=== PATIENT | male | born 1965 | race Caucasian/White ===

== ENCOUNTER → 2020-02-11 13:00 | Outpatient (BNV) | payer OTHER, MEDICAID, SELFPAY | PROVIDERS: PCP Internal Medicine Medical Oncology; Visit Provider Internal Medicine | DX: C20 Malignant neoplasm of rectum (principal) | CPT/HCPCS: 99212; 99213; 99214; 99215 ==

== ENCOUNTER 2020-07-05 09:03 | Outpatient (REF) | payer OTHER, SELFPAY | END 2020-07-05 09:04 | disposition home or self-care (01) | LOC: HO.CT 09:03 | PROVIDERS: PCP Internal Medicine Medical Oncology; Visit Provider Internal Medicine | DX: Z13.89 Encounter for screening for other disorder (principal) ==

== ENCOUNTER 2020-08-09 10:18 | Outpatient (REF) | payer OTHER, SELFPAY ==
--- NOTE | ~2020-08-09 | CT_ITS ---
EXAMINATION: CT CHEST WITH CONTRAST CT ABDOMEN AND PELVIS WITH CONTRAST CLINICAL INFORMATION: Assess tumor response. COMPARISON: None TECHNIQUE: 5 mm thin axial and reformatted 3 mm thin sagittal and coronal images of chest, abdomen and pelvis were obtained following IV 85 mL Omnipaque 350. DLP: 134 mGy-cm. FINDINGS: CHEST: The lungs are well-inflated and clear. There is a 3 mm nodular density left upper lobe axial image 87/5, 3 mm intrabronchial nodule right upper lobe axial image 115/5, mild thickening of right major fissure and nodularity image 283/5, previously seen left fissural nodule is not visualized at this time, 2 mm subpleural nodule left lower lobe axial image 398/5, stable, 3 mm faint ground-glass nodule medial basal segment left lower lobe axial image 55/4, stable. Minimal atelectatic changes are seen in the right lung base. There are no new nodules visualized. The heart size and the great vessels are normal caliber. The thyroid lobes are symmetrical and normal. Central trachea and the bronchi are widely patent. No abnormal size mediastinal lymph nodes or mass seen. There is no pericardial effusion. Normal axillary lymph nodes seen. There is pectus excavatum deformity of the bony thorax. The chest wall is otherwise unremarkable. ABDOMEN AND PELVIS: The liver is normal size and hypoattenuated. No focal lesion or intrahepatic ductal dilatation seen. The gallbladder is contracted. The spleen is unremarkable. There is a small accessory splenule at the inferior tip. The pancreas is homogeneous in density without any focal lesion. Bilateral adrenal glands are symmetric and normal. Both kidney nephrograms are symmetrical and normal size, shape and position. No radiopaque renal calculi or hydronephrosis seen. The abdominal aorta is normal caliber. There is circumferential thrombus in the proximal and mid aorta with atherosclerotic calcification. No abnormal retroperitoneal lymph nodes or mass seen. There is scattered stool and gas seen in the colon without distention. There is a left colectomy with a left mid quadrant colostomy in place. The small bowel loops are normal caliber. There is recent ingestion of food within nondistended stomach. The abdominal wall appears unremarkable. No evidence of hernia except for a left colostomy. Imaging through the pelvis reveals mild prostate enlargement extending into the base of bladder. A prominent rectal stump is visualized, similar to previous study. No enlargement of the stump seen. There is no free fluid. There is anterior pelvic femoral-femoral [place] bypass graft. No abnormal inguinal or pelvic lymph nodes seen. Bone windows reveal no lytic or sclerotic process seen. There is superior endplate Schmorl's node T11 vertebra and a vacuum disc phenomenon at the T10-T11 disc level. There is mild nonspecific sclerosis of iliac bones at the SI joint, unchanged from previous study. CT/CT abdomen pelvis w con IMPRESSION: Stable bilateral lung nodules. No abnormal mediastinal or axillary lymph nodes. Left colectomy with a left mid quadrant colostomy. There is a small but prominent rectal stump, similar to previous study. Prostate gland is mildly enlarged extending into the base of the bladder.
[2020-08-09] MEDS: iohexoL 350 MG/ML 100 ML INFUS..BTL IV (11:39)
== END 2020-08-09 10:19 | disposition home or self-care (01) ==
LOC: HO.CT 10:18
PROVIDERS: PCP Internal Medicine Medical Oncology; Visit Provider Internal Medicine
DX: C20 Malignant neoplasm of rectum (principal)
CPT/HCPCS: 71260; 74177; Q9967

== ENCOUNTER 2021-04-26 08:22 | Outpatient (REF) | payer OTHER, SELFPAY ==
--- NOTE | ~2021-04-26 | CT_ITS ---
EXAMINATION: CT CHEST, ABDOMEN AND PELVIS WITH CONTRAST CLINICAL INFORMATION: Rectal cancer. Exam surveillance. COMPARISON: 08/09/2020 TECHNIQUE: Multidetector volumetric CT imaging of the chest, abdomen, and pelvis was performed after the administration of 85 mL of Omnipaque 350 intravenous contrast without immediate adverse reactions. DOSE LOWERING TECHNIQUES: This CT examination was performed using dose optimization techniques as appropriate, variously including the following: - Automated exposure control - Adjustment of mA and/or kV according to patient size (this includes techniques or standardized protocols for targeted exams where dose is matched to indication/reason for exam; i.e. extremities or head) - Use of iterative reconstruction technique DLP: 346 mGy-cm. FINDINGS: CHEST: LUNGS: 4 mm left lower lobe nodule series 9 image 322 is new. 3 mm right middle lobe nodule series 9 image 360 is stable. 8 mm left lower lobe nodule series 9 image 419 is new. MEDIASTINUM: Right chest port with catheter tip in the distal SVC. No mediastinal adenopathy. No pericardial effusion. The central pulmonary arteries are free of filling defect. PLEURA: There is no pleural effusion. No pleural mass or thickening. AXILLA: No lymphadenopathy. ABDOMEN AND PELVIS: LIVER, GALLBLADDER, AND BILIARY TREE: The liver is normal in size, shape, and attenuation. No focal hepatic lesion or biliary ductal dilatation is present. The gallbladder is unremarkable with no evidence of radiopaque gallstones, gallbladder wall thickening, or obvious pericholecystic inflammatory changes. PANCREAS: Unremarkable. SPLEEN: Unremarkable. ADRENAL GLANDS: Unremarkable. KIDNEYS AND URETERS: The kidneys are normal in size, shape, and attenuation. No hydronephrosis, hydroureter, or calculi seen. No perinephric stranding. BLADDER: Unremarkable. GASTROINTESTINAL TRACT: Left colectomy with colostomy left lower quadrant. Again seen is prominence of the rectal stump which is unchanged compared to prior. No evidence of bowel obstruction. ABDOMINAL WALL: No significant hernia is appreciated. LYMPH NODES: Normal. VASCULAR: No aortic aneurysm. Significant aortoiliac atherosclerotic disease with occlusion of the left iliac system and stenting of the right common iliac artery. There is a right to left cross femoral bypass which is patent. PELVIC VISCERA: The prostate is mildly enlarged. OSSEOUS STRUCTURES: Chronic anterior wedge compression fracture at T11, unchanged. No discrete metastatic disease seen. CT/CT abdomen pelvis w con IMPRESSION: New subpleural 8 mm nodule left lower lobe and new 4 mm nodule adjacent to an airway in the left lower lobe. These are possibly inflammatory. Metastatic disease is not excluded. Recommend attention on follow-up. Left colectomy with persistent mild prominence of the rectal stump. No evidence of metastatic disease in the abdomen and pelvis.
[2021-04-26] MEDS: iohexoL 350 MG/ML 100 ML INFUS..BTL IV (09:39)
== END 2021-04-26 08:23 | disposition home or self-care (01) ==
LOC: HO.CT 08:22
PROVIDERS: Visit Provider Internal Medicine
DX: C20 Malignant neoplasm of rectum (principal)
CPT/HCPCS: 71260; 74177; Q9967

== ENCOUNTER 2021-12-26 12:57 | Outpatient (REF) | payer OTHER, SELFPAY ==
--- NOTE | ~2021-12-26 | CT_ITS ---
EXAMINATION: CT CHEST, ABDOMEN AND PELVIS IV CONTRAST. CLINICAL INFORMATION: Surveillance on chemotherapy. History of rectal cancer. COMPARISON: CT chest, abdomen and pelvis 04/26/2021 and 08/09/2020. TECHNIQUE: 5 mm thin axial and reformatted 3 mm thin sagittal and coronal images of chest, abdomen and pelvis were obtained following IV 85 mL Omnipaque 350. FINDINGS: CHEST: LUNGS: Lungs are well-expanded without any acute pneumonic process. There are bilateral small pulmonary nodules largest in the left lung base medially measures 1.2 cm x 0.85 cm. Best visualized on axial 417/6. It has grown in size. Previously it measured 8 mm. There is a 7 mm nodule para bronchiolar left lower lobe image 318/6. Previously measured 4 mm. It has increased in size. Subpleural right middle lobe 4 mm nodule axial image 359/6, stable. There are punctate 1-2 mm nodules which are grossly unchanged. Mediastinum: The thyroid lobes are symmetrical and normal. The central trachea and the bronchi widely patent. Heart size and the great vessels are normal caliber. There are trace coronary artery calcifications. There is no pericardial effusion. No abnormal size mediastinal or hilar lymph nodes seen. There is a right central venous port with its tip proximal SVC. Pleura: There is no pleural effusion, thickening or mass. Axilla: Unremarkable. There is a pectus excavatum deformity of the anterior chest wall. ABDOMEN AND PELVIS: Liver, ducts and gallbladder: The liver is normal size, homogeneous density and normal contour. No focal lesion or intrahepatic ductal dilatation. There are no radiopaque gallstones or wall thickening. Spleen: Unremarkable. Pancreas: Unremarkable. Adrenal glands: Bilateral adrenal glands are symmetrical and unremarkable. Kidneys and ureters: Both kidney nephrograms are normal size, symmetrical with cortical thickness. No enhancing renal mass, cyst or hydronephrosis seen. No radiopaque calculi either. Lymphovascular structures: There is atherosclerotic changes of abdominal aorta with circumferential thrombus in the mid and the distal segment extending into the left common iliac artery where there is almost no flow seen. The right common iliac artery appears patent. There is a right to left iliac graft questioning patency. No aneurysm. No abnormal mesenteric or retroperitoneal lymph nodes seen. GI tract: Oral and there is a left lower quadrant colostomy. Distal descending, sigmoid colon has been surgically resected. A prominent rectal stump is noted and stable. The small bowel loops are normal caliber. Appendix is not seen. Pelvis: The prostate gland is mildly enlarged. The periprostatic fat planes are preserved. The prostate does extend into the base of the bladder. There is no free fluid in the pelvis. Osseous structures: There is no aggressive lytic or sclerotic process. CT/CT abdomen pelvis w IV con IMPRESSION: 1. The pulmonary nodules have increased in size. 2. No abnormal size mediastinal or hilar lymphadenopathy seen. 3. Left lower quadrant colostomy with resection of distal descending colon, sigmoid colon. A prominent rectal stump is stable. No perirectal fat stranding or abnormal pelvic or inguinal lymphadenopathy. 4. There is right to left common iliac vascular graft. Significant atherosclerotic changes of abdominal aorta with circumferential thrombus in mid and distal abdominal aorta extending left common iliac artery is noted.
[2021-12-26] MEDS: Barium Sulfate Oral (Berry) 450 ML ORAL.SUSP 900 ML PO (15:27)
[2021-12-26] MEDS: iohexoL 350 MG/ML 100 ML INFUS..BTL IV (15:27)
== END 2021-12-26 12:58 | disposition home or self-care (01) ==
LOC: HO.CT 12:57
PROVIDERS: Visit Provider Internal Medicine
DX: C20 Malignant neoplasm of rectum (principal)
CPT/HCPCS: 71260; 74177; Q9967

== ENCOUNTER → 2022-01-15 12:52 | Outpatient (BNVA) | payer OTHER, SELFPAY | PROVIDERS: PCP Internal Medicine Medical Oncology; Visit Provider Surgery Vascular Surgery | DX: I73.9 Peripheral vascular disease, unspecified (principal) | CPT/HCPCS: 99202 ==

== ENCOUNTER 2022-02-25 08:49 | Outpatient (REF) | payer OTHER, SELFPAY ==
--- NOTE | ~2022-02-25 | US_ITS ---
EXAMINATION: US RETROPERITONEAL LIMITED (AORTA) CLINICAL INFORMATION: This is a 56-year-old male with possible abdominal aortic aneurysm.. Interventional Radiologist: Delroy Gay M.D., F.S.I.R., F.A.C.R. COMPARISON: Peripheral arterial disease. Femoral-femoral bypass. TECHNIQUE: Belcher-scale, color Doppler and spectral Doppler evaluation of the abdominal aorta. FINDINGS: There is scattered atherosclerotic disease without abdominal aortic aneurysm. The measurements of the aorta in maximum AP and transverse dimensions respectively are as follows: Proximal: 2.3 cm. The velocity is 63 cm/s. Mid: 1.9 cm. The velocity is 46 cm/s. Distal: 1.7 cm. The velocity is 57 cm/s. The measurements of the common iliac arteries in maximum AP and TRV dimensions are as follows: Right Common Iliac Artery: Not seen. The right external iliac artery velocity is 215 cm/s. Left Common Iliac Artery: Not seen. The left external iliac artery is not seen. EXAMINATION: NONINVASIVE ASSESSMENT OF THE ARTERIES OF BOTH LOWER EXTREMITIES CLINICAL INFORMATION: Claudication. A right to left cross femoral bypass graft is present. COMPARISON: 06/22/2018 along with iliac angioplasty 07/16/2017 and PVR study prior to this on 03/02/2018. Duplex study dated 01/07/2019. TECHNIQUE: Segmental ankle pulse volume recording, pressure measurement at the ankle and ankle brachial indices were obtained of the lower extremity arterial system bilaterally. In addition, bilateral lower extremity duplex ultrasound was performed with velocity measurements and waveform analysis in the common femoral arteries, profunda femoris arteries, proximal mid and distal superficial femoral arteries, popliteal arteries and tibial vessels. This study was performed at rest only. FINDINGS: a) AT REST: 1. The ankle-brachial indices are: Right 1.12. (previously 1.0) and left 0.54 (previously 0.98). >0.97-1.25 = normal - no significant arterial disease. 0.75-0.96 = mild peripheral arterial disease. 0.5-0.74 = moderate peripheral arterial disease. <0.50 = severe peripheral arterial disease. 2. Segmental pressure at ankle: Normal bilaterally. 3. PVR waveform at ankle: Normal bilaterally. 4. Duplex exam. Velocities in cm/sec and phasicity as well as the presence of plaque are reported below. RIGHT LEG: Scattered plaque is seen but normal multiphasic flow is present. External iliac: 215 cm/s. Common Femoral: 1 33 cm/s and triphasic. Previously, 178 Profunda Femoris: 45 cm/s and monophasic. Proximal SFA: 1 18 cm/s and triphasic. Previously, 74.6 Mid SFA: 119 cm/s and biphasic. Previously, 60.9 Distal SFA: 82 cm/s and biphasic. Previously, 46.9 Popliteal: 46 cm/s and biphasic. Previously, 48.7 Tibial: 81 cm/s and biphasic. Previously, 49.9 There is a right to left femoral-femoral bypass graft present which appears occluded. Previously, this appeared widely patent. LEFT LEG: Scattered plaque is seen but normal multiphasic flow is present The external iliac: Not seen. Previously, 89.2 Common Femoral: 67 cm/s and monophasic. Previously, 99.6 Profunda Femoris: 17 cm/s and monophasic. Proximal SFA: 32 cm/s and monophasic. Previously, 58.8 Mid SFA: 53 cm/s and monophasic. Previously, 52.2 Distal SFA: 24 cm/s and monophasic. Previously, 40.4 Popliteal: 26 cm/s and monophasic. Previously, 53.7 Tibial: 20 cm/s and monophasic. Previously, 51 US/US abdominal aortic aneurysm IMPRESSION: 1. The femoral-femoral bypass graft appears to be occluded. This appears new. 2. The left ankle-brachial index appears to be abnormal and decreased. 3. There is no abdominal aortic aneurysm.
== END 2022-02-25 08:50 | disposition home or self-care (01) ==
LOC: HO.US 08:49
PROVIDERS: Visit Provider Surgery Vascular Surgery
DX: I73.9 Peripheral vascular disease, unspecified (principal)
CPT/HCPCS: 76706; 93923; 93925

== ENCOUNTER 2022-03-06 | Outpatient (REF) | payer OTHER, SELFPAY ==
--- NOTE | ~2022-03-06 | XR_ITS ---
EXAMINATION: XR CHEST CLINICAL INFORMATION: Cough COMPARISON: Previous chest CT most recent December 2021 TECHNIQUE: 2 views of the chest were obtained. FINDINGS: The cardiac and mediastinal contours are stable. There is a right jugular port with tip projecting over the SVC. There is subsegmental atelectasis at the left lung base. The lungs are otherwise clear. No pleural effusion or pneumothorax. There are mild degenerative changes of the spine. XR/XR chest 2V IMPRESSION: Subsegmental atelectasis at the left lung base.
== END 2022-03-06 00:01 | disposition home or self-care (01) ==
LOC: HO.XRAY
PROVIDERS: Visit Provider Internal Medicine
DX: R05.9 Cough, unspecified (principal); C20 Malignant neoplasm of rectum
CPT/HCPCS: 71046

== ENCOUNTER → 2022-03-26 10:42 | Outpatient (BNVA) | payer OTHER, SELFPAY | PROVIDERS: PCP Internal Medicine Medical Oncology; Visit Provider Surgery Vascular Surgery | DX: I73.9 Peripheral vascular disease, unspecified (principal) | CPT/HCPCS: 99212 ==

== ENCOUNTER 2022-04-18 11:18 | Outpatient (REF) | payer OTHER, SELFPAY ==
--- NOTE | ~2022-04-18 | CT_ITS ---
EXAMINATION: CT CHEST, ABDOMEN AND PELVIS WITH CONTRAST CLINICAL INFORMATION: History of rectal cancer with right lower quadrant pain and lung nodules. COMPARISON: CT of the chest, abdomen and pelvis 12/26/2021. TECHNIQUE: Multidetector volumetric imaging was performed from the thoracic inlet through the pubic symphysis following administration of 85 mL of Omnipaque 350. Sagittal and coronal reformatted images were obtained on the technologist's workstation. This CT examination was performed using dose optimization techniques as appropriate, variously including the following: *Automated exposure control *Adjustment of mA and/or kV according to patient size (this includes techniques or standardized protocols for targeted exams where dose is matched to indication/reason for exam; i.e. extremities or head) *Use of iterative reconstruction technique DLP: 834 mGy-cm FINDINGS: CHEST: LUNG: The nodule at the left lung base in the costophrenic sulcus measures 1.4 x 1.0 cm, previously about the same at 1.3 x 1.0 cm (7:410 compare prior 5:419). An additional left lower lobe nodule measuring 1.0 x 0.5 cm, previously measuring 0.8 x 0.5 cm (7:304 compare prior 5:317). There are some other tiny nodules less than 3 mm in size that are unchanged. MEDIASTINUM: The mediastinum is unremarkable. The central vascular structures are unremarkable. No hilar or mediastinal lymphadenopathy. Coronary calcifications are present. PERICARDIUM/PLEURA: No significant effusion. No pleural mass or thickening. CHEST WALL/AXILLA: Right-sided jugular chest wall port is present with its tip in the SVC. No axillary adenopathy. ABDOMEN/PELVIS: PERITONEAL SPACE: No significant free air or free fluid identified. LIVER, GALLBLADDER, BILIARY TREE: The liver is normal in size, shape, and attenuation. No focal hepatic lesion or biliary ductal dilatation is present. The gallbladder is contracted but otherwise unremarkable with no evidence of radiopaque gallstones, gallbladder wall thickening, or obvious pericholecystic inflammatory changes. PANCREAS: Unremarkable. SPLEEN: Unremarkable. A tiny splenic granuloma is present. ADRENAL GLANDS: Slightly thickened without masses. KIDNEYS AND URETERS: The kidneys are normal in size, shape, and attenuation. No hydronephrosis, hydroureter, or calculi seen. No perinephric stranding. BLADDER: Empty and poorly evaluated. GASTROINTESTINAL TRACT: There is a colostomy present in the left lower quadrant. There has been partial sigmoid resection. A short rectal pouch is present. The small bowel is unremarkable. The appendix is not seen but there is no evidence of appendicitis. ABDOMINAL WALL: No significant hernia is appreciated. LYMPH NODES: No retroperitoneal lymphadenopathy. VASCULAR: Atherosclerotic change present in the aorta with some mild infrarenal dilatation with maximal dimension of 2.6 cm. Significant calcific and noncalcific plaque is present with luminal narrowing to 1 cm. A short right common iliac artery stent is present. The exam was not tailored as a CT angiogram and therefore patency cannot be established. Severe right iliac disease is present with an occluded external iliac artery. 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 The IVC appears unremarkable. PELVIC VISCERA: Unremarkable. OSSEUS STRUCTURES: There is a compression fracture with anterior wedging of T11. CT/CT chest w IV con IMPRESSION: 1. Pulmonary nodules are minimally increased in size. 2. No evidence of metastatic disease in the abdomen or pelvis. 3. Other incidental findings as described above including severe vascular disease with stents and grafts. Fleischner guidelines were followed.
[2022-04-18] MEDS: iohexoL 350 MG/ML 100 ML INFUS..BTL IV (12:02)
== END 2022-04-18 11:19 | disposition home or self-care (01) ==
LOC: HO.CT 11:18
PROVIDERS: PCP Internal Medicine Medical Oncology; Visit Provider Internal Medicine
DX: C20 Malignant neoplasm of rectum (principal)
CPT/HCPCS: 71260; 74177; Q9967

== ENCOUNTER 2022-04-22 13:35 | Emergency (ER) | payer OTHER, SELFPAY | END 2022-04-22 17:28 | disposition left against medical advice (07) | PROVIDERS: Emergency Provider Internal Medicine; PCP Internal Medicine Medical Oncology | DX: E86.0 Dehydration (principal) ==

== ENCOUNTER 2022-09-25 08:48 | Outpatient (REF) | payer OTHER, SELFPAY ==
--- NOTE | ~2022-09-25 | US_ITS ---
EXAMINATION: Noninvasive assessment of the bilateral lower extremities with ARTERIAL DUPLEX and ANKLE BRACHIAL INDICES (ABIs). CLINICAL INFORMATION: Peripheral vascular disease. History of femorofemoral bypass graft with prior occlusion TECHNIQUE: Duplex Doppler techniques with waveform analysis and measurement of velocities in the bilateral common femoral, profunda femoris, superficial femoral, popliteal and tibial arteries were performed. Additionally, ankle pulse volume recordings, ankle pressure measurements and ankle brachial indices were obtained of the lower extremity arterial system bilaterally. The study was performed only at rest. COMPARISON: 02/25/2022 FINDINGS: DIRECT DUPLEX DOPPLER FINDINGS: [id number] femorofemoral bypass graft is occluded. This is unchanged RIGHT LEG: Common femoral artery: 71.9 cm/s, phasicity: Biphasic Profunda femoris artery: 41.2 cm/s, phasicity: Biphasic Superficial femoral artery (proximal): 77.0 cm/s, phasicity: Biphasic Superficial femoral artery (mid): 95.7 cm/s, phasicity: Biphasic Superficial femoral artery (distal): 62.7 cm/s, phasicity: Biphasic Popliteal artery: 34.3 cm/s, phasicity: Biphasic Posterior tibial artery: 54.5 cm/s, phasicity: Biphasic Peroneal artery: 33.6 cm/s, phasicity: Biphasic LEFT LEG: Common femoral artery: 24.2 cm/s, phasicity: Monophasic Profunda femoris artery: 19.4 cm/s, phasicity: Monophasic Superficial femoral artery (proximal): 28.7 cm/s, phasicity: Monophasic Superficial femoral artery (mid): 41.9 cm/s, phasicity: Monophasic. A moderate noncalcified plaque seen Superficial femoral artery (distal): 16.4 cm/s, phasicity: Monophasic Popliteal artery: 18.1 cm/s, phasicity: Monophasic Posterior tibial artery: 16.8 cm/s, phasicity: Monophasic Peroneal artery: 11.8 cm/s, phasicity: Monophasic ANKLE-BRACHIAL INDEX: Right: 1.07?, previously 1.12 Left: 0.5, previously 0.54 ANKLE PRESSURES: Right: PT 170, DP 160 Left: PT?79, DP?nondetectable ANKLE PVR WAVEFORMS: Right: Normal Left: Dampened US/US arterial duplex LE BI IMPRESSION: Right leg: Normal ankle brachial index. Patent arterial flow throughout the right lower extremity without significant stenosis Left leg: Chronically occluded femorofemoral bypass graft with decreased ankle brachial index and diffusely monophasic waveforms throughout the left lower extremity consistent with chronic occlusion of the left iliac arteries. Arterial vessels are otherwise patent YECENIA Reference: - >1.4 = calcified vessels - 0.9 - 1.4 = normal - no significant arterial disease - 0.7 - 0.89 = mild peripheral arterial disease - 0.51 - 0.69 = moderate peripheral arterial disease - ? 0.50 = severe peripheral arterial disease - < .30 = critical arterial disease
== END 2022-09-25 08:49 | disposition home or self-care (01) ==
LOC: HO.US 08:48
PROVIDERS: PCP Internal Medicine Medical Oncology; Visit Provider Surgery Vascular Surgery
DX: I70.213 Atherosclerosis of native arteries of extremities with intermittent claudication, bilateral legs (principal)
CPT/HCPCS: 93923; 93925

== ENCOUNTER → 2022-10-01 10:46 | Outpatient (BNVA) | payer OTHER, SELFPAY | PROVIDERS: PCP Internal Medicine Medical Oncology; Visit Provider Surgery Vascular Surgery | DX: I73.9 Peripheral vascular disease, unspecified (principal) | CPT/HCPCS: 99212 ==

== ENCOUNTER 2022-10-30 10:10 | Outpatient (REF) | payer OTHER, SELFPAY ==
--- NOTE | ~2022-10-30 | CT_ITS ---
EXAMINATION: CT CHEST WITH CONTRAST CLINICAL INFORMATION: Check response to treatment COMPARISON: Previous chest CT March 2022 TECHNIQUE: Multidetector volumetric CT imaging of the chest was obtained after the administration of 85 mL of Omnipaque 350 intravenous contrast without immediate adverse reactions. Axial MIP volume rendering provided. Sagittal and coronal reformatted images were obtained. This CT examination was performed using dose optimization techniques as appropriate, variously including the following: *Automated exposure control *Adjustment of mA and/or kV according to patient size (this includes techniques or standardized protocols for targeted exams where dose is matched to indication/reason for exam; i.e. extremities or head) *Use of iterative reconstruction technique DLP: 142 mGy-cm FINDINGS: LUNGS: The largest lower lobe lobe nodule measures 1.2 x 1.7 cm axial image 423 series 7 compared to 1 x 1.4 cm on previous exam and is slightly increased in size. The next largest left lower lobe nodule measures 1.2 x 1.4 cm axial image 3:15 series 7 and has increased in size from 0.5 x 1 cm on March 2022 exam. There are additional smaller pulmonary nodules that do not appear appreciably changed. Emphysema. There are increased peripheral reticular markings seen questionable for mild interstitial lung disease. No endobronchial or endotracheal lesion. MEDIASTINUM: Atherosclerotic disease of the thoracic aorta. The thoracic aorta is normal in caliber. Normal heart size. Mild coronary artery calcification. No pericardial effusion. No enlarged hilar or mediastinal lymph nodes. Right jugular port with tip projecting over the SVC. PLEURA: There is no pleural effusion. No pleural mass or thickening. AXILLA: No lymphadenopathy. UPPER ABDOMEN: Fatty liver. Contracted gallbladder. OSSEOUS STRUCTURES: Degenerative changes of the spine. Slight loss of height of the T11 vertebral body questionable for Schmorl's versus mild compression fracture similar to previous exams. CT/CT chest w IV con IMPRESSION: Interval increase in size in left lower lobe pulmonary nodules. Fleischner guidelines were followed.
--- NOTE | ~2022-10-30 | CT_ITS ---
EXAMINATION: CT ABDOMEN AND PELVIS WITH CONTRAST CLINICAL INFORMATION: Follow-up status post treatment, rectal carcinoma COMPARISON: 04/18/2022 TECHNIQUE: Multidetector volumetric images were obtained from the superior aspect of the liver through the pubic symphysis following administration 85 mL of Omnipaque 350 intravenous contrast. Sagittal and coronal reformatted images were obtained on the technologist's workstation. Oral contrast: No This CT examination was performed using dose optimization techniques as appropriate, variously including the following: *Automated exposure control *Adjustment of mA and/or kV according to patient size (this includes techniques or standardized protocols for targeted exams where dose is matched to indication/reason for exam; i.e. extremities or head) *Use of iterative reconstruction technique DLP: 350 mGy-cm FINDINGS: LUNG BASES: As per CT chest report. LIVER, GALLBLADDER, AND BILIARY TREE: The liver is normal in size, shape, and attenuation. No focal hepatic lesion or biliary ductal dilatation is present. The gallbladder is unremarkable with no evidence of radiopaque gallstones, gallbladder wall thickening, or obvious pericholecystic inflammatory changes. PANCREAS: Unremarkable. SPLEEN: Incidental splenule. ADRENAL GLANDS: Unremarkable. KIDNEYS AND URETERS: The kidneys are normal in size, shape, and attenuation. No hydronephrosis, hydroureter, or calculi seen. No perinephric stranding. BLADDER: Unremarkable. GASTROINTESTINAL TRACT: Postsurgical changes noted with colostomy left lower quadrant. Subsequently prominent rectal stump appears overall similar. There is no obstruction. Staple lines noted. Small omental/mesenteric soft tissue deposits right abdomen anteriorly measures up to 6 mm slightly more prominent than on previous. No new deposit discernible. ABDOMINAL WALL: Fat-containing right inguinal hernia noted. No incisional hernia. LYMPH NODES: Normal. VASCULAR: Atherosclerotic changes with focal dilatation of the infrarenal abdominal aorta similar measuring up to 2.6 cm. Right-sided common iliac stent across femoral bypass grafting again noted. PELVIC VISCERA: Likely invasion of the prostate gland which is enlarged by the rectal fungating mass. OSSEOUS STRUCTURES: Unremarkable. CT/CT abdomen pelvis w IV con IMPRESSION: 1. Prominent rectal stump appears overall similar. Please correlate with digital rectal exam concerning any local regional recurrence. 2. Small omental/mesenteric soft tissue deposit right abdomen slightly more prominent than on previous. Please see leary image. 3. No new findings to indicate metastatic disease. Fleischner guidelines were followed.
[2022-10-30] MEDS: iohexoL 350 MG/ML 100 ML INFUS..BTL IV (11:06)
== END 2022-10-30 10:11 | disposition home or self-care (01) ==
LOC: HO.CT 10:10
PROVIDERS: PCP Internal Medicine Medical Oncology; Visit Provider Internal Medicine
DX: C20 Malignant neoplasm of rectum (principal)
CPT/HCPCS: 71260; 74177; Q9967

== ENCOUNTER 2022-11-08 10:49 | Outpatient (AMB) | payer OTHER, SELFPAY ==
--- NOTE | 2022-11-08 10:52 | MHC.OFFVIS ---
Intake Vital Signs 11/08/22 11:00 Height 5 ft 4 in Weight 171 lb BMI 29.3 BP 169/80 H Blood Pressure Location Lt brachial Position Sitting Pulse 86 Intake Visit Reasons: Hernia, right groin Intake Note: Patient is seen in office for evaluation and treatment of right groin hernia. 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: No Accompanied by: Family/Other Allergies Sulfa (Sulfonamide Antibiotics) Allergy (Unknown, Verified 11/08/22 10:58) Unknown sulfamethoxazole [From BACTRIM] Allergy (Unknown, Verified 11/08/22 10:58) NAUSEA,WEAKNESS trimethoprim [From BACTRIM] Allergy (Unknown, Verified 11/08/22 10:58) NAUSEA,WEAKNESS Medication List - Last Reconciled 11/11/22 by Mulugeta Melendez MD acetaminophen (Tylenol) 650 mg PO Q6H PRN amlodipine 5 mg PO DAILY dexamethasone 4 mg PO BID diphenhydramine HCl (Benadryl Allergy) 25 mg PO QID PRN famotidine 20 mg PO DAILY gabapentin 600 mg PO TID levofloxacin 250 mg PO DAILY lidocaine 4% 1 appl topical DAILY PRN loperamide 2 mg PO Q4H PRN magnesium oxide 400 mg PO DAILY ondansetron HCl 8 mg PO Q8H PRN tamsulosin 0.4 mg PO BEDTIME tramadol 50 mg PO BID PRN HPI HPI Comments History of Present Illness Details 56-year-old male patient recently diagnosed with rectal cancer and subsequent local recurrence requiring a perineal resection and descending colostomy. Patient has a history of peripheral vascular disease and review previously underwent a fem-fem bypass graft. He now has a palpable lump in the right groin which has gradually increased in size and is causing discomfort. He denies nausea, vomiting, fever, or chills. He denies a previous history of hernia surgeries. A CT abdomen and pelvis was obtained which does confirm a fat containing right inguinal hernia. No left inguinal hernia could be identified. He presents to discuss possible repair of the right inguinal hernia. [facility] Medical History (Updated 11/11/22 @ 16:06 by Mulugeta Melendez MD) Colostomy in place Degenerative joint disease Edentulous GERD (gastroesophageal reflux disease) Kidney stones Local recurrence of rectal cancer Neuropathy Peripheral vascular disease Spinal stenosis Surgical History (Updated 11/11/22 @ 16:04 by Mulugeta Melendez MD) H/O exploratory laparotomy H/O knee surgery History of laparoscopic appendectomy S/P epidural steroid injection Status post femorofemoral bypass surgery (03/30/18) Family History Father CAD (coronary artery disease) Social History Household Members: Spouse Housing: Apartment Are you a primary care technician to a significant other at home: No Do you presently have visiting nurse or other home services: No Alcohol intake: former Patient Tobacco Use Status: Former Tobacco user Quit Date: 2015 Tobacco use type: Cigarette Cigarette Packs Per Day: 2 Substance Use Type: Marijuana Advance Directives Date on File: 01/27/20 service: No Current occupational status: disabled Review of Systems Const All systems reviewed & are unremarkable except as noted in HPI and below Physical Exam Vital Signs: Last Vital Signs Pulse 86 11/08/22 11:00 BP 169/80 H 11/08/22 11:00 BMI result Body Mass Index 29.3 Const General: cooperative and no acute distress Nutritional Appearance: well nourished Orientation/consciousness: patient oriented x3 Limitations: no limitations HEENT Head: Yes normocephalic and Yes atraumatic Ears: hearing grossly normal bilaterally Resp Effort & Inspection: normal respiratory effort, no audible wheezes, no cough and no respiratory distress Cardio Jugular venous distension: no JVD GI Other: Colostomy in left lower quadrant. Patient examined in the standing position with Valsalva maneuvers. He is identified under right inguinal hernias identified, partially reducible with light pressure although not completely. Pulsation from the previous fem-fem bypass is also identified. Inspection: Yes normal to inspection Palpation (GI): Soft to palpation, nontender, no guarding and not rigid Skin Other: Warm, dry, no rash Neuro General: patient oriented x3 Extrem General: Yes no clubbing, cyanosis or edema Assessment & Plan Assessment & Plan (1) Right inguinal hernia: Code(s): K40.90 - Unilateral inguinal hernia, without obstruction or gangrene, not specified as recurrent (2) Status post femorofemoral bypass surgery: Onset Date: 03/30/18 Code(s): Z95.828 - Presence of other vascular implants and grafts (3) Rectal cancer: Code(s): C20 - Malignant neoplasm of rectum Plan 56-year-old male patient presenting with a right inguinal hernia with a previous history of rectal cancer and peripheral vascular disease with a fem-fem crossover bypass. On examination the right inguinal hernia is partially but not completely reducible and tender to palpation. I therefore recommended repair of this large right inguinal hernia possibly with mesh. After a discussion of the procedure, risks, and alternatives, he consents to the repair of right inguinal hernia with mesh. He will be scheduled as a short-stay surgery at his earliest convenience. Coding Level of Care Code New Pt Level 4 (83379) Diagnoses Right inguinal hernia K40.90 Status post femorofemoral bypass surgery Z95.828 Rectal cancer C20
[2022-11-08 11:00] VITALS: BP 169/80; PULSE 86; BMI 29.3
== END 2022-11-08 11:49 | disposition home or self-care (01) ==
PROVIDERS: PCP Internal Medicine Medical Oncology; Referring Provider Internal Medicine Medical Oncology; Visit Provider Surgery
DX: K40.90 Unilateral inguinal hernia, without obstruction or gangrene, not specified as recurrent (principal); Z95.828 Presence of other vascular implants and grafts; C20 Malignant neoplasm of rectum
CPT/HCPCS: 99204

== ENCOUNTER → 2022-11-08 10:49 | Outpatient (BNVA) | payer OTHER, SELFPAY | PROVIDERS: PCP Internal Medicine Medical Oncology; Referring Provider Internal Medicine Medical Oncology; Visit Provider Surgery | DX: K40.90 Unilateral inguinal hernia, without obstruction or gangrene, not specified as recurrent (principal); C20 Malignant neoplasm of rectum; Z95.828 Presence of other vascular implants and grafts | CPT/HCPCS: 99202 ==

== ENCOUNTER 2023-01-13 05:57 | Day surgery (SDC) | payer OTHER, SELFPAY ==
[2023-01-08 15:18] VITALS: BMI 29.3
--- NOTE | 2023-01-09 14:36 | P.CONAN_ITS ---
Documented by User: Dahlia Hollis NP 01/09/23 14:48 HPI - Anesthesia Eval Consult details Narrative: 57yo M for Right Hernia Repair Inguinal with mesh Chemo for rectal cancer, increase in pulm nodule size 10/2022. Chemo with last dose 10/2022. Held for per Dr Enriquez for hernia surgery s/p proctectomy with permanent colostomy 2019 [facility] Active Problems Active Problems: All Active Problems (Updated 01/08/23 @ 15:15 by Elmira Mcfarlane RN) Right inguinal hernia (Acute) PAD (peripheral artery disease) (Acute) Rectal cancer (Chronic) Status post femorofemoral bypass surgery (Acute 03/30/18) Past Medical History Medical History COPD (chronic obstructive pulmonary disease) GERD (gastroesophageal reflux disease) Edentulous Local recurrence of rectal cancer Degenerative joint disease Colostomy in place Neuropathy Spinal stenosis Peripheral vascular disease Kidney stones Family History Family History Father CAD (coronary artery disease) Surgical History Surgical History History of esophagogastroduodenoscopy (EGD) H/O colonoscopy Status post femorofemoral bypass surgery (03/30/18) S/P epidural steroid injection H/O knee surgery H/O exploratory laparotomy History of laparoscopic appendectomy Social History Social History Household Members: Spouse Housing: Apartment Are you a primary animal care technician to a significant other at home: No Do you presently have visiting nurse or other home services: No Alcohol intake: former Patient Tobacco Use Status: Former Tobacco user Quit Date: 2015 Tobacco use type: Cigarette Cigarette Packs Per Day: 2 Use of substances other than those prescribed or required for medical reasons: Yes Substance Use Type: Marijuana Have you been hit, kicked, punched, or otherwise hurt by someone within the past year? If so, by whom?: No Advance Directives: Yes Advance Directives Information Provided: Yes Advance Directives on File: Yes Advance Directives Date on File: 01/27/20 Recently lost weight without trying: No service: No Current occupational status: disabled Meds Allergies Allergy/AdvReac Type Severity Reaction Status Date / Time Sulfa (Sulfonamide Allergy Intermediate NAUSEA,WEAK Verified 01/13/23 06:17 Antibiotics) NESS sulfamethoxazole Allergy Intermediate NAUSEA,WEAK Verified 01/13/23 06:17 [From BACTRIM] NESS trimethoprim [From BACTRIM] Allergy Intermediate NAUSEA,WEAK Verified 01/13/23 06:17 NESS Home Medications Medication Instructions Recorded Confirmed Last Taken Type acetaminophen 325 mg capsule 650 mg PO Q6H PRN Pain 01/26/20 01/08/23 Unknown History (Tylenol) ondansetron HCl 8 mg tablet 8 mg PO Q8H PRN Pain 01/26/20 01/08/23 Unknown History tamsulosin 0.4 mg capsule 0.4 mg PO BEDTIME 01/26/20 01/08/23 Unknown History diphenhydramine HCl 25 mg tablet 25 mg PO QID PRN Allergy Symptoms 01/17/21 01/08/23 Unknown History (Benadryl Allergy) famotidine 20 mg tablet 20 mg PO DAILY 01/17/21 01/08/23 Unknown History loperamide 2 mg capsule 2 mg PO Q4H PRN Diarrhea 01/17/21 01/08/23 Unknown History gabapentin 600 mg tablet 600 mg PO TID 09/19/21 01/08/23 Unknown History Exam Exam Date and Time: January 09, 2023 1436 Height,Weight and Vital Signs: Height 5 ft 4 in Weight 77.564 kg Pertinent Lab Results Pertinent Lab Results: Laboratory Tests 01/01/23 09:40 WBC 5.2 Hgb 13.6 L Hct 42.6 Plt Count 255 Sodium 139 Potassium 4.0 Chloride 106 Carbon Dioxide 27 BUN 7 L Creatinine 0.79 Assessment and Plan Assessment Anesthesia Assessment: Chart Reviewed Documented by User: Huey Ramirez MD 01/13/23 07:30 [facility] Past Medical History Medical History COPD (chronic obstructive pulmonary disease) GERD (gastroesophageal reflux disease) Edentulous Local recurrence of rectal cancer Degenerative joint disease Colostomy in place Neuropathy Spinal stenosis Peripheral vascular disease Kidney stones Family History Family History Father CAD (coronary artery disease) Family history of problems with anesthesia: No Surgical History Surgical History History of esophagogastroduodenoscopy (EGD) H/O colonoscopy Status post femorofemoral bypass surgery (03/30/18) S/P epidural steroid injection H/O knee surgery H/O exploratory laparotomy History of laparoscopic appendectomy History of Problems with Anesthesia: No Social History Social History Household Members: Spouse Housing: Apartment Are you a primary animal care technician to a significant other at home: No Do you presently have visiting nurse or other home services: No Alcohol intake: former Patient Tobacco Use Status: Former Tobacco user Quit Date: 2015 Tobacco use type: Cigarette Cigarette Packs Per Day: 2 Use of substances other than those prescribed or required for medical reasons: Yes Substance Use Type: Marijuana Have you been hit, kicked, punched, or otherwise hurt by someone within the past year? If so, by whom?: No Advance Directives: Yes Advance Directives Information Provided: Yes Advance Directives on File: Yes Advance Directives Date on File: 01/27/20 Recently lost weight without trying: No service: No Current occupational status: disabled Meds Allergies Allergy/AdvReac Type Severity Reaction Status Date / Time Sulfa (Sulfonamide Allergy Intermediate NAUSEA,WEAK Verified 01/13/23 06:17 Antibiotics) NESS sulfamethoxazole Allergy Intermediate NAUSEA,WEAK Verified 01/13/23 06:17 [From BACTRIM] NESS trimethoprim [From BACTRIM] Allergy Intermediate NAUSEA,WEAK Verified 01/13/23 06:17 NESS Home Medications Medication Instructions Recorded Confirmed Last Taken Type acetaminophen 325 mg capsule 650 mg PO Q6H PRN Pain 01/26/20 01/08/23 Unknown History (Tylenol) ondansetron HCl 8 mg tablet 8 mg PO Q8H PRN Pain 01/26/20 01/08/23 Unknown History tamsulosin 0.4 mg capsule 0.4 mg PO BEDTIME 01/26/20 01/08/23 Unknown History diphenhydramine HCl 25 mg tablet 25 mg PO QID PRN Allergy Symptoms 01/17/21 01/08/23 Unknown History (Benadryl Allergy) famotidine 20 mg tablet 20 mg PO DAILY 01/17/21 01/08/23 Unknown History loperamide 2 mg capsule 2 mg PO Q4H PRN Diarrhea 01/17/21 01/08/23 Unknown History gabapentin 600 mg tablet 600 mg PO TID 09/19/21 01/08/23 Unknown History Exam Airway Mallampati Class: II TM Dist: >3cm Neck ROM: Full Heart: rrr Lungs: cta Assessment and Plan Final Anesthetic Review Family History of Problems with Anesthesia: No History of Problems with Anesthesia: No NPO: Yes ASA Class: III Patient Risk: Intermediate Procedure Risk: Intermediate Anesthetic Plan Anesthetic Plan: GA and Agree w/ Assess. and Plan Disposition: Standard PACU
[2023-01-13] VITALS (12 sets, daily range): BP systolic 132–196; BP diastolic 75–88; PULSE 61–87; RESP 12–18; TEMP 36.4–36.8; O2SAT 93–100
--- NOTE | 2023-01-13 05:59 | ECG_ITS ---
Test Reason : pre op Blood Pressure : / mmHG Vent. Rate : 079 BPM Atrial Rate : 079 BPM P-R Int : 136 ms QRS Dur : 092 ms QT Int : 390 ms P-R-T Axes : 070 049 054 degrees QTc Int : 447 ms Sinus rhythm with occasional Premature ventricular complexes Otherwise normal ECG When compared with ECG of 22-MAR-2020 12:46, Premature ventricular complexes are now Present Referred By: Dahlia Hollis Electronically Signed By:ERIC GARCIA
[2023-01-13] MEDS: Lactated Ringers 1,000 ML 100 ML IVCONT (06:26)
--- NOTE | 2023-01-13 06:44 | PC.NURSE ---
patient stated he was petrified of IV insertions. used best vein available in right hand.
--- NOTE | 2023-01-13 07:15 | MHC.SHP ---
Pre-Procedural Eval Section A Date of Service: 01/13/23 The patient is an INPATIENT: No Changes since office visit: Yes Patient answered all questions; No Cold of Flu in the past 2 weeks, No New Medical Problems and No Changes in Medication The History & Physical has been completed within 30 days and I have reviewed it.: No Section B Chief Complaint: Unilateral inguinal hernia, without obstruction or Details of Present Illness: Patient receiving treatment for recurrent rectal cancer; denies any new hernia symptoms Relevant Family History (Specify if Yes): No Relevant Social History: None Present Medications: see Short Stay Collaborative assessment Medical History: Significant History (recurrent rectal ca, PAD s/p fem-fem bypass) History of Previous Operations: Relevant previous surgery/procedure and date(s) (APR, fem-fem bypass) Allergies: Allergies Allergy/AdvReac Type Severity Reaction Status Date / Time Sulfa (Sulfonamide Allergy Intermediate NAUSEA,WEAK Verified 01/13/23 06:17 Antibiotics) NESS sulfamethoxazole Allergy Intermediate NAUSEA,WEAK Verified 01/13/23 06:17 [From BACTRIM] NESS trimethoprim [From BACTRIM] Allergy Intermediate NAUSEA,WEAK Verified 01/13/23 06:17 NESS Review of Systems Sugical H&P ROS: Negative: Constitution, Cardiovascular, Respiratory, Neurological, Psychiatric, Hem-Onc, Allergic/Immunologic, Gastrointestinal, Genitourinary, Musculoskeletal, Integumentary, Endocrine and Eyes/Ears/Nose/Throat Exam Surgical H&P Exam: Normal: HEENT, Normal: Heart, Normal: Lungs, Normal: Extremities, Normal: Abdomen, Normal: Skin and Normal: Neurological Plan Diagnosis/Plan: Unchanged I have reviewed the history and physical and performed a pertinent physical examination on my patient. No changes have occurred unless specified. Time Spent With Patient Time: Total time managing care of this patient today ____ minutes.
--- NOTE | 2023-01-13 08:32 | P.OP_ITS ---
Operative Note Operative Note Date of Service: 01/13/23 Narrative: Preoperative diagnosis: Right inguinal hernia Postoperative diagnosis: Same Procedure: Repair of right inguinal hernia Surgeon: Mulugeta Melendez MD Airport Maintenance Laborer: Taylor Rueda PA-C Anesthesia: General LMA Indications for procedure: 57 year old male patient with history of fem-fem bypass and APR for recurrent rectal ca, presenting with a symptomatic right inguinal hernia. Hernia increases with Valsalva and reduces with light pressure. Operative findings:. Indirect right inguinal hernia Specimen: right inguinal hernia sac and lipoma Estimated blood loss: < 2 mls Complications: none Procedure details: Patient was brought to the OR and placed in a supine position. After administering general anesthesia the patient's abdomen was prepped with ChloraPrep and draped in a sterile fashion. A surgical time-out was called the consent confirmed. Patient received preoperative antibiotics and Venodyne boots were in place. Local anesthesia consisting of 0.5% Sensorcaine with epinephrine was infiltrated over the right inguinal ligament. Incision was then made in oblique fashion over the inguinal ligament. This carried out through subcutaneous tissue past Jyoti's fashion up to the external oblique aponeurosis. Additional local was infiltrated below the external oblique aponeurosis. This was then incised with a scalpel wide with the Metzenbaum scissors. Spermatic cord was then dissected free from the surrounding inguinal canal and retracted using a Nancy drain. The floor of the inguinal canal was examined and no direct hernia was identified. Fibers of the cremasteric muscle were then and an indirect sac was identified. This was dissected down to the internal ring. The sac was then opened and the contents reduced. Sac with ligated with 0 polysorb suture. The sac was then divided above this. This was sent to the specimen. The sac was then reduced into the abdominal cavity. Attention was then directed to the direct space which was divided between Allis clamps. The preperitoneal space was then created. This was opened further using an open Ray-Elias sponge. A medium PHS mesh was then obtained. The circular underlay was placed into the preperitoneal space and deployed. The overlay was then secured to the pubic tubercle conjoined tendon shelving edge of the inguinal ligament using interrupted 0 Polysorb sutures. A slit was made in the mesh and the mesh were wrapped around the spermatic cord at the internal ring. This was then secured to the shelving edge of the inguinal ligament using the 0 Polysorb suture. This was felt to be loose enough to allow the tip of an index finger to pass. Wounds were checked for hemostasis. Wounds were irrigated with saline solution and suctioned dry. External oblique aponeurosis was then closed using a running 2 0 Polysorb suture. Jyoti's fascia and dermis reapproximated using interrupted 3-0 Polysorb sutures. Skin was then closed using a running subcuticular 4-0 Polysorb suture. Steri-Strips 2 x 2 gauze and Tegaderm were then applied. The patient tolerated the procedure well. Sponge, instrument, needle counts reported as correct. Patient was transferred to PACU in stable condition.
[2023-01-13] MEDS: HYDROmorphone HCl 0.5 MG/0.5 ML SYRINGE 0.25 MG IVPUSH (09:22)
[2023-01-13] MEDS: Ondansetron ODT 4 MG TAB.RAPDIS TRANSLINGU (10:38)
== END 2023-01-13 11:38 | disposition home or self-care (01) ==
PROVIDERS: PCP Internal Medicine Medical Oncology; Visit Provider Surgery
PROC: (CPT 49505; principal; 2023-01-13 07:30)
DX: K40.90 Unilateral inguinal hernia, without obstruction or gangrene, not specified as recurrent (principal); D17.1 Benign lipomatous neoplasm of skin and subcutaneous tissue of trunk; C20 Malignant neoplasm of rectum; I73.9 Peripheral vascular disease, unspecified; Z95.820 Peripheral vascular angioplasty status with implants and grafts; Z93.3 Colostomy status; Z79.899 Other long term (current) drug therapy; Z88.1 Allergy status to other antibiotic agents; Z88.2 Allergy status to sulfonamides; Z87.891 Personal history of nicotine dependence; F12.90 Cannabis use, unspecified, uncomplicated
CPT/HCPCS: 49505; 88302; 88304; 93005; C1781; C9088; J0131; J0690; J1170; J2405; J3010

== ENCOUNTER → 2023-01-13 05:57 | Outpatient (BNV) | payer OTHER, SELFPAY | PROVIDERS: PCP Internal Medicine Medical Oncology; Visit Provider Surgery | DX: K40.90 Unilateral inguinal hernia, without obstruction or gangrene, not specified as recurrent (principal) | CPT/HCPCS: 49505 ==

== ENCOUNTER 2023-01-30 08:24 | Outpatient (AMB) | payer OTHER, SELFPAY ==
[2023-01-30 08:30] VITALS: BP 143/80; PULSE 91; BMI 30.1
--- NOTE | 2023-01-30 08:30 | A.OFFVIS_ITS ---
Intake Vital Signs 01/30/23 08:30 Height 5 ft 4 in Weight 175 lb 4 oz BMI 30.1 BP 143/80 H Blood Pressure Location Lt brachial Position Sitting Pulse 91 Intake Visit Reasons: S/P RIH w/mesh Intake Note: Patient is seen in office for post op assessment post right inguinal hernia repair. 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 Melendez. He is here for a postop visit. He currently denies significant complaints. [facility] Medical History COPD (chronic obstructive pulmonary disease) GERD (gastroesophageal reflux disease) Edentulous Local recurrence of rectal cancer Degenerative joint disease Colostomy in place Neuropathy Spinal stenosis Peripheral vascular disease Kidney stones Surgical History H/O right inguinal hernia repair (01/13/23) History of esophagogastroduodenoscopy (EGD) H/O colonoscopy Status post femorofemoral bypass surgery (03/30/18) S/P epidural steroid injection H/O knee surgery H/O exploratory laparotomy History of laparoscopic appendectomy Family History Father CAD (coronary artery disease) Social History Household Members: Spouse Housing: Apartment Are you a primary inspector health care facilities to a significant other at home: No Do you presently have visiting nurse or other home services: No Alcohol intake: former Patient Tobacco Use Status: Former Tobacco user Quit Date: 2015 Tobacco use type: Cigarette Cigarette Packs Per Day: 2 Substance Use Type: Marijuana Advance Directives Date on File: 01/27/20 service: No Current occupational status: disabled Review of Systems Const Denies chills and Denies fever(s) Card Denies chest pain, Denies dyspnea and Denies dyspnea on exertion Resp Denies cough, Denies dyspnea and Denies dyspnea on exertion GI Denies hematochezia and Denies change in bowel habits Denies hematuria and Denies difficulty urinating Musc Denies back pain and Denies limited range of motion Neuro Denies focal weakness and Denies convulsions Psych Denies depression and Denies mood swings Physical Exam Const General: comfortable and no acute distress Resp Effort & Inspection: normal respiratory effort GI Other: Incision on the right groin is well healed, not infected, repair appears intact Palpation (GI): Soft to palpation, not firm and nontender Assessment & Plan Assessment & Plan (1) Right inguinal hernia: Code(s): K40.90 - Unilateral inguinal hernia, without obstruction or gangrene, not specified as recurrent Plan: Status post repair of a right inguinal hernia with mesh, with Dr. Melendez. He is doing very well postoperatively. His incision is well healed. The repair site is intact. He was advised to avoid lifting more than 20 lb for at least 2 more weeks. He can follow up on a p.r.n. basis. He has ongoing chemotherapy for lung cancer and is okay to continue with this. Coding Level of Care Code Global (94100) Diagnoses Right inguinal hernia K40.90
== END 2023-01-30 08:40 | disposition home or self-care (01) ==
PROVIDERS: PCP Internal Medicine Medical Oncology; Visit Provider Surgery
DX: K40.90 Unilateral inguinal hernia, without obstruction or gangrene, not specified as recurrent (principal)
CPT/HCPCS: 99024

== ENCOUNTER → 2023-01-30 08:24 | Outpatient (BNVA) | payer OTHER, SELFPAY | PROVIDERS: PCP Internal Medicine Medical Oncology; Visit Provider Surgery ==

== ENCOUNTER 2023-07-07 09:51 | Outpatient (REF) | payer OTHER, SELFPAY ==
[2023-07-07 11:10] LABS: MANUAL DIFF FLAG NO
[2023-07-07 11:29] LABS: Basophils Absolute Auto 0.1 X10*3/uL (0.0-0.2); Basophils Percent Auto 0.7 % (0-2); Eosinophils Absolute Auto 0.2 X10*3/uL (0.0-0.4); Eosinophils Percent Auto 2.5 % (0-4); Hematocrit 48.1 % (42.0-52.0); Hemoglobin 15.6 g/dl (14.0-18.0); Imm Gran Abs Auto 0.04 X10*3/uL (0.00-0.03); Imm Gran Pct Auto 0.5 % (0.0-0.4); Lymphocytes Absolute Auto 2.5 X10*3/uL (1.2-4.9); Lymphocytes Percent Auto 28.4 % (20-40); Mean Corpuscular HGB Conc 32.4 g/dl (31.0-36.0); Mean Corpuscular Volume 92.5 fL (80.0-98.0); Mean Platelet Volume 9.7 fL (9.4-12.4); Monocytes Absolute Auto 0.6 X10*3/uL (0.1-1.2); Monocytes Percent Auto 7.3 % (2-11); Neutrophils Absolute Auto 5.3 x10*3/uL (2.0-8.3); Neutrophils Percent Auto 60.6 % (45-73); Platelet Count 260 X10*3/uL (160-400); Red Cell Distribution Width 13.9 % (11.0-16.0); White Blood Count 8.7 X10*3/uL (4.8-10.8)
[2023-07-07 11:40] LABS: Alanine Aminotransferase 22 U/L (0-40); Albumin Level 4.5 g/dL (3.5-5.0); Alkaline Phosphatase 86 U/L (39-117); Anion Gap 15 (12-20); Aspartate Amino Transferase 21 U/L (5-37); Bilirubin Total 0.4 mg/dL (0.0-1.0); Blood Urea Nitrogen 8 mg/dL (9-16); Calcium 9.8 mg/dL (8.4-10.2); Carbon Dioxide 29 mmol/L (22-29); Chloride 100 mmol/L (96-108); Cholesterol 265 mg/dL (<200); Estimated Glomerular Filt Rate > 60; Glucose Fasting 98 mg/dL (60-99); HDL Cholesterol 46 mg/dL (>40); LDL Cholesterol Calculated 187 mg/dL (<100); Sodium 140 mmol/L (135-145); Total Protein 7.9 g/dL (6.5-8.0); Triglycerides 163 mg/dL (<150)
[2023-07-07 12:02] LABS: Prostate Specific Antigen 4.39 ng/mL (<0.05-4.0)
== END 2023-07-07 09:52 | disposition home or self-care (01) ==
LOC: HO.HMGCLDS 09:51
PROVIDERS: PCP Internal Medicine Medical Oncology; Visit Provider Internal Medicine Medical Oncology
DX: E66.3 Overweight (principal); N40.0 Benign prostatic hyperplasia without lower urinary tract symptoms; C20 Malignant neoplasm of rectum
CPT/HCPCS: 36415; 80053; 80061; 82378; 84153; 85025

== ENCOUNTER 2023-07-09 11:47 | Outpatient (REF) | payer OTHER, SELFPAY ==
[2023-07-09 13:31] LABS: MANUAL DIFF FLAG NO
[2023-07-09 13:40] LABS: Basophils Absolute Auto 0.1 X10*3/uL (0.0-0.2); Basophils Percent Auto 0.6 % (0-2); Eosinophils Absolute Auto 0.2 X10*3/uL (0.0-0.4); Eosinophils Percent Auto 1.6 % (0-4); Hematocrit 49.1 % (42.0-52.0); Imm Gran Abs Auto 0.04 X10*3/uL (0.00-0.03); Imm Gran Pct Auto 0.4 % (0.0-0.4); Lymphocytes Absolute Auto 2.5 X10*3/uL (1.2-4.9); Lymphocytes Percent Auto 27.2 % (20-40); Mean Corpuscular HGB Conc 32.6 g/dl (31.0-36.0); Mean Corpuscular Volume 92.1 fL (80.0-98.0); Mean Platelet Volume 9.6 fL (9.4-12.4); Monocytes Absolute Auto 0.7 X10*3/uL (0.1-1.2); Monocytes Percent Auto 7.1 % (2-11); Neutrophils Absolute Auto 5.8 x10*3/uL (2.0-8.3); Neutrophils Percent Auto 63.1 % (45-73); Platelet Count 249 X10*3/uL (160-400); Red Blood Count 5.33 X10*6/uL (4.60-5.80); Red Cell Distribution Width 13.7 % (11.0-16.0); White Blood Count 9.2 X10*3/uL (4.8-10.8)
[2023-07-09 14:09] LABS: Alanine Aminotransferase 24 U/L (0-40); Albumin Level 4.7 g/dL (3.5-5.0); Alkaline Phosphatase 91 U/L (39-117); Anion Gap 13 (12-20); Aspartate Amino Transferase 20 U/L (5-37); Bilirubin Total 0.5 mg/dL (0.0-1.0); Blood Urea Nitrogen 7 mg/dL (9-16); Calcium 10.2 mg/dL (8.4-10.2); Carbon Dioxide 25 mmol/L (22-29); Chloride 103 mmol/L (96-108); Estimated Glomerular Filt Rate > 60; Glucose Random 106 mg/dL (60-115); Potassium 4.3 mmol/L (3.3-5.1); Sodium 137 mmol/L (135-145); Total Protein 8.2 g/dL (6.5-8.0)
== END 2023-07-09 11:48 | disposition home or self-care (01) ==
LOC: HO.10HDL 11:47
PROVIDERS: Visit Provider Internal Medicine Medical Oncology
DX: F41.9 Anxiety disorder, unspecified (principal); J44.9 Chronic obstructive pulmonary disease, unspecified; C20 Malignant neoplasm of rectum; C78.00 Secondary malignant neoplasm of unspecified lung
CPT/HCPCS: 36415; 80053; 82378; 85025

== ENCOUNTER 2023-07-22 10:36 | Outpatient (AMB) | payer OTHER, SELFPAY ==
--- NOTE | 2023-07-22 10:39 | MHC.OFFVIS ---
Intake Vital Signs 07/22/23 10:41 07/22/23 10:51 Height 5 ft 4 in 5 ft 4 in Weight 183 lb BMI 31.4 BP 160/81 H Blood Pressure Location Lt brachial Position Sitting Pulse 88 Intake Visit Reasons: Basal Cell of Back Intake Note: Patient is seen in office for evaluation of a basal cell of the back. Pt c/o:was refer by [employer] for lesion of the back and another of the left christianity, had bx done and was found to be cancerous and was refer for removal by surgeon, onset for a while, recently started changing, lesion had disappeared while getting chemotherapy and came back after, currently taking a break from chemo Automotive Manufacturer Required: No Accompanied by: Self / Same As Patient Allergies Sulfa (Sulfonamide Antibiotics) Allergy (Intermediate, Verified 07/22/23 10:48) NAUSEA,WEAKNESS sulfamethoxazole [From BACTRIM] Allergy (Intermediate, Verified 07/22/23 10:48) NAUSEA,WEAKNESS trimethoprim [From BACTRIM] Allergy (Intermediate, Verified 07/22/23 10:48) NAUSEA,WEAKNESS Medication List - Last Reconciled 07/22/23 by Mulugeta Melendez MD acetaminophen (Tylenol) 650 mg PO Q6H PRN amlodipine 5 mg PO DAILY dexamethasone 4 mg PO BID diphenhydramine HCl (Benadryl Allergy) 25 mg PO QID PRN famotidine 20 mg PO DAILY gabapentin 600 mg PO TID levofloxacin 250 mg PO DAILY lidocaine 4% 1 appl topical DAILY PRN loperamide 2 mg PO Q4H PRN magnesium oxide 400 mg PO DAILY ondansetron HCl 8 mg PO Q8H PRN tamsulosin 0.4 mg PO BEDTIME tramadol 50 mg PO BID PRN HPI HPI Comments History of Present Illness Details 57-year-old male patient returning for evaluation of 2 areas of skin cancer noted by his youth services specialist. One lesion located in the mid back has been present for many years but has gradually changed with new areas of crusting noted in the central portion. A recent biopsy revealed squamous cell carcinoma. A 2nd lesion located in the left forehead just below the hairline is a biopsy-proven basal cell carcinoma. 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 He presents today for consideration of wider excision of the squamous cell and basal cell carcinomas. He has a prior history of rectal cancer and previously underwent pelvic radiation. [facility] Medical History COPD (chronic obstructive pulmonary disease) GERD (gastroesophageal reflux disease) Edentulous Local recurrence of rectal cancer Degenerative joint disease Colostomy in place Neuropathy Spinal stenosis Peripheral vascular disease Kidney stones Surgical History H/O right inguinal hernia repair (01/13/23) History of esophagogastroduodenoscopy (EGD) H/O colonoscopy Status post femorofemoral bypass surgery (03/30/18) S/P epidural steroid injection H/O knee surgery H/O exploratory laparotomy History of laparoscopic appendectomy Family History Father CAD (coronary artery disease) Social History Household Members: Spouse Housing: Apartment Are you a primary nurse behavioral health care to a significant other at home: No Do you presently have visiting nurse or other home services: No Alcohol intake: former Patient Tobacco Use Status: Former Tobacco user Quit Date: 2015 Tobacco use type: Cigarette Cigarette Packs Per Day: 2 Substance Use Type: Marijuana Advance Directives Date on File: 01/27/20 service: No Current occupational status: disabled Review of Systems Const Denies chills and Denies fever(s) Card Denies chest pain, Denies dyspnea and Denies dyspnea on exertion Resp Denies cough, Denies dyspnea and Denies dyspnea on exertion GI Denies hematochezia and Denies change in bowel habits Denies hematuria and Denies difficulty urinating Musc Denies back pain and Denies limited range of motion Skin/Breast Reports as per HPI Neuro Denies focal weakness and Denies convulsions Psych Denies depression and Denies mood swings Physical Exam Const General: cooperative and no acute distress Nutritional Appearance: well nourished Orientation/consciousness: patient oriented x3 Limitations: no limitations HEENT Head: Yes normocephalic and Yes atraumatic Head images: 1. 1 cm excision site left forehead, no ulceration, pigmentation or bleeding noted. Ears: hearing grossly normal bilaterally Resp Effort & Inspection: normal respiratory effort, no audible wheezes, no cough and no respiratory distress Cardio Jugular venous distension: no JVD GI Other: Colostomy in place Inspection: Yes normal to inspection Palpation (GI): Soft to palpation, nontender, no guarding and not rigid Back/Spine/Pelvis Back/spine/pelvis image: 1. Crusted lesion midback, 4 cm long by 2 cm wide with a thick area of crusting in the central portion suggestive of a squamous cell carcinoma in a field of an underlying nevus. Skin Other: Warm, dry, no rash Neuro General: patient oriented x3 Extrem General: Yes no clubbing, cyanosis or edema Assessment & Plan Assessment & Plan (1) Basal cell carcinoma, face: Code(s): C44.310 - Basal cell carcinoma of skin of unspecified parts of face (2) Squamous cell carcinoma, trunk: Code(s): C44.529 - Squamous cell carcinoma of skin of other part of trunk Plan 57-year-old male patient presenting with a biopsy-proven squamous cell carcinoma of the mid back measuring approximately 4 x 2 cm and a 2nd lesion in the left face measuring approximately 1 cm, biopsy-proven basal cell carcinoma. I recommended a wide excision either under local or general anesthesia. After discussion of the procedure, risks, and alternatives, he consents to the wide excision of both midback squamous cell carcinoma and left forehead basal cell carcinoma as a short-stay surgery. Coding Level of Care Code Est Pt Level 4 (81255) Diagnoses Basal cell carcinoma, face C44.310 Squamous cell carcinoma, trunk C44.529
[2023-07-22 10:51] VITALS: BP 160/81; PULSE 88; BMI 31.4
== END 2023-07-22 11:12 | disposition home or self-care (01) ==
PROVIDERS: PCP Internal Medicine Medical Oncology; Referring Provider Internal Medicine Medical Oncology; Visit Provider Surgery
DX: C44.310 Basal cell carcinoma of skin of unspecified parts of face (principal); C44.529 Squamous cell carcinoma of skin of other part of trunk
CPT/HCPCS: 99214

== ENCOUNTER → 2023-07-22 10:36 | Outpatient (BNVA) | payer OTHER, SELFPAY | PROVIDERS: PCP Internal Medicine Medical Oncology; Referring Provider Internal Medicine Medical Oncology; Visit Provider Surgery | DX: C44.310 Basal cell carcinoma of skin of unspecified parts of face (principal); C44.529 Squamous cell carcinoma of skin of other part of trunk | CPT/HCPCS: 99212 ==

== ENCOUNTER 2023-08-18 10:47 | Outpatient (REF) | payer OTHER, SELFPAY ==
[2023-08-18 13:51] LABS: Blood Urea Nitrogen 10 mg/dL (9-16); Estimated Glomerular Filt Rate > 60
== END 2023-08-18 10:48 | disposition home or self-care (01) ==
LOC: HO.HMGCLDS 10:47
PROVIDERS: PCP Internal Medicine Medical Oncology; Visit Provider Internal Medicine Medical Oncology
DX: N40.0 Benign prostatic hyperplasia without lower urinary tract symptoms (principal); C20 Malignant neoplasm of rectum
CPT/HCPCS: 36415; 82565; 84520

== ENCOUNTER 2023-09-03 13:06 | Outpatient (REF) | payer OTHER, SELFPAY ==
--- NOTE | ~2023-09-03 | CT_ITS ---
EXAMINATION: CT CHEST WITH CONTRAST CLINICAL INFORMATION: Rectal cancer COMPARISON: Previous chest CT most recent October 2022 TECHNIQUE: Multidetector volumetric CT imaging of the chest was obtained after the administration of 85 mL of Omnipaque 350 intravenous contrast without immediate adverse reactions. Axial MIP volume rendering provided. Sagittal and coronal reformatted images were obtained. This CT examination was performed using dose optimization techniques as appropriate, variously including the following: *Automated exposure control *Adjustment of mA and/or kV according to patient size (this includes techniques or standardized protocols for targeted exams where dose is matched to indication/reason for exam; i.e. extremities or head) *Use of iterative reconstruction technique DLP: 1-2 mGy-cm FINDINGS: LUNGS: There is evidence of mild emphysema. There are increased peripheral reticular markings again questionable for mild interstitial lung disease. There is interval increase in size in the 2 left lower lobe nodules. These measure 1.6 x 2.2 cm axial image 290 series 5 compared to 1.2 x 1.7 cm October 2022 and 1.3 x 1.5 cm axial image 378 series 5 there are additional smaller pulmonary nodules that appear increased as well. Compared to 1.2 x 1.4 cm October 2022 exam. MEDIASTINUM: Right jugular port with tip projecting over the SVC. Normal heart size. No pericardial effusion. Mild coronary artery calcification. No enlarged hilar or mediastinal lymph nodes. PLEURA: There is no pleural effusion. No pleural mass or thickening. AXILLA: No lymphadenopathy. UPPER ABDOMEN: See abdominal and pelvic CT report from the same day. OSSEOUS STRUCTURES: Mild degenerative changes of the spine. T11 Schmorl's node versus mild compression fracture unchanged. CT/CT chest w IV con IMPRESSION: Interval increase in pulmonary nodules. Fleischner guidelines were followed.
--- NOTE | ~2023-09-03 | CT_ITS ---
EXAMINATION: CT ABDOMEN AND PELVIS WITH CONTRAST CLINICAL INFORMATION: Rectal cancer COMPARISON: Previous CT of the abdomen and pelvis most recent October 2022 TECHNIQUE: Multidetector volumetric images were obtained from the superior aspect of the liver through the pubic symphysis following administration 85 mL of Omnipaque 350 intravenous contrast. Sagittal and coronal reformatted images were obtained on the technologist's workstation. Oral contrast: Yes This CT examination was performed using dose optimization techniques as appropriate, variously including the following: *Automated exposure control *Adjustment of mA and/or kV according to patient size (this includes techniques or standardized protocols for targeted exams where dose is matched to indication/reason for exam; i.e. extremities or head) *Use of iterative reconstruction technique DLP: 393 mGy-cm FINDINGS: LIVER, GALLBLADDER, AND BILIARY TREE: The liver is low in attenuation suggestive of mild fatty infiltration. No focal liver lesion. The gallbladder is slightly contracted. There is question of mild gallbladder wall thickening, increased enhancement and nodularity. Appearance is questionable for adenomyomatosis of the gallbladder wall. No gallstones. No biliary duct dilatation. PANCREAS: Unremarkable. SPLEEN: Unremarkable. ADRENAL GLANDS: Unremarkable. KIDNEYS AND URETERS: The kidneys are normal in size, shape, and attenuation. No hydronephrosis, hydroureter, or calculi seen. No perinephric stranding. BLADDER: There is abnormal soft tissue seen at the base of the bladder. This may be related to the prostate gland. This is similar to previous exam. GASTROINTESTINAL TRACT: Left lower quadrant diverting colostomy. There are postsurgical changes to the small bowel with surgical staple line. The appendix is not seen. There is a soft tissue mass in the pelvis probably representing residual rectal stump. This is inseparable from the prostate gland. This is partially calcified and measures 4 x 4.6 cm in AP and transverse dimension. This does not appear appreciably changed from multiple prior exams. There is fat stranding in the presacral space also unchanged. ABDOMINAL WALL: Postsurgical changes to the right anterior abdominal wall. Left lower quadrant colostomy. LYMPH NODES: There are small retroperitoneal lymph nodes in the abdomen and pelvis. No enlarged lymph nodes are seen. Previously identified peritoneal nodule just deep to the right anterior abdominal wall no longer seen. No ascites. VASCULAR: Severe atherosclerotic disease. Femorofemoral bypass graft. Right common iliac artery stent. PELVIC VISCERA: Stable soft tissue mass in the pelvis likely representing residual rectal/anal lesion and invading the prostate gland. Fat stranding in the presacral space is stable. OSSEOUS STRUCTURES: Mild degenerative changes of the spine and hip joints. CT/CT abdomen pelvis w IV con IMPRESSION: Stable soft tissue mass in the pelvis likely representing residual rectal stump which is inseparable from the prostate gland. Stable fat stranding in the presacral space. Abnormal soft tissue at the base of the bladder probably representing invagination of the prostate gland also unchanged. Previously identified peritoneal nodule just deep to the right anterior abdominal wall no longer seen. Fatty liver. Severe atherosclerotic disease. Fleischner guidelines were followed.
[2023-09-03] MEDS: iohexoL 350 MG/ML 100 ML INFUS..BTL 85 ML IV (15:55)
[2023-09-03] MEDS: Barium Sulfate Oral (Mocha) 450 ML ORAL.SUSP 900 ML PO (15:56)
== END 2023-09-03 13:07 | disposition home or self-care (01) ==
LOC: HO.CT 13:06
PROVIDERS: PCP Internal Medicine Medical Oncology; Visit Provider Internal Medicine Medical Oncology
DX: C20 Malignant neoplasm of rectum (principal); C78.00 Secondary malignant neoplasm of unspecified lung
CPT/HCPCS: 71260; 74177; Q9967

== ENCOUNTER 2023-09-10 05:52 | Day surgery (SDC) | payer OTHER, SELFPAY ==
[2023-09-08 13:55] VITALS: BMI 31.4
--- NOTE | 2023-09-08 15:16 | HO.ANESPROP2 ---
Documented by User: Dahlia Hollis NP 09/08/23 15:22 HPI - Anesthesia Eval Consult details Narrative: 57yo M for Excision Squamous cell mid-back, basal cell Left Face Rectal CA. Last chemo 03/2023 [facility] Active Problems Active Problems: All Active Problems Squamous cell carcinoma, trunk (Acute) Basal cell carcinoma, face (Acute) Right inguinal hernia (Acute) PAD (peripheral artery disease) (Acute) Rectal cancer (Chronic) Status post femorofemoral bypass surgery (Acute 03/30/18) Past Medical History Medical History COPD (chronic obstructive pulmonary disease) GERD (gastroesophageal reflux disease) Edentulous Local recurrence of rectal cancer Degenerative joint disease Colostomy in place Neuropathy Spinal stenosis Peripheral vascular disease Kidney stones Family History Family History Father CAD (coronary artery disease) Family history of problems with anesthesia: No Surgical History Surgical History H/O right inguinal hernia repair (01/13/23) History of esophagogastroduodenoscopy (EGD) H/O colonoscopy Status post femorofemoral bypass surgery (03/30/18) S/P epidural steroid injection H/O knee surgery H/O exploratory laparotomy History of laparoscopic appendectomy History of Problems with Anesthesia: No Social History Social History Household Members: Spouse Housing: Apartment Are you a primary physician locums urgent care to a significant other at home: No Do you presently have visiting nurse or other home services: No Alcohol intake: former Patient Tobacco Use Status: Former Tobacco user Quit Date: 2015 Tobacco use type: Cigarette Cigarette Packs Per Day: 2 Substance Use Type: Marijuana Advance Directives Date on File: 01/27/20 service: No Current occupational status: disabled Meds Allergies Allergy/AdvReac Type Severity Reaction Status Date / Time Sulfa (Sulfonamide Allergy Intermediate NAUSEA,WEAK Verified 09/10/23 06:43 Antibiotics) NESS sulfamethoxazole Allergy Intermediate NAUSEA,WEAK Verified 09/10/23 06:43 [From BACTRIM] NESS trimethoprim [From BACTRIM] Allergy Intermediate NAUSEA,WEAK Verified 09/10/23 06:43 NESS Home Medications ?Medication ?Instructions ?Recorded ?Confirmed ?Last Taken ?Type acetaminophen 325 mg capsule 650 mg PO Q6H PRN Pain 01/26/20 07/22/23 Unknown History (Tylenol) ondansetron HCl 8 mg tablet 8 mg PO Q8H PRN Pain 01/26/20 07/22/23 Unknown History tamsulosin 0.4 mg capsule 0.4 mg PO BEDTIME 01/26/20 09/10/23 09/10/23 History diphenhydramine HCl 25 mg tablet 25 mg PO QID PRN Allergy Symptoms 01/17/21 07/22/23 Unknown History (Benadryl Allergy) famotidine 20 mg tablet 20 mg PO DAILY 01/17/21 09/10/23 09/09/23 History loperamide 2 mg capsule 2 mg PO Q4H PRN Diarrhea 01/17/21 07/22/23 Unknown History gabapentin 600 mg tablet 600 mg PO TID 09/19/21 09/10/23 09/09/23 History Exam Height,Weight and Vital Signs: Height 5 ft 4 in Weight 83.007 kg Pertinent Lab Results Pertinent Lab Results: Laboratory Tests 07/09/23 08/18/23 11:52 10:54 WBC 9.2 Hgb 16.0 Hct 49.1 Plt Count 249 Sodium 137 Potassium 4.3 Chloride 103 Carbon Dioxide 25 BUN 10 Creatinine 0.83 Narrative Narrative: EKG 12/2022 Vent. Rate : 079 BPM Atrial Rate : 079 BPM P-R Int : 136 ms QRS Dur : 092 ms QT Int : 390 ms P-R-T Axes : 070 049 054 degrees QTc Int : 447 ms Sinus rhythm with occasional Premature ventricular complexes Otherwise normal ECG When compared with ECG of 22-MAR-2020 12:46, Premature ventricular complexes are now Present Assessment and Plan Assessment Anesthesia Assessment: Chart Reviewed Final Anesthetic Review Family History of Problems with Anesthesia: No History of Problems with Anesthesia: No Documented by User: Tacos Mendoza MD 09/10/23 07:27 [facility] Past Medical History Medical History COPD (chronic obstructive pulmonary disease) GERD (gastroesophageal reflux disease) Edentulous Local recurrence of rectal cancer Degenerative joint disease Colostomy in place Neuropathy Spinal stenosis Peripheral vascular disease Kidney stones Family History Family History Father CAD (coronary artery disease) Surgical History Surgical History H/O right inguinal hernia repair (01/13/23) History of esophagogastroduodenoscopy (EGD) H/O colonoscopy Status post femorofemoral bypass surgery (03/30/18) S/P epidural steroid injection H/O knee surgery H/O exploratory laparotomy History of laparoscopic appendectomy Social History Social History Household Members: Spouse Housing: Apartment Are you a primary physician locums urgent care to a significant other at home: No Do you presently have visiting nurse or other home services: No Alcohol intake: former Patient Tobacco Use Status: Former Tobacco user Quit Date: 2015 Tobacco use type: Cigarette Cigarette Packs Per Day: 2 Substance Use Type: Marijuana Advance Directives Date on File: 01/27/20 service: No Current occupational status: disabled Meds Allergies Allergy/AdvReac Type Severity Reaction Status Date / Time Sulfa (Sulfonamide Allergy Intermediate NAUSEA,WEAK Verified 09/10/23 06:43 Antibiotics) NESS sulfamethoxazole Allergy Intermediate NAUSEA,WEAK Verified 09/10/23 06:43 [From BACTRIM] NESS trimethoprim [From BACTRIM] Allergy Intermediate NAUSEA,WEAK Verified 09/10/23 06:43 NESS Home Medications ?Medication ?Instructions ?Recorded ?Confirmed ?Last Taken ?Type acetaminophen 325 mg capsule 650 mg PO Q6H PRN Pain 01/26/20 07/22/23 Unknown History (Tylenol) ondansetron HCl 8 mg tablet 8 mg PO Q8H PRN Pain 01/26/20 07/22/23 Unknown History tamsulosin 0.4 mg capsule 0.4 mg PO BEDTIME 01/26/20 09/10/23 09/10/23 History diphenhydramine HCl 25 mg tablet 25 mg PO QID PRN Allergy Symptoms 01/17/21 07/22/23 Unknown History (Benadryl Allergy) famotidine 20 mg tablet 20 mg PO DAILY 01/17/21 09/10/23 09/09/23 History loperamide 2 mg capsule 2 mg PO Q4H PRN Diarrhea 01/17/21 07/22/23 Unknown History gabapentin 600 mg tablet 600 mg PO TID 09/19/21 09/10/23 09/09/23 History Exam Airway Mallampati Class: II TM Dist: <=3cm Neck ROM: Full Loose/Missing/Broken Teeth: No Heart: rrr Lungs: cta Assessment and Plan Assessment Anesthesia Assessment: Anesthesia Plan Discussed Final Anesthetic Review NPO: Yes ASA Class: III Final Preanesthetic Review: No Changes in Pt Med Stat, Meds/Allgs Chart Reviewed, Consent Obtained/Reviewed and Anes Risks/Benef Reviewed Patient Risk: Intermediate Procedure Risk: Low Anesthetic Plan Anesthetic Plan: GA Disposition: Standard PACU
[2023-09-10] VITALS (9 sets, daily range): BP systolic 129–149; BP diastolic 68–78; PULSE 72–88; RESP 16–18; TEMP 35.9–36.7; O2SAT 94–100; BMI 31.4
[2023-09-10] MEDS: Lactated Ringers 1,000 ML 100 ML IVCONT (06:37)
[2023-09-10] MEDS: Albuterol Sulfate (0.083%) 2.5 MG/3 ML VIAL.NEB INHALE (07:04)
--- NOTE | 2023-09-10 07:15 | MHC.SHP ---
Pre-Procedural Eval Section A - 24 Hr Update-Section A only Date of Service: 09/10/23 The patient is an INPATIENT: No Changes since office visit: Yes Patient answered all questions; No Cold of Flu in the past 2 weeks, No New Medical Problems and No Changes in Medication The patient has been examined within 24 hours of the surgical procedure. The History & Physical has been completed within 30 days and I have reviewed it.: No Section B - Complete if H&P > 30 days Chief Complaint: Squamous cell carcinoma,Basal cell carcinoma Details of Present Illness: no change in the skin lesions noted Relevant Family History (Specify if Yes): No Relevant Social History: None Present Medications: see Short Stay Collaborative assessment Medical History: Significant History (PAD, Rectal ca) History of Previous Operations: No relevant previous surgery Allergies: Allergies Allergy/AdvReac Type Severity Reaction Status Date / Time Sulfa (Sulfonamide Allergy Intermediate NAUSEA,WEAK Verified 09/10/23 06:43 Antibiotics) NESS sulfamethoxazole Allergy Intermediate NAUSEA,WEAK Verified 09/10/23 06:43 [From BACTRIM] NESS trimethoprim [From BACTRIM] Allergy Intermediate NAUSEA,WEAK Verified 09/10/23 06:43 NESS Review of Systems Sugical H&P ROS: Negative: Constitution, Cardiovascular, Respiratory, Neurological, Psychiatric, Hem-Onc, Allergic/Immunologic, Gastrointestinal, Genitourinary, Musculoskeletal, Integumentary, Endocrine and Eyes/Ears/Nose/Throat Exam Surgical H&P Exam: Normal: HEENT, Normal: Heart, Normal: Lungs, Normal: Extremities, Normal: Abdomen, Normal: Skin and Normal: Neurological Plan Diagnosis/Plan: Unchanged I have reviewed the history and physical and performed a pertinent physical examination on my patient. No changes have occurred unless specified. Time Spent With Patient Time: Total time managing care of this patient today ____ minutes.
--- NOTE | 2023-09-10 08:35 | P.OP_ITS ---
Operative Note Operative Note Date of Service: 09/10/23 Narrative: Preoperative diagnosis: Basal cell carcinoma x2 face left, squamous cell carcinoma midback Postoperative diagnosis: Same Procedure: Excision basal cell carcinoma x2 left face, squamous cell carcinoma midback Surgeon: Mulugeta Melendez MD Overhead Cleaner Maintainer: Taylor Rueda PA-C Anesthesia: General ET Indications for procedure: 57-year-old male patient presenting following recent dermatologic biopsy of 2 lesions of the left face and 1 of the back. Pathology revealed basal cell carcinoma involving the 2 lesions located on the left forehead 1 medial 1 lateral, with basal cell extending to the margins. Both le sions measured 1 cm in diameter. He presents today for wider excision of the stool lesions. He also has a large keratotic lesion measuring 4 cm in the mid back, biopsy of which revealed squamous cell carcinoma. He presents for wide excision of this lesion as well. Operative findings: Excision site in the left forehead x2, no obvious tumor noted grossly. Large keratotic lesion in the mid back measuring 4 cm in diameter. Specimen: Basal cell carcinoma left forehead x2, medial and lateral; squamous cell carcinoma midback Estimated blood loss: 10 mL Complications: None Procedure details: Patient was brought to the OR placed in a supine position. After administering general anesthesia the patient was placed in a right lateral decubitus position. The patient's midback and left face were prepped with ChloraPrep and draped in a sterile fashion. A surgical time-out was called the consent confirmed. Patient received preoperative antibiotics and Venodyne boots were in place. Local anesthesia was infiltrated around back lesion. Elliptical incision oriented longitudinally was then created with approximately 5 mm margins around the 4 cm lesion. The incision was carried out through subcutaneous tissue down to muscle fascia. This was then dissected off the muscle fascia using electrocautery. Hemostasis was assured at all times using electrocautery. Wounds were then irrigated with saline solution and suctioned dry. Dermis was then reapproximated using interrupted 3-0 Polysorb sutures. Skin was closed using interrupted 3-0 nylon sutures. Attention was then directed to the face were again local was infiltrated around both lesions. Beginning in the lateral lesion an elliptical incision was created oriented transversely around the previous excision site. This was carried out through subcutaneous tissue and around the skin lesion. The lesion was passed off the table and labeled as basal cell carcinoma left face lateral. The 2nd lesion was also excised in a transversely oriented elliptical incision carried down into the subcutaneous tissue. This was labeled as basal cell carcinoma left face medial. Hemostasis was then assured using electrocautery. Dermis was then reapproximated using interrupted 4-0 Polysorb sutures. Skin was closed using interrupted 5 0 nylon sutures. Dressings were then applied. For the back a gauze dressing covered with Tega derm was applied. Gauze dressings were applied to the face as well. The patient tolerated the procedure well. Sponge, instrument, and needle counts reported as correct. The patient was transferred to PACU in stable condition.
== END 2023-09-10 10:34 | disposition home or self-care (01) ==
PROVIDERS: PCP Internal Medicine Medical Oncology; Visit Provider Surgery
PROC: (CPT 11604; principal; 2023-09-10 07:30)
DX: C44.529 Squamous cell carcinoma of skin of other part of trunk (principal); C44.319 Basal cell carcinoma of skin of other parts of face; C20 Malignant neoplasm of rectum; K21.9 Gastro-esophageal reflux disease without esophagitis; J44.9 Chronic obstructive pulmonary disease, unspecified; Z93.3 Colostomy status; Z87.891 Personal history of nicotine dependence; Z79.899 Other long term (current) drug therapy
CPT/HCPCS: 11604; 11642; 88305; 88312; 88341; 88342; 94640; J0690; J2250; J2371; J2405; J2704; J2795; J3010

== ENCOUNTER → 2023-09-10 05:52 | Outpatient (BNV) | payer OTHER, SELFPAY | PROVIDERS: PCP Internal Medicine Medical Oncology; Visit Provider Surgery | DX: C44.529 Squamous cell carcinoma of skin of other part of trunk (principal); C44.310 Basal cell carcinoma of skin of unspecified parts of face; L73.9 Follicular disorder, unspecified | CPT/HCPCS: 11443; 11606; 11642 ==

== ENCOUNTER 2023-09-19 10:52 | Outpatient (AMB) | payer OTHER, SELFPAY ==
--- NOTE | 2023-09-19 10:54 | MHC.OFFVIS ---
Vital Signs 09/19/23 11:06 Height 5 ft 4 in Weight 182 lb BMI 31.2 BP 133/65 Blood Pressure Location Lt brachial Position Sitting Pulse 91 Intake Visit Reasons: S/P exc. sqmos cell CA midback, basal cell Lt face Intake Note: Patient is seen in office for post op assessment post excision of squamous cell carcinoma of the mid back and left face. Pt c/o: denies any concerns at the time of visit, sutures removed at visit Software Support Specialist Required: No Accompanied by: Spouse Allergies Sulfa (Sulfonamide Antibiotics) Allergy (Intermediate, Verified 09/19/23 11:06) NAUSEA,WEAKNESS sulfamethoxazole [From BACTRIM] Allergy (Intermediate, Verified 09/19/23 11:06) NAUSEA,WEAKNESS trimethoprim [From BACTRIM] Allergy (Intermediate, Verified 09/19/23 11:06) NAUSEA,WEAKNESS HPI Comments Details: 57-year-old male patient returning for evaluation of 2 areas of skin cancer noted by his advanced registered nurse. One lesion located in the mid back has been present for many years but has gradually changed with new areas of crusting noted in the central portion. A recent biopsy revealed squamous cell carcinoma. A 2nd lesion located in the left forehead just below the hairline is a biopsy-proven basal cell carcinoma. 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 He returns today following wide excision of the 2 facial lesions and back lesion. Pathology confirmed squamous cell carcinoma, moderately poor differentiated, superficially invasive with lymphovascular invasion and pagetoid involvement of a seborrheic keratosis. Deep and peripheral margins are free of tumor and 1 benign lymph node is noted within the specimen. Skin of the left lateral face revealed basal cell carcinoma, nodular type with deep and peripheral margins free of tumor. Skin of the left face medial lesion revealed benign skin with periarticular inflammation and focal granuloma and niece buds suggesting Malassezia (Pityrosporum) folliculitis [facility] Medical History COPD (chronic obstructive pulmonary disease) GERD (gastroesophageal reflux disease) Edentulous Local recurrence of rectal cancer Degenerative joint disease Colostomy in place Neuropathy Spinal stenosis Peripheral vascular disease Kidney stones Surgical History Hx of excision of mass (09/10/23) H/O right inguinal hernia repair (01/13/23) History of esophagogastroduodenoscopy (EGD) H/O colonoscopy Status post femorofemoral bypass surgery (03/30/18) S/P epidural steroid injection H/O knee surgery H/O exploratory laparotomy History of laparoscopic appendectomy Family History Father CAD (coronary artery disease) Social History Household Members: Spouse Housing: Apartment Are you a primary healthcare recruiter to a significant other at home: No Do you presently have visiting nurse or other home services: No Alcohol intake: former Comment: counts correct Patient Tobacco Use Status: Former Tobacco user Tobacco use type: Cigarette Cigarette Packs Per Day: 2 Substance Use Type: Marijuana Advance Directives Date on File: 01/27/20 service: No Current occupational status: disabled Physical Exam HEENT Other: Facial lesion: Head images: 1. Site of medial excision 2. Site of basal cell carcinoma excision Back/Spine/Pelvis Other: Excision site midback: Midline back incision is clean, dry, and intact without redness or discharge. Sutures removed and the wounds found to be well healed Back/spine/pelvis image: 1. Incision midback Assessment & Plan Assessment & Plan (1) Squamous cell carcinoma, trunk: Code(s): C44.529 - Squamous cell carcinoma of skin of other part of trunk Category: Medical (2) Basal cell carcinoma, face: Code(s): C44.310 - Basal cell carcinoma of skin of unspecified parts of face Category: Medical Plan Patient returns following wide excision of the 3 lesions as noted above. Squamous cell carcinoma was confirmed in the back. Negative margins were noted on the excision. Basal cell carcinoma was confirmed on 1 of the 2 lesions of the face. He tolerated the procedure well and his wounds are now well healed. Recommended he continue his dermatologic follow-up and is welcome to call for any concerns. He will follow-up as needed. Coding Level of Care Code Global (23395) Diagnoses Squamous cell carcinoma, trunk C44.529 Basal cell carcinoma, face C44.310
[2023-09-19 11:06] VITALS: BP 133/65; PULSE 91; BMI 31.2
== END 2023-09-19 11:10 | disposition home or self-care (01) ==
PROVIDERS: PCP Internal Medicine Medical Oncology; Visit Provider Surgery
DX: C44.529 Squamous cell carcinoma of skin of other part of trunk (principal); C44.310 Basal cell carcinoma of skin of unspecified parts of face
CPT/HCPCS: 99024

== ENCOUNTER → 2023-09-19 10:52 | Outpatient (BNVA) | payer OTHER, SELFPAY | PROVIDERS: PCP Internal Medicine Medical Oncology; Visit Provider Surgery | DX: C44.310 Basal cell carcinoma of skin of unspecified parts of face (principal); C44.529 Squamous cell carcinoma of skin of other part of trunk | CPT/HCPCS: 99212 ==

== ENCOUNTER 2024-02-27 10:23 | Outpatient (REF) | payer OTHER, SELFPAY ==
[2024-02-27 13:14] LABS: MANUAL DIFF FLAG NO
[2024-02-27 13:20] LABS: Basophils Absolute Auto 0.1 X10*3/uL (0.0-0.2); Basophils Percent Auto 0.7 % (0-2); Eosinophils Absolute Auto 0.2 X10*3/uL (0.0-0.4); Eosinophils Percent Auto 2.3 % (0-4); Hematocrit 43.6 % (42.0-52.0); Hemoglobin 14.4 g/dl (14.0-18.0); Imm Gran Abs Auto 0.03 X10*3/uL (0.00-0.03); Imm Gran Pct Auto 0.3 % (0.0-0.4); Lymphocytes Absolute Auto 1.8 X10*3/uL (1.2-4.9); Lymphocytes Percent Auto 20.8 % (20-40); Mean Corpuscular Volume 87.7 fL (80.0-98.0); Mean Platelet Volume 9.8 fL (9.4-12.4); Monocytes Absolute Auto 0.6 X10*3/uL (0.1-1.2); Monocytes Percent Auto 7.1 % (2-11); Neutrophils Percent Auto 68.8 % (45-73); Platelet Count 271 X10*3/uL (160-400); Red Blood Count 4.97 X10*6/uL (4.60-5.80); Red Cell Distribution Width 14.4 % (11.0-16.0); White Blood Count 8.7 X10*3/uL (4.8-10.8)
[2024-02-27 13:58] LABS: Alanine Aminotransferase 20 U/L (0-40); Albumin Level 4.3 g/dL (3.5-5.0); Anion Gap 14 (12-20); Aspartate Amino Transferase 24 U/L (5-37); Bilirubin Total 0.4 mg/dL (0.0-1.0); Blood Urea Nitrogen 11 mg/dL (9-16); Calcium 9.6 mg/dL (8.4-10.2); Carbon Dioxide 24 mmol/L (22-29); Chloride 103 mmol/L (96-108); Estimated Glomerular Filt Rate > 60; Glucose Random 117 mg/dL (60-115); Potassium 4.3 mmol/L (3.3-5.1); Sodium 137 mmol/L (135-145); Total Protein 7.7 g/dL (6.5-8.0)
[2024-02-27 15:11] LABS: Alkaline Phosphatase 113 U/L (39-117)
== END 2024-02-27 10:24 | disposition home or self-care (01) ==
LOC: HO.HMGCLDS 10:23
PROVIDERS: PCP Internal Medicine Medical Oncology; Visit Provider Internal Medicine Medical Oncology
DX: E66.3 Overweight (principal); I10 Essential (primary) hypertension; C44.91 Basal cell carcinoma of skin, unspecified
CPT/HCPCS: 36415; 80053; 82378; 84153; 85025

== ENCOUNTER 2024-03-17 11:18 | Outpatient (REF) | payer OTHER, SELFPAY ==
--- NOTE | ~2024-03-17 | CT_ITS ---
EXAMINATION: CT CHEST, ABDOMEN AND PELVIS WITH CONTRAST. CLINICAL INFORMATION: Pulmonary nodule. COMPARISON: CT chest abdomen pelvis 09/03/2023. TECHNIQUE: Multidetector volumetric imaging was performed from the thoracic inlet through the pubic symphysis following administration of 85 mL Omnipaque 350. Sagittal and coronal reformatted images were obtained on the technologist workstation. This CT examination was performed using dose optimization techniques as appropriate, variously including the following: *Automated exposure control *Adjustment of mA and/or kV according to patient size (this includes techniques or standardized protocols for targeted exams where dose is matched to indication/reason for exam; i.e. extremities or head) *Use of iterative reconstruction technique DLP: 547 mGy-cm FINDINGS: CHEST: LUNG: A greater than 6 cm pulmonary mass in the posterior basal segment of left lower lobe extends from the hilum to the chest wall. There are surrounding peripheral satellite nodules. Lesion has significantly increased in size since 09/03/2023 (2.5 cm). A second pulmonary nodule in the inferomedial posterior basal segment of the left lower lobe (series 5 image [id number]) now measures 3.5 cm, increased from 2 cm. There is a history of rectal cancer and metastatic disease is a leading consideration. However, CT also again reveals emphysema and pulmonary fibrosis. Tissue characterization would be required to exclude coexistent primary lung malignancy. Despite the presence of satellite lesions, fungal pneumonia is considered unlikely given the indolent progression. MEDIASTINUM: No mediastinal or hilar adenopathy. Mild coronary disease predominating in the LAD. Right IJ central venous catheter tip terminates at the cavoatrial junction. PERICARDIUM/PLEURA: No significant effusion. No pleural mass or thickening. CHEST WALL/AXILLA: Right chest wall port. No mass or adenopathy ABDOMEN/PELVIS: PERITONEAL SPACE:No significant free air or free fluid identified. LIVER, GALLBLADDER, BILIARY TREE: Diffuse decrease in liver attenuation raising the possibility of hepatic steatosis. Stable wall thickening of the gallbladder fundus likely adenomyosis. No cholelithiasis. No biliary ductal dilation. PANCREAS: Mild atrophy again noted. No mass or ductal dilation. SPLEEN: Normal in size with stable small accessory spleen. ADRENAL GLANDS: Subtle fullness the left adrenal body unchanged. No discrete adrenal mass. KIDNEYS AND URETERS: The kidneys are normal in size, shape, and attenuation. No hydronephrosis, hydroureter, or calculi seen. No perinephric stranding. BLADDER: Unremarkable. GASTROINTESTINAL TRACT: Status post distal colectomy with left diverting descending colostomy. Oral contrast has passed through to the descending colon without obstruction. Appendix not identified. Normal terminal ileum. No small bowel obstruction. ABDOMINAL WALL: Small fatty parastomal hernia without significant bowel involvement. Status post infraumbilical ventral laparotomy. LYMPHOVASCULAR STRUCTURES: Severe atherosclerotic peripheral vascular disease. A cross femoral graft does not appear to enhance, clinical correlation advised. PELVIC VISCERA: The prostate is prominent, impinging on the base of the bladder. Stable presacral soft tissue attenuation following distal colectomy, consistent with postoperative change. OSSEUS STRUCTURES: Degenerative spine disease. Degenerative changes in the hips. 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 SPINE: Stable loss of stature T11 vertebral body. CT/CT chest w IV con IMPRESSION: 1. Significant interval growth of now greater than 6 cm left lower lobe mass with satellite lesions. 2. Continued growth of additional medial left lower lobe pulmonary nodule. 3. Emphysema. Pulmonary fibrosis. 4. Status post distal colectomy. 5. Severe atherosclerotic peripheral vascular disease. Cross femoral graft does not appear to enhance, clinical correlation advised. Electronically signed by: Mulugeta Quigley MD 03/18/2024 12:48 PM [facility] [place]
[2024-03-17] MEDS: Barium Sulfate Oral (Vanilla) 450 ML ORAL.SUSP 900 ML PO (14:46)
[2024-03-17] MEDS: iohexoL 350 MG/ML 100 ML INFUS..BTL 85 ML IV (14:46)
== END 2024-03-17 11:19 | disposition home or self-care (01) ==
LOC: HO.CT 11:18
PROVIDERS: PCP Internal Medicine Medical Oncology; Visit Provider Internal Medicine Medical Oncology
DX: C20 Malignant neoplasm of rectum (principal); R91.1 Solitary pulmonary nodule
CPT/HCPCS: 71260; 74177; Q9967

== ENCOUNTER 2024-07-07 15:45 | Outpatient (REF) | payer OTHER, SELFPAY ==
[2024-07-07 16:01] LABS: MANUAL DIFF FLAG NO
[2024-07-07 16:46] LABS: Basophils Absolute Auto 0.1 X10*3/uL (0.0-0.2); Basophils Percent Auto 0.5 % (0-2); Eosinophils Absolute Auto 0.2 X10*3/uL (0.0-0.4); Eosinophils Percent Auto 2.2 % (0-4); Hematocrit 43.2 % (42.0-52.0); Hemoglobin 14.3 g/dl (14.0-18.0); Imm Gran Abs Auto 0.04 X10*3/uL (0.00-0.03); Imm Gran Pct Auto 0.4 % (0.0-0.4); Lymphocytes Absolute Auto 2.7 X10*3/uL (1.2-4.9); Mean Corpuscular HGB Conc 33.1 g/dl (31.0-36.0); Mean Corpuscular Hemoglobin 29.1 pg (27.0-33.0); Mean Platelet Volume 9.5 fL (9.4-12.4); Monocytes Absolute Auto 0.6 X10*3/uL (0.1-1.2); Monocytes Percent Auto 5.8 % (2-11); Neutrophils Absolute Auto 7.1 x10*3/uL (2.0-8.3); Neutrophils Percent Auto 66.1 % (45-73); Platelet Count 260 X10*3/uL (160-400); Red Blood Count 4.91 X10*6/uL (4.60-5.80); White Blood Count 10.8 X10*3/uL (4.8-10.8)
[2024-07-07 17:28] LABS: Alanine Aminotransferase 22 U/L (0-40); Albumin Level 4.2 g/dL (3.5-5.0); Anion Gap 12 (12-20); Aspartate Amino Transferase 22 U/L (5-37); Bilirubin Total 0.4 mg/dL (0.0-1.0); Blood Urea Nitrogen 10 mg/dL (9-16); Calcium 9.5 mg/dL (8.4-10.2); Carbon Dioxide 26 mmol/L (22-29); Chloride 104 mmol/L (96-108); Estimated Glomerular Filt Rate > 60; Glucose Random 118 mg/dL (60-115); Potassium 3.9 mmol/L (3.3-5.1); Sodium 138 mmol/L (135-145); Total Protein 7.9 g/dL (6.5-8.0)
[2024-07-07 17:41] LABS: Alkaline Phosphatase 128 U/L (39-117)
== END 2024-07-07 15:46 | disposition home or self-care (01) ==
LOC: HO.LAB 15:45
PROVIDERS: PCP Internal Medicine Medical Oncology; Visit Provider Internal Medicine Medical Oncology
DX: C20 Malignant neoplasm of rectum (principal); E66.3 Overweight
CPT/HCPCS: 36415; 80053; 82378; 85025

== ENCOUNTER 2024-08-10 11:20 | Outpatient (REF) | payer OTHER, SELFPAY ==
--- NOTE | ~2024-08-10 | XR_ITS ---
EXAMINATION: XR THORACIC SPINE CLINICAL INFORMATION: BACK PAIN COMPARISON: None. Correlation made to CT chest, abdomen, pelvis 03/17/2024. TECHNIQUE: 3 views of the thoracic spine were obtained. FINDINGS: A right-sided chest port is in place, the tip in the mid SVC. There is osteopenia. There is no scoliosis. There is a mildly exaggerated thoracic kyphosis. There is minimal wedging of what appears to be T11 ventrally. This appears chronic. There is otherwise no compression deformity or evidence of acute fracture. There is normal alignment. There is no bone lesion. There is mild degenerative spondylosis which is stable. There is incidental note made of a masslike consolidation of the pulmonary parenchyma within the left lower lobe, previously seen on CT examination. There is also a left lower lobe masslike consolidation at the medial cardiophrenic angle, also seen on the previous CT examination. XR/XR thoracic spine 3V IMPRESSION: 1. No acute findings of the thoracic spine. Mild chronic wedging of T11 is stable. Mild degenerative spondylosis is stable. 2. Left lower lobe masslike consolidations, similar. Refer to prior CT examinations. 3. Partially imaged right chest port. Electronically signed by: Jose Mcwilliams MD 08/10/2024 12:02 PM EDT
--- NOTE | ~2024-08-10 | XR_ITS ---
EXAMINATION: XR CERVICAL SPINE CLINICAL INFORMATION: NECKPAIN COMPARISON: None available. TECHNIQUE: 3 views of the cervical spine were obtained. FINDINGS: There is normal cervical lordosis. The vertebral heights and alignment is normal. There is loss of C5-6 and C6-7 disc heights with mild ventral spondylosis. Rest of disc heights are normal. The craniovertebral junction and C1-C2 alignment is normal. No acute fracture, dislocation or subluxation seen. The prevertebral soft tissues are normal. XR/XR cervical spine 3V IMPRESSION: Mild degenerative disc changes C5-6 and C6-C7 disc heights with mild ventral spondylosis Electronically signed by: Kwame Agarwal MD 08/10/2024 12:06 PM EDT
--- OUTSIDE RECORDS SUMMARY | 2024-08-10 13:39 | XMS_ITS | Clinical Summary ---
Author Organization [facility] ity Address [address] [place] [address] Care Team Providers Care Complaint Investigator Name Role Phone Melvin Gonsalves MD Primary Care Provider [phone] Social History Tobacco Use Types Packs/Day Years Used Date Smoking Tobacco: Never Assessed Sex and Gender Information Value Date Recorded Sex Assigned at Not on file Legal Sex Male 5:17 PM EST Gender Identity Not on file Sexual Orientation Not on file Plan of Treatment Health Maintenance Due Date Last Done Comments DTaP,Tdap,and Td Vaccines (1 - Tdap) 12/14/1982 Pneumococcal Vaccine: 50+ Ye ars (1 of 1 - PCV) 12/14/2013 Zoster Vaccines (1 of 2) 12/14/2013 COVID-19 Vaccine ( - 2023-2 5 season) 2023 Influenza Vaccine (Season Ended) 2024 RSV Immunization Adult Patie nts (1 - 1-dose 75+ series) 12/14/2038 HIB Vaccines Aged Out No longer eligi ble based on patient's age to complete this topic HPV Vaccines Aged Out No longer eligi ble based on patient's age to complete this topic Hepatitis A Vaccines Aged Out No long er eligible based on patient's age to complete this topic Hepatitis B Vaccines Aged Out No long er eligible based on patient's age to complete this topic IPV Vaccines Aged Out No longer eligi ble based on patient's age to complete this topic MMR Vaccines Aged Out No longer eligi ble based on patient's age to complete this topic Meningococcal ACWY Vaccine Aged Out N o longer eligible based on patient's age to complete this topic Meningococcal B Vaccine Aged Out No l onger eligible based on patient's age to complete this topic Pneumococcal Vaccine: Pediat rics (0 to 5 Years) and At-Risk Patients (6 to 64 Years) Aged Out No longer eligible b ased on patient's age to complete this topic RSV Immunization Patients Un angela 20 months Aged Out No longer eligible b ased on patient's age to complete this topic Varicella Vaccines Aged Out No longer eligible based on patient's age to complete this topic Care Teams Complaint Investigator Relationship Specialty Start Date End Date Melvin Gonsalves MD PCP - General 01/23/16
--- OUTSIDE RECORDS SUMMARY | 2024-08-10 13:40 | XMS_ITS ---
Author Organization Melvin Gonsalves III, MD Address [address] [place] [address] Care Team Providers Care Animal Pathology Teacher Name Role Phone Melvin Gonsalves Primary Care Provider REASON FOR VISIT Message Social History Sex Assigned At : Social History Observation Description Sex Assigned At Male Encounters Encounter Location Date Provider Diagnosis Melvin Gonsalves III, MD [address] [place] [address] [place] [address] 07/22/2024 Melvin Gonsalves Plan Of Treatment Next Appt Details Provider Name:Melvin Gonsalves, 08/13/2024 01:30:00 PM, [address] [place] [address] [place], [address], Provider Name:Melvin Gonsalves, 09/08/2024 10:45:00 AM, [address] [place] [address] [place], [address], Provider Name:Melvin Gonsalves, 04/01/2025 01:30:00 PM, [address] [place] [address] [place], [address], Progress Notes * Jordan HAYNESJovanniOB:[birth year] (58 yo M)Acc No.[id number]:07/22/2024 Patient:?Gregory HAYNES :1965???Age:58 Y???Sex:Male Address:[address] [place] [address], [phone] * true * Date:? Generated for Bindu fam/Tesfaye/eTransmitting on:?08/10/2024 01:40 PM EDT
--- OUTSIDE RECORDS SUMMARY | 2024-08-10 13:40 | XMS_ITS ---
Author Organization Melvin Gonsalves III, MD Address [address] [place] [address] [address] [place] [address] Care Team Providers Care Photography Editor Name Role Phone Melvin Gonsalves Primary Care Provider Allergies Allergen (clinical drug ingredient) Drug/Non Drug Allergy documented on EMR Reaction Allergy Type Onset Date Status sulfamethoxazole / trimethoprim Bactrim Unknown Drug Allergy Active REASON FOR VISIT Port Flush, Metastatic rectal cancer, COPD, Benign prostatic hypertrophy, Anxiety and depression, Right inguinal hernia, Peripheral arterial disease Medications Medication SIG (Take, Route, Frequency, Duration) Notes Start Date End Date Status Omeprazole 20 MG 1 capsule Orally Onc e a day 04/30/2024 Active Cyclobenzaprine HCl 10 MG 1 tablet Orall y Three times a day Active Famotidine 20 MG 1 tablet Orally up t o three times a day Active amLODIPine Besylate 5 MG 1 tablet Orally Once a day 12/02/2023 Active Albuterol Sulfate HFA 108 (9 0 Base) MCG/ACT 1 puff as needed Inhalation every 4 hrs 10/22/2023 Active traMADol HCl 50 MG TAKE 1 TABLET BY KESHAV TH TWICE DAILY NEEDED FOR PAIN Oral Active Gabapentin 600 MG TAKE 1 TABLET BY KESHAV TH THREE TIMES DAILY Active Ranitidine HCl 150 MG 1 tablet at bedtim e Orally Once a day Active Tamsulosin HCl 0.4 MG 1 capsule Orally O nce a day Active Social History Tobacco Use: Social History Observation Description Date Details (start date - stop date) Former Smoker NA - NA Sex Assigned At : Social History Observation Description Sex Assigned At Male Tobacco Control (Standard) Question Answer Notes Tobacco use: Former smoker How long has it been since you last smoked? 5-10 years Additional Findings: Tobacco non-user Ex-cigaret te smoker Vital Signs Temperature 98.1 degrees Fahrenheit 07/10/19 25 Blood pressure systolic 145 mm Hg 07/10/19 25 Blood pressure diastolic 79 mm Hg 025 Heart Rate 89 /min 07/09/2024 Height 67 in 07/09/2024 Weight 186 lbs 07/09/2024 BMI 29.13 kg/m2 07/09/2024 Encounters Encounter Location Date Provider Diagnosis Melvin Gonsalves III, MD [address] [place] [address] [place] [address] 07/09/2024 Melvin Gonsalves Rectal cancer C20 ; Edentulous K00.0 ; Chronic obstructive pulmonary disease, unspecified J44.9 ; Hypertrophy of prostate without urinary obstruction and other lower urinary tract symptoms (LUTS) N40.0 ; Anxiety F41.9 ; Peripheral arterial disease I73.9 ; Right inguinal hernia K40.90 ; Other depression F32.89 ; Former smoker Z87.891 and Overweight (BMI 25.0-29.9) E66.3 Assessments Encounter Date Diagnosis (ICD Code) Assessment Notes Treatment Notes Treatment Clinical Notes 07/09/2024 Rectal cancer (ICD-10 - C20) His disease is slowly progressing. I told this patient that I wanted to repeat the CT scan of the chest before his next visit along with a CT scan of the abdomen and pelvis. This was in order to know how rapidly the disease is progressing so that his decisions can be made with the most available information. However, this patient declined to have the CT scan saying that it was too early. He said he would consider it after his next visit which will be an 8 weeks. 07/09/2024 Edentulous (ICD-10 - K00.0) He says his dentures fit he is able to chew without difficulty. 07/09/2024 Chronic obstructive pulmonary disease, unspecified (ICD-10 - J44.9) He is breathing room air comfortably. He is not smoking. Short of breath with prolonged exertion. 07/09/2024 Hypertrophy of prostate without urinary obstruction and other lower urinary tract symptoms (LUTS) (ICD-10 - N40.0) He admits to nocturia once or twice a night depending upon fluid intake. We discussed lifestyle modifications she could make to reduce nocturia. 07/09/2024 Anxiety (ICD-10 - F41.9) He was occasionally anxious today with his voice raised. 07/09/2024 Peripheral arterial disease (ICD-10 - I73.9) His feet are pink and warm. He has no claudication and is doing quite well. His regimen was not altered. He was encouraged to walk and exercise. 07/09/2024 Right inguinal hernia (ICD-10 - K40.90) This is a new finding in the last month. He was referred to surgery to discuss what is involved in repairing it. 07/09/2024 Other depression (ICD-10 - F32.89) He will continue with his therapist and the current regimen. 07/09/2024 Former smoker (ICD-10 - Z87.891) He has stopped smoking within the last month. We have discussed strategies for maintaining abstinence. He has a plan to prevent relapse in times of pain illness or stress. 07/09/2024 Overweight (BMI 25.0-29.9) (ICD-10 - E66.3) His body mass index is 29. He has gained 3 pounds and is overweight. His appetite is good Plan Of Treatment Medication Medication Name Sig Start Date Stop Date Notes Omeprazole 20 MG 1 capsule Orally Onc e a day 04/30/2024 Cyclobenzaprine HCl 10 MG 1 tablet Orall y Three times a day Famotidine 20 MG 1 tablet Orally up t o three times a day amLODIPine Besylate 5 MG 1 tablet Orally Once a day 2023 Albuterol Sulfate HFA 108 (9 0 Base) MCG/ACT 1 puff as needed Inhalation every 4 hrs 10/22/2023 traMADol HCl 50 MG TAKE 1 TABLET BY KESHAV TH TWICE DAILY NEEDED FOR PAIN Oral Gabapentin 600 MG TAKE 1 TABLET BY KESHAV TH THREE TIMES DAILY Ranitidine HCl 150 MG 1 tablet at bedtim e Orally Once a day Tamsulosin HCl 0.4 MG 1 capsule Orally O nce a day Next Appt Details Follow Up: 4 Weeks, Reason: OV Provider Name:Melvin Videsrne, 08/13/2024 01:30:00 PM, [address] [facility] [place], [place], [address], Provider Name:Melvin Major, 09/08/2024 10:45:00 AM, [address] [place] [address] [place] [place], [place], [address], Provider Name:Melvin Major, 04/01/2025 01:30:00 PM, [address] [facility] [place], [place], [address], Progress Notes * HANS JordanJovanniOB:[birth year] (58 yo M)Acc No.[id number]:07/09/2024 Patient:?Gregory HAYNES Provider:?Melvin Gonsalves MD :1965???Age:58 Y???Sex:Male Jay e:07/09/2024 Address:[address] [place] [id number] Subjective: * Chief Complaints: * ???Port FlushMetastatic rect al cancerCOPDBenign prostatic hypertrophyAnxiety and depressionRight inguinal herniaPeripheral arterial disease * HPI: ???v:?He returns at 6 week intervals to flush his port to keep him functional.? He is known to have rectal cancer that has spread in the abdomen into his lung with a rising CEA.? He is fairly asymptomatic at this time and has no pain.? Once again as I do on every visit I asked him if he wanted to resume anti-neoplastic therapy.? He was adamant that he wants no?treatment, either chemotherapy or immunotherapy, at this time. Nor does he wish to enter into the hospice program although he has been educated about the program.? He says that if he becomes symptomatic he may change his mind on treatment but for now he declines to have any type of antineoplastic therapy.? His port flushed today and it functioned well.? His examination was unremarkable his weight is stable.? Imaging shows progressive disease in the lung.The most recent CT scan of the chest was done in February 2024.? The reported a 6 cm mass in the lower lobe of the left lung extending from the hilum to the pleura.? This patient has been made aware of this on several occasions.? He knows that his disease is progressing and that the CEA is rising.? I have shown him the numbers and offered to show him the pictures.? Nonetheless he continues to decline antineoplastic therapies. * ROS:?General/Constitutional:?pain?only normal aches and pains.?Chills?denies.?Fatigue?admits.?Fever?denies.?ENT:?Decreased hearing?denies.?Respiratory:?Cough?denies.?Cardiovascular:?Chest pain with exertion?denies.?Dyspnea on exertion?denies.?Shortness of breath?denies.?Gastrointestinal:?Constipation?occasional.?Decreased appetite?denies.?Diarrhea?denies.?Heartburn?occasional.?Nausea?denies.?Rectal bleeding?denies.?Vomiting?denies.?Hematology:?bruising?denies.?petechiae?denies.?Swollen glands?none have been noted.?Genitourinary:?Frequent urination?once a night.?Musculoskeletal:?Muscle aches?denies.?Painful joints?denies.?Sciatica?denies.?Weakness?denies.?Skin:?Itching?denies.?Rash?denies.?Skin lesion(s)?denies.?Neurologic:?Difficulty speaking?denies.?Dizziness?denies.?Headache?denies.?Low back pain?denies.?Psychiatric:?Depressed mood?which is mild.? * Medical History:? * Surgical History:?appendecto my Knee surgery 2000dental extractions 2010colonoscopy revealing adenocarcinoma the rectum 2015Exploratory laparotomy [id number] Laparotomy, Lysis of adhesions with ileostomy takedown in conjuction with small bowel resection and primary anastomosis [id number] femoral arterial bypass surgery for peripheral arterial disease [facility] 2017resection of anastamotic recurrence 07/2019Hernia removed 3Appendix surgery Hernia surgery Skin cancer surgery No history * Hospitalization/Major Diagno stic Procedure:?observation overnight once for infection 2013femorol femoral bypass graft, [facility], Dr. Franco 03/2018resection anastomotic rectal cancer recurrence [facility], Dr. Lackey 07/2019No history * Family History:?Father: dece ased 42 yrs, diagnosed with HTN.?Mother: alive 78 yrs.?Son(s): alive.?Siblings: alive.?5 brother(s) , 2 sister(s) - healthy. 1 son(s) - healthy. .? He has 5 brothers and 2 sisters. One sibling has had ear surgery but there are health in general has been excellent. He has one son who is alive and well. There is no history of cancer in his family. His father at the age of 42 of a myocardial infarction. His mother has some cardiac disease and bilateral hip replacements. * Social History:?Tobacco Use:?Tobacco Control (Standard)?Tobacco use:?Former smoker ?How long has it been since you last smoked??5-10 years ?Additional Findings: Tobacco non-user?Ex-cigarette smoker ???He has smoked one pack a day since age 11. He has been to [place] for 25 years. They have one son, 15, who is healthy and in school. 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 He has had no steady job for 20 years due to aches and pains in back and shoulders. He was born in [place]. The patient reported not smoking. He also mentioned drinking six cups of water a day due to dry mouth. * Medications:?TakingRanitidin e HCl 150 MG Tablet 1 tablet at bedtime Orally Once a day Gabapentin 600 MG Tablet TAKE 1 TABLET BY MOUTH THREE TIMES DAILY traMADol HCl 50 MG Tablet TAKE 1 TABLET BY MOUTH TWICE DAILY NEEDED FOR PAIN Oral Albuterol Sulfate HFA 108 (90 Base) MCG/ACT Aerosol Solution 1 puff as needed Inhalation every 4 hrs amLODIPine Besylate 5 MG Tablet 1 tablet Orally Once a day Famotidine 20 MG Tablet 1 tablet Orally up to three times a day Cyclobenzaprine HCl 10 MG Tablet 1 tablet Orally Three times a day Omeprazole 20 MG Capsule Delayed Release 1 capsule Orally Once a day Tamsulosin HCl 0.4 MG Capsule 1 capsule Orally Once a day Medication List reviewed and reconciled with the patientTaking Ranitidine HCl 150 MG Tablet 1 tablet at bedtime Orally Once a day Taking Gabapentin 600 MG Tablet TAKE 1 TABLET BY MOUTH THREE TIMES DAILY Taking traMADol HCl 50 MG Tablet TAKE 1 TABLET BY MOUTH TWICE DAILY NEEDED FOR PAIN Oral Taking Albuterol Sulfate HFA 108 (90 Base) MCG/ACT Aerosol Solution 1 puff as needed Inhalation every 4 hrs Taking amLODIPine Besylate 5 MG Tablet 1 tablet Orally Once a day Taking Famotidine 20 MG Tablet 1 tablet Orally up to three times a day Taking Cyclobenzaprine HCl 10 MG Tablet 1 tablet Orally Three times a day Taking Omeprazole 20 MG Capsule Delayed Release 1 capsule Orally Once a day Taking Tamsulosin HCl 0.4 MG Capsule 1 capsule Orally Once a day Medication List reviewed and reconciled with the patient * Allergies:?Bactrimno[Allergi es Verified] Objective: * Vitals:?Ht: 67, Wt: 186, BMI :29.13, BP: 145/79, HR: 89, Temp: 98.1, Wt-k.37. * ???Past Orders: Lab:Carcinoembryonic Antigen * Collection Date 07/07/2024 02/27/2024 07/09/2023 Collection Time 03:58 PM 11:05 AM 11:52 AM Order Date 07/07/2024 02/27/2024 07/09/2023 Carcinoembryonic Antigen 114.20 (Ref Range: ng/mL) 76.70 (Ref Range: ng/mL) 14.30 (Ref Range: ng/mL) * Lab:Complete Blood Count Aut o Diff * Collection Date 07/07/2024 02/27/2024 07/09/2023 Collection Time 03:58 PM 11:05 AM 11:52 AM Order Date 07/07/2024 02/27/2024 07/09/2023 White Blood Count 10.8 (Ref Range: 4.8-10.8 X10*3/uL) 8.7 (Ref Range: 4.8-10.8 X10*3/uL) 9.2 (Ref Range: 4.8-10.8 X10*3/uL) Red Blood Count 4.91 (Ref Range: 4.60-5.80 X10*6/uL) 4.97 (Ref Range: 4.60-5.80 X10*6/uL) 5.33 (Ref Range: 4.60-5.80 X10*6/uL) Hemoglobin 14.3 (Ref Range: 14.0-18.0 g/dl) 14.4 (Ref Range: 14.0-18.0 g/dl) 16.0 (Ref Range: 14.0-18.0 g/dl) Hematocrit 43.2 (Ref Range: 42.0-52.0 %) 43.6 (Ref Range: 42.0-52.0 %) 49.1 (Ref Range: 42.0-52.0 %) Mean Corpuscular Volume 88.0 (Ref Range: 80.0-98.0 fL) 87.7 (Ref Range: 80.0-98.0 fL) 92.1 (Ref Range: 80.0-98.0 fL) Mean Corpuscular Hemoglobin 29.1 (Ref Range: 27.0-33.0 pg) 29.0 (Ref Range: 27.0-33.0 pg) 30.0 (Ref Range: 27.0-33.0 pg) Mean Corpuscular HGB Conc 33.1 (Ref Range: 31.0-36.0 g/dl) 33.0 (Ref Range: 31.0-36.0 g/dl) 32.6 (Ref Range: 31.0-36.0 g/dl) Red Cell Distribution Width 14.0 (Ref Range: 11.0-16.0 %) 14.4 (Ref Range: 11.0-16.0 %) 13.7 (Ref Range: 11.0-16.0 %) Platelet Count 260 (Ref Range: 160-400 X10*3/uL) 271 (Ref Range: 160-400 X10*3/uL) 249 (Ref Range: 160-400 X10*3/uL) Mean Platelet Volume 9.5 (Ref Range: 9.4-12.4 fL) 9.8 (Ref Range: 9.4-12.4 fL) 9.6 (Ref Range: 9.4-12.4 fL) Neutrophils Percent Auto 66.1 (Ref Range: 45-73 %) 68.8 (Ref Range: 45-73 %) 63.1 (Ref Range: 45-73 %) Imm Gran Pct Auto 0.4 (Ref Range: 0.0-0.4 %) 0.3 (Ref Range: 0.0-0.4 %) 0.4 (Ref Range: 0.0-0.4 %) Lymphocytes Percent Auto 25.0 (Ref Range: 20-40 %) 20.8 (Ref Range: 20-40 %) 27.2 (Ref Range: 20-40 %) Monocytes Percent Auto 5.8 (Ref Range: 2-11 %) 7.1 (Ref Range: 2-11 %) 7.1 (Ref Range: 2-11 %) Eosinophils Percent Auto 2.2 (Ref Range: 0-4 %) 2.3 (Ref Range: 0-4 %) 1.6 (Ref Range: 0-4 %) Basophils Percent Auto 0.5 (Ref Range: 0-2 %) 0.7 (Ref Range: 0-2 %) 0.6 (Ref Range: 0-2 %) NRBC Pct Auto 0.0 (Ref Range: 0.0-0.2 /100WBC) 0.0 (Ref Range: 0.0-0.2 /100WBC) 0.0 (Ref Range: 0.0-0.2 /100WBC) Neutrophils Absolute Auto 7.1 (Ref Range: 2.0-8.3 x10*3/uL) 6.0 (Ref Range: 2.0-8.3 x10*3/uL) 5.8 (Ref Range: 2.0-8.3 x10*3/uL) Imm Gran Abs Auto 0.04?H (Ref Range: 0.00-0.03 X10*3/uL) 0.03 (Ref Range: 0.00-0.03 X10*3/uL) 0.04?H (Ref Range: 0.00-0.03 X10*3/uL) Lymphocytes Absolute Auto 2.7 (Ref Range: 1.2-4.9 X10*3/uL) 1.8 (Ref Range: 1.2-4.9 X10*3/uL) 2.5 (Ref Range: 1.2-4.9 X10*3/uL) Monocytes Absolute Auto 0.6 (Ref Range: 0.1-1.2 X10*3/uL) 0.6 (Ref Range: 0.1-1.2 X10*3/uL) 0.7 (Ref Range: 0.1-1.2 X10*3/uL) Eosinophils Absolute Auto 0.2 (Ref Range: 0.0-0.4 X10*3/uL) 0.2 (Ref Range: 0.0-0.4 X10*3/uL) 0.2 (Ref Range: 0.0-0.4 X10*3/uL) Basophils Absolute Auto 0.1 (Ref Range: 0.0-0.2 X10*3/uL) 0.1 (Ref Range: 0.0-0.2 X10*3/uL) 0.1 (Ref Range: 0.0-0.2 X10*3/uL) NRBC Abs Auto 0.000 (Ref Range: 0.0-0.012 X10*3/uL) 0.000 (Ref Range: 0.0-0.012 X10*3/uL) 0.000 (Ref Range: 0.0-0.012 X10*3/uL) * Lab:Comprehensive Met. Panel * Collection Date 07/07/2024 02/27/2024 07/09/2023 Collection Time 03:58 PM 11:05 AM 11:52 AM Order Date 07/07/2024 02/27/2024 07/09/2023 Sodium 138 (Ref Range: 135-145 mmol/L) 137 (Ref Range: 135-145 mmol/L) 137 (Ref Range: 135-145 mmol/L) Bilirubin Total 0.4 (Ref Range: 0.0-1.0 mg/dL) 0.4 (Ref Range: 0.0-1.0 mg/dL) 0.5 (Ref Range: 0.0-1.0 mg/dL) Aspartate Amino Transferase 22 (Ref Range: 5-37 U/L) 24 (Ref Range: 5-37 U/L) 20 (Ref Range: 5-37 U/L) Alanine Aminotransferase 22 (Ref Range: 0-40 U/L) 20 (Ref Range: 0-40 U/L) 24 (Ref Range: 0-40 U/L) Total Protein 7.9 (Ref Range: 6.5-8.0 g/dL) 7.7 (Ref Range: 6.5-8.0 g/dL) 8.2?H (Ref Range: 6.5-8.0 g/dL) Albumin Level 4.2 (Ref Range: 3.5-5.0 g/dL) 4.3 (Ref Range: 3.5-5.0 g/dL) 4.7 (Ref Range: 3.5-5.0 g/dL) Alkaline Phosphatase 128?H (Ref Range: 39-117 U/L) 113 (Ref Range: 39-117 U/L) 91 (Ref Range: 39-117 U/L) Potassium 3.9 (Ref Range: 3.3-5.1 mmol/L) 4.3 (Ref Range: 3.3-5.1 mmol/L) 4.3 (Ref Range: 3.3-5.1 mmol/L) Chloride 104 (Ref Range: 96-108 mmol/L) 103 (Ref Range: 96-108 mmol/L) 103 (Ref Range: 96-108 mmol/L) Carbon Dioxide 26 (Ref Range: 22-29 mmol/L) 24 (Ref Range: 22-29 mmol/L) 25 (Ref Range: 22-29 mmol/L) Anion Gap 12 (Ref Range: 12-20) 14 (Ref Range: 12-20) 13 (Ref Range: 12-20) Blood Urea Nitrogen 10 (Ref Range: 9-16 mg/dL) 11 (Ref Range: 9-16 mg/dL) 7?L (Ref Range: 9-16 mg/dL) Creatinine 0.82 (Ref Range: 0.5-1.4 mg/dL) 0.92 (Ref Range: 0.5-1.4 mg/dL) 0.73 (Ref Range: 0.5-1.4 mg/dL) Estimated Glomerular Filt Rate > 60 > 60 > 60 Glucose Random 118?H (Ref Range: 60-115 mg/dL) 117?H (Ref Range: 60-115 mg/dL) 106 (Ref Range: 60-115 mg/dL) Calcium 9.5 (Ref Range: 8.4-10.2 mg/dL) 9.6 (Ref Range: 8.4-10.2 mg/dL) 10.2 (Ref Range: 8.4-10.2 mg/dL) * Examination: ???General Examination: ?GENERAL APPEARANCE:?pleasant, well nourished, well developed, in no acute distress, calm and relaxed, overweight, man.?HEAD:?atraumatic, normocephalic.?EYES:?eomi, perrla, anicteric, conjugate.?EARS:?normal.?NOSE:?septum intact.?ORAL CAVITY:?normal, unremarkable, Edentulous.?NECK/THYROID:?no jugular venous distention, no carotid bruit, thyroid normal.?LYMPH NODES:?no enlarged lymph nodes,spleen normal.?SKIN:?no suspicious lesions, anicteric.?HEART:?no clicks, gallops, murmurs, or rubs, regular rhythm, S1, S2 normal, no s3, or vascular bruits.?LUNGS:?clear to auscultation .?BREASTS:??no masses palpable bilaterally.?ABDOMEN:?bowel sounds normal, no ascites, no organomegaly, no mass, overweight.?RECTAL EXAM:?not examined.?MUSCULOSKELETAL:?extremities unremarkable, no clubbing, cyanosis or edema.?PERIPHERAL PULSES:?normal.?NEUROLOGIC:?alert and oriented, cranial nerves 2-12 grossly intact, deep tendon reflexes 2+ symmetrical, motor strength normal upper and lower extremities, sensory exam intact.?PSYCH:?alert, oriented, anxious appearing.? Assessment: * Assessment: 1.?Rectal cancer - C20 (Prim huong)???Notes :His disease is slowly progressing.? I told this patient that I wanted to repeat the CT scan of the chest before his next visit along with a CT scan of the abdomen and pelvis.? This was in order to know how rapidly the disease is progressing so that his decisions can be made with the most available information.? However, this patient declined to have the CT scan saying that it was too early.? He said he would consider it after his next visit which will be an 8 weeks.???2.?Edentulous - K00.0???Notes :He says his dentures fit he is able to chew without difficulty.???3.?Chronic obstructive pulmonary disease, unspecified - J44.9???Notes :He is breathing room air comfortably. He is not smoking. Short of breath with prolonged exertion.???4.?Hypertrophy of prostate without urinary obstruction and other lower urinary tract symptoms (LUTS) - N40.0???Notes :He admits to nocturia once or twice a night depending upon fluid intake. We discussed lifestyle modifications she could make to reduce nocturia.???5.?Anxiety - F41.9???Notes :He was occasionally anxious today with his voice raised.???6.?Peripheral arterial disease - I73.9???Notes :His feet are pink and warm. He has no claudication and is doing quite well. His regimen was not altered. He was encouraged to walk and exercise.???7.?Right inguinal hernia - K40.90???Notes :This is a new finding in the last month. He was referred to surgery to discuss what is involved in repairing it.???8.?Other depression - F32.89???Notes :He will continue with his therapist and the current regimen.???9.?Former smoker - Z87.891???Notes :He has stopped smoking within the last month. We have discussed strategies for maintaining abstinence. He has a plan to prevent relapse in times of pain illness or stress.???10.?Overweight (BMI 25.0- 29.9) - E66.3???Notes :His body mass index is 29. He has gained 3 pounds and is overweight. His appetite is good??? Plan: * Treatment: 2.?Others? Continue Ranitidine HCl Tablet, 150 MG, 1 tablet at bedtime, Orally, Once a day;?Continue Gabapentin Tablet, 600 MG, TAKE 1 TABLET BY MOUTH THREE TIMES DAILY;?Continue traMADol HCl Tablet, 50 MG, TAKE 1 TABLET BY MOUTH TWICE DAILY NEEDED FOR PAIN, Oral;?Continue Albuterol Sulfate HFA Aerosol Solution, 108 (90 Base) MCG/ACT, 1 puff as needed, Inhalation, every 4 hrs;?Continue amLODIPine Besylate Tablet, 5 MG, 1 tablet, Orally, Once a day.?? * Procedures:?The skin over the port was cleaned with Betadine and alcohol. Sterile technique was used. A Daily needle was used to access the port. It was flushed with saline and then with heparin solution. The needle was then withdrawn. No complcations occurred. A good blood return was obtained. ? * Procedure Codes:?08122 REFIL L/MAINT PUMP/RESVR [id number] INJECTION HEPARIN SODIUM 10 [id number] SALINE SOLUTION * Preventive Medicine:? ??Counseling:?Care goal follow-up plan:?Counseling for abnormal BMI given?Yes ?Above Normal BMI Follow-up?Dietary management education, guidance, and counseling, Dietary needs education, Exercise promotion: strength training, Exercise promotion: stretching, Feeding regime, Giving encouragement to exercise, Lifestyle education regarding diet, Nutrition / feeding management, Nutrition therapy, Prescribed activity/exercise education, Prescribed diet education, Prescribed dietary intake, Special diet education, Weight monitoring , Intervention, Order not done: Medical or Other reason not done ?Smoking/Tobacco Use?Patient counseled on the dangers of tobacco use and urged to quit.?07/09/2024 ??COPD Care Plan:?Patient Lifestyle Goals?Relieve symptoms and improve quality of life, Reduce number of ED and hospitalizations, Be able to be more active with friends and family.?Treatment Goals?Eat a nutritious diet and increase water consumption to 6-8 glasses a day, Exercise to help whole body, including lungs, Eat 4-5 small meals throughout the day.?Barriers?no barriers.?Self-Managment Goals?Eat a healthy diet.? * Follow Up:?4 Weeks (Reason: OV) * Images: * Sign off status: Completed true * Provider:?Melvin Gonsalves MD Date:?06/20 Generated for Bindu fam/Tesfaye/eTeransmitting on:?08/10/2024 01:40 PM EDT History and Physical Notes * Examination Category Sub-Category Detail Notes General Examination GENERAL APPEARANCE: pleasant , well nourished, well developed, in no acute distress, calm and relaxed, overweight, man HEAD: atraumatic, normocep halic EYES: eomi, perrla, anicte lucio, conjugate EARS: normal NOSE: septum intact NECK/THYROID: no jugular venous di stention, no carotid bruit, thyroid normal HEART: no clicks, gallops, murmurs, or rubs, regular rhythm, S1, S2 normal, no s3, or vascular bruits LUNGS: clear to auscultatio n ABDOMEN: bowel sounds normal, no ascites, no organomegaly, no mass, overweight NEUROLOGIC: alert and oriented, cranial nerves 2-12 grossly intact, deep tendon reflexes 2+ symmetrical, motor strength normal upper and lower extremities, sensory exam intact SKIN: no suspicious lesion s, anicteric PERIPHERAL PULSES: normal BREASTS: no masses palpable b ilaterally MUSCULOSKELETAL: extremities unremark able, no clubbing, cyanosis or edema LYMPH NODES: no enlarged lymph no evaristo,spleen normal RECTAL EXAM: not examined PSYCH: alert, oriented, anx ious appearing ORAL CAVITY: normal, unremarkable , Edentulous
--- OUTSIDE RECORDS SUMMARY | 2024-08-10 13:40 | XMS_ITS | Data Portability ---
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 ? ?pain radiating into? ? ?left upper back and arm with numbness and tingling in his left index finger. He has myofascial pain syndrome in his left upper back. Trigger points were palpated with reproduction of his pain in his left trapezius muscle and left paraspinal muscle in his cervical spine. Trial of trigger point injections under ultrasound guidance were discussed with him. The risks and benefits of the procedure were discussed and he wishes to proceed and an appointment will be made after insurance approval. He had recent blood work done at his PCP's office and If his platelet count and Liver function is within normal limits ,He might be a candiadte for a trial of cervical epidural steroid injection under fluoroscopic ? ? ?guidance. [email or web address] Not available 02/24/2015 11:09:58 03/09/2015 03/09/2015 Gregory Haynes is a 49 year old man with neck? ? ?pain radiating into? ? ?left upper back and arm with numbness and tingling in his left index finger. He has myofascial pain syndrome in his left upper back. Trigger points were palpated with reproduction of his pain in his left trapezius muscle and left paraspinal muscle in his cervical spine. He is here for a trial of trigger point injection in left trapezius muscle ? ? ?under ultrasound guidance . The risks and benefits of the procedure were discussed and he wishes to proceed . [email or web address] Not available 03/10/2015 10:20:40 03/21/2015 03/21/2015 Gregory Haynes is a 49 year old man with neck? ? ?pain radiating into? ? ?left upper back and arm with numbness and tingling in his left index finger.He is here for a follow up after a trial of trigger point injection in left trapezius muscle. He reports 40-50% pain benefit for one week with return of pain back to baseline. He has myofascial pain syndrome in his left upper back. Trigger points were palpated with reproduction of his pain in his left trapezius muscle and left paraspinal muscle in his cervical spine.? ? ?I recommend a repeat? ? ?trigger point injection in left trapezius muscle ? ? ?under ultrasound guidance . The risks and benefits of the procedure were discussed and he wishes to proceed . He will follow up in four weeks for a repeat injection. Insuraance approval needed. [email or web address] Not available 03/21/2015 11:43:08 02/20/2017 02/20/2017 Gregory Haynes is a 51 year old man with neck pain radiating into left upper back . He is here for a follow up after a trial of trigger point injection in left trapezius muscle in 03/2015. He reports good pain benefit with return of pain back to baseline. He has myofascial pain syndrome in his left upper back. Trigger points were palpated with reproduction of his pain in his left trapezius muscle and left paraspinal muscle in his cervical spine. He is here for a repeat trigger point injection in left trapezius muscle under ultrasound guidance . The risks and benefits of the procedure were discussed and he wishes to proceed . He will follow up in for a repeat injection in two weeks. [email or web address] Not available 03/10/2017 08:52:02 03/10/2017 03/10/2017 Gregory Haynes is a 51 year old man with neck pain radiating into left upper back and arm with numbness and tingling in his left index finger.He is here for a follow up after a trial of trigger point injection in left trapezius muscle. He reports 50% pain benefit which is ongoing. He has myofascial pain syndrome in his left upper back. Trigger points were palpated with reproduction of his pain in his left trapezius muscle and left paraspinal muscle in his cervical spine. I recommend a repeat trigger point injection in left trapezius muscle under ultrasound guidance . The risks and benefits of the procedure were discussed and he wishes to proceed . He will follow up for a repeat injection as needed. [email or web address] Not available 03/10/2017 14:04:02 Plan of Treatment Reminders Order Date Submit Date Provider Last Modified By Organization Details Last Modified Time Details Appointments None record ed. Lab None record ed. Referral None record ed. Procedures None record ed. Surgeries None record ed. Imaging None record ed. Medication Orders None record ed. Patient TargetsNo targets recorded. Patient Instructions Encounter Date Encounter Id Patient Instructions Last Modified By Organization Details Last Modified Time 02/24/2015 [id number] He was advised against bed rest lasting longer than four days and to continue activities as tolerated. Benefits of smoking cessation were discussed with him. [email or web address] Not available 02/24/2015 11:10:15 03/09/2015 [id number] He was advised against bed rest lasting longer than four days and to continue activities as tolerated. Benefits of smoking cessation were discussed with him. [email or web address] Not available 03/10/2015 10:18:37 03/21/2015 [id number] He was advised against bed rest lasting longer than four days and to continue activities as tolerated. Benefits of smoking cessation were discussed with him. [email or web address] Not available 03/21/2015 11:41:56 02/20/2017 [id number] He was advised against bed rest lasting longer than four days and to continue activities as tolerated. Benefits of smoking cessation were discussed with him. [email or web address] Not available 03/10/2017 08:44:51 03/10/2017 [id number] He was advised against bed rest lasting longer than four days and to continue activities as tolerated. Benefits of smoking cessation were discussed with him. [email or web address] Not available 03/10/2017 14:01:44 Reason for Referral None Reported. 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 Procedures Surgical History Date Name Laterality Status Provider Name and Address Organization Details Recorded Time 02/21/20 17 Trigger Point Injections under ultrasound guidance completed Gigi Bagley MD [address] [facility] , [address], [place], [address], [place] [facility] 03/10/2017 08:49:29 03/21/20 15 Trigger Point Injections under ultrasound guidance completed Gigi Bagley MD [address] [facility] , [address], [place], [address], [place] [facility] 03/21/2015 11:44:35 03/09/20 15 Trigger Point Injections under ultrasound guidance completed Gigi Bagley MD [address] [facility] , [address], [place], [address], [place] [facility] 03/10/2015 10:20:40 Appendectomy completed Cate Krishnamurthy [place] - [facility] 02/24/2015 09:51:25 Arthroscopic Surgery completed Cate Krishnamurthy [place] - [facility] 02/24/2015 09:51:25 Other completed Cate Krishnamurthy [place] [facility] 02/20/2017 13:25:07 Imaging Results None recorded. Procedure Notes None recorded. Medical Equipment None Reported. Allergies Allergen ID Allergen Name Allergen Category Reaction Reaction Severity Criticality Documentation Date Start Date Code Code System Note Provider Name and Address Organization Details Recorded Time 49960 Bactrim medicatio n Not available Not available Not available 02/24/2015 47125 9 RxNorm Cate pugh [place] - [facility] 5 09:51:25 Medications Name Sig Start Date Stop Date Status Note LastModified by Organization Details LastModified Time Mapap Extra Strength 500 mg tablet take 2 tablets by mouth every 8 hours 02/20 completed Not Available Not Available Not Available ibuprofen 800 mg tablet 02/20 completed Not Available Not Available Not Available ondansetron HCl 8 mg tablet active Not Available Not Available Not Available metronidazo le 500 mg tablet 02/20 completed Not Available Not Available Not Available capecitabin e 500 mg tablet 02/20 completed Not Available Not Available Not Available ciprofloxac in 500 mg tablet 02/20 completed Not Available Not Available Not Available omeprazole 40 mg capsule,del ayed release 02/20 completed Not Available Not Available Not Available tramadol 50 mg tablet 02/20 completed Not Available Not Available Not Available oxycodone-a cetaminophe n 5 mg-325 mg tablet 02/20 completed Not Available Not Available Not Available metoclopram kiera 5 mg tablet 02/20 completed Not Available Not Available Not Available hyoscyamine ER 0.375 mg tablet,exte nded release,12 hr 02/20 completed Not Available Not Available Not Available tamsulosin 0.4 mg capsule 02/20 completed Not Available Not Available Not Available ranitidine 150 mg tablet Take 1 tablet twice a day by oral route. active Not Available Not Available No t Available nicotine 21 mg/24 hr daily transdermal patch 02/20 completed Not Available Not Available Not Available diclofenac sodium 75 mg tablet,pilar yed release 02/20 completed Not Available Not Available Not Available lorazepam 1 mg tablet 02/20 completed Not Available Not Available Not Available levofloxaci n 500 mg tablet 02/20 completed Not Available Not Available Not Available dexamethaso ne sodium phosphate 10 mg/mL injection solution 02/20 completed Not Available Not Available Not Available doxycycline hyclate 100 mg tablet take 1 tablet by mouth every 12 hours NO FOOD FOR 2 HOURS BEFORE AND 2 HOURS AFTER EACH DOSE active Not Available Not Available No t Available oxycodone 5 mg tablet 02/20 completed Not Available Not Available Not Available oxaliplatin 50 mg/10 mL (5 mg/mL) intravenous solution 02/20 completed Not Available Not Available Not Available ondansetron HCl (PF) 4 mg/2 mL injection solution 02/20 completed Not Available Not Available Not Available Aleve 220 mg capsule Take 2 capsules every day by oral route. active Not Available Not Available No t Available Fluarix Quad (PF) 60 mcg (15 mcg x 4)/0.5 mL IM syringe 02/20 completed Not Available Not Available Not Available Afluria 0837-9644 (PF) 45 mcg(15 mcg x 3)/0.5 mL intramuscul ar syringe inject 0.5 millilite r intramusc ularly 02/20 completed Not Available Not Available Not Available Vitals Date Recorded Body weight Oxygen saturation Oxygen saturation in Arterial blood by Pulse oximetry Body height Body mass index (BMI) Heart rate Systolic blood pressure Diastolic blood pressure Provider Name and Address Organization Details Last Updated DateTime 5 16884.5 1816 g 97 % 97 % 162.56 cm 28.8 kg/m2 66 /min 152 mm[Hg] 77 mm[Hg] Cate Krishnamurthy [place] [facility] 5 09:51:25 Date Recorded Oxygen saturation Oxygen saturation in Arterial blood by Pulse oximetry Heart rate Systolic blood pressure Diastolic blood pressure Provider Name and Address Organization Details Last Updated DateTime 5 98 % 98 % 76 /min 138 mm[Hg] 88 mm[Hg] Cate Krishnamurthy [facility] 5 15:06:35 Date Recorded Oxygen saturation Oxygen saturation in Arterial blood by Pulse oximetry Heart rate Systolic blood pressure Diastolic blood pressure Provider Name and Address Organization Details Last Updated DateTime 5 98 % 98 % 68 /min 154 mm[Hg] 89 mm[Hg] Cate Krishnamurthy [facility] 5 10:49:00 Date Recorded Heart rate Oxygen saturation Oxygen saturation in Arterial blood by Pulse oximetry Systolic blood pressure Diastolic blood pressure Provider Name and Address Organization Details Last Updated DateTime 7 71 /min 98 % 98 % 124 mm[Hg] 77 mm[Hg] Cate Krishnamurthy [facility] 7 13:15:49 Date Recorded Heart rate Oxygen saturation Oxygen saturation in Arterial blood by Pulse oximetry Body weight Body mass index (BMI) Body height Systolic blood pressure Diastolic blood pressure Provider Name and Address Organization Details Last Updated DateTime 7 68 /min 98 % 98 % 55039.7 8 g 27.5 kg/m2 162.56 cm 151 mm[Hg] 88 mm[Hg] Cate Krishnamurthy [place] [facility] 7 13:15:39 Social History Question Answer Notes LastModified by Organizat ion Details LastModified Time Tobacco Smoking Status Former Smoker Quit x 1 year Not Available [employer] 02/04/2020 03:16:12 What Is Your Level Of Alcohol Consumption? None [id number] Information not available 02/04/2020 Are You Currently Employed? No [id number] Information not available 02/04/2020 Education 11 Information no t available 02/24/2015 Live Alone Or With Others? With Others And Son [email or web address] Information not available 02/24/2015 Marital Status Informatio n not available 02/24/2015 What Was The Date Of Your Most Recent Tobacco Screening? 03/10/2017 [id number] Information not available 02/04/2020 How Much Tobacco Do You Smoke? No [id number] Information not available 02/04/2020 How Many Years Have You Smoked Tobacco? 40 [id number] Information not available 02/04/2020 Sex: Unknown Functional Status None recorded. Mental Status None recorded. Family History Nothing Reported. Medical History Condition Response Cancer Y Arthritis Y GERD/Reflux Y Past Encounters Encounter ID Performer Location Encounter Start Date Encounter Closed Date Diagnosis/Indication Diagnosis SNOMED-CT Code Diagnosis ICD10 Code Diagnosis Note [id number] Gigi Bagley MD PAIN OFFICE [address] [place] [address] 02/24/2015 09:24:08 02/24/2015 11:10:39 Degeneration of cervical intervertebral disc 27028849 M50.32 Brachial radiculitis 278 50378 M54.12 Muscle pain 88080372 M79 .1 [id number] Gigi Bagley MD PAIN OFFICE [address] [place] [address] 03/09/2015 14:02:26 03/10/2015 10:21:56 Muscle pain 97520819 M79.1 Degenerati on of cervical intervertebral disc 03719952 M50.32 ck Brachial radiculitis 278 24326 M54.12 [id number] Gigi Bagley MD PAIN OFFICE [address] [place] [address] 03/21/2015 10:15:43 03/21/2015 11:45:30 Muscle pain 31619224 M79.1 Degenerati on of cervical intervertebral disc 07237091 M50.32 cka Brachial radiculitis 278 57247 M54.12 [id number] Gigi Bagley MD [facility] PA[facility] OFFICE [address] [facility] [place] [address] 02/20/2017 13:03:42 03/10/2017 08:53:14 Muscle pain 37582743 M79.1 Degenerati on of cervical intervertebral disc 91445976 M50.320 Brachial radiculitis 278 39276 M54.12 [id number] Gigi Bagley MD [facility] PAIN OFFICE [address] [facility] [place] [address] 03/10/2017 13:01:53 03/10/2017 14:15:08 Muscle pain 20020501 M79.1 Degenerati on of cervical intervertebral disc 65123922 M50.321 cka Brachial radiculitis 278 12920 M54.12 Health Concerns Section Related Observation LastModified by Organization Detai ls LastModified Time None Recorded Concern Status LastModified by Organization Details LastModified Time None Recorded Advance Directives Directive None Recorded Payers Encounter Date Sequence Insurance Name Policy Number Policy Starr Covered Member ID Starr Member ID Guarantor Name 02/24/2015 1 [facility] - DIRECT CONNECTORCARE TYPE I (HMO) Gregory Haynes [id number] Gregory Haynes 03/09/2015 1 [facility] - DIRECT CONNECTORCARE TYPE I (HMO) Gregory Haynes [id number] Gregory Haynes 03/21/2015 1 [facility] - DIRECT CONNECTORCARE TYPE I (HMO) Gregory Haynes [id number] Gregory Haynes 02/20/2017 1 [facility] - DIRECT CONNECTORCARE TYPE I (HMO) Gregory Haynes [id number] Gregory Haynes 03/10/2017 1 [facility] - DIRECT CONNECTORCARE TYPE I (HMO) Gregory Haynes [id number] Gregory Haynes Notes Date Note Type Note Provider Name and Address Organization Details Recorded Time 03/09/2015 text/html Gregory Haynes is a 49 year old man with neck pain radiating into left upper back. He is here for a trial of trigger point injection in his left trapezius muscle under ultrasound guidance. Gigi Bagley MD [address] [facility] , [address], [place], [address], [facility] 03/13/2015 09:20:16 03/21/2015 text/html He is here for a follow up after a trial of trigger point injection in left trapezius muscle. He reports 40-50% pain benefit for one week with return of pain back to baseline. He states the radiating pain in his left upper extremity is less in intensity. He feels his arms are strong. He has no history of bladder or bowel incontinence. Gigi Bagley MD [address] [facility] , [address], [place], [address], [facility] 03/21/2015 13:14:49 02/20/2017 text/html He is here for a follow up . He was last seen on 03/2015 . He reports good pain benefit after trigger point injection in his left trapezius muscle. He has been diagnosed with colon cancer in the interim and is S/P surgery , chemo therapy and radiation treatments. He is complaining of neck pain radiating into left upper back . He describes the pain as an aching and throbbing pain. Current pain level is high. He has no history of bladder or bowel incontinence. Gigi Bagley MD [address] [facility] , [address], [place], [address], [facility] 03/18/2017 08:46:17 03/10/2017 text/html He is here for a follow up after a trigger point injection in left trapezius muscle. He reports 50% pain benefit which is ongoing. He states the radiating pain in his left upper extremity is less in intensity. He feels his arms are strong. He has no history of bladder or bowel incontinence.He is having numbness and tingling in both hands and feet. He is S/P Chemotherapy for colon cancer. Gigi Bagley MD [address] [facility] , [address], [place], [address], [facility] 03/18/2017 11:25:46
--- OUTSIDE RECORDS SUMMARY | 2024-08-10 13:40 | XMS_ITS | Patient Health Record ---
Author Organization Melvin Gonsalves III, MD Address [address] [place] [address] [address] [place] [address] Care Team Providers Care Mixer Wet Pour Name Role Phone Melvin Gonsalves Primary Care Provider Allergies Allergen (clinical drug ingredient) Drug/Non Drug Allergy documented on EMR Reaction Allergy Type Onset Date Status sulfamethoxazole / trimethoprim Bactrim Unknown Drug Allergy Active Results Component Value Reference Range Notes XR thoracic spine 3V (Not y et reviewed by provider) Interpretation: Performing Lab: Notes/Report: [address] [address] XRay Report Signed Patient: Gregory Haynes MR#: [id number] 181 : 1965 Acct:[id number] Age/Sex: 58 / M ADM Date: 08/10/24 Loc: HO.MISHA Attending Dr: Melvin Gonsalves MD Ordering Physician: Melvin Gonsalves MD Date of Service: 08/10/24 Procedure(s): XR thoracic spine 3V Accession Number(s): [id number] cc: Melvin Gonsalves MD EXAMINATION: XR THORACIC SPINE CLINICAL INFORMATION: BACK PAIN COMPARISON: None. Correlation made to CT chest, abdomen, pelvis 03/17/2024. TECHNIQUE: 3 views of the thoracic spine were obtained. FINDINGS: A right-sided chest port is in place, the tip in the mid SVC. There is osteopenia. There is no scoliosis. There is a mildly exaggerated thoracic kyphosis. There is minimal wedging of what appears to be T11 ventrally. This appears chronic. There is otherwise no compression deformity or evidence of acute fracture. There is normal alignment. There is no bone lesion. There is mild degenerative spondylosis which is stable. There is incidental note made of a masslike consolidation of the pulmonary parenchyma within the left lower lobe, previously seen on CT examination. There is also a left lower lobe masslike consolidation at the medial cardiophrenic angle, also seen on the previous CT examination. XR/XR thoracic spine 3V IMPRESSION: 1. No acute findings of the thoracic spine. Mild chronic wedging of T11 is stable. Mild degenerative spondylosis is stable. 2. Left lower lobe masslike consolidations, similar. Refer to prior CT examinations. 3. Partially imaged right chest port. Electronically signed by: Jose Mcwilliams MD 08/10/2024 12:02 PM EDT Dictated By: Jose Mcwilliams MD Signed By: <Electronically signed by Jose Mcwilliams MD in OV> 08/10/24 1202 DD/ 1152 TD/TT: 08/10/[address] Reporter: [place] [id number] XRay Report Signed Patient: [facility] Hay[facility] MR#: [id number] 181 : 1965 Acct:[id number] Age/Sex: 58 / M ADM Date: 08/10/24 Loc: HO.XRAY Attending Dr: Melvin Gonsalves MD Ordering Physician: Melvin Gonsalves MD Date of Service: 08/10/24 Procedure(s): XR thoracic spine 3V Accession Number(s): [id number] cc: Melvin Gonsalves MD EXAMINATION: XR THORACIC SPINE CLINICAL INFORMATION: BACK PAIN COMPARISON: None. Correlation ma de to CT chest, abdomen, pelvis 03/17/2024. TECHNIQUE: 3 views of the thora cic spine were obtained. FINDINGS: A right-sided chest port is in place, the tip in the mid SVC. There is osteopenia. There is no scoliosi s. There is a mildly exaggerated thoracic kyphosis. There is minimal wed ging of what appears to be T11 ventrally. This appears chronic. The re is otherwise no compression deformity or evidence of acute fracture. There is normal alignment. There is no bone lesion. There is mild degenerative spondyl osis which is stable. There is incidental note made of a masslike consolidation of the pulmonary parenchyma within the left lower lobe, previously seen on CT examination. There is also a left lower lobe masslike consolidation at the medial cardiophrenic angle, also seen on the previous CT examination. X R/XR thoracic spine 3V IMPRESSION: 1. No acute findings of the thoracic spine. Mild chronic wedging of T11 is stable. Mild degenerative spondylosis is stable. 2. Left lower lobe masslike consolidations, similar. Refer to prior CT examinations. 3. Partially imaged right chest port. Electronically brian d by: Jose Mcwilliams MD 08/10/2024 12:02 PM EDT Dictated By: Jose Mcwilliams MD Signed By: <Electronically signed by Jose Mcwilliams MD in OV> 08/10/24 1202 DD/ 1152 TD/TT: 08/10/[address] Reporter: URINE DIP STICK Reviewed date:03/30/2024 01:23:20 PM Interpretation: Performing Lab: Notes/Report: SG 1.010 1.005 - 1.025 pH 6.0 5.0 - 9.0 COY Negative Negative - NIT Negative Negative - PRO 15 Negative - Trace GLU Negative Negative - KET Negative Negative - UBG 0.2 0.1 - 1.8 FRANCIS Negative 0.2 - 1.3 BLD Negative Negative - Blood Urea Nitrogen Reviewed date:08/24/2023 01:51:44 PM Interpretation: Performing Lab:[address] [address] Notes/Report: Blood Urea Nitrogen 10 9-16 mg/dL Creatinine Reviewed date:08/24/2023 01:51:44 PM Interpretation: Performing Lab:[address] [address] Notes/Report: Creatinine 0.83 0.5-1.4 mg/dL Estimated Glomerular Filt Rate > 60 NOTE: For -[place] individuals, multiply the result by 1.210. Chronic Kidney Disease: Estimated GFR < 60 mL/min/1.73m2 Severe Kidney Disease: Estimated GFR < 15 mL/min/1.73m2 CT chest w con Reviewed date:09/25/2023 05:47:01 AM Interpretation: Performing Lab: Notes/Report: [address] [address] [address] Scan Report Signed Patient: Gregory Haynes MR#: [id number] 181 : 1965 Acct:[id number] Age/Sex: 57 / M ADM Date: 09/03/23 Loc: HO.CT Attending Dr: Melvin Gonsalves MD Ordering Physician: Melvin Gonsalves MD Date of Service: 09/03/23 Procedure(s): CT chest w IV con Accession Number(s): [id number] cc: Melvin Gonsalves MD EXAMINATION: CT CHEST WITH CONTRAST CLINICAL INFORMATION: Rectal cancer COMPARISON: Previous chest CT most recent October 2022 TECHNIQUE: Multidetector volumetric CT imaging of the chest was obtained after the administration of 85 mL of Omnipaque 350 intravenous contrast without immediate adverse reactions. Axial MIP volume rendering provided. Sagittal and coronal reformatted images were obtained. This CT examination was performed using dose optimization techniques as appropriate, variously including the following: *Automated exposure control *Adjustment of mA and/or kV according to patient size (this includes techniques or standardized protocols for targeted exams where dose is matched to indication/reason for exam; i.e. extremities or head) *Use of iterative reconstruction technique DLP: 1-2 mGy-cm FINDINGS: LUNGS: There is evidence of mild emphysema. There are increased peripheral reticular markings again questionable for mild interstitial lung disease. There is interval increase in size in the 2 left lower lobe nodules. These measure 1.6 x 2.2 cm axial image 290 series 5 compared to 1.2 x 1.7 cm October 2022 and 1.3 x 1.5 cm axial image 378 series 5 there are additional smaller pulmonary nodules that appear increased as well. Compared to 1.2 x 1.4 cm October 2022 exam. MEDIASTINUM: Right jugular port with tip projecting over the SVC. Normal heart size. No pericardial effusion. Mild coronary artery calcification. No enlarged hilar or mediastinal lymph nodes. PLEURA: There is no pleural effusion. No pleural mass or thickening. AXILLA: No lymphadenopathy. UPPER ABDOMEN: See abdominal and pelvic CT report from the same day. OSSEOUS STRUCTURES: Mild degenerative changes of the spine. T11 Schmorl's node versus mild compression fracture unchanged. CT/CT chest w IV con IMPRESSION: Interval increase in pulmonary nodules. Fleischner guidelines were followed. Dictated By: Marina Escobar MD Signed By: <Electronically signed by Marina Escobar MD in OV> 09/23/23 1456 DD/ 1540 TD/TT: Stenographic Court Reporter: [address] [address] [address] Scan Report Signed Patient: [facility] MR#: [id number] 181 : 1965 Acct:[id number] Age/Sex: 57 / M ADM Date: 09/03/23 Loc: HO.CT Attending Dr: Melvin Gonsalves MD Ordering Physician: Melvin Gonsalves MD Date of Service: 09/03/23 Procedure(s): CT rehan st w IV con Accession Number(s): [id number] cc: Melvin Gonsalves MD EXAMINATION: CT CHEST WITH CONTRAST CLINICAL INFORMATION: Rectal cancer COMPARISON: Previous chest CT mo st recent October 2022 TECHNIQUE: Multidetector volume tric CT imaging of the chest was obtained after the administration of 85 mL of Omnipaque 350 intravenous contrast without immediate adverse reactions. Axial MIP volume rendering provided. Sagittal and coronal reformatted images were obtained. This CT examination was performed using dose optimization techniques as appropriate, various ly including the following: *Automated exposure control *Adjustment of mA an d/or kV according to patient size (this includes techniques or standardized protocols for targeted exams where dose is matched to indication/reason for exam; i.e. extremities or head) *Use of iterative reconstruction technique DLP: 1-2 mGy-cm FINDINGS: LUNGS: There is evid ence of mild emphysema. There are increased peripheral reticular markings again questionable for mild interstitial lung disease. There is interval increase in size in the 2 left lower lobe nodules. These measure 1.6 x 2.2 cm axial image 290 series 5 compared to 1.2 x 1. 7 cm October 2022 and 1.3 x 1.5 cm axial image 378 series 5 there are additional smaller pulmonary nodules that appear increased as well. Compared to 1.2 x 1.4 cm October 2022 exam. MEDIASTINUM: Right jugular port with tip projecting over the SVC. Normal heart size. N o pericardial effusion. Mild coronary artery calcification. No enlarged hilar or mediastinal lymph nodes. PLEURA: There is no pleural effusion. No pleural mass or thickening. AXILLA: No lymphadenopathy. UPPER ABDOMEN: See abdominal and pelvic CT report from the same day. OSSEOUS STRUCTURES: Mild degenerative changes of the spine. T11 Schmorl's node versu s mild compression fracture unchanged. C T/CT chest w IV con IMPRESSION: Interval increase in pulmonary nodules. Fleischner guideline s were followed. Dictated By: Marina Escobar MD Signed By: <Electronically signed by Marina Escobar MD in OV> 09/23/23 1456 DD/ 1540 TD/TT: Maintenance Painter ist: SUJ CT abdomen pelvis w con Reviewed date:09/25/2023 05:47:01 AM Interpretation: Performing Lab: Notes/Report: [place] [address] CT Scan Report Signed Patient: Gregory Haynes MR#: [id number] 181 : 1965 Acct:[id number] Age/Sex: 57 / M ADM Date: 09/03/23 Loc: HO.CT Attending Dr: Melvin Gonsalves MD Ordering Physician: Melvin Gosnalves MD Date of Service: 09/03/23 Procedure(s): CT abdomen pelvis w IV con Accession Number(s): [id number] cc: Melvin Gonsalves MD EXAMINATION: CT ABDOMEN AND PELVIS WITH CONTRAST CLINICAL INFORMATION: Rectal cancer COMPARISON: Previous CT of the abdomen and pelvis most recent October 2022 TECHNIQUE: Multidetector volumetric images were obtained from the superior aspect of the liver through the pubic symphysis following administration 85 mL of Omnipaque 350 intravenous contrast. Sagittal and coronal reformatted images were obtained on the technologist's workstation. Oral contrast: Yes This CT examination was performed using dose optimization techniques as appropriate, variously including the following: *Automated exposure control *Adjustment of mA and/or kV according to patient size (this includes techniques or standardized protocols for targeted exams where dose is matched to indication/reason for exam; i.e. extremities or head) *Use of iterative reconstruction technique DLP: 393 mGy-cm FINDINGS: LIVER, GALLBLADDER, AND BILIARY TREE: The liver is low in attenuation suggestive of mild fatty infiltration. No focal liver lesion. The gallbladder is slightly contracted. There is question of mild gallbladder wall thickening, increased enhancement and nodularity. Appearance is questionable for adenomyomatosis of the gallbladder wall. No gallstones. No biliary duct dilatation. PANCREAS: Unremarkable. SPLEEN: Unremarkable. ADRENAL GLANDS: Unremarkable. KIDNEYS AND URETERS: The kidneys are normal in size, shape, and attenuation. No hydronephrosis, hydroureter, or calculi seen. No perinephric stranding. BLADDER: There is abnormal soft tissue seen at the base of the bladder. This may be related to the prostate gland. This is similar to previous exam. GASTROINTESTINAL TRACT: Left lower quadrant diverting colostomy. There are postsurgical changes to the small bowel with surgical staple line. The appendix is not seen. There is a soft tissue mass in the pelvis probably representing residual rectal stump. This is inseparable from the prostate gland. This is partially calcified and measures 4 x 4.6 cm in AP and transverse dimension. This does not appear appreciably changed from multiple prior exams. There is fat stranding in the presacral space also unchanged. ABDOMINAL WALL: Postsurgical changes to the right anterior abdominal wall. Left lower quadrant colostomy. LYMPH NODES: There are small retroperitoneal lymph nodes in the abdomen and pelvis. No enlarged lymph nodes are seen. Previously identified peritoneal nodule just deep to the right anterior abdominal wall no longer seen. No ascites. VASCULAR: Severe atherosclerotic disease. Femorofemoral bypass graft. Right common iliac artery stent. PELVIC VISCERA: Stable soft tissue mass in the pelvis likely representing residual rectal/anal lesion and invading the prostate gland. Fat stranding in the presacral space is stable. OSSEOUS STRUCTURES: Mild degenerative changes of the spine and hip joints. CT/CT abdomen pelvis w IV con IMPRESSION: Stable soft tissue mass in the pelvis likely representing residual rectal stump which is inseparable from the prostate gland. Stable fat stranding in the presacral space. Abnormal soft tissue at the base of the bladder probably representing invagination of the prostate gland also unchanged. Previously identified peritoneal nodule just deep to the right anterior abdominal wall no longer seen. Fatty liver. Severe atherosclerotic disease. Fleischner guidelines were followed. Dictated By: Marina Escobar MD Signed By: <Electronically signed by Marina Escobar MD in OV> 09/23/23 1509 DD/ 1540 TD/TT: Stenographic Court Reporter: [address] [address] [address] Scan Report Signed Patient: [facility] MR#: [id number] 181 : 1965 Acct:[id number] Age/Sex: 57 / M ADM Date: 09/03/23 Loc: HO.CT Attending Dr: Melvin Gonsalves MD Ordering Physician: Melvin Gonsalves MD Date of Service: 09/03/23 Procedure(s): CT abd omen pelvis w IV con Accession Number(s): [id number] cc: Melvin Gonsalves MD EXAMINATION: CT ABDOMEN AND PELVI S WITH CONTRAST CLINICAL INFORMATION: Rectal cancer COMPARISON: Previous CT of the abdomen and pelvis most recent October 2022 TECHNIQUE: Multidetector volume tric images were obtained from the superior aspect of the liver through the pubic symphysis following administration 85 mL of Omnipaque 350 intravenous contrast. Sagittal and coronal reformatted images were obtained on the technologist's workstation. Oral contrast: Yes This CT examination was performed using dose optimization techniques as appropriate, various ly including the following: *Automated exposure control *Adjustment of mA an d/or kV according to patient size (this includes techniques or standardized protocols for targeted exams where dose is matched to indication/reason for exam; i.e. extremities or head) *Use of iterative reconstruction technique DLP: 393 mGy-cm FINDINGS: LIVER, GALLBLADDER, AND BILIARY TREE: The liver is low in attenuation suggestive of mild f atty infiltration. No focal liver lesion. The gallbladder is sligh tly contracted. There is question of mild gallbladder wall thickening, increased enhancement and nodularity. Appearance is questionable for adenomyomatosis of the gallbladder wall. No gallstones. No biliary duct dilatation. PANCREAS: Unremarkable. SPLEEN: Unremarkable. ADRENAL GLANDS: Unremarkable. KIDNEYS AND URETERS: The kidneys are normal in size, shape, and attenuation. No hydronephrosis, hydroureter, or calculi seen. No perinephric stranding. BLADDER: There is abnormal soft tissue seen at the base of the bladder. This may be related to the prostate gland. This is similar to previous exam. GASTROINTESTINAL TRA CT: Left lower quadrant diverting colostomy. There are postsurgical natasha nges to the small bowel with surgical staple line. The appendix is not seen. There is a soft tissue mass in the pelvis probably representin g residual rectal stump. This is inseparable from the prostate gland. This is partially calcified and measures 4 x 4.6 cm in AP and transverse dimension. This does not appear appreciably changed from multipl e prior exams. There is fat stranding in the presacral space also unchanged. ABDOMINAL WALL: Postsurgical changes to the right anterior abdominal wall. Left lower quadrant colostomy. LYMPH NODES: There a re small retroperitoneal lymph nodes in the abdomen and pelvis. No enlar ged lymph nodes are seen. Previously identified peritoneal nodule ju st deep to the right anterior abdominal wall no longer seen. No ascites. VASCULAR: Severe atherosclerotic disease. Femorofemoral bypass graft. Right common iliac artery stent. PELVIC VISCERA: Stab le soft tissue mass in the pelvis likely representing residua l rectal/anal lesion and invading the prostate gland. Fat stranding in the presacral space is stable. OSSEOUS STRUCTURES: Mild degenerative changes of the spine and hip joints. C T/CT abdomen pelvis w IV con IMPRESSION: Stable soft tissue m ass in the pelvis likely representing residual rectal stump which i s inseparable from the prostate gland. Stable fat stranding in the presacral space. Abnormal soft tissue at the base of the bladder probably representing invagination of the prostate gland also unchanged. Previously identified peritoneal nodule just deep to the right anterior abdominal wall no longer seen. Fatty liver. Severe atherosclerotic disease. Fleischner guideline s were followed. Dictated By: Marina Escobar MD Signed By: <Electronically signed by Marina Escobar MD in OV> 09/23/23 1509 DD/ 1540 TD/TT: Maintenance Painter ist: HANS Pathology Reviewed date:09/25/2023 05:47:01 AM Interpretation: Performing Lab:[facility], [address] [place] [address] Notes/Report: ---- Name: Jamie Haynes Age/Sex: 57/M : 1965 Unit#: [id number] Attend Dr: Mulugeta Melendez MD Re09/10/23 Status : [facility] Location: [facility] Disch: ---- SPEC : [id number] RECD : 09/10/23 STATUS: VITALY HATFIELDShannon NUM: [id number] SANDRA: 09/10/[address] [facility] [address]: Mulugeta Melendez MD ENTERED: 09/10/23- 48 SP TYPE: Surgical OTHR DR: Melvin Gonsalves MD ORDERED: CEA Stain, Gom Meth Stain, Acid Fast Stain, Gross Micro L4/3, S 100, IHC, Add. /, Spec ials Gr. 1/2, CDX-2, CK5-6, CK7, MOC-31, p40 THIS IS A CORRECT ED REPORT 09/18/23 This is a corrected report. Any previous version s are stored internally and are available if necessary. Diagnosis A. Skin, mid back, excision: -Squamous cell carcinoma, tixfikcu-qxxysr-kaetuqbx tiated, superficially invasive with lymphovascular invas ion and pagetoid involvement of a seborrheic keratosis (see comment). -Deep and peripheral margins are free of tumor. -One benign lymph node. B. Skin, lateral lef t face, excision: -Basal cell carcinom a, nodular type. -Deep and peripheral margins are free of tumor. -Dermal scar. C. Skin, left face medial, excision: -Benign skin with perifollicular inflammation and focal granuloma and yeast buds suggesting Malassezi a (Pityrosporum) folliculitis. -No dermal scar identified (clinical correlation necessary.. Comment: (A): This may be a primary skin squamous cell carcinoma, but a metastasis cannot be excluded. Note: Report corrected to add margin assessment and lymph nodes statement to the diagnosis text of part A; no other changes. Clinical History Squamous cell carcin demetrius, basal cell carcinoma Microscopic Description Microscopic sections of part A show a large seborrheic keratosis with pagetoid involvement by nests of malignan t cells with scant to moderate vesicular to pink cytoplasm, enlarged irregular nuclei, prominent nucleoli, and many mitotic figures, including abnormal forms. There is focal derma l invasion, and lymphovascular invasion confirmed by CD34 immunostain. Immunostains show th e tumor cells are positive for p40 (diffuse) and CK5/6 (patchy weak). MOC31 is predominant ly negative with rare weak staining noted. CDX2, S100 and CK7 are CONTINUED ON NEXT PAGE ---- Name: Jamie Haynes Age/Sex: 57/M : 1965 Unit#: [id number] Attend Dr: Mulugeta Melendez MD Re09/10/23 Status : [facility] Location: [facility] Disch: ---- SPEC : [id number] RECD : 09/10/23 STATUS: VITALY CANO NUM: [id number] SANDRA: 09/10/[address] [facility] [address]: Mulugeta Melendez MD ENTERED: 09/10/23 SP TYPE: Surgical OTHR DR: Melvin Gonsalves MD ORDERED: CEA Stain, Gom Meth Stain, Acid Fast Stain, Gross Micro L4/3, S 100, IHC, Add. immunos/6, Spec ials Gr. 1/2, CDX-2, CK5-6, CK7, MOC-31, p40 Microscopic Descript ion (Continued) negative. Controls s tain appropriately. Part B sections show dermal lobules composed of uniform, polygonal, basaloid cells with peripheral palisadin g embedded in a fibromyxoid stroma. Multiple sections of part C show skin without scar, and focal perifollicular inflammation and a poorly-formed granuloma. AFB stain is negative for acid fast bacteria. GMS stain shows rare yeast bud s compatible with Malassezia (Pityrosporum) in the area of the granuloma, and highlights Demodex. Controls stain appropriately. Material Received A. Squamous cell carcinoma mid back B. Basal cell latera l left face C. Basal cell carcin demetrius left face medial Gross Description Received in three parts. Part A: Received in formalin labeled ?squamous cell carcinoma mid back? is a 7.5 (superior- inferior) x 3.0 (right-left) cm ellipse of young skin and subcutaneous tissue excised to a maximum depth of 1.8 cm. As stated on the specimen container and specimen requisition slip a short stitch denot es superior and a long stitch denotes inferior. The skin surface displays a central asymmetric, peripherally well-demarcated, 4.0 x 2.5 cm crusted keratotic focally nodular young and young-brown lesion which rises 0.8 above the adjacent skin surface and is located 0.2 cm fr om the nearest left (9 o'clock) margin of resection and 0.3 cm from the nearest right (3 o'clock) margin of resection. The lesion is located 2.0 cm from the nearest superior and inferior tip margins. The margins are inked as follows: superior- right (3 o'clock), b lue; inferior-right (3 o'clock), orange; inferior-left (9 o'clock), green; superior-left (9 o'clock), yellow and the deep margin is marked with red ink. The specimen is serially sectioned to reveal crusted and keratotic young cut surfaces. There does not appear to be invasion of the dermal and subcutaneous tissues. The lesion is entirely submitted in TITIN Tech es A1-A14 perpendicular to the margins of resection as previously inked, from superior to inferior. The tip portions are retained in formalin. Part B: Received in formalin labeled ?basal cell lateral left face? is a 1.9 x 0.8 cm ellipse of slightly puckered and retracted, hair-bearing young skin and subcutaneous tissue excised to a maximum depth of 0.45 cm. The skin surface displays an eccentric, slightly puckered and retract ed, pearly young lesion measuring 0.9 x 0.5 cm which very closely approaches the peripheral margins of resection and is located 0.4 cm from the tip margins of resection. The tiara ns are inked and the specimen sectioned to reveal homogeneous young-white fibrous dermal tissu e and unremarkable subcutaneous fat. The tip portions are submitted in cassette B1 and cross-sections through the center of the specimen to include the entire CONTINUED ON NEXT PAGE ---- Name: Jamie Haynes Age/Sex: 57/M : 1965 Unit#: [id number] Attend Dr: Mulugeta Melendez MD Re09/10/23 Status : [facility] Location: [facility] Disch: ---- SPEC : [id number] RECD : 09/10/23 STATUS: VITALY CANO NUM: [id number] SANDRA: 09/10/[address] [facility] [address]: Mulugeta Melendez MD ENTERED: 09/10/23 SP TYPE: Surgical OTHR DR: Melvin Gonsalves MD ORDERED: CEA Stain, Gom Meth Stain, Acid Fast Stain, Gross Micro L4/3, S 100, IHC, Add. immunos/6, Spec ials Gr. 1/2, CDX-2, CK5-6, CK7, MOC-31, p40 Gross Description (Continued) lesion are submitted in cassette B2. Part C: Received in formalin labeled ?basal cell carcinoma left face medial? is a 2.2 x 0.9 cm ellipse of slight ly puckered and retracted young skin and subcutaneous tissue excised to a maximum depth of 0.5 cm. The skin surface displays a central, peripherally ill-defined, slightly puckered an d retracted pale young lesion measuring 1.0 x 0.5 cm which is located 0.15 cm from the nearest peripheral margin of resection and 0.5 cm from the nearest tip margin of resection. The tiara ns are inked and the specimen is serially sectioned to reveal homogeneous dos santos-whi te fibrous dermal tissue and unremarkable subcutaneous fat. The tip portions are submitt ed in cassette C1 and cross-sections through the center of the specimen, to include the lesio n, entirely submitted, are submitted in cassette C2. CEDS This case was review ed intradepartmentally, multiple pathologists. Results given to Dr. Melendez by secure t ext by Dr. Chandler on 09/18/2023 at 5:55 pm. Special studies orde red and performed: CEA, CK7 and S-100 on A6 and CD34, CK5/6, CDX2 and p40 on A8. Copies To: Melvin Gonsalves MD [facility], [facility] [address] [address] Mulugeta Melendez MD [address] [place] [address] [place] [id number] ---- Signed (signature on file) [place] 09/18/23 180 ---- END OF REPORT Complete Blood Count Auto Di ff Reviewed date:03/02/2024 08:34:43 AM Interpretation: Performing Lab:[facility], [address] [place] [phone] Notes/Report: White Blood Count 8.7 4.8-10.8 X10*3/uL Red Blood Count 4.97 4.60-5.80 X10*6/uL Hemoglobin 14.4 14.0-18.0 g/dl Hematocrit 43.6 42.0-52.0 % Mean Corpuscular Volume 87.7 80.0-98.0 fL Mean Corpuscular Hemoglobin 29.0 27.0-33.0 pg Mean Corpuscular HGB Conc 33.0 31.0-36.0 g/dl Red Cell Distribution Width 14.4 11.0-16.0 % Platelet Count 271 160-400 X10*3/uL Mean Platelet Volume 9.8 9.4-12.4 fL Neutrophils Percent Auto 68.8 45-73 % Imm Gran Pct Auto 0.3 0.0-0.4 % Lymphocytes Percent Auto 20.8 20-40 % Monocytes Percent Auto 7.1 2-11 % Eosinophils Percent Auto 2.3 0-4 % Basophils Percent Auto 0.7 0-2 % NRBC Pct Auto 0.0 0.0-0.2 /100WBC Neutrophils Absolute Auto 6.0 2.0-8.3 x10*3/uL Imm Gran Abs Auto 0.03 0.00-0.03 X10*3/uL Lymphocytes Absolute Auto 1.8 1.2-4.9 X10*3/uL Monocytes Absolute Auto 0.6 0.1-1.2 X10*3/uL Eosinophils Absolute Auto 0.2 0.0-0.4 X10*3/uL Basophils Absolute Auto 0.1 0.0-0.2 X10*3/uL NRBC Abs Auto 0.000 0.0-0.012 X10*3/uL Comprehensive Met. Panel Reviewed date:03/02/2024 08:34:43 AM Interpretation: Performing Lab:[address] [id number] Notes/Report: Sodium 137 135-145 mmol/L Potassium 4.3 3.3-5.1 mmol/L Chloride 103 96-108 mmol/L Carbon Dioxide 24 22-29 mmol/L Anion Gap 14 12-20 Blood Urea Nitrogen 11 9-16 mg/dL Creatinine 0.92 0.5-1.4 mg/dL Estimated Glomerular Filt Rate > 60 NOTE: For -[place] individuals, multiply the result by 1.210. Chronic Kidney Disease: Estimated GFR < 60 mL/min/1.73m2 Severe Kidney Disease: Estimated GFR < 15 mL/min/1.73m2 Glucose Random 117 60-115 mg/dL Calcium 9.6 8.4-10.2 mg/dL Bilirubin Total 0.4 0.0-1.0 mg/dL Aspartate Amino Transferase 24 5-37 U/L Alanine Aminotransferase 20 0-40 U/L Total Protein 7.7 6.5-8.0 g/dL Albumin Level 4.3 3.5-5.0 g/dL Alkaline Phosphatase 113 39-117 U/L Carcinoembryonic Antigen Reviewed date:03/02/2024 08:34:43 AM Interpretation: Performing Lab:[facility], [address] [place] [phone] Notes/Report: Carcinoembryonic Antigen 76.70 CEA Reference Range: 93.4% Non-Smokers = 0.0-3.0 ng/mL 95.6% Smokers = 0.0-5.0 ng/mL CEA Methodology: Bolanos Alinity i Chemiluminescent Microparticle Immunoassay (CMIA) CEA testing can have significant value in monitoring of patients with diagnosed malignancies in whom changing concentrations of CEA are observed. Values obtained with different assay methods cannot be used interchangeably. PSA,Total (Free>4and<10) Reviewed date:03/02/2024 08:34:43 AM Interpretation: Performing Lab:[facility], [address] [place] [phone] Notes/Report: PSA,Total (Free>4and<10) 3.10 0.00-4.00 ng/mL A Free PSA was not performed: The percentage of Free PSA can be used to enhance the differentiation of prostate cancer from benign prostatic disease in subjects whose PSA levels are between 4.0 and 10.0 ng/mL. For subjects whose PSA levels are below 4.0 or above 10.0 ng/mL, the risk of prostate cancer is determined on the basis of the PSA alone. Therefore the % Free PSA is recommended only for those subjects whose PSA levels are between 4.0 and 10.0 ng/mL. PSA methodology: Bolanos Alinity i Chemiluminescent Microparticle Immunoassay (CMIA) CT chest w con Reviewed date:04/02/2024 08:43:51 AM Interpretation: Performing Lab: Notes/Report: [address] [address] [address] Scan Report Signed Patient: Gregory Haynes MR#: [id number] 181 : 1965 Acct:[id number] Age/Sex: 58 / M ADM Date: 03/17/24 Loc: HO.CT Attending Dr: Melvin Gonsalves MD Ordering Physician: Melvin Gonsalves MD Date of Service: 03/17/24 Procedure(s): CT chest w IV con Accession Number(s): [id number] cc: Melvin Gonsalves MD EXAMINATION: CT CHEST, ABDOMEN AND PELVIS WITH CONTRAST. CLINICAL INFORMATION: Pulmonary nodule. COMPARISON: CT chest abdomen pelvis 09/03/2023. TECHNIQUE: Multidetector volumetric imaging was performed from the thoracic inlet through the pubic symphysis following administration of 85 mL Omnipaque 350. Sagittal and coronal reformatted images were obtained on the technologist workstation. This CT examination was performed using dose optimization techniques as appropriate, variously including the following: *Automated exposure control *Adjustment of mA and/or kV according to patient size (this includes techniques or standardized protocols for targeted exams where dose is matched to indication/reason for exam; i.e. extremities or head) *Use of iterative reconstruction technique DLP: 547 mGy-cm FINDINGS: CHEST: LUNG: A greater than 6 cm pulmonary mass in the posterior basal segment of left lower lobe extends from the hilum to the chest wall. There are surrounding peripheral satellite nodules. Lesion has significantly increased in size since 09/03/2023 (2.5 cm). A second pulmonary nodule in the inferomedial posterior basal segment of the left lower lobe (series 5 image [id number]) now measures 3.5 cm, increased from 2 cm. There is a history of rectal cancer and metastatic disease is a leading consideration. However, CT also again reveals emphysema and pulmonary fibrosis. Tissue characterization would be required to exclude coexistent primary lung malignancy. Despite the presence of satellite lesions, fungal pneumonia is considered unlikely given the indolent progression. MEDIASTINUM: No mediastinal or hilar adenopathy. Mild coronary disease predominating in the LAD. Right IJ central venous catheter tip terminates at the cavoatrial junction. PERICARDIUM/PLEURA: No significant effusion. No pleural mass or thickening. CHEST WALL/AXILLA: Right chest wall port. No mass or adenopathy ABDOMEN/PELVIS: PERITONEAL SPACE:No significant free air or free fluid identified. LIVER, GALLBLADDER, BILIARY TREE: Diffuse decrease in liver attenuation raising the possibility of hepatic steatosis. Stable wall thickening of the gallbladder fundus likely adenomyosis. No cholelithiasis. No biliary ductal dilation. PANCREAS: Mild atrophy again noted. No mass or ductal dilation. SPLEEN: Normal in size with stable small accessory spleen. ADRENAL GLANDS: Subtle fullness the left adrenal body unchanged. No discrete adrenal mass. KIDNEYS AND URETERS: The kidneys are normal in size, shape, and attenuation. No hydronephrosis, hydroureter, or calculi seen. No perinephric stranding. BLADDER: Unremarkable. GASTROINTESTINAL TRACT: Status post distal colectomy with left diverting descending colostomy. Oral contrast has passed through to the descending colon without obstruction. Appendix not identified. Normal terminal ileum. No small bowel obstruction. ABDOMINAL WALL: Small fatty parastomal hernia without significant bowel involvement. Status post infraumbilical ventral laparotomy. LYMPHOVASCULAR STRUCTURES: Severe atherosclerotic peripheral vascular disease. A cross femoral graft does not appear to enhance, clinical correlation advised. PELVIC VISCERA: The prostate is prominent, impinging on the base of the bladder. Stable presacral soft tissue attenuation following distal colectomy, consistent with postoperative change. OSSEUS STRUCTURES: Degenerative spine disease. Degenerative changes in the hips. 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 SPINE: Stable loss of stature T11 vertebral body. CT/CT chest w IV con IMPRESSION: 1. Significant interval growth of now greater than 6 cm left lower lobe mass with satellite lesions. 2. Continued growth of additional medial left lower lobe pulmonary nodule. 3. Emphysema. Pulmonary fibrosis. 4. Status post distal colectomy. 5. Severe atherosclerotic peripheral vascular disease. Cross femoral graft does not appear to enhance, clinical correlation advised. Electronically signed by: Mulugeta Quigley MD 03/18/2024 12:48 PM [facility] Dictated By: Mulugeta Quigley MD Signed By: <Electronically signed by Mulugeta Quigley MD in OV> 03/18/24 1248 DD/ 1407 TD/TT: 03/17/[address] Reporter: [place] [id number] CT Scan Report Signed Patient: [facility] Haynes MR#: [id number] 181 : 1965 Acct:[id number] Age/Sex: 58 / M ADM Date: 03/17/24 Loc: HO.CT Attending Dr: Melvin Gonsalves MD Ordering Physician: Melvin Gonsalves MD Date of Service: 03/17/24 Procedure(s): CT rehan st w IV con Accession Number(s): [id number] cc: Melvin Gonsalves MD EXAMINATION: CT CHEST, ABDOMEN AN D PELVIS WITH CONTRAST. CLINICAL INFORMATION: Pulmonary nodule. COMPARISON: CT chest abdomen pel vis 09/03/2023. TECHNIQUE: Multidetector volume tric imaging was performed from the thoracic inlet through the pubic symphysis following administration of 85 mL Omnipaque 350. Sagittal and coronal reformatted images were obtained on the technologist workstation. This CT examination was performed using dose optimization techniques as appropriate, various ly including the following: *Automated exposure control *Adjustment of mA an d/or kV according to patient size (this includes techniques or standardized protocols for targeted exams where dose is matched to indication/reason for exam; i.e. extremities or head) *Use of iterative reconstruction technique DLP: 547 mGy-cm FINDINGS: CHEST: LUNG: A greater than 6 cm pulmonary mass in the posterior basal segment of left lower lobe extends from the hilum to the chest wall. There are surrounding peripher al satellite nodules. Lesion has significantly increased in size si nce 09/03/2023 (2.5 cm). A second pulmonary nodule in the inferomedial posterior basal segment of the left lower lo be (series 5 image [id number]) now measures 3.5 cm, increased from 2 cm. There is a history o f rectal cancer and metastatic disease is a leading consideration. However, CT also aga in reveals emphysema and pulmonary fibrosis. Tissue characterization wou ld be required to exclude coexistent primary lung malignancy. Despite the presence of satellite lesions, fungal pneumonia is considered unlikely given the indolent progression. MEDIASTINUM: No mediastinal or hilar adenopathy. Mild coronary diseas e predominating in the LAD. Right IJ central mala ous catheter tip terminates at the cavoatrial junction. PERICARDIUM/PLEURA: No significant effusion. No pleural mass or thickening. CHEST WALL/AXILLA: R ight chest wall port. No mass or adenopathy ABDOMEN/PELVIS: PERITONEAL SPACE:No significant free air or free fluid identified. LIVER, GALLBLADDER, BILIARY TREE: Diffuse decrease in liver attenuation raising the possibil ity of hepatic steatosis. Stable wall thickeni ng of the gallbladder fundus likely adenomyosis. No cholelithiasis. No biliary ductal dilation. PANCREAS: Mild atrop hy again noted. No mass or ductal dilation. SPLEEN: Normal in si ze with stable small accessory spleen. ADRENAL GLANDS: Subt le fullness the left adrenal body unchanged. No discrete adrenal mass. KIDNEYS AND URETERS: The kidneys are normal in size, shape, and attenuation. No hydronephrosis, hydroureter, or calculi seen. No perinephric stranding. BLADDER: Unremarkable. GASTROINTESTINAL TRA CT: Status post distal colectomy with left diverting descending colostomy. Oral contrast has passed through to the descending colon wit hout obstruction. Appendix not identif ied. Normal terminal ileum. No small bowel obstruction. ABDOMINAL WALL: Smal l fatty parastomal hernia without significant bowel involvement. Status post infraumbilical ventral laparotomy. LYMPHOVASCULAR STRUCTURES: Severe atherosclerotic peripheral vascular disease. A cross fem oral graft does not appear to enhance, clinical correlation advised. PELVIC VISCERA: The prostate is prominent, impinging on the base of the bladder. Stable presacral sof t tissue attenuation following distal colectomy, consistent with postoperative change. OSSEUS STRUCTURES: Degenerative spine disease. Degenerative changes in the hips. Stable los s of stature T11 likely degenerative in etiology. SPINE: Stable loss o f stature T11 vertebral body. C T/CT chest w IV con IMPRESSION: 1. Significant inter paola growth of now greater than 6 cm left lower lobe mass with satellite lesions. 2. Continued growth of additional medial left lower lobe pulmonary nodule. 3. Emphysema. Pulmon huong fibrosis. 4. Status post dista l colectomy. 5. Severe atherosclerotic peripheral vascular disease. Cross femoral graft does not appea r to enhance, clinical correlation advised. Electronically brian d by: Mulugeta Quigley MD 03/18/2024 12:48 PM [facility] Dictated By: Paul Quigley MD Signed By: <Electronically signed by Mulugeta Quigley MD in OV> 03/18/24 1248 DD/ 1407 TD/TT: 03/17/[address] Reporter: CORNELL CT abdomen pelvis w con Reviewed date:04/02/2024 08:43:51 AM Interpretation: Performing Lab: Notes/Report: [address] [address] [address] Scan Report Signed Patient: Gregory Haynes MR#: [id number] 181 : 1965 Acct:[id number] Age/Sex: 58 / M ADM Date: 03/17/24 Loc: HO.CT Attending Dr: Melvin Gonsalves MD Ordering Physician: Melvin Gonsalves MD Date of Service: 03/17/24 Procedure(s): CT abdomen pelvis w IV con Accession Number(s): [id number] cc: Melvin Gonsalves MD EXAMINATION: CT CHEST, ABDOMEN AND PELVIS WITH CONTRAST. CLINICAL INFORMATION: Pulmonary nodule. COMPARISON: CT chest abdomen pelvis 09/03/2023. TECHNIQUE: Multidetector volumetric imaging was performed from the thoracic inlet through the pubic symphysis following administration of 85 mL Omnipaque 350. Sagittal and coronal reformatted images were obtained on the technologist workstation. This CT examination was performed using dose optimization techniques as appropriate, variously including the following: *Automated exposure control *Adjustment of mA and/or kV according to patient size (this includes techniques or standardized protocols for targeted exams where dose is matched to indication/reason for exam; i.e. extremities or head) *Use of iterative reconstruction technique DLP: 547 mGy-cm FINDINGS: CHEST: LUNG: A greater than 6 cm pulmonary mass in the posterior basal segment of left lower lobe extends from the hilum to the chest wall. There are surrounding peripheral satellite nodules. Lesion has significantly increased in size since 09/03/2023 (2.5 cm). A second pulmonary nodule in the inferomedial posterior basal segment of the left lower lobe (series 5 image [id number]) now measures 3.5 cm, increased from 2 cm. There is a history of rectal cancer and metastatic disease is a leading consideration. However, CT also again reveals emphysema and pulmonary fibrosis. Tissue characterization would be required to exclude coexistent primary lung malignancy. Despite the presence of satellite lesions, fungal pneumonia is considered unlikely given the indolent progression. MEDIASTINUM: No mediastinal or hilar adenopathy. Mild coronary disease predominating in the LAD. Right IJ central venous catheter tip terminates at the cavoatrial junction. PERICARDIUM/PLEURA: No significant effusion. No pleural mass or thickening. CHEST WALL/AXILLA: Right chest wall port. No mass or adenopathy ABDOMEN/PELVIS: PERITONEAL SPACE:No significant free air or free fluid identified. LIVER, GALLBLADDER, BILIARY TREE: Diffuse decrease in liver attenuation raising the possibility of hepatic steatosis. Stable wall thickening of the gallbladder fundus likely adenomyosis. No cholelithiasis. No biliary ductal dilation. PANCREAS: Mild atrophy again noted. No mass or ductal dilation. SPLEEN: Normal in size with stable small accessory spleen. ADRENAL GLANDS: Subtle fullness the left adrenal body unchanged. No discrete adrenal mass. KIDNEYS AND URETERS: The kidneys are normal in size, shape, and attenuation. No hydronephrosis, hydroureter, or calculi seen. No perinephric stranding. BLADDER: Unremarkable. GASTROINTESTINAL TRACT: Status post distal colectomy with left diverting descending colostomy. Oral contrast has passed through to the descending colon without obstruction. Appendix not identified. Normal terminal ileum. No small bowel obstruction. ABDOMINAL WALL: Small fatty parastomal hernia without significant bowel involvement. Status post infraumbilical ventral laparotomy. LYMPHOVASCULAR STRUCTURES: Severe atherosclerotic peripheral vascular disease. A cross femoral graft does not appear to enhance, clinical correlation advised. PELVIC VISCERA: The prostate is prominent, impinging on the base of the bladder. Stable presacral soft tissue attenuation following distal colectomy, consistent with postoperative change. OSSEUS STRUCTURES: Degenerative spine disease. Degenerative changes in the hips. 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 SPINE: Stable loss of stature T11 vertebral body. CT/CT abdomen pelvis w IV con IMPRESSION: 1. Significant interval growth of now greater than 6 cm left lower lobe mass with satellite lesions. 2. Continued growth of additional medial left lower lobe pulmonary nodule. 3. Emphysema. Pulmonary fibrosis. 4. Status post distal colectomy. 5. Severe atherosclerotic peripheral vascular disease. Cross femoral graft does not appear to enhance, clinical correlation advised. Electronically signed by: Mulugeta Quigley MD 03/18/2024 12:48 PM [facility] Dictated By: Mulugeta Quigley MD Signed By: <Electronically signed by Mulugeta Quigley MD in OV> 03/18/24 1248 DD/ 1407 TD/TT: 03/17/[address] Reporter: [place] [id number] CT Scan Report Signed Patient: [facility] MR#: [id number] 181 : 1965 Acct:[id number] Age/Sex: 58 / M ADM Date: 03/17/24 Loc: HO.CT Attending Dr: Melvin Gonsalves MD Ordering Physician: Melvin Gonsalves MD Date of Service: 03/17/24 Procedure(s): CT abd omen pelvis w IV con Accession Number(s): [id number] cc: Melvin Gonsalves MD EXAMINATION: CT CHEST, ABDOMEN AN D PELVIS WITH CONTRAST. CLINICAL INFORMATION: Pulmonary nodule. COMPARISON: CT chest abdomen pel vis 09/03/2023. TECHNIQUE: Multidetector volume tric imaging was performed from the thoracic inlet through the pubic symphysis following administration of 85 mL Omnipaque 350. Sagittal and coronal reformatted images were obtained on the technologist workstation. This CT examination was performed using dose optimization techniques as appropriate, various ly including the following: *Automated exposure control *Adjustment of mA an d/or kV according to patient size (this includes techniques or standardized protocols for targeted exams where dose is matched to indication/reason for exam; i.e. extremities or head) *Use of iterative reconstruction technique DLP: 547 mGy-cm FINDINGS: CHEST: LUNG: A greater than 6 cm pulmonary mass in the posterior basal segment of left lower lobe extends from the hilum to the chest wall. There are surrounding peripher al satellite nodules. Lesion has significantly increased in size si nce 09/03/2023 (2.5 cm). A second pulmonary nodule in the inferomedial posterior basal segment of the left lower lo be (series 5 image [id number]) now measures 3.5 cm, increased from 2 cm. There is a history o f rectal cancer and metastatic disease is a leading consideration. However, CT also aga in reveals emphysema and pulmonary fibrosis. Tissue characterization wou ld be required to exclude coexistent primary lung malignancy. Despite the presence of satellite lesions, fungal pneumonia is considered unlikely given the indolent progression. MEDIASTINUM: No mediastinal or hilar adenopathy. Mild coronary diseas e predominating in the LAD. Right IJ central mala ous catheter tip terminates at the cavoatrial junction. PERICARDIUM/PLEURA: No significant effusion. No pleural mass or thickening. CHEST WALL/AXILLA: R ight chest wall port. No mass or adenopathy ABDOMEN/PELVIS: PERITONEAL SPACE:No significant free air or free fluid identified. LIVER, GALLBLADDER, BILIARY TREE: Diffuse decrease in liver attenuation raising the possibil ity of hepatic steatosis. Stable wall thickeni ng of the gallbladder fundus likely adenomyosis. No cholelithiasis. No biliary ductal dilation. PANCREAS: Mild atrop hy again noted. No mass or ductal dilation. SPLEEN: Normal in si ze with stable small accessory spleen. ADRENAL GLANDS: Subt le fullness the left adrenal body unchanged. No discrete adrenal mass. KIDNEYS AND URETERS: The kidneys are normal in size, shape, and attenuation. No hydronephrosis, hydroureter, or calculi seen. No perinephric stranding. BLADDER: Unremarkable. GASTROINTESTINAL TRA CT: Status post distal colectomy with left diverting descending colostomy. Oral contrast has passed through to the descending colon wit hout obstruction. Appendix not identif ied. Normal terminal ileum. No small bowel obstruction. ABDOMINAL WALL: Smal l fatty parastomal hernia without significant bowel involvement. Status post infraumbilical ventral laparotomy. LYMPHOVASCULAR STRUCTURES: Severe atherosclerotic peripheral vascular disease. A cross fem oral graft does not appear to enhance, clinical correlation advised. PELVIC VISCERA: The prostate is prominent, impinging on the base of the bladder. Stable presacral sof t tissue attenuation following distal colectomy, consistent with postoperative change. OSSEUS STRUCTURES: Degenerative spine disease. Degenerative changes in the hips. Stable los s of stature T11 likely degenerative in etiology. SPINE: Stable loss o f stature T11 vertebral body. C T/CT abdomen pelvis w IV con IMPRESSION: 1. Significant inter paola growth of now greater than 6 cm left lower lobe mass with satellite lesions. 2. Continued growth of additional medial left lower lobe pulmonary nodule. 3. Emphysema. Pulmon huong fibrosis. 4. Status post dista l colectomy. 5. Severe atherosclerotic peripheral vascular disease. Cross femoral graft does not appea r to enhance, clinical correlation advised. Electronically brian d by: Mulugeta Quigley MD 03/18/2024 12:48 PM [facility] Workstation: [id number] Dictated By: Paul Quigley MD Signed By: <Electronically signed by Mulugeta Quigley MD in OV> 03/18/24 1248 DD/ 1407 TD/TT: 03/17/[address] Reporter: CORNELL Complete Blood Count Auto Di ff Reviewed date:07/07/2024 08:43:34 PM Interpretation: Performing Lab:[facility], [address] [place] [phone] Notes/Report: White Blood Count 10.8 4.8-10.8 X10*3/uL Red Blood Count 4.91 4.60-5.80 X10*6/uL Hemoglobin 14.3 14.0-18.0 g/dl Hematocrit 43.2 42.0-52.0 % Mean Corpuscular Volume 88.0 80.0-98.0 fL Mean Corpuscular Hemoglobin 29.1 27.0-33.0 pg Mean Corpuscular HGB Conc 33.1 31.0-36.0 g/dl Red Cell Distribution Width 14.0 11.0-16.0 % Platelet Count 260 160-400 X10*3/uL Mean Platelet Volume 9.5 9.4-12.4 fL Neutrophils Percent Auto 66.1 45-73 % Imm Gran Pct Auto 0.4 0.0-0.4 % Lymphocytes Percent Auto 25.0 20-40 % Monocytes Percent Auto 5.8 2-11 % Eosinophils Percent Auto 2.2 0-4 % Basophils Percent Auto 0.5 0-2 % NRBC Pct Auto 0.0 0.0-0.2 /100WBC Neutrophils Absolute Auto 7.1 2.0-8.3 x10*3/uL Imm Gran Abs Auto 0.04 0.00-0.03 X10*3/uL Lymphocytes Absolute Auto 2.7 1.2-4.9 X10*3/uL Monocytes Absolute Auto 0.6 0.1-1.2 X10*3/uL Eosinophils Absolute Auto 0.2 0.0-0.4 X10*3/uL Basophils Absolute Auto 0.1 0.0-0.2 X10*3/uL NRBC Abs Auto 0.000 0.0-0.012 X10*3/uL Comprehensive Met. Panel Reviewed date:07/07/2024 08:43:34 PM Interpretation: Performing Lab:[facility], [address] [place] [id number] Notes/Report: Sodium 138 135-145 mmol/L Potassium 3.9 3.3-5.1 mmol/L Chloride 104 96-108 mmol/L Carbon Dioxide 26 22-29 mmol/L Anion Gap 12 12-20 Blood Urea Nitrogen 10 9-16 mg/dL Creatinine 0.82 0.5-1.4 mg/dL Estimated Glomerular Filt Rate > 60 Chronic Kidney Disease: Estimated GFR < 60 mL/min/1.73m2 Severe Kidney Disease: Estimated GFR < 15 mL/min/1.73m2 Glucose Random 118 60-115 mg/dL Calcium 9.5 8.4-10.2 mg/dL Bilirubin Total 0.4 0.0-1.0 mg/dL Aspartate Amino Transferase 22 5-37 U/L Alanine Aminotransferase 22 0-40 U/L Total Protein 7.9 6.5-8.0 g/dL Albumin Level 4.2 3.5-5.0 g/dL Alkaline Phosphatase 128 39-117 U/L Carcinoembryonic Antigen Reviewed date:07/07/2024 08:43:34 PM Interpretation: Performing Lab:[facility], [address] [place] [id number] Notes/Report: Carcinoembryonic Antigen 114.20 CEA Reference Range: 93.4% Non-Smokers = 0.0-3.0 ng/mL 95.6% Smokers = 0.0-5.0 ng/mL CEA Methodology: [employer] i Chemiluminescent Microparticle Immunoassay (CMIA) CEA testing can have significant value in monitoring of patients with diagnosed malignancies in whom changing concentrations of CEA are observed. Values obtained with different assay methods cannot be used interchangeably. XR cervical spine 3V (Not ye t reviewed by provider) Interpretation: Performing Lab: Notes/Report: [address] [address] XRay Report Signed Patient: Gregory Haynes MR#: [id number] 181 : 1965 Acct:[id number] Age/Sex: 58 / M ADM Date: 08/10/24 Loc: HO.XRAY Attending Dr: Melvin Gonsalves MD Ordering Physician: Melvin Gonsalves MD Date of Service: 08/10/24 Procedure(s): XR cervical spine 3V Accession Number(s): [id number] cc: Melvin Gonsalves MD EXAMINATION: XR CERVICAL SPINE CLINICAL INFORMATION: NECKPAIN COMPARISON: None available. TECHNIQUE: 3 views of the cervical spine were obtained. FINDINGS: There is normal cervical lordosis. The vertebral heights and alignment is normal. There is loss of C5-6 and C6-7 disc heights with mild ventral spondylosis. Rest of disc heights are normal. The craniovertebral junction and C1-C2 alignment is normal. No acute fracture, dislocation or subluxation seen. The prevertebral soft tissues are normal. XR/XR cervical spine 3V IMPRESSION: Mild degenerative disc changes C5-6 and C6-C7 disc heights with mild ventral spondylosis Electronically signed by: Kwame Agarwal MD 08/10/2024 12:06 PM EDT RP Dictated By: Kwame Agarwal MD Signed By: <Electronically signed by Kwame Agarwal MD in OV> 08/10/24 1206 DD/ 1152 TD/TT: 08/10/[address] Reporter: [place] [id number] XRay Report Signed Patient: [facility] Haynes MR#: [id number] 181 : 1965 Acct:[id number] Age/Sex: 58 / M ADM Date: 08/10/24 Loc: HO.XRAY Attending Dr: Melvin Gonsalves MD Ordering Physician: Melvin Gonsalves MD Date of Service: 08/10/24 Procedure(s): XR cervical spine 3V Accession Number(s): [id number] cc: Melvin Gonsalves MD EXAMINATION: XR CERVICAL SPINE CLINICAL INFORMATION: NECKPAIN COMPARISON: None available. TECHNIQUE: 3 views of the cervi prashant spine were obtained. FINDINGS: There is normal cerv ical lordosis. The vertebral heights and alignment is normal. There is loss of C5-6 and C6-7 disc heights with mild ventral spondylosis. Rest of disc heights are normal. The craniovertebral junc tion and C1-C2 alignment is normal. No acute fracture, dislocatio n or subluxation seen. The prevertebral soft tissues are normal. X R/XR cervical spine 3V IMPRESSION: Mild degenerative di sc changes C5-6 and C6-C7 disc heights with mild ventral spondylosis Electronically brian d by: Kwame Agarwal MD 08/10/2024 12:06 PM EDT RP Dictated By: Mr kalia Agarwal MD Signed By: <Electronically signed by Kwame Agarwal MD in OV> 08/10/24 1206 DD/ 1152 TD/TT: 08/10/[address] Reporter: [facility] [place] Reason For Referral No Information Medications Medication SIG (Take, Route, Frequency, Duration) Notes Start Date End Date Status Omeprazole 20 MG 1 capsule Orally Onc e a day 04/30/2024 Active Ranitidine HCl 150 MG 1 tablet at bedtim e Orally Once a day Active Tamsulosin HCl 0.4 MG 1 capsule Orally O nce a day Active amLODIPine Besylate 5 MG 1 tablet Orally Once a day 12/02/2023 Active Albuterol Sulfate HFA 108 (9 0 Base) MCG/ACT 1 puff as needed Inhalation every 4 hrs 10/22/2023 Active traMADol HCl 50 MG TAKE 1 TABLET BY KESHAV TH TWICE DAILY NEEDED FOR PAIN Oral Active Cyclobenzaprine HCl 10 MG 1 tablet Orall y Three times a day Active Immunizations Vaccine Route Administration Date Status Comme nts Influenza Unknown 12/27/2015 Administered Influenza no Preserv 3 and > Unknown 01/31/2017 Administered COVID PFIZER Unknown 08/13/2020 Administered COVID PFIZER Unknown 09/03/2020 Administered PPV 23 Unknown 04/22/2018 Administered Influenza no Preserv 3 and > Unknown 04/22/2018 Administered Influenza, quad Unknown 01/29/2018 Administered Influenza, quad IM Intramuscular 02/18/2022 Administered Influenza, quad IM Intramuscular 03/17/2023 Administered Influenza Vaccine Afluria IM Intramuscular 03/30/2024 Admi nistered Social History Tobacco Use: Social History Observation Description Date Details (start date - stop date) Former Smoker NA - NA Sex Assigned At : Social History Observation Description Sex Assigned At Male Tobacco Control (Standard) Question Answer Notes Tobacco use: Former smoker How long has it been since you last smoked? 5-10 years Additional Findings: Tobacco non-user Ex-cigaret te smoker AUDIT-C (Standard) Question Answer Notes Did you have a drink containing alcohol in the p ast year? No Points 0 Interpretation Negative Problems Problem Type SNOMED Code ICD Code Onset Dates Problem Status W/U Status Risk Notes Problem 5872587 Former smoker (Z87.891) Active confirmed He has stopped smoking within the last month. We have discussed strategies for maintaining abstinence. He has a plan to prevent relapse in times of pain illness or stress. Problem 324130076 Overweight (BMI 25.0-29.9) (E66.3) Active confirmed His body mass index is 29. He has gained 3 pounds and is overweight. His appetite is good Problem 06320680 Anxiety (F41.9) Active confirmed He was occasionally anxious today with his voice raised. Problem 831193746 Chronic obstructive pulmonary disease, unspecified (J44.9) Active confirmed He is breathing room air comfortably. He is not smoking. Short of breath with prolonged exertion. Problem 82431064 Essential hypertension (I10) Active confirmed His blood pressure is currently acceptable. He is compliant with his medications he was advised to stabilize his weight reduce his sodium intake. Problem 137279809 Edentulous (K00.0) Active confirmed He says his dentures fit he is able to chew without difficulty. Problem 660120347 Peripheral arterial disease (I73.9) Active confirmed His feet are pink and warm. He has no claudication and is doing quite well. His regimen was not altered. He was encouraged to walk and exercise. Problem 916463446 Hypertrophy of prostate without urinary obstruction and other lower urinary tract symptoms (LUTS) (N40.0) Active confirmed He admits to nocturia once or twice a night depending upon fluid intake. We discussed lifestyle modifications she could make to reduce nocturia. Problem 272193628 Rectal cancer (C20) Active confirmed His disease is slowly progressing. I told [...] visit which will be an 8 weeks. Problem 774780397 Port-a-cath in place (Z95.828) Active confirmed His port was flushed daily with 10 cc of saline and 10 cc a 1-100 heparin solution. It functioned well. Problem Right inguinal hernia (419472067) Right inguinal hernia (K40.90) Active confirmed This is a new finding in the last month. He was referred to surgery to discuss what is involved in repairing it. Problem Benign prostatic hypertrophy without outflow obstruction (608905805) Benign prostatic hyperplasia without lower urinary tract symptoms (N40.0) Active confirmed Problem 39961772 Other depression (F32.89) Active confirmed He will continue with his therapist and the current regimen. Problem 755247941 Basal cell carcinoma (BCC), unspecified site (C44.91) Active confirmed No new cutaneous lesions were noted on today's examination. Vital Signs Heart Rate 84 /min 08/10/2024 Temperature 97.9 degrees Fahrenheit 08/10/2024 Blood pressure diastolic 103 mm Hg 08/10/2024 Height 67 in 08/10/2024 Blood pressure systolic 136 mm Hg 08/10/2024 Weight 186 lbs 08/10/2024 BMI 29.13 kg/m2 08/10/2024 Encounters Encounter Location Date Provider Diagnosis Melvin Gonsalves III, MD [address] [place] [address] [place] [address] 08/10/2024 Melvin Gonsalves Rectal cancer C20 ; Back pain M54.9 ; Back pain, lumbosacral M54.50 and Neck pain M54.2 Melvin Gonsalves III, MD [address] [place] [address] [place] [address] 09/23/2023 Melvin Gonsalves Chronic obstructive pulmonary disease, unspecified J44.9 ; Hypertrophy of prostate without urinary obstruction and other lower urinary tract symptoms (LUTS) N40.0 ; Rectal cancer C20 ; Peripheral arterial disease I73.9 ; Other depression F32.89 ; Former smoker Z87.891 and Skin cancer C44.90 Melvin Gonsalves III, MD [address] [place] [address] [place] [address] 10/22/2023 Melvin Major Rectal cancer C20 ; Hypertrophy of prostate without urinary obstruction and other lower urinary tract symptoms (LUTS) N40.0 ; Chronic obstructive pulmonary disease, unspecified J44.9 ; Edentulous K00.0 ; Anxiety F41.9 ; Peripheral arterial disease I73.9 ; Former smoker Z87.891 and Right inguinal hernia K40.90 Melvin Gonsalves III, MD [address] [place] [address] [place] [address] 12/02/2023 Melvin Major Rectal cancer C20 ; Hypertrophy of prostate without urinary obstruction and other lower urinary tract symptoms (LUTS) N40.0 ; Chronic obstructive pulmonary disease, unspecified J44.9 ; Edentulous K00.0 ; Anxiety F41.9 ; Other depression F32.89 ; Peripheral arterial disease I73.9 ; Right inguinal hernia K40.90 ; Basal cell carcinoma (BCC), unspecified site C44.91 ; Former smoker Z87.891 ; Overweight (BMI 25.0-29.9) E66.3 ; Essential hypertension I10 and Port-a-cath in place Z95.828 Melvin Gonsalves III, MD [address] [place] [address] [place] [address] 01/06/2024 Melvin Gonsalves Chronic obstructive pulmonary disease, unspecified J44.9 ; Rectal cancer C20 ; Hypertrophy of prostate without urinary obstruction and other lower urinary tract symptoms (LUTS) N40.0 ; Anxiety F41.9 ; Right inguinal hernia K40.90 ; Peripheral arterial disease I73.9 ; Other depression F32.89 ; Port-a-cath in place Z95.828 and Overweight E66.3 Melvin Gonsalves III, MD [address] [place] [address] [place] [address] 02/03/2024 Melvin Gonsalves Overweight (BMI 25.0-29.9) E66.3 ; Rectal cancer C20 ; Essential hypertension I10 ; Basal cell carcinoma (BCC), unspecified site C44.91 ; Edentulous K00.0 ; Chronic obstructive pulmonary disease, unspecified J44.9 and Hypertrophy of prostate without urinary obstruction and other lower urinary tract symptoms (LUTS) N40.0 Melvin Gonsavles III, MD [address] [place] [address] [place] [address] 03/02/2024 Melvin Gonsalves Rectal cancer C20 ; Pulmonary nodule R91.1 ; Former smoker Z87.891 ; Chronic obstructive pulmonary disease, unspecified J44.9 ; Hypertrophy of prostate without urinary obstruction and other lower urinary tract symptoms (LUTS) N40.0 ; Other depression F32.89 ; Peripheral arterial disease I73.9 and Port-a-cath in place Z95.828 Melvin Gonsalves III, MD [address] [place] [address] [place] [address] 03/30/2024 Melvin Gonsalves Rectal cancer C20 ; Encounter for immunization Z23 ; Chronic obstructive pulmonary disease, unspecified J44.9 ; Former smoker Z87.891 ; Hypertrophy of prostate without urinary obstruction and other lower urinary tract symptoms (LUTS) N40.0 ; Other depression F32.89 ; Anxiety F41.9 ; Peripheral arterial disease I73.9 ; Edentulous K00.0 ; Port-a-cath in place Z95.828 and Essential hypertension I10 Melvin Gonsalves III, MD [address] [place] [address] [place] [address] 04/30/2024 Melvin Gonsalves Rectal cancer C20 ; Chronic obstructive pulmonary disease, unspecified J44.9 ; Former smoker Z87.891 ; Hypertrophy of prostate without urinary obstruction and other lower urinary tract symptoms (LUTS) N40.0 ; Other depression F32.89 ; Peripheral arterial disease I73.9 and Tobacco use disorder Z72.0 Melvin Gonsalves III, MD [address] [place] [address] [place] [address] 05/28/2024 Melvin Gonsalves Rectal cancer C20 ; Overweight (BMI 25.0-29.9) E66.3 ; Chronic obstructive pulmonary disease, unspecified J44.9 ; Edentulous K00.0 ; Hypertrophy of prostate without urinary obstruction and other lower urinary tract symptoms (LUTS) N40.0 ; Other depression F32.89 ; Former smoker Z87.891 ; Peripheral arterial disease I73.9 and Port-a-cath in place Z95.828 Melvin Gonsalves III, MD [address] [place] [address] [place] [address] 07/09/2024 Melvin Gonsalves Rectal cancer C20 ; Edentulous K00.0 ; Chronic obstructive pulmonary disease, unspecified J44.9 ; Hypertrophy of prostate without urinary obstruction and other lower urinary tract symptoms (LUTS) N40.0 ; Anxiety F41.9 ; Peripheral arterial disease I73.9 ; Right inguinal hernia K40.90 ; Other depression F32.89 ; Former smoker Z87.891 and Overweight (BMI 25.0-29.9) E66.3 Melvin Gonsalves III, MD [address] [place] [address] [place] [address] 04/02/2024 Melvin Gonsalves III, MD [address] [place] [address] [place] [address] 04/30/2024 Melvin Gonsalves III, MD [address] [place] [address] [place] [address] 07/22/2024 Melvin Gonsalves Assessments Encounter Date Diagnosis (ICD Code) Assessment Notes Treatment Notes Treatment Clinical Notes 08/10/2024 Rectal cancer (ICD-10 - C20) His disease [...] visit which will be an 8 weeks. 09/23/2023 Chronic obstructive pulmonary disease, unspecified (ICD-10 - J44.9) He is breathing room air comfortably. He is not smoking. Short of breath with prolonged exertion. 09/23/2023 Hypertrophy of prostate without urinary obstruction and other lower urinary tract symptoms (LUTS) (ICD-10 - N40.0) Has a history of prostatism and may develop urinary retention. He was instructed to go to the emergency room if this develops or catheter. 10/22/2023 Hypertrophy of prostate without urinary obstruction and other lower urinary tract symptoms (LUTS) (ICD-10 - N40.0) Has a history of prostatism and may develop urinary retention. He was instructed to go to the emergency room if this develops or catheter. 10/22/2023 Rectal cancer (ICD-10 - C20) In the months without chemotherapy he has had mild pulmonary progression of the nodules. He and his and I discussed this at length today. He was adamant that he does not want further chemotherapy. He says he is feeling much better now that he has stopped it. He will be observed carefully and treatment will be resumed if and when he agrees. 12/02/2023 Hypertrophy of prostate without urinary obstruction and other lower urinary tract symptoms (LUTS) (ICD-10 - N40.0) He admits to nocturia once or twice a night depending upon fluid intake. We discussed lifestyle modifications she could make to reduce nocturia. 12/02/2023 Rectal cancer (ICD-10 - C20) I discussed with him that the CT scan of the chest in August of this year showed disease progression. He is aware of it and understands the significance of it. He states very clearly that he never wants to have chemotherapy or immunotherapy again. He says he feels well today and does not wish any intervention. His was present and agreed with him and supported this decision. 01/06/2024 Chronic obstructive pulmonary disease, unspecified (ICD-10 - J44.9) He is breathing room air comfortably. He is not smoking. Short of breath with prolonged exertion. 01/06/2024 Rectal cancer (ICD-10 - C20) I discussed with him that the CT scan of the chest in August of this year showed disease progression. He is aware of it and understands the significance of it. He states very clearly that he never wants to have chemotherapy or immunotherapy again. He says he feels well today and does not wish any intervention. His was present and agreed with him and supported this decision. 02/03/2024 Overweight (BMI 25.0-29.9) (ICD-10 - E66.3) He remains a few pounds overweight with a body mass index of 28. This is not a health issue for him. We have discussed a diet that would stabilize his weight. He will focus on good nutrition. 02/03/2024 Rectal cancer (ICD-10 - C20) I discussed with him that the CT scan of the chest in August of this year showed disease progression. He is aware of it and understands the significance of it. He states very clearly that he never wants to have chemotherapy or immunotherapy again. He says he feels well today and does not wish any intervention. His was present and agreed with him and supported this decision. 03/02/2024 Pulmonary nodule (ICD-10 - R91.1) In August [address] scan of the chest showed a slightly larger pulmonary nodule compared to previous studies. A repeat CT scan of the chest is pending. 03/02/2024 Rectal cancer (ICD-10 - C20) He remains free of symptoms. The rising CEA is suggestive progression of the rectal cancer. He was last treated in March 2023. He has refused treatment since that time. I will restage him with a CT scan of the chest abdomen pelvis to see if the pulmonary nodules in the mass where the rectum was increased. This was carefully and thoroughly discussed with him and his today. He seemed agreeable to resuming chemotherapy. 03/30/2024 Encounter for immunization (ICD-10 - Z23) He was given an influenza vaccine today. He had no complications. 03/30/2024 Rectal cancer (ICD-10 - C20) He remains free of symptoms. The rising CEA is compatible with progression of the rectal cancer. He was last treated in March 2023. He has refused treatment since that time. Reuben was recently restaged with a CT scan of the chest shows significant disease progression and the 2 pulmonary metastases. We discussed all of the various options available to him today. He could not make a decision. He and his are going to discuss this at home and he will then communicate with me. 04/30/2024 Chronic obstructive pulmonary disease, unspecified (ICD-10 - J44.9) He is breathing room air comfortably. He is not smoking. Short of breath with prolonged exertion. 04/30/2024 Rectal cancer (ICD-10 - C20) He remains free of symptoms. The rising CEA is compatible with progression of the rectal cancer. He was last treated in March 2023. He has refused treatment since that time. Reuben was recently restaged with a CT scan of the chest shows significant disease progression and the 2 pulmonary metastases. We discussed all of the various options available to him today. He has decided against further therapy but does not want to enter hospice. He has declined any antineoplastic therapy whether with intravenous drugs her oral medications. He reserve the right to change his spine. He says he does not need palliative care at this time. 05/28/2024 Overweight (BMI 25.0-29.9) (ICD-10 - E66.3) His body mass index is 29. He has gained 3 pounds and is overweight. His appetite is good 05/28/2024 Rectal cancer (ICD-10 - C20) He remains free of symptoms. The rising CEA is compatible with progression of the rectal cancer. He was last treated in March 2023. He has refused treatment since that time. Reuben was recently restaged with a CT scan of the chest shows significant disease progression and the 2 pulmonary metastases. We discussed all of the various options available to him today. He has decided against further therapy but does not want to enter hospice. He has declined any antineoplastic therapy whether with intravenous drugs her oral medications. He reserve the right to change his spine. He says he does not need palliative care at this time. 07/09/2024 Edentulous (ICD-10 - K00.0) He says his dentures fit he is able to chew without difficulty. 07/09/2024 Rectal cancer (ICD-10 - C20) His [...] visit which will be an 8 weeks. 08/10/2024 Back pain (ICD-10 - M54.9) 09/23/2023 Rectal cancer (ICD-10 - C20) In the 5 months without chemotherapy he has had mild pulmonary progression of the nodules. He and his and I discussed this at length today. He was adamant that he does not want further chemotherapy. He says he is feeling much better now that he has stopped it. He will be observed carefully and treatment will be resumed if and when he agrees. 10/22/2023 Chronic obstructive pulmonary disease, unspecified (ICD-10 - J44.9) He is breathing room air comfortably. He is not smoking. Short of breath with prolonged exertion. 12/02/2023 Chronic obstructive pulmonary disease, unspecified (ICD-10 - J44.9) He is breathing room air comfortably. He is not smoking. Short of breath with prolonged exertion. 01/06/2024 Hypertrophy of prostate without urinary obstruction and other lower urinary tract symptoms (LUTS) (ICD-10 - N40.0) He admits to nocturia once or twice a night depending upon fluid intake. We discussed lifestyle modifications she could make to reduce nocturia. 02/03/2024 Essential hypertension (ICD-10 - I10) His blood pressure is currently acceptable. He is compliant with his medications he was advised to stabilize his weight reduce his sodium intake. 03/02/2024 Former smoker (ICD-10 - Z87.891) 03/30/2024 Chronic obstructive pulmonary disease, unspecified (ICD-10 - J44.9) He is breathing room air comfortably. He is not smoking. Short of breath with prolonged exertion. 04/30/2024 Former smoker (ICD-10 - Z87.891) He has stopped smoking within the last month. We have discussed strategies for maintaining abstinence. He has a plan to prevent relapse in times of pain illness or stress. 05/28/2024 Chronic obstructive pulmonary disease, unspecified (ICD-10 - J44.9) He is breathing room air comfortably. He is not smoking. Short of breath with prolonged exertion. 07/09/2024 Chronic obstructive pulmonary disease, unspecified (ICD-10 - J44.9) He is breathing room air comfortably. He is not smoking. Short of breath with prolonged exertion. 08/10/2024 Back pain, lumbosacral (ICD-10 - M54.50) 09/23/2023 Peripheral arterial disease (ICD-10 - I73.9) His feet are pink and warm. He has no claudication and is doing quite well. His regimen was not altered. He was encouraged to walk and exercise. 10/22/2023 Edentulous (ICD-10 - K00.0) He says his dentures fit he is able to chew without difficulty. 12/02/2023 Edentulous (ICD-10 - K00.0) He says his dentures fit he is able to chew without difficulty. 01/06/2024 Anxiety (ICD-10 - F41.9) He was occasionally anxious today with his voice raised. 02/03/2024 Basal cell carcinoma (BCC), unspecified site (ICD-10 - C44.91) No new cutaneous lesions were noted on today's examination. 03/02/2024 Chronic obstructive pulmonary disease, unspecified (ICD-10 - J44.9) He is breathing room air comfortably. He is not smoking. Short of breath with prolonged exertion. 03/30/2024 Former smoker (ICD-10 - Z87.891) He has stopped smoking within the last month. We have discussed strategies for maintaining abstinence. He has a plan to prevent relapse in times of pain illness or stress. 04/30/2024 Hypertrophy of prostate without urinary obstruction and other lower urinary tract symptoms (LUTS) (ICD-10 - N40.0) He admits to nocturia once or twice a night depending upon fluid intake. We discussed lifestyle modifications she could make to reduce nocturia. 05/28/2024 Edentulous (ICD-10 - K00.0) He says his dentures fit he is able to chew without difficulty. 07/09/2024 Hypertrophy of prostate without urinary obstruction and other lower urinary tract symptoms (LUTS) (ICD-10 - N40.0) He admits to nocturia once or twice a night depending upon fluid intake. We discussed lifestyle modifications she could make to reduce nocturia. 08/10/2024 Neck pain (ICD-10 - M54.2) 09/23/2023 Other depression (ICD-10 - F32.89) He will continue with his therapist and the current regimen. 10/22/2023 Anxiety (ICD-10 - F41.9) He was occasionally anxious today with his voice raised. 12/02/2023 Anxiety (ICD-10 - F41.9) He was occasionally anxious today with his voice raised. 01/06/2024 Right inguinal hernia (ICD-10 - K40.90) This is a new finding in the last month. He was referred to surgery to discuss what is involved in repairing it. 02/03/2024 Edentulous (ICD-10 - K00.0) He says his dentures fit he is able to chew without difficulty. 03/02/2024 Hypertrophy of prostate without urinary obstruction and other lower urinary tract symptoms (LUTS) (ICD-10 - N40.0) He admits to nocturia once or twice a night depending upon fluid intake. We discussed lifestyle modifications she could make to reduce nocturia. 03/30/2024 Hypertrophy of prostate without urinary obstruction and other lower urinary tract symptoms (LUTS) (ICD-10 - N40.0) He admits to nocturia once or twice a night depending upon fluid intake. We discussed lifestyle modifications she could make to reduce nocturia. 04/30/2024 Other depression (ICD-10 - F32.89) 05/28/2024 Hypertrophy of prostate without urinary obstruction and other lower urinary tract symptoms (LUTS) (ICD-10 - N40.0) He admits to nocturia once or twice a night depending upon fluid intake. We discussed lifestyle modifications she could make to reduce nocturia. 07/09/2024 Anxiety (ICD-10 - F41.9) He was occasionally anxious today with his voice raised. 09/23/2023 Former smoker (ICD-10 - Z87.891) He has stopped smoking within the last month. We have discussed strategies for maintaining abstinence. He has a plan to prevent relapse in times of pain illness or stress. 10/22/2023 Peripheral arterial disease (ICD-10 - I73.9) His feet are pink and warm. He has no claudication and is doing quite well. His regimen was not altered. He was encouraged to walk and exercise. 12/02/2023 Other depression (ICD-10 - F32.89) He will continue with his therapist and the current regimen. 01/06/2024 Peripheral arterial disease (ICD-10 - I73.9) His feet are pink and warm. He has no claudication and is doing quite well. His regimen was not altered. He was encouraged to walk and exercise. 02/03/2024 Chronic obstructive pulmonary disease, unspecified (ICD-10 - J44.9) He is breathing room air comfortably. He is not smoking. Short of breath with prolonged exertion. 03/02/2024 Other depression (ICD-10 - F32.89) He will continue with his therapist and the current regimen. 03/30/2024 Other depression (ICD-10 - F32.89) He will continue with his therapist and the current regimen. 04/30/2024 Peripheral arterial disease (ICD-10 - I73.9) His feet are pink and warm. He has no claudication and is doing quite well. His regimen was not altered. He was encouraged to walk and exercise. 05/28/2024 Other depression (ICD-10 - F32.89) He will continue with his therapist and the current regimen. 07/09/2024 Peripheral arterial disease (ICD-10 - I73.9) His feet are pink and warm. He has no claudication and is doing quite well. His regimen was not altered. He was encouraged to walk and exercise. 09/23/2023 Skin cancer (ICD-10 - C44.90) A squamous cell carcinoma has been removed from his back without complication. 10/22/2023 Former smoker (ICD-10 - Z87.891) He has stopped smoking within the last month. We have discussed strategies for maintaining abstinence. He has a plan to prevent relapse in times of pain illness or stress. 12/02/2023 Peripheral arterial disease (ICD-10 - I73.9) His feet are pink and warm. He has no claudication and is doing quite well. His regimen was not altered. He was encouraged to walk and exercise. 01/06/2024 Other depression (ICD-10 - F32.89) He will continue with his therapist and the current regimen. 02/03/2024 Hypertrophy of prostate without urinary obstruction and other lower urinary tract symptoms (LUTS) (ICD-10 - N40.0) He admits to nocturia once or twice a night depending upon fluid intake. We discussed lifestyle modifications she could make to reduce nocturia. 03/02/2024 Peripheral arterial disease (ICD-10 - I73.9) His feet are pink and warm. He has no claudication and is doing quite well. His regimen was not altered. He was encouraged to walk and exercise. 03/30/2024 Anxiety (ICD-10 - F41.9) He was occasionally anxious today with his voice raised. 04/30/2024 Tobacco use disorder (ICD-10 - Z72.0) I have discussed with him several strategies for smoking cessation and offered to prescribe Chantix or Nicorette. He is going to consider this. He will try and cut down. 05/28/2024 Former smoker (ICD-10 - Z87.891) He has stopped smoking within the last month. We have discussed strategies for maintaining abstinence. He has a plan to prevent relapse in times of pain illness or stress. 07/09/2024 Right inguinal hernia (ICD-10 - K40.90) This is a new finding in the last month. He was referred to surgery to discuss what is involved in repairing it. 10/22/2023 Right inguinal hernia (ICD-10 - K40.90) This is a new finding in the last month. He was referred to surgery to discuss what is involved and repairing it. 12/02/2023 Right inguinal hernia (ICD-10 - K40.90) This is a new finding in the last month. He was referred to surgery to discuss what is involved in repairing it. 01/06/[address]-a-[address] in place (ICD-10 - Z95.828) His port was flushed daily with 10 cc of saline and 10 cc a 1-100 heparin solution. It functioned well. 03/02/2024 Port-a-c[address] in place (ICD-10 - Z95.828) His port was flushed daily with 10 cc of saline and 10 cc a 1-100 heparin solution. It functioned well. 03/30/2024 Peripheral arterial disease (ICD-10 - I73.9) His feet are pink and warm. He has no claudication and is doing quite well. His regimen was not altered. He was encouraged to walk and exercise. 05/28/2024 Peripheral arterial disease (ICD-10 - I73.9) His feet are pink and warm. He has no claudication and is doing quite well. His regimen was not altered. He was encouraged to walk and exercise. 07/09/2024 Other depression (ICD-10 - F32.89) He will continue with his therapist and the current regimen. 12/02/2023 Basal cell carcinoma (BCC), unspecified site (ICD-10 - C44.91) A basal cell carcinoma on his face has been treated and removed. 01/06/2024 Overweight (ICD-10 - E66.3) His body mass index is 28. He has gained 8 pounds since his last visit with no sign of fluid retention. This disease appears to well control. I recommend stabilizing his way at this level. 03/30/2024 Edentulous (ICD-10 - K00.0) He says his dentures fit he is able to chew without difficulty. 05/28/[address]24 Port-a-[address] in place (ICD-10 - Z95.828) His port was flushed daily with 10 cc of saline and 10 cc a 1-100 heparin solution. It functioned well. 07/09/2024 Former smoker (ICD-10 - Z87.891) He has stopped smoking within the last month. We have discussed strategies for maintaining abstinence. He has a plan to prevent relapse in times of pain illness or stress. 12/02/2023 Former smoker (ICD-10 - Z87.891) He has stopped smoking within the last month. We have discussed strategies for maintaining abstinence. He has a plan to prevent relapse in times of pain illness or stress. 03/30/2024 Port-a-c[address] in place (ICD-10 - Z95.828) His port was flushed daily with 10 cc of saline and 10 cc a 1-100 heparin solution. It functioned well. 07/09/2024 Overweight (BMI 25.0-29.9) (ICD-10 - E66.3) His body mass index is 29. He has gained 3 pounds and is overweight. His appetite is good 12/02/2023 Overweight (BMI 25.0-29.9) (ICD-10 - E66.3) He is very slightly overweight and I recommended we stabilize his weight. 03/30/2024 Essential hypertension (ICD-10 - I10) His blood pressure is currently acceptable. He is compliant with his medications he was advised to stabilize his weight reduce his sodium intake. 12/02/2023 Essential hypertension (ICD-10 - I10) His medical oncologist noted sustained elevation of his blood pressure and gave him amlodipine 5 mg daily. He stopped taking it when he decided to terminate his chemotherapy. His blood pressure today was 153/85. After a discussion he agreed to resume it. I have prescribed the amlodipine. 12/02/[address]23 Port-a-[address] in place (ICD-10 - Z95.828) His port was flushed daily with 10 cc of saline and 10 cc a 1-100 heparin solution. It functioned well. Plan Of Treatment Pending Test Test Name Order Date URINE DIP STICK 11/21/2021 PROFILE, RANDOM (COMPREHENSIVE METABOLIC ) 05/28/2024 CEA 05/28/2024 CBC w DIFF 10/26/2019 CT ABD & PELVIS WITH CONTRAST 07/09/2023 CT ABD & PELVIS WITH CONTRAST 03/02/2024 CT CHEST WITH CONTRAST 03/02/2024 CT CHEST WITH CONTRAST 07/09/2023 MRI LUMBAR SPINE NO CONTRAST 09/05/2021 MRI PELVIS NO CONTRAST 09/05/2021 XR CERVICAL SPINE 2-3 VIEWS 08/10/2024 CBC WITH AUTO DIFF 05/28/2024 XR thoracic spine 3V 08/10/2024 XR lumbar spine 2-3V 08/10/2024 XR cervical spine 3V 08/10/2024 Next Appt Details Provider Name:Melvin Gonsalves, 08/13/2024 01:30:00 PM, [address] [place] [address] [place], [address], Provider Name:Melvin Gonsalves, 09/08/2024 10:45:00 AM, [address] [place] [address] G[place] REINA, [place], [phone], Provider Name:Melvin Gonsalves, 04/01/2025 01:30:00 PM, [address] [place] [address] GUSTABO REINA, [place], [phone], Insurance Providers Payer Name Payer Address Payer Phone Subscriber Number Group Number Insured Name Patient Relationship to Insured Coverage Start Date Coverage End Date [facility] [address] [place] [address] [id number] Gregory Haynes Self - patient is the insured [place] [address] [place], [place] [id number] Gregory Haynes Self - patient is the insured Medical (General) History Medical History History ICD Code edentulous degenerative joint disease right knee COPD former smoker 2015 adenocarcinoma rectum peripheral arterial disease 2017 anastomotic recurrence of th e rectal cancer March 2019, resected July 2019 Port-A-Cath in place {'Rectal Cancer': 'Underwent surgery, radiation, and chemotherapy', 'Appendix Surgery': 'Had appendix removed', 'Hernia Surgery': 'Had hernia surgery', 'Skin Cancer': 'Had skin cancer surgery'} The patient has a history of rectal cancer, for which he is not currently receiving treatment. He has previously seen a vascular surgeon for leg pain. Surgical History Surgery Date(Month/Year) No history Skin cancer surgery Hernia surgery Appendix surgery Hernia removed 12/2022 resection of anastamotic recurrence 08/09 19 femoral femoral arterial byp ass surgery for peripheral arterial disease [facility] 2017 Exploratory Laparotomy, Lysi s of adhesions with ileostomy takedown in conjuction with small bowel resection and primary anastomosis 2016-07-17 Exploratory laparotomy 2016-04-16 colonoscopy revealing adenocarcinoma the rectum 2016 dental extractions 2010 Knee surgery 1999 appendectomy Hospitalization History Reason Date(Month/Year) No history resection anastomotic rectal cancer recurrence [facility], Dr. Lackey 07/2019 femorol femoral bypass graft, [facility], Dr. Franco 03/2018 observation overnight once for infection 2013
--- OUTSIDE RECORDS SUMMARY | 2024-08-10 13:41 | XMS_ITS ---
Author Organization Melvin Gonsalves III, MD Address [address] [place] [address] Care Team Providers Care Spirits Model Name Role Phone Melvin Gonsalves Primary Care Provider Allergies Allergen (clinical drug ingredient) Drug/Non Drug Allergy documented on EMR Reaction Allergy Type Onset Date Status sulfamethoxazole / trimethoprim Bactrim Unknown Drug Allergy Active Results Component Value Reference Range Notes XR thoracic spine 3V (Not ye t reviewed by provider) Interpretation: Performing Lab: Notes/Report: [address] [address] XRay Report Signed Patient: Gregory Haynes MR#: [id number] 181 : 1965 Acct:[id number] Age/Sex: 58 / M ADM Date: 08/10/24 Loc: [facility] Attending Dr: Melvin Gonsalves MD Ordering Physician: Melvin Gonsalves MD Date of Service: 08/10/24 Procedure(s): XR thoracic spine 3V Accession Number(s): [id number] cc: Melvin Gonsalves MD EXAMINATION: XR THORACIC [...] 08/10/24 1202 DD/ 1152 TD/TT: 08/10/24 1152 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 Correlation edgar centneo to CT chest, abdomen, pelvis 03/17/2024. TECHNIQUE: [...] evidence of acute fracture. There is normal alig nment. There is no bone lesion. There is [...] chronic wedging of T11 is stable. Mild dege nerative spondylosis is stable. 2. Left lower lobe m asslike consolidations, similar. Refer to prior CT examinations. 3. Partially imaged right chest port. 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: REASON FOR VISIT follow up, portacath flush, c/o neck pain radiating down right arm Medications Medication SIG (Take, Route, Frequency, Duration) Notes Start Date End Date Status Omeprazole 20 MG 1 capsule Orally Onc e a day 04/30/2024 Active amLODIPine Besylate 5 MG 1 tablet Orally Once a day 12/02/2023 Active Cyclobenzaprine HCl 10 MG 1 tablet Orall y Three times a day Active Ranitidine HCl 150 MG 1 tablet at bedtim e Orally Once a day Active Tamsulosin HCl 0.4 MG 1 capsule Orally O nce a day Active Albuterol Sulfate HFA 108 (9 0 Base) MCG/ACT 1 puff as needed Inhalation every 4 hrs 10/22/2023 Active traMADol HCl 50 MG TAKE 1 TABLET BY KEHSAV TH TWICE DAILY NEEDED FOR PAIN Oral Active Social History Tobacco Use: Social History [...] non-user Ex-cigaret te smoker Vital Signs Temperature 97.9 degrees Fahrenheit 08/11/19 25 Blood pressure systolic 136 mm Hg 08/11/19 25 Blood pressure diastolic 103 mm Hg 025 Heart Rate 84 /min 08/10/2024 Height 67 in 08/10/2024 Weight 186 lbs 08/10/2024 BMI 29.13 kg/m2 08/10/2024 Encounters Encounter Location Date Provider Diagnosis Melvin Gonsalves III, MD [address] [place] [address] [place] [address] 08/10/2024 Melvin Gonsalves Rectal cancer C20 ; Back pain M54.9 ; Back pain, lumbosacral M54.50 and Neck pain M54.2 Assessments Encounter Date Diagnosis (ICD Code) Assessment [...] weeks. 08/10/2024 Back pain (ICD-10 - M54.9) 08/10/2024 Back pain, lumbosacral (ICD-10 - M54.50) 08/10/2024 Neck pain (ICD-10 - M54.2) Plan Of Treatment Medication Medication Name Sig Start Date Stop Date Notes Omeprazole 20 MG 1 capsule Orally Onc e a day 04/30/2024 amLODIPine Besylate 5 MG 1 tablet Orally Once a day 2023 Cyclobenzaprine HCl 10 MG 1 tablet Orall y Three times a day Ranitidine HCl 150 MG 1 tablet at bedtim e Orally Once a day Tamsulosin HCl 0.4 MG 1 capsule Orally O nce a day Albuterol Sulfate HFA 108 (9 0 Base) MCG/ACT 1 puff as needed Inhalation every 4 hrs 10/22/2023 traMADol HCl 50 MG TAKE 1 TABLET BY KESHAV TWICE DAILY NEEDED FOR PAIN Oral Pending Test Test Name Order Date XR CERVICAL SPINE 2-3 VIEWS 08/10/2024 XR thoracic spine 3V 08/10/2024 XR lumbar spine 2-3V 08/10/2024 Next Appt Details Follow Up: 2 - 3 Days,4 Week s, Reason: Telehealth, OV Port Flush Provider Name:Melvin Gonsalves, 08/13/2024 01:30:00 PM, [address] [place] [address] [address], [place], [address], Provider Name:Melvin Gonsalves, 09/08/2024 10:45:00 AM, [address] [place] [address] [address], [place], [address], Provider Name:Melvin Gonsalves, 04/01/2025 01:30:00 PM, [address] [place] [address] [address], [place], [address], Progress Notes * HANSJrodan MONTANOJovanniOB:[birth year] (58 yo M)Acc No.[id number]:08/10/2024 Patient:?Gregory HAYNES Provider:?Melvin Gonsalves MD :1965???Age:58 Y???Sex:Male Jay e:08/10/2024 Address:[address] [place] [id number] Subjective: * Chief Complaints: * ???1. Follow up. 2. Portacat h flush. 3. C/o neck pain radiating down right arm. * HPI: ???COVID-19 Screening:?tired, neck hurts to arms, pops up,? c-spine usu left arm now right hurts, poor appetiit, breathing fair, uses inhaler,noct x 1. ?Questions?Have you had any new onset fever, chills, cough, congestion, sore throat, shortness of breath, muscle aches??No * ROS:?General/Constitutional:?pain?only normal aches and pains.?Chills?denies.?Fatigue?admits.?Fever?denies.?ENT:?Decreased hearing?denies.?Respiratory:?Cough?denies.?Cardiovascular:?Chest pain with exertion?denies.?Dyspnea on exertion?denies.?Shortness of breath?denies.?Gastrointestinal:?Constipation?denies.?Decreased appetite?denies.?Diarrhea?denies.?Heartburn?denies.?Nausea?denies.?Rectal bleeding?denies.?Vomiting?denies.?Hematology:?bruising?denies.?petechiae?denies.?Swollen glands?none have been noted.?Genitourinary:?Frequent urination?denies.?Musculoskeletal:?Muscle aches?denies.?Painful joints?denies.?Sciatica?denies.?Weakness?denies.?Skin:?Itching?denies.?Rash?denies.?Skin lesion(s)?denies.?Neurologic:?Difficulty speaking?denies.?Dizziness?denies.?Headache?denies.?Low back pain?denies.?Psychiatric:?Depressed mood?denies.? * Medical History:?Edentulous, Degenerative joint disease right knee, COPD, Former smoker, 2016 adenocarcinoma rectum, Peripheral arterial disease 2017, anastomotic recurrence of the rectal cancer March 2019, resected July 2019, Port-A-Cath in place, {'Rectal Cancer': 'Underwent surgery, radiation, and chemotherapy', 'Appendix Surgery': 'Had appendix removed', 'Hernia Surgery': 'Had hernia surgery', 'Skin Cancer': 'Had skin cancer surgery'}, The patient has a history of rectal cancer, for which he is not currently receiving treatment. He has previously seen a vascular surgeon for leg pain.. * Surgical History:?appendecto my , Knee surgery 1999, dental extractions 2010, colonoscopy revealing adenocarcinoma the rectum 2015, Exploratory laparotomy 2016-04-16, Exploratory Laparotomy, Lysis of adhesions with ileostomy takedown in conjuction with small bowel resection and primary anastomosis 2016-07-17, femoral femoral arterial bypass surgery for peripheral arterial disease [facility] 2017, resection of anastamotic recurrence 07/2019, Hernia removed 12/2022, Appendix surgery , Hernia surgery , Skin cancer surgery , No history . * Hospitalization/Major Diagno stic Procedure:?observation overnight once for infection 2013, femorol femoral bypass graft, [facility], Dr. Franco 03/2018, resection anastomotic rectal cancer recurrence [facility], Dr. Lackey 07/2019, No history . * Family History:?Father: dece ased 42 yrs, [...] and in school. 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 He has had no steady job for 20 years due to aches and pains in back and shoulders. He was born in [place]. The patient reported not smoking. He also mentioned drinking six cups of water a day due to dry mouth. * Medications:?Taking Tamsulos in HCl 0.4 MG Capsule 1 capsule Orally Once a day , Taking Ranitidine HCl 150 MG Tablet 1 tablet at bedtime Orally Once a day , Taking traMADol HCl 50 MG Tablet TAKE 1 TABLET BY MOUTH TWICE DAILY NEEDED FOR PAIN Oral , Taking Albuterol Sulfate HFA 108 (90 Base) MCG/ACT Aerosol Solution 1 puff as needed Inhalation every 4 hrs , Taking amLODIPine Besylate 5 MG Tablet 1 tablet Orally Once a day , Taking Cyclobenzaprine HCl 10 MG Tablet 1 tablet Orally Three times a day , Taking Omeprazole 20 MG Capsule Delayed Release 1 capsule Orally Once a day , Discontinued Gabapentin 600 MG Tablet TAKE 1 TABLET BY MOUTH THREE TIMES DAILY , Discontinued Famotidine 20 MG Tablet 1 tablet Orally up to three times a day , Medication List reviewed and reconciled with the patient * Allergies:?Bactrim. Objective: * Vitals:?Ht: 67, Wt: 186, BMI :29.13, BP: 136/103, HR: 84, Temp: 97.9, Wt-k.37. * ???Past Orders: Lab:Carcinoembryonic Antigen * [...] developed, in no acute distress, calm and relaxed.?HEAD:?atraumatic, normocephalic.?EYES:?eomi, perrla, anicteric, conjugate.?EARS:?normal.?NOSE:?septum intact.?ORAL CAVITY:?normal, unremarkable.?NECK/THYROID:?no jugular venous distention, no carotid bruit, thyroid normal.?LYMPH NODES:?no enlarged lymph nodes,spleen normal.?SKIN:?no suspicious lesions, anicteric.?HEART:?no clicks, gallops, murmurs, or rubs, regular rhythm, S1, S2 normal, no s3, or vascular bruits.?LUNGS:?clear to auscultation .?BREASTS:??no masses palpable bilaterally.?ABDOMEN:?bowel sounds normal, no ascites, no organomegaly, no mass.?RECTAL EXAM:?not examined.?MUSCULOSKELETAL:?extremities unremarkable, no clubbing, cyanosis or edema.?PERIPHERAL PULSES:?normal.?NEUROLOGIC:?alert and oriented, cranial nerves 2-12 grossly intact, deep tendon reflexes 2+ symmetrical, motor strength normal upper and lower extremities, sensory exam intact.?PSYCH:?alert, oriented.? Assessment: * Assessment: 1.?Rectal cancer - C20???Not es :His disease is slowly progressing. I told this [...] next visit which will be an 8 weeks.???2.?Back pain - M54.9???3.?Back pain, lumbosacral - M54.50???4.?Neck pain - M54.2??? Plan: * Treatment: 2.?Back pain?Imaging: XR CERVICAL SPINE 2-3 VIEWS ?Imaging: XR thoracic spine 3V (Performed Date - 08/10/2024) ?Imaging: XR lumbar spine 2-3V 3.?Back pain, lumbosacral?Imaging: XR thoracic spine 3V (Performed Date - 08/10/2024) ?Imaging: XR lumbar spine 2-3V 4.?Neck pain?Imaging: XR CERVICAL SPINE 2-3 VIEWS 5.?Others? Continue Ranitidine HCl Tablet, 150 MG, 1 tablet at bedtime, Orally, Once a day;?Continue traMADol HCl Tablet, 50 MG, TAKE 1 [...] blood return was obtained. ? * Procedure Codes:?76296 REFIL L/MAINT PUMP/RESVR SYST, J1642 INJECTION HEPARIN SODIUM 10 UNITS, J7030 SALINE SOLUTION * Follow Up:?2 - 3 Days,4 Week s (Reason: Telehealth, OV Port Flush) * Images: * The named appointment provid er may or may not be the originator of this progress note, and it is not deemed complete until electronically signed by the appointment provider. Sign off status: Pending * Provider:?Melvin Gonsalves MD Date:?07/21 Generated for Bindu fam/Tesfaye/Vasquezitting on:?08/10/2024 01:40 PM EDT History and Physical Notes * HPI (History of Present Illness) Category Sub-Category Detail Notes COVID-19 Screening Questions Have you had any new onset fever, chills, cough, congestion, sore throat, shortness of breath, muscle aches?: No Examination Category Sub-Category Detail Notes General Examination GENERAL APPEARANCE: pleasant , well nourished, well developed, in no acute distress, calm and relaxed HEAD: atraumatic, normocep halic EYES: eomi, perrla, anicte lucio, conjugate EARS: normal NOSE: septum intact NECK/THYROID: no jugular venous di stention, no carotid bruit, thyroid normal HEART: no clicks, gallops, murmurs, or rubs, regular rhythm, S1, S2 normal, no s3, or vascular bruits LUNGS: clear to auscultatio n ABDOMEN: bowel sounds normal, no ascites, no organomegaly, no mass NEUROLOGIC: alert and oriented, cranial nerves 2-12 grossly intact, deep tendon reflexes 2+ symmetrical, motor strength normal upper and lower extremities, sensory exam intact SKIN: no suspicious lesion s, anicteric PERIPHERAL PULSES: normal BREASTS: no masses palpable b ilaterally MUSCULOSKELETAL: extremities unremark able, no clubbing, cyanosis or edema LYMPH NODES: no enlarged lymph no evaristo,spleen normal RECTAL EXAM: not examined PSYCH: alert, oriented ORAL CAVITY: normal, unremarkable
== END 2024-08-10 11:21 | disposition home or self-care (01) ==
LOC: HO.XRAY 11:20
PROVIDERS: PCP Internal Medicine Medical Oncology; Visit Provider Internal Medicine Medical Oncology
DX: C20 Malignant neoplasm of rectum (principal); M54.9 Dorsalgia, unspecified; M54.50 Low back pain, unspecified; M54.2 Cervicalgia
CPT/HCPCS: 72040; 72072

== ENCOUNTER → 2024-08-10 11:28 | Outpatient (BNV) | payer OTHER, SELFPAY | PROVIDERS: PCP Internal Medicine Medical Oncology; Visit Provider Radiology Diagnostic Radiology | DX: M54.50 Low back pain, unspecified (principal); M54.2 Cervicalgia | CPT/HCPCS: 72040; 72072 ==

== ENCOUNTER 2024-10-06 13:54 | Outpatient (REF) | payer OTHER, SELFPAY ==
[2024-10-06 14:06] LABS: MANUAL DIFF FLAG NO
[2024-10-06 14:52] LABS: Basophils Absolute Auto 0.1 X10*3/uL (0.0-0.2); Basophils Percent Auto 0.6 % (0-2); Eosinophils Absolute Auto 0.1 X10*3/uL (0.0-0.4); Eosinophils Percent Auto 1.4 % (0-4); Hematocrit 40.7 % (42.0-52.0); Hemoglobin 13.8 g/dl (14.0-18.0); Imm Gran Abs Auto 0.03 X10*3/uL (0.00-0.03); Imm Gran Pct Auto 0.3 % (0.0-0.4); Lymphocytes Absolute Auto 2.6 X10*3/uL (1.2-4.9); Lymphocytes Percent Auto 29.3 % (20-40); Mean Corpuscular HGB Conc 33.9 g/dl (31.0-36.0); Mean Corpuscular Hemoglobin 29.6 pg (27.0-33.0); Mean Corpuscular Volume 87.3 fL (80.0-98.0); Mean Platelet Volume 9.3 fL (9.4-12.4); Monocytes Absolute Auto 0.6 X10*3/uL (0.1-1.2); Monocytes Percent Auto 6.7 % (2-11); Neutrophils Absolute Auto 5.4 x10*3/uL (2.0-8.3); Neutrophils Percent Auto 61.7 % (45-73); Platelet Count 279 X10*3/uL (160-400); Red Blood Count 4.66 X10*6/uL (4.60-5.80); Red Cell Distribution Width 13.9 % (11.0-16.0); White Blood Count 8.7 X10*3/uL (4.8-10.8)
[2024-10-06 15:31] LABS: Alanine Aminotransferase 22 U/L (0-40); Albumin Level 4.5 g/dL (3.5-5.0); Alkaline Phosphatase 124 U/L (39-117); Anion Gap 12 (12-20); Aspartate Amino Transferase 23 U/L (5-37); Bilirubin Total 0.3 mg/dL (0.0-1.0); Blood Urea Nitrogen 11 mg/dL (9-16); Calcium 9.5 mg/dL (8.4-10.2); Carbon Dioxide 27 mmol/L (22-29); Chloride 104 mmol/L (96-108); Estimated Glomerular Filt Rate > 60; Glucose Random 95 mg/dL (60-115); Sodium 139 mmol/L (135-145); Total Protein 7.5 g/dL (6.5-8.0)
--- OUTSIDE RECORDS SUMMARY | 2024-10-06 15:57 | XMS_ITS | Patient Health Record ---
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 Name Role Phone Melvin Gonsalves Primary Care Provider Allergies Allergen (clinical drug ingredient) Drug/Non Drug Allergy documented on EMR Reaction Allergy Type Onset Date Status sulfamethoxazole / trimethoprim Bactrim Unknown Drug Allergy Active Results Component Value Reference Range Notes URINE DIP STICK Reviewed date:03/30/2024 01:23:20 PM Interpretation: Performing Lab: Notes/Report: SG 1.010 1.005 - 1.025 pH 6.0 5.0 - 9.0 COY Negative Negative - NIT Negative Negative - PRO 15 Negative - Trace GLU Negative Negative - KET Negative Negative - UBG 0.2 0.1 - 1.8 FRANCIS Negative 0.2 - 1.3 BLD Negative Negative - XR thoracic spine 3V Reviewed date:08/11/2024 05:11:56 AM Interpretation: Performing Lab: Notes/Report: [facility] [address] [place] [address] XRay Report Signed Patient: Gregory Haynes MR#: [id number] 181 : 1965 Acct:[id number] Age/Sex: 58 / M ADM Date: 08/10/24 Loc: HO.XRAY Attending Dr: Melvin Gonsalves MD Ordering Physician: Melvin Gonsalves MD Date of Service: 08/10/24 Procedure(s): XR thoracic spine 3V Accession Number(s): [id number] cc: Melvin Gonsalves MD EXAMINATION: XR THORACIC [...] 08/10/24 1202 DD/ 1152 TD/TT: 08/10/24 1152 Feed Inspection Supervisor: [address] [address] XRay Report Signed Patient: [facility] Haynes MR#: [id number] 181 : 1965 Acct:[id number] Age/Sex: 58 / M ADM Date: 08/10/24 Loc: HO.XRAY Attending Dr: Melvin Gonsalves MD Ordering Physician: Melvin Gonsalves MD Date of Service: 08/10/24 Procedure(s): XR thoracic spine 3V Accession Number(s): [id number] cc: Melvin Gonsalves MD EXAMINATION: XR THORACIC [...] 08/10/24 1202 DD/ 1152 TD/TT: 08/10/24 1152 Feed Inspection Supervisor: Complete Blood Count Auto Di ff Reviewed date:03/02/2024 08:34:43 AM Interpretation: Performing Lab:[facility], [address] [place] [phone] Notes/Report: White Blood Count 8.7 4.8-10.8 X10*3/uL [...] Panel Reviewed date:03/02/2024 08:34:43 AM Interpretation: Performing Lab:[facility], [address] [place] [phone] Notes/Report: Sodium 137 135-145 mmol/L Potassium 4.3 3.3-5.1 mmol/L Chloride 103 96-108 mmol/L Carbon Dioxide 24 22-29 mmol/L Anion Gap 14 12-20 Blood Urea Nitrogen 11 9-16 mg/dL Creatinine 0.92 0.5-1.4 mg/dL Estimated Glomerular Filt Rate > 60 NOTE: For -Senegalese individuals, multiply the result by 1.210. Chronic [...] Antigen Reviewed date:03/02/2024 08:34:43 AM Interpretation: Performing Lab:[address] [address] Notes/Report: Carcinoembryonic Antigen 76.70 CEA Reference Range: 93.4% Non-Smokers = 0.0-3.0 ng/mL 95.6% Smokers = 0.0-5.0 ng/mL CEA Methodology: Mobile Adsnity i Chemiluminescent Microparticle Immunoassay (CMIA) CEA testing can have significant value in monitoring of patients with diagnosed malignancies in whom changing concentrations of CEA are observed. Values obtained with different assay methods cannot be used interchangeably. PSA,Total (Free>4and<10) Reviewed date:03/02/2024 08:34:43 AM Interpretation: Performing Lab:[address] [address] Notes/Report: PSA,Total (Free>4and<10) 3.10 0.00-4.00 ng/mL A [...] date:04/02/2024 08:43:51 AM Interpretation: Performing Lab: Notes/Report: [address] [place] [address] CT Scan Report Signed Patient: Gregory Haynes MR#: [id number] 181 : 1965 Acct:[id number] Age/Sex: 58 / M ADM Date: 03/17/24 Loc: .CT Attending Dr: Melvin Gonsalves MD Ordering Physician: Melvin Gonsalves MD Date of Service: 03/17/24 Procedure(s): CT chest w IV con Accession Number(s): [id number] cc: Melvin Gonsalves MD EXAMINATION: CT CHEST, [...] by: Mulugeta Quigley MD 03/18/2024 12:48 PM [facility] Dictated By: Mulugeta Quigley MD Signed By: <Electronically signed by Mulugeta Quigley MD in OV> 03/18/24 1248 DD/ 1407 TD/TT: 03/17/24 1447 Feed Inspection Supervisor: [address] [address] [address] Scan Report Signed Patient: [facility] MR#: [id number] 181 : 1965 Acct:[id number] Age/Sex: 58 / M ADM Date: 03/17/24 Loc: HO.CT Attending Dr: Melvin Gonsalves MD Ordering Physician: Melvin Gonsalves MD Date of Service: 03/17/24 Procedure(s): CT rehan w IV con Accession Number(s): [id number] cc: Melvin Gonsalves MD EXAMINATION: CT CHEST, [...] by: Mulugeta Quigley MD 03/18/2024 12:48 PM EST Dictated By: Paul Quigley MD Signed By: <Electronically signed by Mulugeta Quigley MD in OV> 03/18/24 1248 DD/ 1407 TD/TT: 03/17/24 1447 Feed Inspection Supervisor: CORNELL CT abdomen pelvis w con Reviewed date:04/02/2024 08:43:51 AM Interpretation: Performing Lab: Notes/Report: [address] [address] [address] Scan Report Signed Patient: rGegory Haynes MR#: [id number] 181 : 1965 Acct:[id number] Age/Sex: 58 / M ADM Date: 03/17/24 Loc: HO.CT Attending Dr: Melvin Gonsalves MD Ordering Physician: Melvin Gonsalves MD Date of Service: 03/17/24 Procedure(s): CT abdomen pelvis w IV con Accession Number(s): [id number] cc: Melvin Gonsalves MD EXAMINATION: CT CHEST, [...] by: Mulugeta Quigley MD 03/18/2024 12:48 PM [facility] Dictated By: Mulugeta Quigley MD Signed By: <Electronically signed by Mulugeta Quigley MD in OV> 03/18/24 1248 DD/ 1407 TD/TT: 03/17/24 1447 Feed Inspection Supervisor: CORNELL [address] [address] [address] Scan Report Signed Patient: [facility] Hay[facility] MR#: [id number] 181 : 1965 Acct:[id number] Age/Sex: 58 / M ADM Date: 03/17/24 Loc: HO.CT Attending Dr: Melvin Gonsalves MD Ordering Physician: Melvin Gonsalves MD Date of Service: 03/17/24 Procedure(s): CT abd omen pelvis w IV con Accession Number(s): [id number] cc: Melvin Gonsalves MD EXAMINATION: CT CHEST, [...] by: Mulugeta Quigley MD 03/18/2024 12:48 PM EST RP Dictated By: Paul Quigley MD Signed By: <Electronically signed by Mulugeta Quigley MD in OV> 03/18/24 1248 DD/ 1407 TD/TT: 03/17/24 1447 Feed Inspection Supervisor: CORNELL Complete Blood Count Auto Di ff Reviewed date:07/07/2024 08:43:34 PM Interpretation: Performing Lab:[facility], [address] [place] [phone] Notes/Report: White Blood Count 10.8 4.8-10.8 X10*3/uL [...] Panel Reviewed date:07/07/2024 08:43:34 PM Interpretation: Performing Lab:[facility], [address] [place] [phone] Notes/Report: Sodium 138 135-145 mmol/L Potassium 3.9 [...] Antigen Reviewed date:07/07/2024 08:43:34 PM Interpretation: Performing Lab:[facility], [address] [place] [phone] Notes/Report: Carcinoembryonic Antigen 114.20 CEA Reference Range: 93.4% Non-Smokers = 0.0-3.0 ng/mL 95.6% Smokers = 0.0-5.0 ng/mL CEA Methodology: [employer] Al[employer] i Chemiluminescent Microparticle Immunoassay (CMIA) CEA testing can have significant value in monitoring of patients with diagnosed malignancies in whom changing concentrations of CEA are observed. Values obtained with different assay methods cannot be used interchangeably. XR cervical spine 3V Reviewed date:08/11/2024 05:11:56 AM Interpretation: Performing Lab: Notes/Report: [address] [address] XRay Report Signed Patient: Gregory Haynes MR#: [id number] 181 : 1965 Acct:[id number] Age/Sex: 58 / M ADM Date: 08/10/24 Loc: SONU Attending Dr: Melvin Gonsalves MD Ordering Physician: Melvin Gonsalves MD Date of Service: 08/10/24 Procedure(s): XR cervical spine 3V Accession Number(s): [id number] cc: Melvin Gonsalves MD EXAMINATION: XR CERVICAL [...] Kwame Agarwal MD 08/10/2024 12:06 PM EDT Dictated By: Kwame Agarwal MD Signed By: <Electronically signed by Kwame Agarwal MD in OV> 08/10/24 1206 DD/ 1152 TD/TT: 08/10/24 1152 Feed Inspection Supervisor: [place] [address] XRay Report Signed Patient: [facility] MR#: [id number] 181 : 1965 Acct:[id number] Age/Sex: 58 / M ADM Date: 08/10/24 Loc: SONU Attending Dr: Melvin Gonsalves MD Ordering Physician: Melvin Gonsalves MD Date of Service: 08/10/24 Procedure(s): XR cervical spine 3V Accession Number(s): [id number] cc: Melvin Gonsalves MD EXAMINATION: XR CERVICAL [...] OV> 08/10/24 1206 DD/ 1152 TD/TT: 08/10/24 1152 Feed Inspection Supervisor: MUNIR Complete Blood Count Auto Di ff (Not yet reviewed by provider) Interpretation: Performing Lab:[facility], [address] [place] [phone] Notes/Report: White Blood Count 8.7 4.8-10.8 X10*3/uL Red Blood Count 4.66 4.60-5.80 X10*6/uL Hemoglobin 13.8 14.0-18.0 g/dl Hematocrit 40.7 42.0-52.0 % Mean Corpuscular Volume 87.3 80.0-98.0 fL Mean Corpuscular Hemoglobin 29.6 27.0-33.0 pg Mean Corpuscular HGB Conc 33.9 31.0-36.0 g/dl Red Cell Distribution Width 13.9 11.0-16.0 % Platelet Count 279 160-400 X10*3/uL Mean Platelet Volume 9.3 9.4-12.4 fL Neutrophils Percent Auto 61.7 45-73 % Imm Gran Pct Auto 0.3 0.0-0.4 % Lymphocytes Percent Auto 29.3 20-40 % Monocytes Percent Auto 6.7 2-11 % Eosinophils Percent Auto 1.4 0-4 % Basophils Percent Auto 0.6 0-2 % NRBC Pct Auto 0.0 0.0-0.2 /100WBC Neutrophils Absolute Auto 5.4 2.0-8.3 x10*3/uL Imm Gran Abs Auto 0.03 0.00-0.03 X10*3/uL Lymphocytes Absolute Auto 2.6 1.2-4.9 X10*3/uL Monocytes Absolute Auto 0.6 0.1-1.2 X10*3/uL Eosinophils Absolute Auto 0.1 0.0-0.4 X10*3/uL Basophils Absolute Auto 0.1 0.0-0.2 X10*3/uL NRBC Abs Auto 0.000 0.0-0.012 X10*3/uL Comprehensive Met. Panel (No t yet reviewed by provider) Interpretation: Performing Lab:[address] [address] Notes/Report: Sodium 139 135-145 mmol/L Potassium 4.0 3.3-5.1 mmol/L Chloride 104 96-108 mmol/L Carbon Dioxide 27 22-29 mmol/L Anion Gap 12 12-20 Blood Urea Nitrogen 11 9-16 mg/dL Creatinine 0.90 0.5-1.4 mg/dL Estimated Glomerular Filt Rate > 60 Chronic Kidney Disease: Estimated GFR < 60 mL/min/1.73m2 Severe Kidney Disease: Estimated GFR < 15 mL/min/1.73m2 Glucose Random 95 60-115 mg/dL Calcium 9.5 8.4-10.2 mg/dL Bilirubin Total 0.3 0.0-1.0 mg/dL Aspartate Amino Transferase 23 5-37 U/L Alanine Aminotransferase 22 0-40 U/L Total Protein 7.5 6.5-8.0 g/dL Albumin Level 4.5 3.5-5.0 g/dL Alkaline Phosphatase 124 39-117 U/L Carcinoembryonic Antigen (No t yet reviewed by provider) Interpretation: Performing Lab:[facility], [address] [place] [phone] Notes/Report: Carcinoembryonic Antigen 153.00 CEA Reference Range: 93.4% Non-Smokers = 0.0-3.0 ng/mL 95.6% Smokers = 0.0-5.0 ng/mL CEA Methodology: Mobile Adsnity i Chemiluminescent Microparticle Immunoassay (CMIA) CEA testing can have significant value in monitoring of patients with diagnosed malignancies in whom changing concentrations of CEA are observed. Values obtained with different assay methods cannot be used interchangeably. Reason For Referral No Information Medications Medication SIG (Take, Route, Frequency, Duration) Notes Start Date End Date Status Ranitidine HCl 150 MG 1 tablet at [...] Orall y Three times a day Active amLODIPine Besylate 5 MG 1 tablet Orally Once a day 12/02/2023 Active Omeprazole 20 MG 1 capsule Orally Onc e a day 04/30/2024 Active Immunizations Vaccine Route Administration Date Status [...] Problem Status W/U Status Risk Notes Problem 6774251 Former smoker (Z87.891) Active confirmed He has stopped smoking within the last month. We have discussed strategies for maintaining abstinence. He has a plan to prevent relapse in times of pain illness or stress. Problem 628398458 Overweight (BMI 25.0-29.9) (E66.3) Active confirmed His body mass index is 29. He has gained 3 pounds and is overweight. His appetite is good Problem 20175702 Anxiety (F41.9) Active confirmed He was occasionally anxious today with his voice raised. Problem 368278224 Chronic obstructive pulmonary disease, unspecified (J44.9) Active confirmed He is breathing room air comfortably. He is not smoking. Short of breath with prolonged exertion. Problem 34342234 Essential hypertension (I10) Active confirmed His blood pressure is currently acceptable. He is compliant with his medications he was advised to stabilize his weight reduce his sodium intake. Problem 551801473 Edentulous (K00.0) Active confirmed He says his dentures fit he is able to chew without difficulty. Problem 780545980 Peripheral arterial disease (I73.9) Active confirmed His feet are pink and warm. He has no claudication and is doing quite well. His regimen was not altered. He was encouraged to walk and exercise. Problem 504375673 Hypertrophy of prostate without urinary obstruction and other lower urinary tract symptoms (LUTS) (N40.0) Active confirmed He admits to nocturia once or twice a night depending upon fluid intake. We discussed lifestyle modifications she could make to reduce nocturia. Problem 217504123 Rectal cancer (C20) Active confirmed Plain x-rays show no sign of metastatic disease in his bones. His CEA last determined was 114 and rising. He continues to decline to receive any type of anti-neoplastic therapy for his metastatic rectal cancer. I have discussed this at length with him reviewing the benefits, risks, side effects and response rates. The reserves her right to change his mind but at this point refuses any type of any neoplastic therapy. Problem 201336567 Port-a-cath in place (Z95.828) Active confirmed His port was flushed daily with 10 cc of saline and 10 cc a 1-100 heparin solution. It functioned well. Problem Right inguinal hernia (019519906) Right inguinal hernia (K40.90) Active confirmed This is a ne w finding in the last month. He was referred to surgery to discuss what is involved in repairing it. Problem Benign prostatic hyperplasia without lower urinary tract symptoms (N40.0) Active confirmed Problem 00709338 Other depression (F32.89) Active confirmed He will continue with his therapist and the current regimen. Problem 133209227 Acute midline thoracic back pain (M54.6) Active confirmed The pain may be slightly better. He will wait a week and we will have another visit. If this pain does not resolve other imaging will be necessary. Currently he is able to conduct all of the activities of daily life. Problem 447668565 Basal cell carcinoma (BCC), unspecified site (C44.91) Active confirmed No new cutaneous lesions were noted on today's examination. Vital Signs Heart Rate 78 /min 09/08/2024 Temperature 97.5 degrees Fahrenheit 09/08/2024 Oximetry 97 % 09/08/2024 Blood pressure diastolic 84 mm Hg 09/08/2024 Height 67 in 09/08/2024 Blood pressure systolic 133 mm Hg 09/08/2024 Weight 187 lbs 09/08/2024 BMI 29.29 kg/m2 09/08/2024 Encounters Encounter Location Date Provider Diagnosis Melvin Gonsalves III, MD [address] [place] [address] [place] [address] 10/22/2023 Melvin Gonsalves Rectal cancer C20 ; Hypertrophy of prostate without urinary obstruction and other lower urinary tract symptoms (LUTS) N40.0 ; Chronic obstructive pulmonary disease, unspecified J44.9 ; Edentulous K00.0 ; Anxiety F41.9 ; Peripheral arterial disease I73.9 ; Former smoker Z87.891 and Right inguinal hernia K40.90 Melvin Gonsalves III, MD [address] [place] [address] [place] [address] 12/02/2023 Melvin Gonsalves Rectal cancer C20 ; Hypertrophy of prostate [...] in place Z95.828 Melvin Gonsalves III, MD [address] [place] [address] [place] [address] 01/06/2024 Melvin Gonsalves Chronic obstructive pulmonary disease, unspecified J44.9 ; Rectal cancer C20 ; Hypertrophy of prostate without urinary obstruction and other lower urinary tract symptoms (LUTS) N40.0 ; Anxiety F41.9 ; Right inguinal hernia K40.90 ; Peripheral arterial disease I73.9 ; Other depression F32.89 ; Port-a-cath in place Z95.828 and Overweight E66.3 Melvin Gonsalves III, MD [address] [place] [address] [place] [address] 02/03/2024 Melvin Gonsalves Overweight (BMI 25.0-29.9) E66.3 ; Rectal cancer C20 ; Essential hypertension I10 ; Basal cell carcinoma (BCC), unspecified site C44.91 ; Edentulous K00.0 ; Chronic obstructive pulmonary disease, unspecified J44.9 and Hypertrophy of prostate without urinary obstruction and other lower urinary tract symptoms (LUTS) N40.0 Melvin Gonsalvse III, MD [address] [place] [address] [place] [address] 03/02/2024 Melvin Major Rectal cancer C20 ; Pulmonary nodule R91.1 ; Former smoker Z87.891 ; Chronic obstructive pulmonary disease, unspecified J44.9 ; Hypertrophy of prostate without urinary obstruction and other lower urinary tract symptoms (LUTS) N40.0 ; Other depression F32.89 ; Peripheral arterial disease I73.9 and Port-a-cath in place Z95.828 Melvin Gonsalves III, MD [address] [place] [address] [place] [address] 03/30/2024 Melvin Gonsalves Rectal cancer C20 ; [...] Essential hypertension I10 Melvin Gonsalves III, MD [address] [place] [address] [place] [address] 04/30/2024 Melvin Major Rectal cancer C20 ; Chronic obstructive pulmonary disease, unspecified J44.9 ; Former smoker Z87.891 ; Hypertrophy of prostate without urinary obstruction and other lower urinary tract symptoms (LUTS) N40.0 ; Other depression F32.89 ; Peripheral arterial disease I73.9 and Tobacco use disorder Z72.0 Melvin Gonsalves III, MD [address] [place] [address] [place] [address] 05/28/2024 Melvin Gonsalves Rectal cancer C20 ; Overweight (BMI 25.0-29.9) E66.3 ; Chronic obstructive pulmonary disease, unspecified J44.9 ; Edentulous K00.0 ; Hypertrophy of prostate without urinary obstruction and other lower urinary tract symptoms (LUTS) N40.0 ; Other depression F32.89 ; Former smoker Z87.891 ; Peripheral arterial disease I73.9 and Port-a-cath in place Z95.828 Melvin Gonsalves III, MD [address] [place] [address] [place] [address] 07/09/2024 Melvin Gonsalves Rectal cancer C20 ; Edentulous K00.0 ; Chronic obstructive pulmonary disease, unspecified J44.9 ; Hypertrophy of prostate without urinary obstruction and other lower urinary tract symptoms (LUTS) N40.0 ; Anxiety F41.9 ; Peripheral arterial disease I73.9 ; Right inguinal hernia K40.90 ; Other depression F32.89 ; Former smoker Z87.891 and Overweight (BMI 25.0-29.9) E66.3 Melvin Gonsalves III, MD [address] [place] [address] [place] [address] 08/10/2024 Melvin Videsrne Rectal cancer C20 ; Edentulous K00.0 ; Chronic obstructive pulmonary disease, unspecified J44.9 ; Hypertrophy of prostate without urinary obstruction and other lower urinary tract symptoms (LUTS) N40.0 ; Anxiety F41.9 ; Former smoker Z87.891 ; Other depression F32.89 ; Peripheral arterial disease I73.9 ; Right inguinal hernia K40.90 and Overweight (BMI 25.0-29.9) E66.3 Melvin Gonsalves III, MD [address] [place] [address] [place] [address] 08/13/2024 Melvin Major Rectal cancer C20 ; Hypertrophy of prostate without urinary obstruction and other lower urinary tract symptoms (LUTS) N40.0 ; Chronic obstructive pulmonary disease, unspecified J44.9 ; Anxiety F41.9 ; Former smoker Z87.891 ; Other depression F32.89 ; Peripheral arterial disease I73.9 ; Right inguinal hernia K40.90 ; Overweight (BMI 25.0-29.9) E66.3 and Acute midline thoracic back pain M54.6 Melvin Gonsalves III, MD [address] [place] [address] [place] [address] 09/08/2024 Melvin Gonsalves Rectal cancer C20 ; Chronic obstructive pulmonary disease, unspecified J44.9 ; Hypertrophy of prostate without urinary obstruction and other lower urinary tract symptoms (LUTS) N40.0 ; Anxiety F41.9 ; Former smoker Z87.891 ; Other depression F32.89 ; Peripheral arterial disease I73.9 ; Right inguinal hernia K40.90 ; Overweight (BMI 25.0-29.9) E66.3 ; Port-a-cath in place Z95.828 and Essential hypertension I10 Melvin Gonsalves III, MD [address] [place] [address] [place] [address] 04/02/2024 Melvin Gonsalves III, MD [address] [place] [address] [place] [address] 04/30/2024 Melvin Gonsalves III, MD [address] [place] [address] [place] [address] 07/22/2024 Melvin Gonsalves III, MD [address] [place] [address] [place] [address] 09/17/2024 Melvin Gonsalves Assessments Encounter Date Diagnosis (ICD Code) Assessment Notes Treatment Notes Treatment Clinical Notes 10/22/2023 Hypertrophy of prostate without urinary obstruction [...] which will be an 8 weeks. 08/10/2024 Edentulous (ICD-10 - K00.0) He says his dentures fit he is able to chew without difficulty. 08/10/2024 Rectal cancer (ICD-10 - C20) Alyssa is pain in the upper thoracic spine. Plain x-rays show no sign of metastatic disease in his bones. His CEA last determined was 114 and rising. He continues to decline to receive any type of anti-neoplastic therapy for his metastatic rectal cancer. I have discussed this at length with him reviewing the benefits, risks, side effects and response rates. The reserves her right to change his mind but at this point refuses any type of any neoplastic therapy. 08/13/2024 Hypertrophy of prostate without urinary obstruction and other lower urinary tract symptoms (LUTS) (ICD-10 - N40.0) He admits to nocturia once or twice a night depending upon fluid intake. We discussed lifestyle modifications she could make to reduce nocturia. 08/13/2024 Rectal cancer (ICD-10 - C20) Alyssa is pain in the upper thoracic spine. Plain x-rays show no sign of metastatic disease in his bones. His CEA last determined was 114 and rising. He continues to decline to receive any type of anti-neoplastic therapy for his metastatic rectal cancer. I have discussed this at length with him reviewing the benefits, risks, side effects and response rates. The reserves her right to change his mind but at this point refuses any type of any neoplastic therapy. 09/08/2024 Chronic obstructive pulmonary disease, unspecified (ICD-10 - J44.9) He is breathing room air comfortably. He is not smoking. Short of breath with prolonged exertion. 09/08/2024 Rectal cancer (ICD-10 - C20) Plain x-rays show no sign of metastatic disease in his bones. His CEA last determined was 114 and rising. He continues to decline to receive any type of anti-neoplastic therapy for his metastatic rectal cancer. I have discussed this at length with him reviewing the benefits, risks, side effects and response rates. The reserves her right to change his mind but at this point refuses any type of any neoplastic therapy. 10/22/2023 Chronic obstructive pulmonary disease, unspecified (ICD-10 [...] Short of breath with prolonged exertion. 08/10/2024 Chronic obstructive pulmonary disease, unspecified (ICD-10 - J44.9) He is breathing room air comfortably. He is not smoking. Short of breath with prolonged exertion. 08/13/2024 Chronic obstructive pulmonary disease, unspecified (ICD-10 - J44.9) He is breathing room air comfortably. He is not smoking. Short of breath with prolonged exertion. 09/08/2024 Hypertrophy of prostate without urinary obstruction and other lower urinary tract symptoms (LUTS) (ICD-10 - N40.0) He admits to nocturia once or twice a night depending upon fluid intake. We discussed lifestyle modifications she could make to reduce nocturia. 10/22/2023 Edentulous (ICD-10 - K00.0) He says [...] she could make to reduce nocturia. 08/10/2024 Hypertrophy of prostate without urinary obstruction and other lower urinary tract symptoms (LUTS) (ICD-10 - N40.0) He admits to nocturia once or twice a night depending upon fluid intake. We discussed lifestyle modifications she could make to reduce nocturia. 08/13/2024 Anxiety (ICD-10 - F41.9) He was occasionally anxious today with his voice raised. 09/08/2024 Anxiety (ICD-10 - F41.9) He was occasionally anxious today with his voice raised. 10/22/2023 Anxiety (ICD-10 - F41.9) He was [...] occasionally anxious today with his voice raised. 08/10/2024 Anxiety (ICD-10 - F41.9) He was occasionally anxious today with his voice raised. 08/13/2024 Former smoker (ICD-10 - Z87.891) He has stopped smoking within the last month. We have discussed strategies for maintaining abstinence. He has a plan to prevent relapse in times of pain illness or stress. 09/08/2024 Former smoker (ICD-10 - Z87.891) He has [...] He was encouraged to walk and exercise. 08/10/2024 Former smoker (ICD-10 - Z87.891) He has stopped smoking within the last month. We have discussed strategies for maintaining abstinence. He has a plan to prevent relapse in times of pain illness or stress. 08/13/2024 Other depression (ICD-10 - F32.89) He will continue with his therapist and the current regimen. 09/08/2024 Other depression (ICD-10 - F32.89) He will continue with his therapist and the current regimen. 10/22/2023 Former smoker (ICD-10 - Z87.891) He [...] discuss what is involved in repairing it. 08/10/2024 Other depression (ICD-10 - F32.89) He will continue with his therapist and the current regimen. 08/13/2024 Peripheral arterial disease (ICD-10 - I73.9) His feet are pink and warm. He has no claudication and is doing quite well. His regimen was not altered. He was encouraged to walk and exercise. 09/08/2024 Peripheral arterial disease (ICD-10 - I73.9) His feet are pink and warm. He has no claudication and is doing quite well. His regimen was not altered. He was encouraged to walk and exercise. 10/22/2023 Right inguinal hernia (ICD-10 - K40.90) [...] with his therapist and the current regimen. 08/10/2024 Peripheral arterial disease (ICD-10 - I73.9) His feet are pink and warm. He has no claudication and is doing quite well. His regimen was not altered. He was encouraged to walk and exercise. 08/13/2024 Right inguinal hernia (ICD-10 - K40.90) This is a new finding in the last month. He was referred to surgery to discuss what is involved in repairing it. 09/08/2024 Right inguinal hernia (ICD-10 - K40.90) This is a new finding in the last month. He was referred to surgery to discuss what is involved in repairing it. 12/02/2023 Basal cell carcinoma (BCC), unspecified site [...] in times of pain illness or stress. 08/10/2024 Right inguinal hernia (ICD-10 - K40.90) This is a new finding in the last month. He was referred to surgery to discuss what is involved in repairing it. 08/13/2024 Overweight (BMI 25.0-29.9) (ICD-10 - E66.3) His body mass index is 29. He has gained 3 pounds and is overweight. His appetite is good 09/08/2024 Overweight (BMI 25.0-29.9) (ICD-10 - E66.3) His body mass index is 29. He has gained 3 pounds and is overweight. His appetite is good 12/02/2023 Former smoker (ICD-10 - Z87.891) He [...] and is overweight. His appetite is good 08/10/2024 Overweight (BMI 25.0-29.9) (ICD-10 - E66.3) His body mass index is 29. He has gained 3 pounds and is overweight. His appetite is good 08/13/2024 Acute midline thoracic back pain (ICD-10 - M54.6) The pain may be slightly better. He will wait a week and we will have another visit. If this pain does not resolve other imaging will be necessary. Currently he is able to conduct all of the activities of daily life. 09/08/2024 Port-a-cath in place (ICD-10 - Z95.828) His port was flushed daily with 10 cc of saline and 10 cc a 1-100 heparin solution. It functioned well. 12/02/2023 Overweight (BMI 25.0-29.9) (ICD-10 - E66.3) He is very slightly overweight and I recommended we stabilize his weight. 03/30/2024 Essential hypertension (ICD-10 - I10) His blood pressure is currently acceptable. He is compliant with his medications he was advised to stabilize his weight reduce his sodium intake. 09/08/2024 Essential hypertension (ICD-10 - I10) His blood [...] STICK 11/21/2021 PROFILE, RANDOM (COMPREHENSIVE METABOLIC ) 09/08/2024 PROFILE, RANDOM (COMPREHENSIVE METABOLIC ) 05/28/2024 CEA 09/08/2024 CEA 05/28/2024 CBC w DIFF 09/08/2024 CBC w DIFF 10/26/2019 CT ABD & PELVIS WITH CONTRAST 07/09/2023 CT CHEST WITH CONTRAST 07/09/2023 MRI LUMBAR SPINE NO CONTRAST 09/05/2021 MRI PELVIS NO CONTRAST 09/05/2021 CBC WITH AUTO DIFF 05/28/2024 Complete Blood Count Auto Diff Comprehensive Met. Panel 10/06/2024 Carcinoembryonic Antigen 10/06/2024 Next Appt Details Provider Name:Melvin Gonsalves, 10/08/2024 10:45:00 AM, [address] [place] [address] GUST[address] REINA, [place], [address], Provider Name:Melvin Videsrne, 04/01/2025 01:30:00 PM, [address] [place] [address] GUSTABO REINA, [place], [address], Insurance Providers Payer Name Payer Address Payer Phone Subscriber Number Group Number Insured Name Patient Relationship to Insured Coverage Start Date Coverage End Date [facility] [address] [place] [address] [id number] Gregory Haynes Self - patient is the insured [place] [address] [place], [place] [id number] [phone] [id number] Gregory Haynes Self - patient is the insured Medical (General) History Medical History History ICD Code edentulous degenerative joint disease right knee COPD former smoker 2016 adenocarcinoma rectum peripheral arterial disease 2018 anastomotic recurrence of th e rectal cancer [...] byp ass surgery for peripheral arterial disease [facility] 2017 Exploratory Laparotomy, Lysi s of adhesions with ileostomy takedown in conjuction with small bowel resection and primary anastomosis 2016-07-17 Exploratory laparotomy 2016-04-16 colonoscopy revealing adenocarcinoma the rectum 2016 dental extractions 2010 Knee surgery 1999 appendectomy Hospitalization History Reason Date(Month/Year) No history resection anastomotic rectal cancer recurrence [facility], Dr. Lackey 07/2019 femorol femoral bypass graft, [facility], Dr. Franco 03/2018 observation overnight once for infection 2013
== END 2024-10-06 13:55 | disposition home or self-care (01) ==
LOC: HO.LAB 13:54
PROVIDERS: PCP Internal Medicine Medical Oncology; Visit Provider Internal Medicine Medical Oncology
DX: C20 Malignant neoplasm of rectum (principal); E66.3 Overweight
CPT/HCPCS: 36415; 80053; 82378; 85025

== ENCOUNTER 2024-11-05 11:50 | Outpatient (REF) | payer OTHER, SELFPAY ==
--- NOTE | ~2024-11-05 | XR_ITS ---
EXAMINATION: XR CHEST CLINICAL INFORMATION: CHEST PAIN COMPARISON: Chest March 06, 2022 and August 10, 2024 T-spine TECHNIQUE: 2 views of the chest were obtained. FINDINGS: Right-sided port terminates in superior cavoatrial junction. Coarse lung markings are similar to the prior. There is a new focal opacity in the posterior left lower lobe measuring 4.3 x 7.3 cm. There is a second focal opacity in the medial left base measuring 4.2 cm, also probably in the left lower lobe. XR/XR chest 2V IMPRESSION: There are 2 focal masslike densities in the left lower lobe that were described on a prior thoracic spine x-ray that are highly suspicious for malignancy/metastatic disease Electronically signed by: Parish Chicas MD 11/05/2024 12:26 PM EDT
--- OUTSIDE RECORDS SUMMARY | 2024-11-05 12:05 | XMS_ITS | Referral Summary ---
Author Organization [facility] Address [address] [place] [address] Care Team Providers Care Appraiser Oil [employer] Name Role Phone Melvin Gonsalves Primary Care Provider [phone] Allergies Active Allergy Reactions Criticality Noted Date Comments Apple Swelling High 05/28/2019 Sulfamethoxazole-Trimethoprim Hives 2019 Medications ondansetron (ZOFRAN) 8 mg tablet Take 8 mg by mouth every 8 hours as needed for nausea or vomiting. Active omeprazole (PriLOSEC) 20 mg capsule Take 20 mg by mouth daily. Active raNITIdine (ZANTAC) 150 mg tablet Take 150 mg by mouth 2 times a day. Active acetaminophen (TYLENOL) 325 mg tablet Take 2 tablets (650 mg total) by mouth every 6 hours as needed for pain. 0 Active aspirin chewable tablet 81 mg Chew and swallow 81 mg by mouth daily. Active tamsulosin (FLOMAX) 0.4 mg capsule Take 0.4 mg by mouth daily. 0 Active sodium chloride 0.9% injection Injet 3-10 ml by intraluminal route 2 times a day. Use to flush IR drain 28 Syringe 09/01/2019 11:43 AM EDT 0 Active Additional Information Patient not taking.Reported on 10/25/2022 oxyCODONE IR (ROXICODONE) 5 mg tablet Take 1 tablet (5 mg total) by mouth every 4 hours as needed for pain. Max Daily Amount: 30 mg 30 tablet 09/01/2019 11:43 AM EDT 0 Active Additional Information Patient not taking.Reported on 10/25/2022 gabapentin (NEURONTIN) 600 mg tablet SMARTSI Tablet(s) By Mouth 3 Times Daily 2 Active cyclobenzaprine (FLEXERIL) 10 mg tablet SMARTSI Tablet(s) By Mouth 3 Times Daily 3 Active amLODIPine (NORVASC) 5 mg tablet 3 Active dexAMETHasone (DECADRON) 4 mg tablet SMARTSI Tablet(s) By Mouth Twice Daily 2 Active lidocaine-prilo salas (EMLA) cream SMARTSIG:Topical PRN 3 Active magnesium oxide (MAG-OX) 400 mg (241.3 mg mag) tablet SMARTSI Tablet(s) By Mouth Daily 3 Active Active Problems Problem Noted Date Diagnosed Date Seborrheic keratosis 08/31/2019 Pelvic abscess in male 08/31/2019 Small bowel obstruction 08/15/[address] 08/13/2019 Local recurrence of malignant neoplasm of rectum 06/09/2019 Decreased functional mobility Social History Tobacco Use Types Packs/Day Years Used Date Smoking Tobacco: Former Cigarettes Q uit: 2016 Smokeless Tobacco: Never Alcohol Use Standard Drinks/Week Comments Not Currently 0 (1 standard drink = 0.6 oz pur e alcohol) Sex and Gender Information Value Date Recorded Sex Assigned at Not on file Legal Sex Male 1:31 PM EST Gender Identity Not on file Sexual Orientation Not on file Last Filed Vital Signs Vital Sign Reading Time Taken Comments Blood Pressure 143/86 10/25/2022 1:56 PM EDT pt states although bp is high he feels fine Pulse 92 10/25/2022 1:56 PM EDT Temperature 36.5 C (97.7 F) 09/08/2019 10:50 AM EDT Respiratory Rate 16 10/25/2022 1:56 PM EDT Oxygen Saturation 96% 10/25/2022 1:5 6 PM EDT Inhaled Oxygen Concentration - - Weight 78.9 kg (174 lb) 10/25/2022 1:56 PM EDT Height 167.6 cm (5' 6 ) 10/25/2022 1:56 PM EDT Body Mass Index 28.08 10/25/2022 1:56 PM EDT Plan of Treatment Not on file Procedures * Due to [place] state law, this organization might not be sharing negative HIV tests. Procedure Name Priority Date/Time Associated Diagnosis Comments AMB EXTERNAL CT CHEST, OUTSI DE RESULT Routine 12/28/2019 from Last 3 Months or Most Recently Relevant to Health Maintenance Results * Due to [place] state law, this organization might not be sharing negative HIV tests. * CT Chest, Outside Result (12/28/2019) Anatomical Region Laterality Modality Other us Unknown Provider MD PADILLA EXTERNAL RESULT PROCEDUR ES Final Result from Last 3 Months or Most Recently Relevant to Health Maintenance Insurance [facility] Advance Directives Documents on File Type Date Recorded Patient Train Gateman Expl anation Health Care Proxy 07/26/2019 5:35 PM * Full Code (Latest Code Status on File) Date Activated Date Inactivated Comments 07/22/2019 8:25 PM 07/28/2019 2:38 PM Care Teams Appraiser [employer] Relationship Specialty Start Date End Date Melvin Gonsalves [address] [place] [id number] PCP - General Hematology 05/24/19
--- OUTSIDE RECORDS SUMMARY | 2024-11-05 12:05 | XMS_ITS | Patient Health Record ---
Author Organization Melvin Gonsalves III, MD Address [address] [place] [address] [address] [place] [address] Care Team Providers Care Chef Instructor Name Role Phone Melvin Gonsalves Primary Care [...] date:08/11/2024 05:11:56 AM Interpretation: Performing Lab: Notes/Report: [facility] [address] [place] [address] XRay Report Signed Patient: Gregory Haynes MR#: [id number] 181 : 1965 Acct:[id number] Age/Sex: 58 / M ADM Date: 08/10/24 Loc: HO.XRAY Attending Dr: Melvin Gonsalves MD Ordering Physician: Melvin Gonsalves MD Date of Service: 08/10/24 Procedure(s): XR thoracic spine 3V Accession Number(s): [id number] cc: Melvin Gonsalves MD EXAMINATION: XR THORACIC [...] 08/10/24 1202 DD/ 1152 TD/TT: 08/10/24 1152 Carton Catcher: [address] [address] XRay Report Signed Patient: [facility] Haynes MR#: [id number] 181 : 1965 Acct:[id number] Age/Sex: 58 / M ADM Date: 08/10/24 Loc: HO.XRAY Attending Dr: Melvin Gonsalves MD Ordering Physician: Melvin Gonsalves MD Date of Service: 08/10/24 Procedure(s): XR thoracic spine 3V Accession Number(s): [id number] cc: Melvin Gonsalves MD EXAMINATION: XR THORACIC [...] 08/10/24 1202 DD/ 1152 TD/TT: 08/10/24 1152 Carton Catcher: Complete Blood Count Auto Di ff Reviewed date:03/02/2024 08:34:43 AM Interpretation: Performing Lab:[facility], [address] [place] [address] Notes/Report: White Blood Count 8.7 4.8-10.8 X10*3/uL [...] Panel Reviewed date:03/02/2024 08:34:43 AM Interpretation: Performing Lab:[facility], [address] [place] [address] Notes/Report: Sodium 137 135-145 mmol/L Potassium 4.3 3.3-5.1 mmol/L Chloride 103 96-108 mmol/L Carbon Dioxide 24 22-29 mmol/L Anion Gap 14 12-20 Blood Urea Nitrogen 11 9-16 mg/dL Creatinine 0.92 0.5-1.4 mg/dL Estimated Glomerular Filt Rate > 60 NOTE: For -Eritre[place] individuals, multiply the result by 1.210. Chronic [...] Antigen Reviewed date:03/02/2024 08:34:43 AM Interpretation: Performing Lab:[address] [address] Notes/Report: Carcinoembryonic Antigen 76.70 CEA Reference Range: 93.4% Non-Smokers = 0.0-3.0 ng/mL 95.6% Smokers = 0.0-5.0 ng/mL CEA Methodology: Bitnaminity i Chemiluminescent Microparticle Immunoassay (CMIA) CEA testing can have significant value in monitoring of patients with diagnosed malignancies in whom changing concentrations of CEA are observed. Values obtained with different assay methods cannot be used interchangeably. PSA,Total (Free>4and<10) Reviewed date:03/02/2024 08:34:43 AM Interpretation: Performing Lab:[address] [address] Notes/Report: PSA,Total (Free>4and<10) 3.10 0.00-4.00 ng/mL A [...] date:04/02/2024 08:43:51 AM Interpretation: Performing Lab: Notes/Report: [address] [place] [address] CT Scan Report Signed Patient: Gregory Haynes MR#: [id number] 181 : 1965 Acct:[id number] Age/Sex: 58 / M ADM Date: 03/17/24 Loc: .CT Attending Dr: Melvin Gonsalves MD Ordering Physician: Melvin Gonsalves MD Date of Service: 03/17/24 Procedure(s): CT chest w IV con Accession Number(s): [id number] cc: Melvin Gonsalves MD EXAMINATION: CT CHEST, [...] by: Mulugeta Quigley MD 03/18/2024 12:48 PM [facility] Dictated By: Mulugeta Quigley MD Signed By: <Electronically signed by Mulugeta Quigley MD in OV> 03/18/24 1248 DD/ 1407 TD/TT: 03/17/24 1447 Carton Catcher: [address] [address] [address] Scan Report Signed Patient: [facility] MR#: [id number] 181 : 1965 Acct:[id number] Age/Sex: 58 / M ADM Date: 03/17/24 Loc: HO.CT Attending Dr: Melvin Gonsalves MD Ordering Physician: Melvin Gonsalves MD Date of Service: 03/17/24 Procedure(s): CT rehan w IV con Accession Number(s): [id number] cc: Melvin Gonsalves MD EXAMINATION: CT CHEST, [...] 03/18/24 1248 DD/ 1407 TD/TT: 03/17/24 1447 Carton Catcher: CORNELL CT abdomen pelvis w con Reviewed date:04/02/2024 08:43:51 AM Interpretation: Performing Lab: Notes/Report: [address] [address] [address] Scan Report Signed Patient: Gregory Haynes MR#: [id number] 181 : 1965 Acct:[id number] Age/Sex: 58 / M ADM Date: 03/17/24 Loc: HO.CT Attending Dr: Melvin Gonsalves MD Ordering Physician: Melvin Gonsalves MD Date of Service: 03/17/24 Procedure(s): CT abdomen pelvis w IV con Accession Number(s): [id number] cc: Melvin Gonsalves MD EXAMINATION: CT CHEST, [...] by: Mulugeta Quigley MD 03/18/2024 12:48 PM [facility] Dictated By: Mulugeta Quigley MD Signed By: <Electronically signed by Mulugeta Quigley MD in OV> 03/18/24 1248 DD/ 1407 TD/TT: 03/17/24 1447 Carton Catcher: CORNELL [address] [address] [address] Scan Report Signed Patient: [facility] MR#: [id number] 181 : 1965 Acct:[id number] Age/Sex: 58 / M ADM Date: 03/17/24 Loc: HO.CT Attending Dr: Melvin Gonsalves MD Ordering Physician: Melvin Gonsalves MD Date of Service: 03/17/24 Procedure(s): CT abd omen pelvis w IV con Accession Number(s): [id number] cc: Melvin Gonsalves MD EXAMINATION: CT CHEST, [...] 03/18/24 1248 DD/ 1407 TD/TT: 03/17/24 1447 Carton Catcher: CORNELL Complete Blood Count Auto Di ff Reviewed date:07/07/2024 08:43:34 PM Interpretation: Performing Lab:[facility], [address] [place] [address] Notes/Report: White Blood Count 10.8 4.8-10.8 X10*3/uL [...] Panel Reviewed date:07/07/2024 08:43:34 PM Interpretation: Performing Lab:[facility], [address] [place] [address] Notes/Report: Sodium 138 135-145 mmol/L Potassium 3.9 [...] Antigen Reviewed date:07/07/2024 08:43:34 PM Interpretation: Performing Lab:[facility], [address] [place] [address] Notes/Report: Carcinoembryonic Antigen 114.20 CEA Reference Range: [...] date:08/11/2024 05:11:56 AM Interpretation: Performing Lab: Notes/Report: [address] [address] XRay Report Signed Patient: Gregory Haynes MR#: [id number] 181 : 1965 Acct:[id number] Age/Sex: 58 / M ADM Date: 08/10/24 Loc: SONU Attending Dr: Melvin Gonsalves MD Ordering Physician: Melvin Gonsalves MD Date of Service: 08/10/24 Procedure(s): XR cervical spine 3V Accession Number(s): [id number] cc: Melvin Gonsalves MD EXAMINATION: XR CERVICAL [...] 08/10/24 1206 DD/ 1152 TD/TT: 08/10/24 1152 Carton Catcher: [place] [address] XRay Report Signed Patient: [facility] MR#: [id number] 181 : 1965 Acct:[id number] Age/Sex: 58 / M ADM Date: 08/10/24 Loc: SONU Attending Dr: Melvin Gonsalves MD Ordering Physician: Melvin Gonsalves MD Date of Service: 08/10/24 Procedure(s): XR cervical spine 3V Accession Number(s): [id number] cc: Melvin Gonsalves MD EXAMINATION: XR CERVICAL [...] 08/10/24 1206 DD/ 1152 TD/TT: 08/10/24 1152 Carton Catcher: MUNIR Complete Blood Count Auto Di ff Reviewed date:10/20/2024 03:57:28 PM Interpretation: Performing Lab:[facility], [address] [place] [address] Notes/Report: White Blood Count 8.7 4.8-10.8 X10*3/uL [...] 0.000 0.0-0.012 X10*3/uL Comprehensive Met. Panel Reviewed date:10/20/2024 03:57:28 PM Interpretation: Performing Lab:[facility], [address] [place] [address] Notes/Report: Sodium 139 135-145 mmol/L Potassium 4.0 [...] Alkaline Phosphatase 124 39-117 U/L Carcinoembryonic Antigen Reviewed date:10/20/2024 03:57:28 PM Interpretation: Performing Lab:[facility], [address] [place] [address] Notes/Report: Carcinoembryonic Antigen 153.00 CEA Reference Range: 93.4% Non-Smokers = 0.0-3.0 ng/mL 95.6% Smokers = 0.0-5.0 ng/mL CEA Methodology: Bitnaminity i Chemiluminescent Microparticle Immunoassay (CMIA) CEA testing [...] Orall y Three times a day Active Tamsulosin HCl 0.4 MG 1 capsule Orally O nce a day Active traMADol HCl 50 MG TAKE 1 TABLET BY KESHAV TH TWICE DAILY NEEDED FOR PAIN Oral Active Ranitidine HCl 150 MG 1 tablet at bedtim e Orally Once a day Active Immunizations Vaccine Route Administration [...] Problem Status W/U Status Risk Notes Problem 0904218 Former smoker (Z87.891) Active confirmed He has stopped smoking within the last month. We have discussed strategies for maintaining abstinence. He has a plan to prevent relapse in times of pain illness or stress. Problem 796065575 Overweight (BMI 25.0-29.9) (E66.3) Active confirmed His body mass index is 29. He has gained 3 pounds and is overweight. His appetite is good Problem 37806519 Anxiety (F41.9) Active confirmed He was occasionally anxious today with his voice raised. Problem 226646628 Chronic obstructive pulmonary disease, unspecified (J44.9) Active confirmed He is breathing room air comfortably. He is not smoking. Short of breath with prolonged exertion. Problem 07993160 Essential hypertension (I10) Active confirmed His blood pressure is currently acceptable. He is compliant with his medications he was advised to stabilize his weight reduce his sodium intake. Problem 168060244 Edentulous (K00.0) Active confirmed He says his dentures fit he is able to chew without difficulty. Problem 618006388 Peripheral arterial disease (I73.9) Active confirmed His feet are pink and warm. He has no claudication and is doing quite well. His regimen was not altered. He was encouraged to walk and exercise. Problem 753181035 Rectal cancer (C20) Active confirmed Plain x-rays show no sign of metastatic disease in his bones. His CEA last determined was 114 and rising. He continues to decline to receive any type of anti-neoplasti c therapy for his metastatic rectal cancer. I have discussed this at length with him reviewing the benefits, risks, side effects and response rates. The reserves her right to change his mind but at this point refuses any type of any neoplastic therapy. Problem 075610929 Port-a-cath in place (Z95.828) Active confirmed His port was flushed daily with 10 cc of saline and 10 cc a 1-100 heparin solution. It functioned well. Problem Right inguinal hernia (246111697) Right inguinal hernia (K40.90) Active confirmed This is a ne w finding in the last month. He was referred to surgery to discuss what is involved in repairing it. Problem Benign prostatic hypertrophy without outflow obstruction (961128669) Benign prostatic hyperplasia without lower urinary tract symptoms (N40.0) Active confirmed Problem 82417168 Other depression (F32.89) Active confirmed He will continue with his therapist and the current regimen. Problem 857264419 Basal cell carcinoma (BCC), unspecified site (C44.91) Active confirmed No new cutaneous lesions were noted on today's examination. Vital Signs Heart Rate 87 /min 11/05/2024 Temperature 98.1 degrees Fahrenheit 11/05/2024 Respiratory Rate 16 /min 11/05/2024 Oximetry 97 % 11/05/2024 Blood pressure diastolic 80 mm Hg 11/05/2024 Height 67 in 11/05/2024 Blood pressure systolic 139 mm Hg 11/05/2024 Weight 180 lbs 11/05/2024 BMI 28.19 kg/m2 11/05/2024 Encounters Encounter Location Date Provider Diagnosis Melvin Gonsalves III, MD [address] [place] [address] [place] [address] 11/05/2024 Melvin Gonsalves Rectal cancer C20 an d Chest pain R07.9 Melvin Gonsalves III, MD [address] [place] [address] [place] [address] 12/02/2023 Melvin Gonsalves Rectal cancer C20 ; [...] in place Z95.828 Melvin Gonsalves III, MD [address] [place] [address] [place] [address] 01/06/2024 Melvin Gonsalves Chronic obstructive pulmonary disease, unspecified J44.9 ; Rectal cancer C20 ; Hypertrophy of prostate without urinary obstruction and other lower urinary tract symptoms (LUTS) N40.0 ; Anxiety F41.9 ; Right inguinal hernia K40.90 ; Peripheral arterial disease I73.9 ; Other depression F32.89 ; Port-a-cath in place Z95.828 and Overweight E66.3 Melvin Gonsalves III, MD [address] [place] [address] [place] [address] 02/03/2024 Melvin Gonsalves Overweight (BMI 25.0-29.9) E66.3 ; Rectal cancer C20 ; Essential hypertension I10 ; Basal cell carcinoma (BCC), unspecified site C44.91 ; Edentulous K00.0 ; Chronic obstructive pulmonary disease, unspecified J44.9 and Hypertrophy of prostate without urinary obstruction and other lower urinary tract symptoms (LUTS) N40.0 Melvin Gonsalves III, MD [address] [place] [address] [place] [address] 03/02/2024 Melvin Gonsalves Rectal cancer C20 ; Pulmonary nodule R91.1 ; Former smoker Z87.891 ; Chronic obstructive pulmonary disease, unspecified J44.9 ; Hypertrophy of prostate without urinary obstruction and other lower urinary tract symptoms (LUTS) N40.0 ; Other depression F32.89 ; Peripheral arterial disease I73.9 and Port-a-cath in place Z95.828 Melvin Gonsalves III, MD [address] [place] [address] [place] [address] 03/30/2024 Melvin Cintronne Rectal cancer C20 ; Encounter for immunization Z23 ; Chronic obstructive pulmonary disease, unspecified J44.9 ; Former smoker Z87.891 ; Hypertrophy of prostate without urinary obstruction and other lower urinary tract symptoms (LUTS) N40.0 ; Other depression F32.89 ; Anxiety F41.9 ; Peripheral arterial disease I73.9 ; Edentulous K00.0 ; Port-a-cath in place Z95.828 and Essential hypertension I10 Melvin Gonsalves III, MD [address] [place] [address] [place] [address] 04/30/2024 Melvin Gonsalves Rectal cancer C20 ; Chronic obstructive pulmonary disease, unspecified J44.9 ; Former smoker Z87.891 ; Hypertrophy of prostate without urinary obstruction and other lower urinary tract symptoms (LUTS) N40.0 ; Other depression F32.89 ; Peripheral arterial disease I73.9 and Tobacco use disorder Z72.0 Melvin Gonsalves III, MD [address] [place] [address] [place] [address] 05/28/2024 Melvin Cintronne Rectal cancer C20 ; Overweight (BMI 25.0-29.9) E66.3 ; Chronic obstructive pulmonary disease, unspecified J44.9 ; Edentulous K00.0 ; Hypertrophy of prostate without urinary obstruction and other lower urinary tract symptoms (LUTS) N40.0 ; Other depression F32.89 ; Former smoker Z87.891 ; Peripheral arterial disease I73.9 and Port-a-cath in place Z95.828 Melvin Gonsalves III, MD [address] [place] [address] [place] [address] 07/09/2024 Melvin Gonsalves Rectal cancer C20 ; Edentulous K00.0 ; Chronic obstructive pulmonary disease, unspecified J44.9 ; Hypertrophy of prostate without urinary obstruction and other lower urinary tract symptoms (LUTS) N40.0 ; Anxiety F41.9 ; Peripheral arterial disease I73.9 ; Right inguinal hernia K40.90 ; Other depression F32.89 ; Former smoker Z87.891 and Overweight (BMI 25.0-29.9) E66.3 Melvin Gonsalves III, MD [address] [place] [address] [place] [address] 08/10/2024 Melvin Gonsalves Rectal cancer C20 ; Edentulous K00.0 ; Chronic obstructive pulmonary disease, unspecified J44.9 ; Hypertrophy of prostate without urinary obstruction and other lower urinary tract symptoms (LUTS) N40.0 ; Anxiety F41.9 ; Former smoker Z87.891 ; Other depression F32.89 ; Peripheral arterial disease I73.9 ; Right inguinal hernia K40.90 and Overweight (BMI 25.0-29.9) E66.3 Melvin Gonsalves III, MD [address] [place] [address] [place] [address] 08/13/2024 Melvin Major Rectal cancer C20 ; [...] back pain M54.6 Melvin Gonsalves III, MD [address] [place] [address] [place] [address] 09/08/2024 Melvin Major Rectal cancer C20 ; Chronic [...] Essential hypertension I10 Melvin Gonsalves III, MD [address] [place] [address] [place] [address] 10/08/2024 Melvin Gonsalves Rectal cancer C20 ; Former smoker Z87.891 ; Chronic obstructive pulmonary disease, unspecified J44.9 ; Edentulous K00.0 ; Anxiety F41.9 ; Right inguinal hernia K40.90 and Port-a-cath in place Z95.828 Melvin Gonsalves III, MD [address] [place] [address] [place] [address] 04/02/2024 Melvin Gonsalves III, MD [address] [place] [address] [place] [address] 04/30/2024 Melvin Gonsalves III, MD [address] [place] [address] [place] [address] 07/22/2024 Melvin Gonsalves III, MD [address] [place] [address] [place] [address] 09/17/2024 Melvin Gonsalves Assessments Encounter Date Diagnosis [...] refuses any type of any neoplastic therapy. 12/02/2023 Hypertrophy of prostate without urinary obstruction [...] He has refused treatment since that time. IHgiovanny was recently restaged with a CT scan [...] He has refused treatment since that time. IHe was recently restaged with a CT scan [...] times of pain illness or stress. 10/08/2024 Rectal cancer (ICD-10 - C20) Plain [...] any type of any neoplastic therapy. 11/05/2024 Chest pain (ICD-10 - R07.9) 12/02/2023 Chronic obstructive pulmonary disease, unspecified (ICD-10 [...] modifications she could make to reduce nocturia. 10/08/2024 Chronic obstructive pulmonary disease, unspecified (ICD-10 - J44.9) He is breathing room air comfortably. He is not smoking. Short of breath with prolonged exertion. 12/02/2023 Edentulous (ICD-10 - K00.0) He says [...] anxious today with his voice raised. 10/08/2024 Edentulous (ICD-10 - K00.0) He says his dentures fit he is able to chew without difficulty. 12/02/2023 Anxiety (ICD-10 - F41.9) He was [...] times of pain illness or stress. 10/08/2024 Anxiety (ICD-10 - F41.9) He was occasionally anxious today with his voice raised. 12/02/2023 Other depression (ICD-10 - F32.89) He [...] with his therapist and the current regimen. 10/08/2024 Right inguinal hernia (ICD-10 - K40.90) This is a new finding in the last month. He was referred to surgery to discuss what is involved in repairing it. 12/02/2023 Peripheral arterial disease (ICD-10 - I73.9) [...] He was encouraged to walk and exercise. 10/08/[address]24 [address]-a-c[address] in place (ICD-10 - Z95.828) His port was flushed daily with 10 cc of saline and 10 cc a 1-100 heparin solution. It functioned well. 12/02/2023 Right inguinal hernia (ICD-10 - K40.90) [...] 09/05/2021 MRI PELVIS NO CONTRAST 09/05/2021 XR CHEST 2 VIEW PA & LAT 11/05/2024 CBC WITH AUTO DIFF 05/28/2024 Next Appt Details Provider Name:Melvin Gonsalves, 11/12/2024 10:30:00 AM, 10 [facility] [place], [place], [address], Provider Name:Melvin Gonsalves, 12/03/2024 11:00:00 AM, 10 [facility] [place], [place], [address], Provider Name:Melvin Gonsalves, 04/01/2025 01:30:00 PM, 10 [facility] [place], [place], [address], Insurance Providers Payer Name Payer Address Payer Phone Subscriber Number Group Number Insured Name Patient Relationship to Insured Coverage Start Date Coverage End Date [facility] [address] [place] [address] [phone] [id number] Gregory Haynes Self - patient is the insured [place] [address] [place] [id number] Gregory Haynes Self - patient is the [...] byp ass surgery for peripheral arterial disease [facility] 2017 Exploratory Laparotomy, Lysi s of adhesions with ileostomy takedown in conjuction with small bowel resection and primary anastomosis 2016-07-17 Exploratory laparotomy 2016-04-16 colonoscopy revealing adenocarcinoma the rectum 2015 dental extractions 2010 Knee surgery 1999 appendectomy Hospitalization History Reason Date(Month/Year) No history resection anastomotic rectal cancer recurrence [facility], Dr. Lackey 07/2019 femorol femoral bypass graft, [facility], Dr. Franco 03/2018 observation overnight once for infection 2013
--- OUTSIDE RECORDS SUMMARY | 2024-11-05 12:05 | XMS_ITS | Clinical Summary ---
Author Organization [facility] it Address [address] [place] [address] Care Team Providers Care Subsea Engineer Name Role Phone Mevlin Gonsalves MD Primary Care Provider [phone] Social History Tobacco Use Types Packs/Day Years [...] Vaccines (1 of 2) 12/14/2013 COVID-19 Vaccine (1 - 2023-2 5 season) 2023 Influenza Vaccine (#1) 2024 RSV Immunization Adult Patie nts (1 [...] age to complete this topic Care Teams Subsea Engineer Relationship Specialty Start Date End Date Melvin Gonsalves MD PCP - General 01/23/16
--- OUTSIDE RECORDS SUMMARY | 2024-11-05 12:05 | XMS_ITS | Patient Health Record ---
Author Organization [facility] Address [address] [place] [address] Care Team Providers Care Coal Cager Name Role Phone Melvin Gonsalves MD Primary Care Provider Unavailab Melvin White Unavailable [phone] SHONNA, CRISTINA Unavailable Unavailable Allergies Allergen (clinical drug ingredient) Drug/Non Drug Allergy documented on EMR Reaction Allergy Type Onset Date Status sulfamethoxazole / trimethoprim Bactrim Unknown Drug Allergy Active apple allergenic extract apples (uncoded) Unknown Allergy Active Reason For Referral No Information Medications Medication SIG (Take, Route, Frequency, Duration) Notes Start Date End Date Status Aleve QD 2 pills once a day Active Acid Ore Trimmer 10 MG 1 tablet Orally as needed Active Baby Aspirin 81 1 tablet orally once a day Active Social History Tobacco Use: Social History Observation Description Date Details (start date - stop date) Former Smoker NA - NA Tobacco Use/Smoking Question Answer Notes Patient is a former smoker When did you stop smoking? 2016 How long has it been since you last smoked? 1-5 years Alcohol Screen Question Answer Notes Did you have a drink containing alcohol in the p ast year? No Points 0 Interpretation Negative Section Notes: Smoker < 1ppd; no alcohol Smoker < 1ppd; no alcohol Nonsmoker since 2016; no alc ohol Problems Problem Type SNOMED Code ICD Code Onset Dates Problem Status W/U Status Risk Notes Problem 580973418 Encounter for screening for malignant neoplasm of colon (Z12.11) Active confirmed Problem 29447750 Weight loss (R63.4) Active confirmed Problem 52942612 Anorexia (R63.0) Active confirmed Problem 903049506 Blood in stool (K92.1) Active confirmed Problem 39244064 Constipation, unspecified constipation type (K59.00) Active confirmed Problem 129844370 Abdominal pain, generalized (R10.84) Active confirmed Problem 919775404 History of recta l cancer (Z85.048) Active confirmed Problem 853391712 Rectal mass (K62.9) Active confirmed Plan Of Treatment Future Test Test Name Order Date COLONOSCOPY 11/07/2015 COLONOSCOPY 06/10/2017 UPPER GI ENDOSCOPY 02/09/2019 COLONOSCOPY 02/09/2019 Insurance Providers Payer Name Payer Address Payer Phone Subscriber Number Group Number Insured Name Patient Relationship to Insured Coverage Start Date Coverage End Date [facility] [address] [place] [address] [phone] [id number] ALEXA HAYNES Self - patient is the insured Medical (General) History Medical History History ICD Code Denies CA,DM,CVA,Lung disease,renal dise ase Kidney stone Rectal cancer-surgery, chemo, and XRT as below---stopped chemo in 12/2016 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 colonoscopy in July 2017. Surgical History Surgery Date(Month/Year) Appendectomy Rectal cancer--11/2015---chem o/XRT with Dr. Gonsalves---03/[address] Saldaña with a temporary colostomy---colostomy reversed in 06/2016 LE vascular bypass with Dr. Franco in 03/22 018
--- OUTSIDE RECORDS SUMMARY | 2024-11-05 12:05 | XMS_ITS | Data Portability ---
Author Organization [facility] Pain Managem jose, PAIN OFFICE Address [address] [facility],[address] [address] Care Team Providers Care Vitreo Retinal Surgeon Name Role Phone ERIC ROOT Primary Care Provider Assessment Encounter Date Assessment Date Assessment LastModified by Organization Details LastModified Time 02/24/2015 02/24/2015 Gregory Haynes is a 49 year old man with neckpain radiating intoleft upper back and arm with numbness and [...] of cervical epidural steroid injection under fluoroscopic guidance. [email or web address] Not available 02/24/2015 11:09:58 03/09/2015 03/09/2015 Gregory Haynes is a 49 year old man with neckpain radiating intoleft upper back and arm with numbness and [...] is a 49 year old man with neckpain radiating intoleft upper back and arm with numbness and [...] and left paraspinal muscle in his cervical spine.I recommend a repeattrigger point injection in left trapezius muscle under [...] By Organization Details Last Modified Time 02/24/2015 00616 He was advised against bed rest lasting longer than four days and to continue activities as tolerated. Benefits of smoking cessation were discussed with him. [email or web address] Not available 02/24/2015 11:10:15 03/09/2015 [id number] He was advised against bed rest lasting longer than four days and to continue activities as tolerated. Benefits of smoking cessation were discussed with him. [email or web address] Not available 03/10/2015 10:18:37 03/21/2015 43129 He was advised against bed rest lasting longer than four days and to continue activities as tolerated. Benefits of smoking cessation were discussed with him. [email or web address] Not available 03/21/2015 11:41:56 02/20/2017 [id number] He was advised against bed rest lasting longer than four days and to continue activities as tolerated. Benefits of smoking cessation were discussed with him. [email or web address] Not available 03/10/2017 08:44:51 03/10/2017 21810 He was advised against bed rest lasting longer than four days and to continue activities as tolerated. Benefits of smoking cessation were discussed with him. [email or web address] Not available 03/10/2017 14:01:44 Reason for Referral None Reported. 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 Procedures Surgical History Date Name Laterality Status Provider Name and Address Organization Details Recorded Time 02/21/20 17 Trigger Point Injections under ultrasound guidance completed Gigi Bagley MD [address] [facility] , [address], [place], [address], [place] [facility] 03/10/2017 08:49:29 03/21/20 15 Trigger Point Injections under ultrasound guidance completed Gigi Bagley MD [address] [facility] , [address], [place], [address], [place] [facility] 03/21/2015 11:44:35 03/09/20 15 Trigger Point Injections under ultrasound guidance completed Gigi Bagley MD [address] [facility] , [address], [place], [address], [place] [facility] 03/10/2015 [...] Name and Address Organization Details Recorded Time 31512 Bactrim medicatio n Not available Not available Not available 02/24/2015 10010 9 RxNorm Cate pugh [place] - [place] [...] Not Available Not Available Not Available Afluria (PF) 45 mcg(15 mcg x 3)/0.5 mL intramuscul ar syringe inject 0.5 millilite r intramusc ularly 02/20 completed Not Available Not Available Not Available Vitals Date Recorded Heart rate Oxygen saturation Oxygen saturation in Arterial blood by Pulse oximetry Systolic And Diastolic Provider Name and Address Organization Details Last Updated DateTime 02/20/2017 71 /min 98 % 98 % 124/77 mm[Hg] Cate Krishnamurthy [place] - [facility] 7 13:15:49 Date Recorded Body weight Oxygen saturation Oxygen saturation in Arterial blood by Pulse oximetry Body height Body mass index (BMI) Heart rate Systolic And Diastolic Provider Name and Address Organization Details Last Updated DateTime 5 16092.5 1816 g 97 % 97 % 162.56 cm 28.8 kg/m2 66 /min 152/77 mm[Hg] Cate Krishnamurthy [place] - [facility] 5 09:51:25 Date Recorded Oxygen saturation Oxygen saturation in Arterial blood by Pulse oximetry Heart rate Systolic And Diastolic Provider Name and Address Organization Details Last Updated DateTime 03/09/2015 98 % 98 % 76 /min 138/88 mm[Hg] [facility] 5 15:06:35 Date Recorded Heart rate Oxygen saturation Oxygen saturation in Arterial blood by Pulse oximetry Body weight Body mass index (BMI) Body height Systolic And Diastolic Provider Name and Address Organization Details Last Updated DateTime 7 68 /min 98 % 98 % 07824.7 8 g 27.5 kg/m2 162.56 cm 151/88 mm[Hg] Cate Krishnamurthy [place] - [facility] 7 13:15:39 Date Recorded Oxygen saturation Oxygen saturation in Arterial blood by Pulse oximetry Heart rate Systolic And Diastolic Provider Name and Address Organization Details Last Updated DateTime 03/21/2015 98 % 98 % 68 /min 154/89 mm[Hg] Cate Krishnamurthy [place] - [facility] 5 10:49:00 Social History Question Answer Notes LastModified by Organizat ion Details LastModified Time Tobacco Smoking Status Former Smoker Quit x 1 year Not Available [employer] 02/04/2020 03:16:12 Education 11 Information no t available 02/24/2015 Live Alone Or With Others? With Others And Son Information not available 02/24/2015 Marital Status [email or web address] Informatio n not available 02/24/2015 What Was The Date Of Your Most Recent Tobacco Screening? 03/10/2017 [id number] Information not available 02/04/2020 How Much Tobacco Do You Smoke? No [id number] Information not available 02/04/2020 How Many Years Have You Smoked Tobacco? 40 [id number] Information not available 02/04/2020 Sex: Unknown Functional Status Question Answer Note LastModified by Organization D etails LastModified Time What is your level of alcohol consumption? None [id number] Information not available 02/04/2020 Are you currently employed? No [id number] Information not available 02/04/2020 Mental Status None recorded. Family History Nothing Reported. Medical History Condition Response Cancer Y Arthritis Y GERD/Reflux Y Past Encounters Encounter ID Performer Location Encounter Start Date Encounter Closed Date Diagnosis/Indication Diagnosis SNOMED-CT Code Diagnosis ICD10 Code Diagnosis Note [id number] Gigi Bagley MD PAIN OFFICE [address] [employer] [address] [place] [address] 02/24/2015 09:24:08 02/24/2015 11:10:39 Degeneration of cervical intervertebral disc 90695859 M50.32 Brachial radiculitis 278 17731 M54.12 Muscle pain 10395926 M79 .1 [id number] Gigi Bagley MD PAIN OFFICE [address] [employer] [address] [place] [address] 03/09/2015 14:02:26 03/10/2015 10:21:56 Muscle pain 68007813 M79.1 Degenerati on of cervical intervertebral disc 95088613 M50.32 ck Brachial radiculitis 278 79387 M54.12 [id number] Gigi Bagley MD PAIN OFFICE [address] [employer] [address] [place] [address] 03/21/2015 10:15:43 03/21/2015 11:45:30 Muscle pain 19900159 M79.1 Degenerati on of cervical intervertebral disc 65178321 M50.32 cka Brachial radiculitis 278 54713 M54.12 [id number] Gigi Bagley MD [facility] PAIN OFFICE [address] [place] [address] 02/20/2017 13:03:42 03/10/2017 08:53:14 Muscle pain 88800577 M79.1 Degenerati on of cervical intervertebral disc 57359307 M50.320 Brachial radiculitis 278 54609 M54.12 [id number] Gigi Bagley MD [facility] PAIN OFFICE [address] [facility] [place] [address] 03/10/2017 13:01:53 03/10/2017 14:15:08 Muscle pain 40931654 M79.1 Degenerati on of cervical intervertebral disc 02054771 M50.321 cka Brachial radiculitis 278 57865 M54.12 Health Concerns Section Related Observation LastModified by Organization Detai ls LastModified Time None Recorded Concern Status LastModified by Organization Details LastModified Time None Recorded Advance Directives Directive None Recorded Payers Insurance Date Sequence Insurance Name Policy Number Policy Starr Covered Member ID Starr Member ID Guarantor Name 02/16/2015 1 [facility] (HMO) Gregory Haynes [id number] Gregory Haynes 02/16/2015 1 [facility] - PREFERRED (MEDICARE SUPPLEMENT) Gregory Haynes [id number] Gregory Haynes 02/13/2015 1 [facility] (PPO) rGegory Haynes [id number] Gregory Haynes 02/16/2015 1 [facility] (PPO) Gregory Haynes [id number] Gregory Haynes 05/19/2017 1 [facility] Gregory Haynes [id number] Gregory Haynes 02/13/2015 1 [facility] Gregory Haynes [id number] Gregory Haynes 02/16/2015 1 [facility] Gregory Haynes [id number] Gregory Ericksonnier Notes Date Note Type Note Provider Name and Address Organization Details Recorded Time 03/09/2015 text/html Gregory Haynes is a 49 year old man with neck pain radiating into left upper back. He is here for a trial of trigger point injection in his left trapezius muscle under ultrasound guidance. Gigi Bag[facility] MD [address] [facility] , [address], [place], [address], [place] [facility] 03/13/2015 09:20:16 03/21/2015 text/html [...] or bowel incontinence. Gigi Bagley MD [address] [facility] , [address] [facility], [place], [address], [place] - [address] [facility] 03/21/2015 13:14:49 02/20/2017 text/html He [...] or bowel incontinence. Gigi Bagley MD [address] [facility] , [address], [place], [address], [place] [facility] 03/18/2017 08:46:17 03/10/2017 text/html [...] for colon cancer. Gigi Bagley MD [address] [facility] , [address], [place], [address], [place] - [facility] 03/18/2017 11:25:46
--- OUTSIDE RECORDS SUMMARY | 2024-11-05 12:05 | XMS_ITS | Encounter Summary ---
Author Organization [facility] Address [address] [place] [address] Phone Care Team Providers Care Patient Safety Sitter Name Role Phone Melvin Gonsalves MD Primary Care Provider [phone] Reason for Referral * MRI/CAT Scan - Closed Specialty Diagnoses / Procedures Referred By Yesenia seth Referred To Contact Radiology Diagnoses Rectal cancer Procedures MRI Pelvis (GI/) Randolph Murphy MD Phone: tel: fax: Referral ID Status Reason Start Date Expiration Date Visits Re quested Visits Authorized [id number] Closed 05/07/2019 08/05/2019 1 1 Encounter Details Date Type Department Care Team (Late st Contact Info) Description 05/03/2019 Ancillary Orders For Login Purposes Only [address] [facility] [address] [place] [address] Randolph Murphy MD [address] [place] [address] Dr MONTEJO [address] [place] [address] Rectal cancer Social History Tobacco Use Types Packs/Day Years Used Date Smoking Tobacco: Never Assessed Sex and Gender Information Value Date Recorded Sex Assigned at Not on file Legal Sex Male 10:08 AM EST Gender Identity Not on file Sexual Orientation Not on file documented as of this encounter Plan of Treatment Not on file documented as of this encounter Results * MRI PELVIS (RECTAL) WITH AND WITHOUT CONTRAST (05/12/2019 11:50 AM EST) Anatomical Region Laterality Modality Pelvis Magnetic Resonan ce 05/13/2019 3:08 PM EST Impressions 05/14/2019 1:30 PM EST * STAGE: T3d N0 * CRM: involved: tumor within 1 mm * Sphincter involvement: No Fibrotic appearing soft tissue within the presacral space may reflect post-treatment change related to prior radiation. ATTESTATION: I, Dr. David Hanna as teaching physician, have reviewed the images for this case and if necessary edited the report originally created by Dr. Jose Farnsworth. Narrative 05/14/2019 1:30 PM EST MRI PELVIS (RECTAL) WITH AND WITHOUT CONTRAST TECHNIQUE: MR of the rectum WITH AND WITHOUT intravenous gadolinium. COMPARISON: None available. FINDINGS: PRIMARY TUMOR: MORPHOLOGY, LOCATION, AND CHARACTERISTICS: * Distance to the anal verge: 7.1 cm * Distance to the top of sphincter complex/anorectal junction: 4.0 cm * Relationship to anterior peritoneal reflection: Straddles * Craniocaudal length: 3.6 cm * Morphology: Semicircumferential * Mucinous: No T STAGE * Extramural depth of invasion: 18 mm (8.17) * MR-T category: T3d (tumor penetrates > 15 mm beyond muscularis propria) STRUCTURES WITH POSSIBLE INVASION: * : None. * Pelvic sidewall: None. * Pelvic floor: Extensive T2 hypointense, hypoenhancing fibrotic stranding within the presacral space that is discontiguous with the primary mass extending inferiorly to the level of the levators, most suggestive of post-treatment change in the setting of prior radiation. * Sacrum: Fibrotic changes discussed described above which are discontinuous with the primary tumor abuts the anterior sacrum. Enhancing tumor does not invade the sacrum. * Vessels: None. * Nerves: None. EXTRAMURAL VENOUS INVASION (EMVI): None identified. CIRCUMFERENTIAL RESECTION MARGIN: [For T3 Tumor Only] * Shortest distance of definitive tumor to MRF or anticipated CRM: Definitive tumor extension into the right mesorectal fat (8:17) < than 1 mm TME [Superior Rectal & Mesorectal Only] LYMPH NODES AND TUMOR DEPOSITS: N0 * Total number of lymph nodes: 1 - oval <5 mm left obturator node. * Total number of suspicious nodes: 0. EXTRA-TME LYMPH NODES * Any suspicious extra-TME/pelvic side wall nodes? No NON-RECTAL FINDINGS: PELVIS: Bladder is unremarkable. No pelvic lymphadenopathy. No free fluid. KIDNEYS: No hydronephrosis. BONES: There is heterogeneous signal with enhancement int he bilateral iliac bones adjacent to the SI joints (3:55) which is nonspecific. Procedure Note David Hanna MD - 05/14/2019 MRI PELVIS (RECTAL) WITH AND WITHOUT CONTRAST TECHNIQUE: MR of the rectum WITH AND WITHOUT intravenous gadolinium. COMPARISON: None available. FINDINGS: PRIMARY TUMOR: MORPHOLOGY, LOCATION, AND CHARACTERISTICS: * Distance to the anal verge: 7.1 cm * Distance to the top of sphincter complex/anorectal junction: 4.0 cm * Relationship to anterior peritoneal reflection: Straddles * Craniocaudal length: 3.6 cm * Morphology: Semicircumferential * Mucinous: No T STAGE * Extramural depth of invasion: 18 mm (8.17) * MR-T category: T3d (tumor penetrates > 15 mm beyond muscularispropria) STRUCTURES WITH POSSIBLE INVASION: * : None. * Pelvic sidewall: None. * Pelvic floor: Extensive T2 hypointense, hypoenhancing fibroticstranding within the presacral space that is discontiguous with the primary massextending inferiorly to the level of the levators, most suggestive ofpost-treatment change in the setting of prior radiation. * Sacrum: Fibrotic changes discussed described above which arediscontinuous with the primary tumor abuts the anterior sacrum. Enhancing tumor doesnot invade the sacrum. * Vessels: None. * Nerves: None. EXTRAMURAL VENOUS INVASION (EMVI): None identified. CIRCUMFERENTIAL RESECTION MARGIN: [For T3 Tumor Only] * Shortest distance of definitive tumor to MRF or anticipated CRM:Definitive tumor extension into the right mesorectal fat (8:17) < than 1 mm TME [Superior Rectal & Mesorectal Only] LYMPH NODES AND TUMOR DEPOSITS:N0 * Total number of lymph nodes: 1 - oval <5 mm left obturator node. * Total number of suspicious nodes: 0. EXTRA-TME LYMPH NODES * Any suspicious extra-TME/pelvic side wall nodes? No NON-RECTAL FINDINGS: PELVIS: Bladder is unremarkable. No pelvic lymphadenopathy. No freefluid. KIDNEYS: No hydronephrosis. BONES: There is heterogeneous signal with enhancement int he bilateraliliac bones adjacent to the SI joints (3:55) which is nonspecific. IMPRESSION: * STAGE: T3d N0 * CRM: involved: tumor within 1 mm * Sphincter involvement: No Fibrotic appearing soft tissue within the presacral space may reflect post-treatment change related to prior radiation. ATTESTATION: I, Dr. David Hanna as teaching physician, have reviewedthe images for this case and if necessary edited the report originally createdby Dr. Jose Farnsworth. us Randolph Murphy MD IMG MR PELVIS Final Resu lt documented in this encounter Visit Diagnoses Diagnosis Rectal cancer Malignant neoplasm of rectum Rectal cancer Malignant neoplasm of rectum documented in this encounter Care Teams Patient Safety Sitter Relationship Specialty Start Date End Date Melvin oGnsalves MD [address] [place] [id number] PCP - General Medical Oncology 05/03/19 documented as of this encounter Additional Source Comments The information contained in this document represents components of the legal health record. It is not the complete legal health record.[facility]
== END 2024-11-05 11:51 | disposition home or self-care (01) ==
LOC: HO.XRAY 11:50
PROVIDERS: PCP Internal Medicine Medical Oncology; Visit Provider Internal Medicine Medical Oncology
DX: R07.89 Other chest pain (principal); C20 Malignant neoplasm of rectum
CPT/HCPCS: 71046

== ENCOUNTER → 2024-11-05 12:07 | Outpatient (BNV) | payer OTHER, SELFPAY | PROVIDERS: PCP Internal Medicine Medical Oncology; Visit Provider Radiology Diagnostic Radiology | DX: R07.9 Chest pain, unspecified (principal) | CPT/HCPCS: 71046 ==

== ENCOUNTER 2025-01-14 11:47 | Outpatient (REF) | payer OTHER, SELFPAY ==
--- OUTSIDE RECORDS SUMMARY | 2024-10-08 06:45 | XMS_ITS ---
Author Organization Melvin Gonsalves III, MD Address [address] [place] [address] [address] [place] [address] Care Team Providers Care Pipe Threader Name Role Phone Dr. Melvin Gonsalves III [...] Date Provider Diagnosis Melvin Gonsalves III, MD [address] [place] [address] [place] [address] 10/08/2024 Melvin Gonsalves Rectal cancer C20 ; [...] Port Flush, OV Provider Name:Melvin Gonsalves , 02/25/2025 11:00:00 AM, [address] [place] [address] [address], [place], [address], Provider Name:Melvin Gonsalves , 04/01/2025 01:30:00 PM, [address] [place] [address] [address], [place], [address], Progress Notes * Baljeet HAYNESOB:[birth year] (58 yo M)Acc No.[id number]:10/08/2024 Patient: Gregory HERNÁNDEZ Provider: Jewell Gonsalves MD :1965 A ge:58 Y S ex:Male Date:10/08/2024 Address:[address] [place] [address] [place], [id number] Subjective: * Chief Complaints: * P ort [...] * Surgical History: a ppendectomy Knee surgery 2000dental extractions 2011colonoscopy revealing adenocarcinoma the rectum 2015Exploratory laparotomy [id number] Laparotomy, Lysis of adhesions with ileostomy takedown in conjuction with small bowel resection and primary anastomosis [id number] femoral arterial bypass surgery for peripheral arterial disease [facility] 2017resection of anastamotic recurrence 07/2019Hernia removed ppendix surgery Hernia surgery Skin cancer surgery No history * Hospitalization/Major Diagno stic Procedure: o bservation overnight once for infection 2013femorol femoral bypass graft, [facility], Dr. Franco 03/2018resection anastomotic rectal cancer recurrence [facility], Dr. Lackey 07/2019No history * Family History: [...] and in school. 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 He has had no steady job for 20 years due to aches and pains in back and shoulders. He was born in [place]. The patient reported not smoking. He also [...] * Procedure Codes: 9 6522 REFILL/MAINT PUMP/RESVR [id number] MEASURE BLOOD OXYGEN [id number] INJECTION HEPARIN SODIUM 10 [id number] SALINE SOLUTION * Preventive Medicine: Counseling: C [...] true * Provider: Jewell Gonsalves MD Date: 10/08/2024 Generated for Bindu fam/Tesfaye/eTeransmitting on: 0 01/14/2025 01:39 PM EDT History and Physical Notes * [...]
--- OUTSIDE RECORDS SUMMARY | 2024-11-05 07:15 | XMS_ITS ---
Author Organization Melvin Gonsalves III, MD Address [address] [place] [address] [address] [place] [address] Care Team Providers Care Broadcast Operations Director Name Role Phone Dr. Melvin Gonsalves III Primary Care Provider [phone] Allergies Allergen (clinical drug ingredient) Drug/Non Drug [...] Date Provider Diagnosis Melvin Gonsalves III, MD [address] [place] [address] [place] [address] 11/05/2024 Melvin Gonsalves Rectal cancer C20 ; [...] OV Port Flush Provider Name:Melvin Gonsalves , 02/25/2025 11:00:00 AM, [address] [place] [address] [address], [place], [address], Provider Name:Melvin Gonsalves , 04/01/2025 01:30:00 PM, [address] [place] [address] [address], [place], [address], Progress Notes * Baljeet HAYNESOB:[birth year] (58 yo M)Acc No.[id number]:11/05/2024 Patient: Gregory HERNÁNDEZ Provider: Jewell Gonsalves MD :1965 A ge:58 Y S ex:Male Date:11/05/2024 Address:[address] [place], [place] [id number] Subjective: * Chief Complaints: * P ort [...] 2010colonoscopy revealing adenocarcinoma the rectum 2015Exploratory laparotomy [id number] Laparotomy, Lysis of adhesions with ileostomy takedown in conjuction with small bowel resection and primary anastomosis [id number] femoral arterial bypass surgery for peripheral arterial disease [facility] 2017resection of anastamotic recurrence 07/2019Hernia removed ppendix surgery Hernia surgery Skin cancer surgery No history * Hospitalization/Major Diagno stic Procedure: o bservation overnight once for infection 2014femorol femoral bypass graft, [facility], Dr. Franco 03/2018resection anastomotic rectal cancer recurrence [facility], Dr. Lackey 07/2019No history * [...] and in school. 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 He was born in [place]. The patient reported not smoking. He also [...] Procedure Codes: 9 4760 MEASURE BLOOD OXYGEN [id number] REFILL/MAINT PUMP/RESVR [id number] SALINE [id number] INJECTION HEPARIN SODIUM 10 UNITS * Preventive [...] Gonsalves MD Date: 0 11/05/2024 Generated for Reginai cristel/Tesfaye/eTransmitting on: 01/14/2025 01:39 PM EDT History and Physical [...]
--- OUTSIDE RECORDS SUMMARY | 2024-11-12 06:30 | XMS_ITS ---
Author Organization Melvin Gonsalves III, MD Address [address] [place] [address] [address] [place] [address] Care Team Providers Care Hospice Educator Name Role Phone Dr. Melvin Gonsalves III [...] Date Provider Diagnosis Melvin Gonsalves III, MD [address] [place] [address] [place] [address] 11/12/2024 Melvin Gonsalves Rectal cancer C20 ; [...] Follow Up: As Scheduled, Delores son: Gavin Flunuvia Provider Name:Melvin Gonsalves , 02/25/2025 11:00:00 AM, [address] [place] [address] [address], [place], [phone], Provider Name:Melvin Gonsalves , 04/01/2025 01:30:00 PM, [address] [place] [address] [address], [place], [phone], Progress Notes * Baljeet HAYNESOB:[birth year] (58 yo M)Acc No.[id number]:11/12/2024 Progress Notes Patient: Gregory HERNÁNDEZ Provider: Jewell Gonsalves MD :1965 A ge:58 Y S ex:Male Date:11/12/2024 Address:[address] [place], [place] [phone] Subjective: * Chief Complaints: * M echanical [...] 2010colonoscopy revealing adenocarcinoma the rectum 2015Exploratory laparotomy [id number] Laparotomy, Lysis of adhesions with ileostomy takedown in conjuction with small bowel resection and primary anastomosis [id number] femoral arterial bypass surgery for peripheral arterial disease [facility] 2017resection of anastamotic recurrence 07/2019Hernia removed ppendix surgery Hernia surgery Skin cancer surgery No history * Hospitalization/Major Diagno stic Procedure: o bservation overnight once for infection 2014femorol femoral bypass graft, [facility], Dr. Franco 03/2018resection anastomotic rectal cancer recurrence [facility], Dr. Lackey 07/2019No history * Family [...] and in school. 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 He was born in [place]. The patient reported not smoking. He also [...] MD Date: 0 11/12/2024 Generated for Bindu fam/Tesfaye/eTransmitting on: 0 01/14/2025 01:40 PM EDT History and Physical Notes [...]
--- OUTSIDE RECORDS SUMMARY | 2024-12-03 07:00 | XMS_ITS ---
Author Organization Melvin Gonsalves III, MD Address [address] [place] [address] [address] [place] [address] Care Team Providers Care Food And Beverage Order Clerk Name Role Phone Dr. Melvin Gonsalves III [...] Date Provider Diagnosis Melvin Gonsalves III, MD [address] [place] [address] [place] [address] 12/03/2024 Melvin Gonsalves Rectal cancer C20 ; [...] Weeks, Reason: OV Provider Name:Melvin Gonsalves , 02/25/2025 11:00:00 AM, [address] [place] [address] [address], [place], [address], Provider Name:Mlevin Gonsalves , 04/01/2025 01:30:00 PM, [address] [place] [address] [address], [place], [address], Progress Notes * Reggie HAYNES:[birth year] 62 (58 yo M)Acc No.[id number]:12/03/2024 Patient: Gregory HERNÁNDEZ Provider: Jewell Gonsalves MD :1965 A ge:58 Y S ex:Male Date:12/03/2024 Address:[address] [place], [place] [phone] Subjective: * Chief Complaints: * P ort [...] 2010colonoscopy revealing adenocarcinoma the rectum 2015Exploratory laparotomy [id number] Laparotomy, Lysis of adhesions with ileostomy takedown in conjuction with small bowel resection and primary anastomosis [id number] femoral arterial bypass surgery for peripheral arterial disease [facility] 2017resection of anastamotic recurrence 07/2019Hernia removed ppendix surgery Hernia surgery Skin cancer surgery No history * Hospitalization/Major Diagno stic Procedure: o bservation overnight once for infection 2014femorol femoral bypass graft, [facility], Dr. Franco 03/2018resection anastomotic rectal cancer recurrence [facility], Dr. Lackey 07/2019No history [...] and in school. 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 He has had no steady job for 20 years due to aches and pains in back and shoulders. He was born in [place]. The patient reported not smoking. He also [...] 97.9, Wt-k.1. * P ast Orders: I maging:XR chest 2V (Order Date - 11/05/2024) (Performed [...] Procedure Codes: 9 4760 MEASURE BLOOD OXYGEN [id number] REFILL/MAINT PUMP/RESVR [id number] INJECTION HEPARIN SODIUM 10 [id number] SALINE SOLUTION * Preventive Medicine: Counseling: C [...] MD Date: 0 12/03/2024 Generated for Bindu fam/Tesfaye/eTransmitting on: 0 01/14/2025 01:39 PM EDT History [...]
--- NOTE | ~2025-01-14 | XR_ITS ---
EXAMINATION: XR ANKLE, right CLINICAL INFORMATION: PAIN COMPARISON: None available. TECHNIQUE: AP, lateral, and mortise views lower extremity joint, ankle. FINDINGS: Ankle mortise is congruent. There is no widening of the syndesmosis. Talar dome is intact. There are no calcaneal enthesophyte(s). XR/XR ankle RT min 3V IMPRESSION: Unremarkable ankle x-ray. Electronically signed by: Parish Chicas MD 01/14/2025 12:19 PM EDT
--- NOTE | ~2025-01-14 | XR_ITS ---
EXAMINATION: XR FOOT, RIGHT CLINICAL INFORMATION: PAIN COMPARISON: None available. TECHNIQUE: AP, lateral, and oblique views of the right foot. FINDINGS: The bones and soft tissues are normal. No fracture. Alignment is anatomic. There is mild degenerative change and IP joint of the great toe with marginal osteophytes.. XR/XR foot RT min 3V IMPRESSION: Unremarkable right foot. 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 Electronically signed by: Parish Chicas MD 01/14/2025 12:21 PM EDT
--- OUTSIDE RECORDS SUMMARY | 2025-01-14 07:15 | XMS_ITS ---
Author Organization Melvin Gonsalves III, MD Address [address] [place] [address] Care Team Providers Care Laborer Adjustable Steel Joist Name Role Phone Dr. Melvin Gonsalves III Primary Care Provider [phone] Allergies Allergen (clinical drug ingredient) Drug/Non Drug Allergy documented on EMR Reaction Allergy Type Onset Date Status sulfamethoxazole / trimethoprim Bactrim Unknown Drug Allergy Active REASON FOR VISIT Port Flush Medications Medication SIG (Take, Route, Frequency, Duration) [...] non-user Ex-cigaret te smoker Vital Signs Temperature 98.0 degrees Fahrenheit 01/15/20 25 Blood pressure systolic 155 mm Hg 01/15/20 25 Blood pressure diastolic 79 mm Hg 025 Heart Rate 85 /min 01/14/2025 Height 67 in 01/14/2025 Weight 182 lbs 01/14/2025 BMI 28.5 kg/m2 01/14/2025 Encounters Encounter Location Date Provider Diagnosis Melvin Gonsalves III, MD [address] [place] [address] 01/14/2025 Melvin Gonsalves Rectal cancer C20 ; Right foot pain M79.671 and Right ankle pain M25.571 Assessments Encounter Date Diagnosis (ICD Code) Assessment Notes Treatment Notes Treatment Clinical Notes 01/14/2025 Rectal cancer (ICD-10 - C20) 01/14/2025 Right foot pain (ICD-10 - M79.671) 01/14/2025 Right ankle pain (ICD-10 - M25.571) Plan Of Treatment Medication Medication Name Sig [...] Reason: OV, Flush Provider Name:Melvin Gonsalves , 02/25/2025 11:00:00 AM, [address] [place] [address] [address], [place], [address], Provider Name:Melvin Gonsalves 04/01/2025 01:30:00 PM, [address] [place] [address] [address], [place], [address], Progress Notes * Baljeet HAYNESOB:[birth year] (59 yo M)Acc No.[id number]:01/14/2025 Patient: Gregory HERNÁNDEZ Provider: Jewell Gonsalves MD :1965 A ge:59 Y S ex:Male Date:01/14/2025 Address:[address] [place], [place] [id number] Subjective: * Chief Complaints: * 1 . Port Flush. * ROS: G eneral/Constitutional: pain o nly normal aches and pains. C hills d enies.?Fatigue a dmits. F ever d enies. E NT: Decreased hearing d enies. R espiratory: Cough d enies. C ardiovascular: Chest pain with exertion d enies. D yspnea on exertion?denies. S hortness of breath d enies. G astrointestinal: Constipation d enies. D ecreased appetite d enies.?Diarrhea d enies. H eartburn d enies. N ausea d enies. R ectal bleeding?denies. V omiting d enies. H ematology: bruising [...] Depressed mood d enies. * Medical History: E dentulous, Degenerative joint disease right knee, COPD, Former [...] vascular surgeon for leg pain.. * Surgical History: a ppendectomy , Knee surgery 1999, dental extractions 2010, colonoscopy revealing adenocarcinoma the rectum 2015, Exploratory laparotomy 2016-04-16, Exploratory Laparotomy, Lysis of adhesions with ileostomy takedown in conjuction with small bowel resection and primary anastomosis 2016-07-17, femoral femoral arterial bypass surgery for peripheral arterial disease [facility] 2017, resection of anastamotic recurrence 07/2019, Hernia removed 12/2022, Appendix surgery , Hernia surgery , Skin cancer surgery , No history . * Hospitalization/Major Diagno stic Procedure: o bservation overnight once for infection 2013, femorol femoral bypass graft, [facility], Dr. Franco 03/2018, resection anastomotic rectal cancer recurrence [facility], Dr. Lackey 07/2019, No history . * Family History: F ather: 42 yrs, [...] Findings: Tobacco non-user E x-cigarette smoker H giovanny has smoked one pack a day since age 11. He has been to [place] for 25 years. They have one son, 15, who is healthy and in school. 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 He has had no steady job for 20 years due to aches and pains in back and shoulders. He was born in [place]. The patient reported not smoking. He also mentioned drinking six cups of water a day due to dry mouth. * Medications: T toñog amLODIPine Besylate 5 MG Tablet TAKE 1 TABLET BY MOUTH DAILY , Taking Tamsulosin HCl 0.4 MG Capsule 1 capsule Orally Once a day , Taking Ranitidine HCl 150 MG Tablet 1 tablet at bedtime Orally Once a day , Taking traMADol HCl 50 MG Tablet TAKE 1 TABLET BY MOUTH TWICE DAILY NEEDED FOR PAIN Oral , Taking Cyclobenzaprine HCl 10 MG Tablet 1 tablet Orally Three times a day , Taking Omeprazole 20 MG Capsule Delayed Release 1 capsule Orally Once a day , Taking Albuterol Sulfate HFA 108 (90 Base) MCG/ACT Aerosol Solution 1 puff as needed Inhalation every 4 hrs As needed, Medication List reviewed and reconciled with the patient * Allergies: B actrim. Objective: * Vitals: H t: 67, Wt: 182, BMI:28.5, BP: 155/79, HR: 85, Temp: 98.0, Wt-k.55. * Examination: G eneral Examination: GENERAL APPEARANCE: p leasant, well nourished, well developed, in no acute distress, calm and relaxed. HEAD: a traumatic, normocephalic. EYES: e dary, [...] sounds normal, no ascites, no organomegaly, no mass. RECTAL EXAM: n ot examined. MUSCULOSKELETAL: e xtremities unremarkable, no clubbing, cyanosis or edema. PERIPHERAL PULSES: n ormal. NEUROLOGIC: a lert and oriented, cranial nerves 2-12 grossly intact, deep tendon reflexes 2+ symmetrical, motor strength normal upper and lower extremities, sensory exam intact. PSYCH: a lert, oriented. Assessment: * Assessment: 1. R ectal cancer - C20 2 . R ight foot pain - M79.671 3 .?Right ankle pain - M25.571 Plan: * Treatment: 2. R ight foot pain I maging: XR ankle RT 2V I maging: XR foot RT 2V 3. R ight ankle pain I maging: XR [...] * Procedure Codes: 9 6522 REFILL/MAINT PUMP/RESVR SYST, J1642 INJECTION HEPARIN SODIUM 10 UNITS, J7030 SALINE SOLUTION * Preventive Medicine: Counseling: C [...] done: Medical or Other reason not done * Follow Up: 4 Weeks (Reason: OV, Flush) * Images: * The named appointment provid er may or may not be the originator of this progress note, and it is not deemed complete until electronically signed by the appointment provider. Sign off status: Pending * Provider: Jewell Gonsalves MD Date: 01/14/2025 Generated for Bindu fam/Tesfaye/Sheasmitting on: 01/14/2025 01:40 PM EDT History and Physical [...]
--- OUTSIDE RECORDS SUMMARY | 2025-01-14 13:40 | XMS_ITS | Clinical Summary ---
Author Organization [facility] Address [address] [place] [address] Care Team Providers Care Supervisor Soakers Name Role Phone Melvin Gonsalves Primary Care Provider [phone] Allergies Active Allergy Reactions Criticality Noted Date [...] neoplasm of rectum 06/09/2019 Decreased functional mobility Family History Medical History Relation Name Comments No Known Problems Brother 1 Heart disease Father No Known Problems Sister No Known Problems Son Relation Name Status Comments Brother 1 Alive x2 Brother 2 accidental Father Mother Alive unknown Sister Alive x3 Son Alive Social History Tobacco Use Types Packs/Day Years [...] 10/25/2022 1:56 PM EDT Plan of Treatment Health Maintenance Due Date Last Done Comments Cologuard 1965 Colonoscopy 1965 HIV Screening 1965 Hepatitis C Screening 1965 Zoster Vaccines (1 of 2) 12/14/1982 DTaP,Tdap,and Td Vaccines (1 - Tdap) 12/14/1985 Pneumococcal Vaccine: 50+ Years (2 of 2 - PCV) 04/22/2019 04/22/2018 COVID-19 Vaccine (3 - Pfizer risk series) 10/01/2020 09/03/2020, 08/13/2020 FOBT / Fit Test 10/27/2020 10/28/2019, 11/2019, 09/08/2019, Additional history exists CT Lung Cancer Screening (Baseline) 12/27/2020 12/28/2019 RSV Vaccine (60+ years old and patients) (1 - Risk 60-74 years 1-dose series) 2023 Alcohol/Substance Use Screening 04/21/2024 Depression Screening and Follow-Up 04/21/2024 Social Drivers of Health Annual Screening 04/21/2024 Colon Cancer Screening 10/27/2024 Sigmoidoscopy 10/27/2024 10/28/2019, 11/2019, 09/08/2019, Additional history exists Influenza Vaccine (#1) 2024 2, 04/22/2018, 01/29/2018, Additional history exists CT Lung Cancer Screening (12 months, previous LungRADS 1 or 2) Discontinued 12/28/2019 Hepatitis B Vaccines Aged Out No long er eligible based on patient's age to complete this topic Procedures * Due to [place] law, this organization might not be sharing negative HIV tests. Procedure Name Priority Date/Time Associated Diagnosis Comments AMB EXTERNAL CT CHEST, OUTSI DE RESULT Routine 12/28/2019 from Last 3 Months or Most Recently Relevant to Health Maintenance Results * Due to [place] [employer] law, this organization might not be sharing negative HIV tests. 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
--- OUTSIDE RECORDS SUMMARY | 2025-01-14 13:40 | XMS_ITS | Clinical Summary ---
Author Organization [facility] Address [address] [place] [address] Phone Care Team Providers Care Legal Contracts Specialist Name Role Phone Melvin Gonsalves MD Primary Care Provider [phone] Allergies No known active allergies Immunizations Immunization Administration Dates Next Due COVID-19 (Pre-02/10) Pfizer Vaccine, mRNA, PF ,08/13/2020 Social History Tobacco Use Types Packs/Day Years Used Date Smoking Tobacco: Never Assessed Education Answer Date Recorded Are you interested in more education? Not on uriah e 08/16/2022 Are you concerned about learning? Not on file 08/16/2022 No 08/16/2022 No 08/16/2022 Digital Access Answer Date Recorded No 09/14/2022 No 09/14/2022 Reliable internet access at home? Not on file 09/14/2022 Device with a working camera? Not on file Sex and Gender Information Value Date Recorded Sex Assigned at Not on file Legal Sex Male 10:08 AM EST Gender Identity Not on file Sexual Orientation Not on file Plan of Treatment Health Maintenance Due Date Last Done Comments Adult Td,Tdap Booster 1965 LIPID PANEL 1965 DEPRESSION SCREENING 1975 SMOKING Hx and SMOKELESS TOBACCO SCREENING 12/14/1976 HEPATITIS C SCREENING 12/14/1981 HIV ONE-TIME SCREENING (18-65 YEARS) 12/14/1981 COLOGUARD 12/14/2008 COLONOSCOPY 12/14/2008 COLORECTAL CANCER SCREENING 12/14/2008 FIT TEST 12/14/2008 FOBT 12/14/2008 SIGMOIDOSCOPY 12/14/2008 VIRTUAL COLONOSCOPY 12/14/2008 ZOSTER VACCINES (1 of 2) 12/14/2013 PNEUMOCOCCAL VACCINES (50+ years) (2 of 2 - PCV) 04/22/2019 04/22/2018 INFLUENZA VACCINE (#1) 2024 9, 01/29/2018, 01/31/2017, Additional history exists COVID-19 VACCINE (3 - 2024- season) 2024 09/03/2020, 08/13/2020 RSV VACCINE (1 - 1-dose 75+ series) 12/14/2038 HEPATITIS A VACCINES Aged Out No long er eligible based on patient's age to complete this topic HIB VACCINES Aged Out No longer eligi ble based on patient's age to complete this topic MENINGOCOCCAL VACCINES (ACWY) Aged Out No longer eligible based on patient's age to complete this topic MENINGOCOCCAL VACCINES (B) Aged Out N o longer eligible based on patient's age to complete this topic Medical Devices Implanted Type Area Marine Resource Economist Device Identifier Shelf Expiration Date Model / Serial / Lot Stent-03/18/2018 Implanted: 018 by Ted Franco MD (Quantity not on file) Stent / / [id number] Description:everflex self ex panding periperal stent.7mm-20mm. MR conditional upto 3T. Insurance [employer] DIRECT CONNECTORCARE DIRECT CONNECTORCARE DIRECT CONNECTORCARE DIRECT CONNECTORCARE DIRECT CONNECTORCARE DIRECT CONNECTORCARE DIRECT CONNECTORCARE DIRECT [facility] CONNECTORCARE DIRECT Care Teams Legal Contracts Specialist Relationship Specialty Start Date End Date Melvin Gonsalves MD [address] [place] [address] [place] [address] PCP - General Medical Oncology 05/03/19 Additional Source Comments The information contained in this document represents components of the legal health record. It is not the complete legal health record.[facility]
--- OUTSIDE RECORDS SUMMARY | 2025-01-14 13:40 | XMS_ITS | Patient Health Record ---
Author Organization Melvin Gonsalves III, MD Address [address] [place] [address] [address] [facility] [place] [address] Care Team Providers Care Equipment Services Associate Name Role Phone Dr. Melvin Gonsalves III Primary Care Provider [phone] Allergies Allergen (clinical drug ingredient) Drug/Non Drug [...] date:08/11/2024 05:11:56 AM Interpretation: Performing Lab: Notes/Report: [facility] [address] [place] [address] XRay Report Signed Patient: Gregory Haynes MR#: [id number] 181 : 1965 Acct:[id number] Age/Sex: 58 / M ADM Date: 08/10/24 Loc: HO.XRAY Attending Dr: Melvin Gonsalves MD Ordering Physician: Melvin Gonsalves MD Date of Service: 08/10/24 Procedure(s): XR thoracic spine 3V Accession Number(s): [id number] cc: Melvin Gonsalves MD EXAMINATION: XR THORACIC [...] 08/10/24 1202 DD/ 1152 TD/TT: 08/10/24 1152 [employer]ucco: [address] [address] XRay Report Signed Patient: [facility] Haynes MR#: [id number] 181 : 1965 Acct:[id number] Age/Sex: 58 / M ADM Date: 08/10/24 Loc: HO.XRAY Attending Dr: Melvin Gonsalves MD Ordering Physician: Melvin Gonsalves MD Date of Service: 08/10/24 Procedure(s): XR thoracic spine 3V Accession Number(s): [id number] cc: Melvin Gonsalves MD EXAMINATION: XR THORACIC [...] 08/10/24 1202 DD/ 1152 TD/TT: 08/10/24 1152 [employer]aste[employer]: Complete Blood Count Auto Di ff Reviewed date:03/02/2024 08:34:43 AM Interpretation: Performing Lab:[facility], [address] [place] [phone] Notes/Report: White Blood Count 8.7 4.8-10.8 X10*3/uL [...] Panel Reviewed date:03/02/2024 08:34:43 AM Interpretation: Performing Lab:[facility], [address] [place] [phone] Notes/Report: Sodium 137 135-145 mmol/L Potassium 4.3 3.3-5.1 mmol/L Chloride 103 96-108 mmol/L Carbon Dioxide 24 22-29 mmol/L Anion Gap 14 12-20 Blood Urea Nitrogen 11 9-16 mg/dL Creatinine 0.92 0.5-1.4 mg/dL Estimated Glomerular Filt Rate > 60 NOTE: For -Iraqi individuals, multiply the result by 1.210. Chronic [...] Antigen Reviewed date:03/02/2024 08:34:43 AM Interpretation: Performing Lab:[address] [address] Notes/Report: Carcinoembryonic Antigen 76.70 CEA Reference Range: 93.4% Non-Smokers = 0.0-3.0 ng/mL 95.6% Smokers = 0.0-5.0 ng/mL CEA Methodology: uBanknity i Chemiluminescent Microparticle Immunoassay (CMIA) CEA testing can have significant value in monitoring of patients with diagnosed malignancies in whom changing concentrations of CEA are observed. Values obtained with different assay methods cannot be used interchangeably. PSA,Total (Free>4and<10) Reviewed date:03/02/2024 08:34:43 AM Interpretation: Performing Lab:[address] [address] Notes/Report: PSA,Total (Free>4and<10) 3.10 0.00-4.00 ng/mL A [...] date:04/02/2024 08:43:51 AM Interpretation: Performing Lab: Notes/Report: [address] [address] [address] Scan Report Signed Patient: Gregory Haynes MR#: [id number] 181 : 1965 Acct:[id number] Age/Sex: 58 / M ADM Date: 03/17/24 Loc: HO.CT Attending Dr: Melvin Gonsalves MD Ordering Physician: Melvin Gonsalves MD Date of Service: 03/17/24 Procedure(s): CT chest w IV con Accession Number(s): [id number] cc: Melvin Gonsalves MD EXAMINATION: CT CHEST, [...] 03/18/24 1248 DD/ 1407 TD/TT: 03/17/24 1447 [employer]: [address] [address] [address] Scan Report Signed Patient: Ivy,St even MR#: [id number] 181 : 1965 Acct:[id number] Age/Sex: 58 / M ADM Date: 03/17/24 Loc: HO.CT Attending Dr: Melvin Gonsalves MD Ordering Physician: Melvin Gonsalves MD Date of Service: 03/17/24 Procedure(s): CT rehan w IV con Accession Number(s): [id number] cc: Melvin Gonsalves MD EXAMINATION: CT CHEST, [...] 03/18/24 1248 DD/ 1407 TD/TT: 03/17/24 1447 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 CT abdomen pelvis w con Reviewed date:04/02/2024 08:43:51 AM Interpretation: Performing Lab: Notes/Report: [address] [address] [address] Scan Report Signed Patient: Gregory Haynes MR#: [id number] 181 : 1965 Acct:[id number] Age/Sex: 58 / M ADM Date: 03/17/24 Loc: HO.CT Attending Dr: Melvin Gonsalves MD Ordering Physician: Melvin Gonsalves MD Date of Service: 03/17/24 Procedure(s): CT abdomen pelvis w IV con Accession Number(s): [id number] cc: Melvin Gonsalves MD EXAMINATION: CT CHEST, [...] 03/18/24 1248 DD/ 1407 TD/TT: 03/17/24 1447 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 [address] [address] [address] Scan Report Signed Patient: [facility] Haynes MR#: [id number] 181 : 1965 Acct:[id number] Age/Sex: 58 / M ADM Date: 03/17/24 Loc: HO.CT Attending Dr: Melvin Gonsalves MD Ordering Physician: Melvin Gonsalves MD Date of Service: 03/17/24 Procedure(s): CT abd omen pelvis w IV con Accession Number(s): [id number] cc: Melvin Gonsalves MD EXAMINATION: CT CHEST, [...] 03/18/24 1248 DD/ 1407 TD/TT: 03/17/24 1447 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 Complete Blood Count Auto Di ff Reviewed date:07/07/2024 08:43:34 PM Interpretation: Performing Lab:[facility], [address] [place] [phone] Notes/Report: White Blood Count 10.8 4.8-10.8 X10*3/uL [...] Panel Reviewed date:07/07/2024 08:43:34 PM Interpretation: Performing Lab:[facility], [address] [place] [phone] Notes/Report: Sodium 138 135-145 mmol/L Potassium 3.9 [...] Antigen Reviewed date:07/07/2024 08:43:34 PM Interpretation: Performing Lab:[facility], [address] [place] [phone] Notes/Report: Carcinoembryonic Antigen 114.20 CEA Reference Range: [...] date:08/11/2024 05:11:56 AM Interpretation: Performing Lab: Notes/Report: [address] [place] [address] XRay Report Signed Patient: Gregory Haynes MR#: [id number] 181 : 1965 Acct:[id number] Age/Sex: 58 / M ADM Date: 08/10/24 Loc: HO.XRAY Attending Dr: Melvin Gonsalves MD Ordering Physician: Melvin Gonsalves MD Date of Service: 08/10/24 Procedure(s): XR cervical spine 3V Accession Number(s): [id number] cc: Melvni Gonsalves MD EXAMINATION: XR CERVICAL SPINE CLINICAL [...] 08/10/24 1206 DD/ 1152 TD/TT: 08/10/24 1152 [employer]: [place] [address] XRay Report Signed Patient: [facility] Haynes MR#: [id number] 181 : 1965 Acct:[id number] Age/Sex: 58 / M ADM Date: 08/10/24 Loc: HO.XRAY Attending Dr: Melvin Gonsalves MD Ordering Physician: Melvin Gonsalves MD Date of Service: 08/10/24 Procedure(s): XR cervical spine 3V Accession Number(s): [id number] cc: Melvin Gonsalves MD EXAMINATION: XR CERVICAL [...] 08/10/24 1206 DD/ 1152 TD/TT: 08/10/24 1152 [employer]: MUNIR Complete Blood Count Auto Di ff Reviewed date:10/20/2024 03:57:28 PM Interpretation: Performing Lab:[facility], [address] [place] [phone] Notes/Report: White Blood Count 8.7 4.8-10.8 X10*3/uL [...] Panel Reviewed date:10/20/2024 03:57:28 PM Interpretation: Performing Lab:[facility], [address] [place] [phone] Notes/Report: Sodium 139 135-145 mmol/L Potassium 4.0 [...] Antigen Reviewed date:10/20/2024 03:57:28 PM Interpretation: Performing Lab:[facility], [address] [place] [phone] Notes/Report: Carcinoembryonic Antigen 153.00 CEA Reference Range: 93.4% Non-Smokers = 0.0-3.0 ng/mL 95.6% Smokers = 0.0-5.0 ng/mL CEA Methodology: uBanknity i Chemiluminescent Microparticle Immunoassay (CMIA) CEA testing can have significant value in monitoring of patients with diagnosed malignancies in whom changing concentrations of CEA are observed. Values obtained with different assay methods cannot be used interchangeably. XR chest 2V Reviewed date:11/12/2024 01:04:19 PM Interpretation: Performing Lab: Notes/Report: [address] [address] XRay Report Signed Patient: Gregory Haynes MR#: [id number] 181 : 1965 Acct:[id number] Age/Sex: 58 / M ADM Date: 11/05/24 Loc: SONU Attending Dr: Melvin Gonsalves MD Ordering Physician: Melvin Gonsalves MD Date of Service: 11/05/24 Procedure(s): XR chest 2V Accession Number(s): [id number] cc: Melvin Gonsalves MD EXAMINATION: XR CHEST CLINICAL INFORMATION: CHEST PAIN COMPARISON: Chest March 06, 2022 and August 10, 2024 T-spine TECHNIQUE: 2 views of the chest were obtained. FINDINGS: Right-sided port terminates in superior cavoatrial junction. Coarse lung markings are similar to the prior. There is a new focal opacity in the posterior left lower lobe measuring 4.3 x 7.3 cm. There is a second focal opacity in the medial left base measuring 4.2 cm, also probably in the left lower lobe. XR/XR chest 2V IMPRESSION: There are 2 focal masslike densities in the left lower lobe that were described on a prior thoracic spine x-ray that are highly suspicious for malignancy/metastatic disease Electronically signed by: Parish Chicas MD 11/05/2024 12:26 PM EDT Dictated By: Parish Chicas MD Signed By: <Electronically signed by Parish Chicas MD in OV> 11/05/24 1226 DD/ 1207 TD/TT: 11/05/24 1210 [employer]: [address] [address] XRay Report Signed Patient: [facility] Haynes MR#: [id number] 181 : 1965 Acct:[id number] Age/Sex: 58 / M ADM Date: 11/05/24 Loc: SONU Attending Dr: Melvin Gonsalves MD Ordering Physician: Melvin Gonsalves MD Date of Service: 11/05/24 Procedure(s): XR rehan st 2V Accession Number(s): [id number] cc: Melvin Gonsalves MD EXAMINATION: XR CHEST CLINICAL INFORMATION: CHEST PAIN COMPARISON: Chest March 06 and August 10, 2024 T-spine TECHNIQUE: 2 views of the chest were obtained. FINDINGS: Right-sided port terminates in superior cavoatrial junction. Coarse lung markings are similar to the prior. There is a new focal opacity in the posterior left lower lobe measuring 4.3 x 7.3 cm. There is a second fo prashant opacity in the medial left base measuring 4.2 cm, also probably in the left lower lobe. X R/XR chest 2V IMPRESSION: There are 2 focal masslike densities in the left lower lobe that were described on a prior thoracic spine x-ray that are highly suspicious for malignancy/metastatic disease Electronically brian d by: Parish Chicas MD 11/05/2024 12:26 PM EDT RP Dictated By: Parish Chicas MD Signed By: <Electronically signed by Parish Chicas MD in OV> 11/05/24 1226 DD/ 1207 TD/TT: 11/05/24 1210 [employer]: XR ankle RT min 3V (Not yet reviewed by provider) Interpretation: Performing Lab: Notes/Report: [address] [address] XRay Report Signed Patient: Gregory Haynes MR#: [id number] 181 : 1965 Acct:[id number] Age/Sex: 59 / M ADM Date: 01/14/25 Loc: SONU Attending Dr: Melvin Gonsalves MD Ordering Physician: Melvin Gonsalves MD Date of Service: 01/14/25 Procedure(s): XR ankle RT min 3V Accession Number(s): [id number] cc: Melvin Gonsalves MD Reason for Exam: PAIN EXAMINATION: XR ANKLE, right CLINICAL INFORMATION: PAIN COMPARISON: None available. TECHNIQUE: AP, lateral, and mortise views lower extremity joint, ankle. FINDINGS: Ankle mortise is congruent. There is no widening of the syndesmosis. Talar dome is intact. There are no calcaneal enthesophyte(s). XR/XR ankle RT min 3V IMPRESSION: Unremarkable ankle x-ray. Electronically signed by: Parish Chicas MD 01/14/2025 12:19 PM EDT RP Dictated By: Parish Chicas MD Signed By: <Electronically signed by Parish Chicas MD in OV> 01/14/25 1219 DD/ 1209 TD/TT: 01/14/25 121 [employer]: [place] [address] XRay Report Signed Patient: [facility] Haynes MR#: [id number] 181 : 1965 Acct:[id number] Age/Sex: 59 / M ADM Date: 01/14/25 Loc: HO.XRAY Attending Dr: Melvin Gonsalves MD Ordering Physician: Melvin Gonsalves MD Date of Service: 01/14/25 Procedure(s): XR ank le RT min 3V Accession Number(s): [id number] cc: Melvin Gonsalves MD Reason for Exam: PAIN EXAMINATION: XR ANKLE, right CLINICAL INFORMATION: PAIN COMPARISON: None available. TECHNIQUE: AP, lateral, and mor tise views lower extremity joint, ankle. FINDINGS: Ankle mortise is congruent. There is no widening of the syndesmosis. Talar dome is intact. There are no calcane al enthesophyte(s). X R/XR ankle RT min 3V IMPRESSION: Unremarkable ankle x-ray. Electronically brian d by: Parish Chicas MD 01/14/2025 12:19 PM EDT RP Dictated By: Parish Chicas MD Signed By: <Electronically signed by Parish Chicas MD in OV> 01/14/25 1219 DD/ 1209 TD/TT: 01/14/25 1215 [employer]: XR foot RT min 3V (Not yet r eviewed by provider) Interpretation: Performing Lab: Notes/Report: [address] [address] XRay Report Signed Patient: Gregory Haynes MR#: [id number] 181 : 1965 Acct:[id number] Age/Sex: 59 / M ADM Date: 01/14/25 Loc: SONU Attending Dr: Melvin Gonsalves MD Ordering Physician: Melvin Gonsalves MD Date of Service: 01/14/25 Procedure(s): XR foot RT min 3V Accession Number(s): [id number] cc: Melvin Gonsalves MD Reason for Exam: PAIN EXAMINATION: XR FOOT, RIGHT CLINICAL INFORMATION: PAIN COMPARISON: None available. TECHNIQUE: AP, lateral, and oblique views of the right foot. FINDINGS: The bones and soft tissues are normal. No fracture. Alignment is anatomic. There is mild degenerative change and IP joint of the great toe with marginal osteophytes.. XR/XR foot RT min 3V IMPRESSION: Unremarkable right foot. 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 Electronically signed by: Parish Chicas MD 01/14/2025 12:21 PM EDT Dictated By: Parish Chicas MD Signed By: <Electronically signed by Parish Chicas MD in OV> 01/14/25 1221 DD/ 1211 TD/TT: 01/14/25 1215 [employer]: [address] [address] XRay Report Signed Patient: [facility] Haynes MR#: [id number] 181 : 1965 Acct:[id number] Age/Sex: 59 / M ADM Date: 01/14/25 Loc: [facility] Attending Dr: Melvin Gonsalves MD Ordering Physician: Melvin Gonsalves MD Date of Service: 01/14/25 Procedure(s): XR prosper t RT min 3V Accession Number(s): [id number] cc: Melvin Gonsalves MD Reason for Exam: PAIN EXAMINATION: XR FOOT, RIGHT CLINICAL INFORMATION: PAIN COMPARISON: None available. TECHNIQUE: AP, lateral, and obl ique views of the right foot. FINDINGS: The bones and soft tissues are normal. No fracture. Alignment is anatomic. There is mild degenerative change and IP joint of the great toe with marginal osteophytes.. X R/XR foot RT min 3V IMPRESSION: Unremarkable right foot. 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 Electronically brian d by: Parish Chicas MD 01/14/2025 12:21 PM EDT RP Dictated By: Parish Chicas MD Signed By: <Electronically signed by Parish Chicas MD in OV> 01/14/25 1221 DD/ 1211 TD/TT: 01/14/25 121 [employer]: Reason For Referral No Information Medications Medication SIG (Take, Route, Frequency, Duration) Notes Start Date End Date Status Cyclobenzaprine HCl 10 MG 1 tablet Orall y Three times a day Active Ranitidine HCl 150 MG 1 tablet at bedtim e Orally Once a day Active traMADol HCl 50 MG TAKE 1 TABLET BY KESHAV TH TWICE DAILY NEEDED FOR PAIN Oral Active Albuterol Sulfate HFA 108 (9 0 [...] Problem Status W/U Status Risk Notes Problem 0161205 Former smoker (Z87.891) Active confirmed He has stopped smoking within the last month. We have discussed strategies for maintaining abstinence. He has a plan to prevent relapse in times of pain illness or stress. Problem 604192249 Overweight (BMI 25.0-29.9) (E66.3) Active confirmed His body mass index is 29. He has gained 3 pounds and is overweight. His appetite is good Problem 14025419 Anxiety (F41.9) Active confirmed He was occasionally anxious today with his voice raised. Problem 347194506 Chronic obstructive pulmonary disease, unspecified (J44.9) Active confirmed He is breathing room air comfortably. He is not smoking. Short of breath with prolonged exertion. Problem 61108428 Essential hypertension (I10) Active confirmed His blood pressure is currently acceptable. He is compliant with his medications he was advised to stabilize his weight reduce his sodium intake. Problem 829066855 Edentulous (K00.0) Active confirmed He says his dentures fit he is able to chew without difficulty. Problem 335671351 Peripheral arterial disease (I73.9) Active confirmed His feet are pink and warm. He has no claudication and is doing quite well. His regimen was not altered. He was encouraged to walk and exercise. Problem 649011196 Rectal cancer (C20) Active confirmed The 2 pulmonary metastases in the left [...] temporary remission would not be worth it. Problem 751094029 Port-a-cath in place (Z95.828) Active confirmed His port was flushed daily with 10 cc of saline and 10 cc a 1-100 heparin solution. It functioned well. Problem Right inguinal hernia (692569188) Right inguinal hernia (K40.90) Active confirmed This is a new finding in the last month. He was referred to surgery to discuss what is involved in repairing it. Problem Benign prostatic hypertrophy without outflow obstruction (703262498) Benign prostatic hyperplasia without lower urinary tract symptoms (N40.0) Active confirmed He admits to rising from sleep once or twice a night to urinate. We have discussed lifestyle modifications achromatic to reduce nocturia. Problem 24358642 Other depression (F32.89) Active confirmed He will continue with his therapist and the current regimen. Problem 931713184 Basal cell carcinoma (BCC), unspecified site (C44.91) Active confirmed No new cutaneous lesions were noted on today's examination. Vital Signs Heart Rate 85 /min 01/14/2025 Temperature 98.0 degrees Fahrenheit 01/14/2025 Respiratory Rate 16 /min 11/05/2024 Oximetry 97.9 % 12/03/2024 Blood pressure diastolic 79 mm Hg 01/14/2025 Height 67 in 01/14/2025 Blood pressure systolic 155 mm Hg 01/14/2025 Weight 182 lbs 01/14/2025 BMI 28.5 kg/m2 01/14/2025 Encounters Encounter Location Date Provider Diagnosis Melvin Gonsalves III, MD [address] [place] [address] [place] [address] 01/14/2025 Melvin Gonsalves Rectal cancer C20 ; Right foot pain M79.671 and Right ankle pain M25.571 Melvin Gonsalves III, MD [address] [place] [address] [place] [address] 02/03/2024 Melvin Gonsalves Overweight (BMI 25.0-29.9) E66.3 ; Rectal cancer C20 ; Essential hypertension I10 ; Basal cell carcinoma (BCC), unspecified site C44.91 ; Edentulous K00.0 ; Chronic obstructive pulmonary disease, unspecified J44.9 and Hypertrophy of prostate without urinary obstruction and other lower urinary tract symptoms (LUTS) N40.0 Melvin Gonsalves III, MD [address] [place] [address] [place] [address] 03/02/2024 Melvin Gonsalves Rectal cancer C20 ; Pulmonary nodule R91.1 ; Former smoker Z87.891 ; Chronic obstructive pulmonary disease, unspecified J44.9 ; Hypertrophy of prostate without urinary obstruction and other lower urinary tract symptoms (LUTS) N40.0 ; Other depression F32.89 ; Peripheral arterial disease I73.9 and Port-a-cath in place Z95.828 Melvin Gonsalves III, MD [address] [place] [address] [place] [address] 03/30/2024 Melvin Gonsalves Rectal cancer C20 ; [...] Essential hypertension I10 Melvin Gonsalves III, MD [address] [place] [address] [place] [address] 04/30/2024 Melvin Gonsalves Rectal cancer C20 ; Chronic obstructive pulmonary disease, unspecified J44.9 ; Former smoker Z87.891 ; Hypertrophy of prostate without urinary obstruction and other lower urinary tract symptoms (LUTS) N40.0 ; Other depression F32.89 ; Peripheral arterial disease I73.9 and Tobacco use disorder Z72.0 Melvin Gonsalves III, MD [address] [place] [address] [place] [address] 05/28/2024 Melvin Gonsalves Rectal cancer C20 ; Overweight (BMI 25.0-29.9) E66.3 ; Chronic obstructive pulmonary disease, unspecified J44.9 ; Edentulous K00.0 ; Hypertrophy of prostate without urinary obstruction and other lower urinary tract symptoms (LUTS) N40.0 ; Other depression F32.89 ; Former smoker Z87.891 ; Peripheral arterial disease I73.9 and Port-a-cath in place Z95.828 Melvin Gonsalves III, MD [address] [place] [address] [place] [address] 07/09/2024 Melvin Gonsalves Rectal cancer C20 ; Edentulous K00.0 ; Chronic obstructive pulmonary disease, unspecified J44.9 ; Hypertrophy of prostate without urinary obstruction and other lower urinary tract symptoms (LUTS) N40.0 ; Anxiety F41.9 ; Peripheral arterial disease I73.9 ; Right inguinal hernia K40.90 ; Other depression F32.89 ; Former smoker Z87.891 and Overweight (BMI 25.0-29.9) E66.3 Melvin Gonsalves III, MD [address] [place] [address] [place] [address] 08/10/2024 Melvin Cintronne Rectal cancer C20 ; Edentulous K00.0 ; Chronic obstructive pulmonary disease, unspecified J44.9 ; Hypertrophy of prostate without urinary obstruction and other lower urinary tract symptoms (LUTS) N40.0 ; Anxiety F41.9 ; Former smoker Z87.891 ; Other depression F32.89 ; Peripheral arterial disease I73.9 ; Right inguinal hernia K40.90 and Overweight (BMI 25.0-29.9) E66.3 Melvin Gonsalves III, MD [address] [place] [address] [place] [address] 08/13/2024 Melvin Videsrne Rectal cancer C20 ; Hypertrophy of prostate without urinary obstruction and other lower urinary tract symptoms (LUTS) N40.0 ; Chronic obstructive pulmonary disease, unspecified J44.9 ; Anxiety F41.9 ; Former smoker Z87.891 ; Other depression F32.89 ; Peripheral arterial disease I73.9 ; Right inguinal hernia K40.90 ; Overweight (BMI 25.0-29.9) E66.3 and Acute midline thoracic back pain M54.6 Melvin Gonsalves III, MD [address] [place] [address] [place] [address] 09/08/2024 Melvin Cintronne Rectal cancer C20 ; Chronic obstructive pulmonary [...] Essential hypertension I10 Melvin Gonsalves III, MD [address] [place] [address] [place] [address] 10/08/2024 Melvin Gonsalves Rectal cancer C20 ; Former smoker Z87.891 ; Chronic obstructive pulmonary disease, unspecified J44.9 ; Edentulous K00.0 ; Anxiety F41.9 ; Right inguinal hernia K40.90 and Port-a-cath in place Z95.828 Melvin Gonsalves III, MD [address] [place] [address] [place] [address] 11/05/2024 Melvin Gonsalves Rectal cancer C20 ; Chronic obstructive pulmonary disease, unspecified J44.9 ; Former smoker Z87.891 ; Anxiety F41.9 ; Edentulous K00.0 ; Peripheral arterial disease I73.9 ; Benign prostatic hyperplasia without lower urinary tract symptoms N40.0 and Port-a-cath in place Z95.828 Melvin Gonsalves III, MD [address] [place] [address] [place] [address] 11/12/2024 Melvin Gonsalves Rectal cancer C20 ; Chronic obstructive pulmonary disease, unspecified J44.9 ; Anxiety F41.9 ; Former smoker Z87.891 ; Peripheral arterial disease I73.9 ; Right inguinal hernia K40.90 and Essential hypertension I10 Melvin Gonsalves III, MD [address] [place] [address] [place] [address] 12/03/2024 Melvin Cintronne Rectal cancer C20 ; Hypertrophy of prostate without urinary obstruction and other lower urinary tract symptoms (LUTS) N40.0 ; Former smoker Z87.891 ; Chronic obstructive pulmonary disease, unspecified J44.9 ; Other depression F32.89 ; Peripheral arterial disease I73.9 ; Overweight (BMI 25.0-29.9) E66.3 and Port-a-cath in place Z95.828 Melvin Gonsalves III, MD [address] [place] [address] [place] [address] 04/02/2024 Melvin Gonsalves III, MD [address] [place] [address] [place] [address] 04/30/2024 Melvin Gonsalves III, MD [address] [place] [address] [place] [address] 07/22/2024 Melvin Gonsalves III, MD [address] [place] [address] [place] [address] 09/17/2024 Melvin Gonsalves Assessments Encounter Date Diagnosis (ICD Code) Assessment Notes Treatment Notes Treatment Clinical Notes 01/14/2025 Rectal cancer (ICD-10 - C20) 02/03/2024 Overweight (BMI 25.0-29.9) (ICD-10 - E66.3) [...] Short of breath with prolonged exertion. 11/05/2024 Rectal cancer (ICD-10 - C20) Plain [...] refuses any type of any neoplastic therapy. 11/12/2024 Chronic obstructive pulmonary disease, unspecified (ICD-10 - J44.9) He is breathing room air comfortably. He is not smoking. Short of breath with prolonged exertion. 11/12/2024 Rectal cancer (ICD-10 - C20) The [...] she could make to reduce nocturia. 12/03/2024 Rectal cancer (ICD-10 - C20) The [...] temporary remission would not be worth it. 01/14/2025 Right foot pain (ICD-10 - M79.671) 02/03/2024 Essential hypertension (ICD-10 - I10) His [...] times of pain illness or stress. 11/12/2024 Anxiety (ICD-10 - F41.9) He was occasionally anxious today with his voice raised. 12/03/2024 Former smoker (ICD-10 - Z87.891) He has stopped smoking within the last month. We have discussed strategies for maintaining abstinence. He has a plan to prevent relapse in times of pain illness or stress. 01/14/2025 Right ankle pain (ICD-10 - M25.571) 02/03/2024 Basal cell carcinoma (BCC), unspecified site [...] is able to chew without difficulty. 11/05/2024 Anxiety (ICD-10 - F41.9) He was [...] smoking. Short of breath with prolonged exertion. 02/03/2024 Edentulous (ICD-10 - K00.0) He says [...] he is able to chew without difficulty. 11/12/2024 Peripheral arterial disease (ICD-10 - I73.9) His feet are pink and warm. He has no claudication and is doing quite well. His regimen was not altered. He was encouraged to walk and exercise. 12/03/2024 Other depression (ICD-10 - F32.89) He will continue with his therapist and the current regimen. 02/03/2024 Chronic obstructive pulmonary disease, unspecified (ICD-10 [...] discuss what is involved in repairing it. 11/05/2024 Peripheral arterial disease (ICD-10 - I73.9) His feet are pink and warm. He has no claudication and is doing quite well. His regimen was not altered. He was encouraged to walk and exercise. 11/12/2024 Right inguinal hernia (ICD-10 - K40.90) This is a new finding in the last month. He was referred to surgery to discuss what is involved in repairing it. 12/03/2024 Peripheral arterial disease (ICD-10 - I73.9) His feet are pink and warm. He has no claudication and is doing quite well. His regimen was not altered. He was encouraged to walk and exercise. 02/03/2024 Hypertrophy of prostate without urinary obstruction [...] a 1-100 heparin solution. It functioned well. 11/05/2024 Benign prostatic hyperplasia without lower urinary tract symptoms (ICD-10 - N40.0) He admits to rising from sleep once or twice a night to urinate. We have discussed lifestyle modifications achromatic to reduce nocturia. 11/12/2024 Essential hypertension (ICD-10 - I10) His blood pressure is currently acceptable. He is compliant with his medications he was advised to stabilize his weight reduce his sodium intake. 12/03/2024 Overweight (BMI 25.0-29.9) (ICD-10 - E66.3) His body mass index is 29. He has gained 3 pounds and is overweight. His appetite is good 03/02/2024 Port-a-cath in place (ICD-10 - Z95.828) [...] discuss what is involved in repairing it. 11/05/[address]24 [address]-a-[address] in place (ICD-10 - Z95.828) His port was flushed daily with 10 cc of saline and 10 cc a 1-100 heparin solution. It functioned well. 12/03/2024 Port-a-cath in place (ICD-10 - Z95.828) His port was flushed daily with 10 cc of saline and 10 cc a 1-100 heparin solution. It functioned well. 03/30/2024 Edentulous (ICD-10 - K00.0) He says [...] and is overweight. His appetite is good 03/30/2024 Port-a-cath in place (ICD-10 - Z95.828) [...] 1-100 heparin solution. It functioned well. 03/30/2024 Essential hypertension (ICD-10 - I10) His blood pressure is currently acceptable. He is compliant with his medications he was advised to stabilize his weight reduce his sodium intake. 09/08/2024 Essential hypertension (ICD-10 - I10) His blood pressure is currently acceptable. He is compliant with his medications he was advised to stabilize his weight reduce his sodium intake. Plan Of Treatment Pending Test Test Name Order Date URINE DIP STICK 11/21/2021 PROFILE, RANDOM (COMPREHENSIVE METABOLIC ) 09/08/2024 PROFILE, RANDOM (COMPREHENSIVE METABOLIC ) 05/28/2024 CEA 09/08/2024 CEA 05/28/2024 CBC w DIFF 10/26/2019 CBC w DIFF 09/08/2024 CT ABD & PELVIS WITH CONTRAST 07/09/2023 CT CHEST WITH CONTRAST 07/09/2023 MRI LUMBAR SPINE NO CONTRAST 09/05/2021 MRI PELVIS NO CONTRAST 09/05/2021 XR CHEST 2 VIEW PA & LAT 11/05/2024 CBC WITH AUTO DIFF 05/28/2024 XR ankle RT 2V 01/14/2025 XR ankle RT min 3V 01/14/2025 XR foot RT min 3V 01/14/2025 XR foot RT 2V 01/14/2025 Next Appt Details Provider Name:Melvin Gonsalves , 02/25/2025 11:00:00 AM, [address] [place] [address] [address], [place], [address], Provider Name:Melvin Gonsalves , 04/01/2025 01:30:00 PM, [address] [facility] [address], [place], [address], Insurance Providers Payer Name Payer Address Payer Phone Subscriber Number Group Number Insured Name Patient Relationship to Insured Coverage Start Date Coverage End Date [facility] [address] [place] [address] [id number] Gregory Haynes Self - patient is the insured [place] [address] [place], [place] [id number] Gregory Haynes Self - patient is the insured Medical (General) History Medical History History ICD Code edentulous degenerative joint disease right knee COPD former smoker 2016 adenocarcinoma rectum peripheral arterial disease 2017 anastomotic [...] byp ass surgery for peripheral arterial disease [facility] 2017 Exploratory Laparotomy, Lysi s of adhesions with ileostomy takedown in conjuction with small bowel resection and primary anastomosis 2016-07-17 Exploratory laparotomy 2016-04-16 colonoscopy revealing adenocarcinoma the rectum 2015 dental extractions 2010 Knee surgery 1999 appendectomy Hospitalization History Reason Date(Month/Year) No history resection anastomotic rectal cancer recurrence [facility], Dr. Lackey 07/2019 femorol femoral bypass graft, [facility], Dr. Franco 03/2018 observation overnight once for infection 2013
--- OUTSIDE RECORDS SUMMARY | 2025-01-14 13:40 | XMS_ITS ---
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 Past Treatment and Therapy Plans No past plan information found. Lifetime Dose Tracking * Chemical Lifetime Dose Automatic Entry Manual Entr y Fluoro Time 0.2 minutes 0.2 minutes 0 minutes Radiation - mGy 2.74 mGy 2.74 mGy 0 mGy
--- OUTSIDE RECORDS SUMMARY | 2025-01-14 13:40 | XMS_ITS | Patient Health Record ---
Author Organization [facility] Address [address] [place] [address] Care Team Providers Care Sales Service Representative Name Role Phone Melvin Gonsalves MD Primary Care Provider Unavailab Melvin White Unavailable [phone] SHONNA, CRISTINA Unavailable Unavailable Allergies Allergen (clinical [...] 2 pills once a day Active Acid Child Day Care Teacher 10 MG 1 tablet Orally as needed [...] Problem Status W/U Status Risk Notes Problem [id number] Encounter for screening for malignant neoplasm of colon (Z12.11) Active confirmed Problem 05997801 Weight loss (R63.4) Active confirmed Problem 68362584 Anorexia (R63.0) Active confirmed Problem 528713275 Blood in stool (K92.1) Active confirmed Problem 54521364 Constipation, unspecified constipation type (K59.00) Active confirmed Problem 488315916 Abdominal pain, generalized (R10.84) Active confirmed Problem 582322790 History of recta l cancer (Z85.048) Active confirmed Problem 263652918 Rectal mass (K62.9) Active confirmed Plan Of Treatment Future Test Test Name Order Date COLONOSCOPY 11/07/2015 COLONOSCOPY 06/10/2017 UPPER GI ENDOSCOPY 02/09/2019 COLONOSCOPY 02/09/2019 Insurance Providers Payer Name Payer Address Payer Phone Subscriber Number Group Number Insured Name Patient Relationship to Insured Coverage Start Date Coverage End Date [facility] [address] [place] [address] [id number] ALEXA HAYNES Self - patient is the insured Medical (General) History Medical History History ICD Code Denies NM,DM,CVA,Lung disease,renal dise ase Kidney stone Rectal cancer-surgery, [...]
--- OUTSIDE RECORDS SUMMARY | 2025-01-14 13:40 | XMS_ITS | Encounter Summary ---
Author Organization [facility] Address [address] [place] [address] Phone Care Team Providers Care Broaching Machine Set Up Operator Name Role Phone Melvin Gonsalves MD Primary Care Provider [phone] Encounter Details Date Type Department Care Team (Late st Contact Info) Description 05/17/2019 Ancillary Orders [facility] [address] [place] [address] System, Provider Not In, [place] [address] Social History Tobacco Use Types Packs/Day Years Used Date Smoking Tobacco: Never Assessed Sex and Gender Information Value Date Recorded Sex Assigned at Not on file Legal Sex Male 10:08 AM EST Gender Identity Not on file Sexual Orientation Not on file documented as of this encounter Plan of Treatment Not on file documented as of this encounter Visit Diagnoses Not on filedocumented in this encounter Care Teams Broaching Machine Set Up Operator Relationship Specialty Start Date End Date Melvin Gonsalves MD [address] [place] [address] [place] [address] PCP - General Medical Oncology 05/03/19 documented as of this encounter Additional Source Comments The information contained in this document represents components of the legal health record. It is not the complete legal health record.[facility]
--- OUTSIDE RECORDS SUMMARY | 2025-01-14 13:40 | XMS_ITS | Encounter Summary ---
Author Organization [facility] Address [address] [place] [address] Phone Care Team Providers Care Fisher Hoop Net Name Role Phone Melvin Gonsalves MD Primary Care Provider [phone] Reason for Referral * MRI/CAT Scan - Closed Specialty Diagnoses / Procedures Referred By Yesenia seth Referred To Contact Radiology Diagnoses Rectal cancer Procedures MRI Pelvis (GI/) Randolph Murphy MD Phone: tel: fax: Referral ID Status Reason Start Date Expiration Date Visits Re quested Visits Authorized [id number] Closed 05/07/2019 08/05/2019 1 1 Encounter Details Date Type Department Care Team (Late st Contact Info) Description 05/03/2019 Ancillary Orders For Login Purposes Only [address] [facility] [address] [place] [address] Randolph Murphy MD [address] [place] [address] Dr MONTEJO [address] [place] [id number] Rectal cancer Social History Tobacco Use Types [...] the report originally createdby Dr. Jose Farnsworth. Randolph Murphy MD IMG MR PELVIS Final Resu lt documented in this encounter Visit Diagnoses Diagnosis Rectal cancer Malignant neoplasm of rectum Rectal cancer Malignant neoplasm of rectum documented in this encounter Care Teams Fisher Hoop Net Relationship Specialty Start Date End Date Melvin Gonsalves MD [address] [place] [address] [place] [address] PCP - General Medical Oncology 05/03/19 documented as of this encounter Additional Source Comments The information contained in this document represents components of the legal health record. It is not the complete legal health record.[facility]
--- OUTSIDE RECORDS SUMMARY | 2025-01-14 13:40 | XMS_ITS | Encounter Summary ---
Author Organization [facility] Address [address] [place] [address] Phone Care Team Providers Care Nutritionist Public Health Name Role Phone Melvin Gonsalves MD Primary Care Provider [phone] Encounter Details Date Type Department Care Team (Late st Contact Info) Description 05/03/2019 Procedure Pass MRI, [facility] - [address], [address] [place] [address] Social History Tobacco Use Types Packs/Day Years [...] on filedocumented in this encounter Care Teams Nutritionist Public Health Relationship Specialty Start Date End Date Melvin Gonsalves MD [address] [place] [address] [place] [address] PCP - General Medical Oncology 05/03/19 documented as of this encounter Additional Source Comments The information contained in this document represents components of the legal health record. It is not the complete legal health record.[facility]
--- OUTSIDE RECORDS SUMMARY | 2025-01-14 13:40 | XMS_ITS | Clinical Summary ---
Author Organization [facility] it Address [address] [place] [address] Care Team Providers Care Commercial Print Salesman Name Role Phone Melvin Gonsalves MD Primary Care Provider [phone] Social History Tobacco Use Types Packs/Day Years [...] 12/14/2013 Zoster Vaccines (1 of 2) 12/14/2013 Depression Screening 04/21/2024 COVID-19 Vaccine (1 - 2023-2 5 season) 2024 Influenza Vaccine (#1) 2024 RSV Immunization Adult [...] age to complete this topic Care Teams Commercial Print Salesman Relationship Specialty Start Date End Date Melvin Gonsalves MD PCP - General 01/23/16
== END 2025-01-14 11:48 | disposition home or self-care (01) ==
LOC: HO.XRAY 11:47
PROVIDERS: PCP Internal Medicine Medical Oncology; Visit Provider Internal Medicine Medical Oncology
DX: M79.671 Pain in right foot (principal); M25.571 Pain in right ankle and joints of right foot
CPT/HCPCS: 73610; 73630

== ENCOUNTER → 2025-01-14 11:54 | Outpatient (BNV) | payer OTHER, SELFPAY | PROVIDERS: PCP Internal Medicine Medical Oncology; Visit Provider Radiology Diagnostic Radiology | DX: M25.571 Pain in right ankle and joints of right foot (principal); M79.671 Pain in right foot | CPT/HCPCS: 73610; 73630 ==

== ENCOUNTER 2025-03-27 18:25 | Emergency (ER) | payer OTHER, SELFPAY ==
--- OUTSIDE RECORDS SUMMARY | 2024-09-17 09:15 | XMS_ITS ---
Author Organization Melvin Gonsalves III, MD Address [address] [place] [address] [place] [address] Care Team Providers Care Director Of Quantitative Research Name Role Phone Dr. Melvin Gonsalves III Primary Care Provider [phone] REASON FOR VISIT Ostomy Supplies Social History Sex Assigned At : Social History Observation Description Sex Assigned At Male Encounters Encounter Location Date Provider Diagnosis Melivn Gonsalves III, MD [address] [place] [address] [address] [facility] [place] [address] 09/17/2024 Melvin Gonsalves Plan Of Treatment Next Appt Details Provider Name:Melvin Gonsalves , 04/01/2025 01:30:00 PM, [address] [place] [address] [place], [address], Progress Notes * Baljeet HAYNESOB:[birth year] (58 yo M)Acc No.[id number]:09/17/2024 Patient: [place] JAKOB Gregory :1965 A ge:58 Y S ex:Male Address:[address] [place] [address], [address] * true * Date: Generated for Bindu fam/Tesfaye/Luanne on: 05/28/2024 06:57 PM EST
--- OUTSIDE RECORDS SUMMARY | 2024-10-08 05:45 | XMS_ITS ---
Author Organization Melvin Gonsalves III, MD Address [address] [place] [address] [address] [place] [address] Care Team Providers Care Clinical Laboratory Scientist Name Role Phone Dr. Melvin Gonsalves III Primary Care Provider Allergies Allergen (clinical drug ingredient) Drug/Non Drug Allergy documented on EMR Reaction Allergy Type Onset Date Status sulfamethoxazole / trimethoprim Bactrim Unknown Drug Allergy Active REASON FOR VISIT Port Flush, Metastatic rectal cancer, Benign prostatic hypertrophy, Anxiety and depression, Peripheral arterial disease, Right inguinal hhernia, Hypertension Medications Medication SIG (Take, Route, Frequency, Duration) Notes Start Date End Date Status Tamsulosin HCl 0.4 MG 1 capsule Orally O nce a day Active Ranitidine HCl 150 MG 1 tablet at bedtim e Orally Once a day Active Omeprazole 20 MG 1 capsule Orally Onc e a day 04/30/2024 Active traMADol HCl 50 MG TAKE 1 TABLET BY TWICE DAILY NEEDED FOR PAIN Oral Active Cyclobenzaprine HCl 10 MG 1 tablet Orall y Three times a day Active Albuterol Sulfate HFA 108 (9 0 Base) MCG/ACT 1 puff as needed Inhalation every 4 hrs 10/22/2023 Active amLODIPine Besylate 5 MG 1 tablet Orally Once a day 12/02/2023 Active Social History Tobacco Use: Social History [...] non-user Ex-cigaret te smoker Vital Signs Temperature 97.7 degrees Fahrenheit 10/09/19 25 Blood pressure systolic 146 mm Hg 10/09/19 25 Blood pressure diastolic 82 mm Hg 025 Heart Rate 73 /min 10/08/2024 Height 67 in 10/08/2024 Weight 183 lbs 10/08/2024 BMI 28.66 kg/m2 10/08/2024 Oximetry 96 % 10/08/2024 Encounters Encounter Location Date Provider Diagnosis Melvin Gonsalves III, MD [address] [place] [address] [place] [address] 10/08/2024 Melvin Gonsalves Rectal cancer C20 ; Former smoker Z87.891 ; Chronic obstructive pulmonary disease, unspecified J44.9 ; Edentulous K00.0 ; Anxiety F41.9 ; Right inguinal hernia K40.90 and Port-a-cath in place Z95.828 Assessments Encounter Date Diagnosis (ICD Code) Assessment Notes Treatment Notes Treatment Clinical Notes 10/08/2024 Rectal cancer (ICD-10 - C20) Plain x-rays [...] refuses any type of any neoplastic therapy. 10/08/2024 Former smoker (ICD-10 - Z87.891) He has stopped smoking within the last month. We have discussed strategies for maintaining abstinence. He has a plan to prevent relapse in times of pain illness or stress. 10/08/2024 Chronic obstructive pulmonary disease, unspecified (ICD-10 - J44.9) He is breathing room air comfortably. He is not smoking. Short of breath with prolonged exertion. 10/08/2024 Edentulous (ICD-10 - K00.0) He says his dentures fit he is able to chew without difficulty. 10/08/2024 Anxiety (ICD-10 - F41.9) He was occasionally anxious today with his voice raised. 10/08/2024 Right inguinal hernia (ICD-10 - K40.90) This is a new finding in the last month. He was referred to surgery to discuss what is involved in repairing it. 10/08/2024 Port-a-c[address] in place (ICD-10 - Z95.828) His port was flushed daily with 10 cc of saline and 10 cc a 1-100 heparin solution. It functioned well. Plan Of Treatment Medication Medication Name Sig Start Date Stop Date Notes Tamsulosin HCl 0.4 MG 1 capsule Orally O nce a day Ranitidine HCl 150 MG 1 tablet at bedtim e Orally Once a day Omeprazole 20 MG 1 capsule Orally Onc e a day 04/30/2024 traMADol HCl 50 MG TAKE 1 TABLET BY KESHAV TH TWICE DAILY NEEDED FOR PAIN Oral Cyclobenzaprine HCl 10 MG 1 tablet Orall y Three times a day Albuterol Sulfate HFA 108 (9 0 Base) MCG/ACT 1 puff as needed Inhalation every 4 hrs 10/22/2023 amLODIPine Besylate 5 MG 1 tablet Orally Once a day 2023 Next Appt Details Follow Up: 4 Weeks, Reason: Port Flush, OV Provider Name:Melvin Gonsalves , 04/01/2025 01:30:00 PM, [address] [place] [address], [address], Progress Notes * Baljeet HAYNESOB:[birth year] (58 yo M)Acc No.[id number]:10/08/2024 Patient: Gregory HERNÁNDEZ Provider: Jewell Gonsalves MD :1965 A ge:58 Y S ex:Male Date:10/08/2024 Address:[address] [place], [place] [id number] Subjective: * Chief Complaints: * P ort FlushMetastatic rectal cancerBenign prostatic hypertrophyAnxiety and depressionPeripheral arterial diseaseRight inguinal hherniaHypertension * HPI: C OVID-19 Screening: He returns for management of his metastatic rectal cancer and peripheral arterial disease and other illnesses. His port was flushed today with saline and heparin and it functioned well. He admits to nocturia about once a night. He says his respiratory status is normal. He has no new complaints.Once again I asked him if he wanted to consider antineoplastic treatment for his metastatic rectal cancer. He said no he does not want any additional treatment. He declined to receive immunotherapy or chemotherapy or radiation therapy. Questions H ave you had any new onset fever, chills, cough, congestion, sore throat, shortness of breath, muscle aches? N o * ROS: G eneral/Constitutional: pain o nly normal aches and painsThoracic pain on previous visit much improved. C hills d enies. F atigue a dmits. F ever d enies. E NT: Decreased hearing d enies. R espiratory: Cough d enies. C ardiovascular: Chest pain with exertion d enies. D yspnea on exertion?denies. S hortness of breath d enies. G astrointestinal: Constipation o ccasional. D ecreased appetite d enies. D iarrhea d enies. H eartburn o ccasional. N ausea d enies. R ectal bleeding d enies. V omiting d enies. H ematology: bruising d enies. p etechiae d enies. S wollen glands n one have been noted. G enitourinary: Frequent urination o nce a night. M usculoskeletal: Muscle aches d enies. P ainful joints d enies. S ciatica d enies. W eakness d enies. S kin: Itching d enies. R jose j d enies. S kin lesion(s)?denies. N eurologic: Difficulty speaking d enies. D izziness d enies.?Headache d enies. L ow back pain d enies. P sychiatric: Depressed mood w hich is moderate. * Medical History: * Surgical History: a ppendectomy Knee surgery 1999dental extractions 2010colonoscopy revealing adenocarcinoma the rectum 2015Exploratory laparotomy [id number] Laparotomy, Lysis of adhesions with ileostomy takedown in conjuction with small bowel resection and primary anastomosis [id number] femoral arterial bypass surgery for peripheral arterial disease [facility] 2018resection of anastamotic recurrence 07/2019Hernia removed ppendix surgery Hernia surgery Skin cancer surgery No history * Hospitalization/Major Diagno stic Procedure: o bservation overnight once for infection 2013femorol femoral bypass graft, [facility], Dr. Franco 03/2018resection anastomotic rectal cancer recurrence [facility], Dr. Lackey 07/2019No history * Family History: F ather: 42 yrs, diagnosed with HTN. M other: alive 78 yrs. S on(s): alive.?Siblings: alive. 5 brother(s) , 2 sister(s) - healthy. 1 son(s) - healthy. . He has 5 brothers and 2 sisters. One sibling has had ear surgery but there are health in general has been excellent. He has one son who is alive and well. There is no history of cancer in his family. His father at the age of 42 of a myocardial infarction. His mother has some cardiac disease and bilateral hip replacements. * Social History: T obacco Use: T obacco Control (Standard) T obacco use: F ormer smoker H ow long has it been since you last smoked??5-10 years A dditional Findings: Tobacco non-user E x-cigarette smoker H e has smoked one pack a day since age 11. He has been to [place] for 25 years. They have one son, 15, who is healthy and in school. 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 He has had no steady job for 20 years due to aches and pains in back and shoulders. He was born in [place]. The patient reported not smoking. He also mentioned drinking six cups of water a day due to dry mouth. * Medications: T akingTamsulosin HCl 0.4 MG Capsule 1 capsule Orally Once a day Ranitidine HCl 150 MG Tablet 1 tablet at bedtime Orally Once a day traMADol HCl 50 MG Tablet TAKE 1 TABLET BY MOUTH TWICE DAILY NEEDED FOR PAIN Oral Albuterol Sulfate HFA 108 (90 Base) MCG/ACT Aerosol Solution 1 puff as needed Inhalation every 4 hrs amLODIPine Besylate 5 MG Tablet 1 tablet Orally Once a day Cyclobenzaprine HCl 10 MG Tablet 1 tablet Orally Three times a day Omeprazole 20 MG Capsule Delayed Release 1 capsule Orally Once a day Medication List reviewed and reconciled with the patientTaking Tamsulosin HCl 0.4 MG Capsule 1 capsule Orally Once a day Taking Ranitidine HCl 150 MG Tablet 1 tablet at bedtime Orally Once a day Taking traMADol HCl 50 MG Tablet TAKE 1 TABLET BY MOUTH TWICE DAILY NEEDED FOR PAIN Oral Taking Albuterol Sulfate HFA 108 (90 Base) MCG/ACT Aerosol Solution 1 puff as needed Inhalation every 4 hrs Taking amLODIPine Besylate 5 MG Tablet 1 tablet Orally Once a day Taking Cyclobenzaprine HCl 10 MG Tablet 1 tablet Orally Three times a day Taking Omeprazole 20 MG Capsule Delayed Release 1 capsule Orally Once a day Medication List reviewed and reconciled with the patient * Allergies: B actrimno[Allergies Verified] Objective: * Vitals: H t: 67, Wt: 183, BMI:28.66, BP: 146/82, HR: 73, Temp: 97.7, Oxygen sat %: 96, Wt- k.01. * P ast Orders: I maging:XR cervical spine 3V (Order Date - 08/10/2024) (Performed Date - 08/10/2024) I maging:XR thoracic spine 3V (Order Date - 08/10/2024) (Performed Date - 08/10/2024) * Examination: G eneral Examination: GENERAL APPEARANCE: p leasant, well nourished, well developed, in no acute distress, calm and relaxed, overweight, man. HEAD: a traumatic, normocephalic. EYES: e dary, perrla, anicteric, conjugate. EARS: n ormal. NOSE: s eptum intact. ORAL CAVITY: n ormal, unremarkable. NECK/THYROID: n o jugular venous distention, no carotid bruit, thyroid normal. LYMPH NODES: n o enlarged lymph nodes,spleen normal. SKIN: n o suspicious lesions, anicteric, Intact Port-A-Cath right upper chest wall. HEART: n o clicks, gallops, murmurs, or rubs, regular rhythm, S1, S2 normal, no s3, or vascular bruits. LUNGS: c lear to auscultation . BREASTS: no masses palpable bilaterally. ABDOMEN: b owel sounds normal, no ascites, no organomegaly, no mass, overweight, Right inguinal hernia. RECTAL EXAM: n ot examined. MUSCULOSKELETAL: e xtremities unremarkable, no clubbing, cyanosis or edema. PERIPHERAL PULSES: D iminished in the lower extremities.? NEUROLOGIC: a lert and oriented, cranial nerves 2-12 grossly intact, deep tendon reflexes 2+ symmetrical, motor strength normal upper and lower extremities, sensory exam intact. PSYCH: a lert, oriented, anxious appearing, mood depressed.? Assessment: * Assessment: 1. R ectal cancer - C20 (Primary) N otes :Plain x-rays show no sign of metastatic disease [...] refuses any type of any neoplastic therapy. 2 . F ormer smoker - Z87.891 N otes :He has stopped smoking within the last month. We have discussed strategies for maintaining abstinence. He has a plan to prevent relapse in times of pain illness or stress. 3 . C hronic obstructive pulmonary disease, unspecified - J44.9 ?Notes :He is breathing room air comfortably. He is not smoking. Short of breath with prolonged exertion. 4 . E dentulous - K00.0 N otes :He says his dentures fit he is able to chew without difficulty. 5 . A nxiety - F41.9 N otes :He was occasionally anxious today with his voice raised. 6 . R ight inguinal hernia - K40.90 N otes :This is a new finding in the last month. He was referred to surgery to discuss what is involved in repairing it. 7 . P ort-a-cath in place - Z95.828 N otes :His port was flushed daily with 10 cc of saline and 10 cc a 1-100 heparin solution. It functioned well. Plan: * Treatment: * Procedures: T he skin over the port was cleaned with Betadine and alcohol. Sterile technique was used. A Daily needle was used to access the port. It was flushed with saline and then with heparin solution. The needle was then withdrawn. No complcations occurred. A good blood return was obtained. * Procedure Codes: 9 6522 REFILL/MAINT PUMP/RESVR [id number] MEASURE BLOOD OXYGEN [id number] INJECTION HEPARIN SODIUM 10 [id number] SALINE SOLUTION * Preventive Medicine: Counseling: C are goal follow-up plan: Counseling for abnormal BMI given Y es Above Normal BMI Follow-up D ietary management education, guidance, and counseling, Dietary needs education, Exercise promotion: strength training, Exercise promotion: stretching, Feeding regime, Giving encouragement to exercise, Lifestyle education regarding diet, Nutrition / feeding management, Nutrition therapy, Prescribed activity/exercise education, Prescribed diet education, Prescribed dietary intake, Special diet education, Weight monitoring , Intervention, Order not done: Medical or Other reason not done S moking/Tobacco Use Patient counseled on the dangers of tobacco use and urged to quit. 0 10/08/2024 * Follow Up: 4 Weeks (Reason: Port Flush, OV) * Images: * Sign off status: Completed true * Provider: Jewell Gonsalves MD Date: 0 10/08/2024 Generated for Reginai cristel/Tesfaye/eTransmitting on: 1 05/28/2024 06:58 PM EST History and Physical Notes * HPI (History [...] normal, no ascites, no organomegaly, no mass, overweight, Right inguinal hernia NEUROLOGIC: alert and oriented, cranial nerves 2-12 grossly intact, deep tendon reflexes 2+ symmetrical, motor strength normal upper and lower extremities, sensory exam intact SKIN: no suspicious lesion s, anicteric, Intact Port-A-Cath right upper chest wall PERIPHERAL PULSES: Diminished in the lo wer extremities BREASTS: no masses palpable b ilaterally MUSCULOSKELETAL: extremities unremark able, no clubbing, cyanosis or edema LYMPH NODES: no enlarged lymph no evaristo,spleen normal RECTAL EXAM: not examined PSYCH: alert, oriented, anx ious appearing, mood depressed ORAL CAVITY: normal, unremarkable
--- OUTSIDE RECORDS SUMMARY | 2024-11-05 06:15 | XMS_ITS ---
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 Melvin Gonsalves III Primary Care Provider Allergies Allergen (clinical drug ingredient) Drug/Non Drug Allergy documented on EMR Reaction Allergy Type Onset Date Status sulfamethoxazole / trimethoprim Bactrim Unknown Drug Allergy Active REASON FOR VISIT Port Flush, Mechanical chest pain, Stage IV rectal cancer with pulmonary metastases, COPD, Benign prostatic hypertrophy, Anxiety, Peripheral arterial disease Medications Medication SIG (Take, Route, Frequency, Duration) Notes Start Date End Date Status amLODIPine Besylate 5 MG 1 tablet Orally Once a day 12/02/2023 Active Albuterol Sulfate HFA 108 (9 0 Base) MCG/ACT 1 puff as needed Inhalation every 4 hrs 10/22/2023 Active Omeprazole 20 MG 1 capsule Orally Onc e a day 04/30/2024 Active Cyclobenzaprine HCl 10 MG 1 tablet Orall y Three times a day Active traMADol HCl 50 MG TAKE 1 TABLET BY TWICE DAILY NEEDED FOR PAIN Oral Active Tamsulosin HCl 0.4 MG 1 capsule Orally O nce a day Active Ranitidine HCl 150 MG 1 tablet at bedtim e Orally Once a day Active Social History Tobacco Use: [...] smoker Vital Signs Temperature 98.1 degrees Fahrenheit 11/06/19 25 Blood pressure systolic 139 mm Hg 11/06/19 25 Blood pressure diastolic 80 mm Hg 025 Heart Rate 87 /min 11/05/2024 Respiratory Rate 16 /min 11/05/2024 Height 67 in 11/05/2024 Weight 180 lbs 11/05/2024 BMI 28.19 kg/m2 11/05/2024 Oximetry 97 % 11/05/2024 Encounters Encounter Location Date Provider Diagnosis Melvin Gonsalves III, MD [address] [place] [address] [place] [address] 11/05/2024 Melvin Gonsalves Rectal cancer C20 ; Chronic obstructive pulmonary disease, unspecified J44.9 ; Former smoker Z87.891 ; Anxiety F41.9 ; Edentulous K00.0 ; Peripheral arterial disease I73.9 ; Benign prostatic hyperplasia without lower urinary tract symptoms N40.0 and Port-a-cath in place Z95.828 Assessments Encounter Date Diagnosis (ICD Code) Assessment Notes Treatment Notes Treatment Clinical Notes 11/05/2024 Rectal cancer (ICD-10 - C20) Plain x-rays [...] refuses any type of any neoplastic therapy. 11/05/2024 Chronic obstructive pulmonary disease, unspecified (ICD-10 - J44.9) He is breathing room air comfortably. He is not smoking. Short of breath with prolonged exertion. 11/05/2024 Former smoker (ICD-10 - Z87.891) He has stopped smoking within the last month. We have discussed strategies for maintaining abstinence. He has a plan to prevent relapse in times of pain illness or stress. 11/05/2024 Anxiety (ICD-10 - F41.9) He was occasionally anxious today with his voice raised. 11/05/2024 Edentulous (ICD-10 - K00.0) He says his dentures fit he is able to chew without difficulty. 11/05/2024 Peripheral arterial disease (ICD-10 - I73.9) His feet are pink and warm. He has no claudication and is doing quite well. His regimen was not altered. He was encouraged to walk and exercise. 11/05/2024 Benign prostatic hyperplasia without lower urinary tract symptoms (ICD-10 - N40.0) He admits to rising from sleep once or twice a night to urinate. We have discussed lifestyle modifications achromatic to reduce nocturia. 11/05/[address]24 Port-a-cath in place (ICD-10 - Z95.828) His port was flushed daily with 10 cc of saline and 10 cc a 1-100 heparin solution. It functioned well. Plan Of Treatment Medication Medication Name Sig Start Date Stop Date Notes amLODIPine Besylate 5 MG 1 tablet Orally Once a day 2023 Albuterol Sulfate HFA 108 (9 0 Base) MCG/ACT 1 puff as needed Inhalation every 4 hrs 10/22/2023 Omeprazole 20 MG 1 capsule Orally Onc e a day 04/30/2024 Cyclobenzaprine HCl 10 MG 1 tablet Orall y Three times a day traMADol HCl 50 MG TAKE 1 TABLET BY KESHAV TH TWICE DAILY NEEDED FOR PAIN Oral Tamsulosin HCl 0.4 MG 1 capsule Orally O nce a day Ranitidine HCl 150 MG 1 tablet at bedtim e Orally Once a day Pending Test Test Name Order Date XR CHEST 2 VIEW PA & LAT 11/05/2024 Next Appt Details Follow Up: 1 Week,4 Weeks, R sandra: OV, OV Port Flush Provider Name:Melvin Gonsalves , 04/01/2025 01:30:00 PM, [address] [place] [address] [address], [place], [address], Progress Notes * Reggie HAYNES:[birth year] 62 (58 yo M)Acc No.[id number]:11/05/2024 Patient: Gregory HERNÁNDEZ Provider: Jewell Gonsalves MD :1965 A ge:58 Y S ex:Male Date:11/05/2024 Address:[address] [place] [id number] Subjective: * Chief Complaints: * P ort FlushMechanical chest painStage IV rectal cancer with pulmonary metastasesCOPDBenign prostatic hypertrophyAnxietyPeripheral arterial disease * HPI: C OVID-19 Screening: Lamont baltazar reports severe sharp pain in his chest and his left precordium with bending over. He says it was sharp and stabbing and took his breath away. He continues to have thoracic back pain that makes his arms feel heavy. The heaviness in his legs is much improved. His port was flushed today without difficulty. A chest x-ray was ordered to evaluate the chest pain. His vital signs are currently stable.His anxiety is severe but at baseline. Questions H ave you had any new onset fever, chills, cough, congestion, sore throat, shortness of breath, muscle aches? N o * ROS: G eneral/Constitutional: pain A nterior left chest, thoracic spine. C hills d enies. F atigue a dmits. F ever d enies. E NT: Decreased hearing d enies. R espiratory: Cough d enies. C ardiovascular: Chest pain with exertion o ccurred occasionally. D yspnea on exertion d enies. S hortness of breath d enies. G astrointestinal: Constipation o ccasional. D ecreased appetite d enies. D iarrhea d enies. H eartburn d enies. N ausea d enies. R ectal bleeding [...] History: a ppendectomy Knee surgery 2000dental extractions 2010colonoscopy revealing adenocarcinoma the rectum 2015Exploratory laparotomy [id number] Laparotomy, Lysis of adhesions with ileostomy takedown in conjuction with small bowel resection and primary anastomosis [id number] femoral arterial bypass surgery for peripheral arterial disease [facility] 2017resection of anastamotic recurrence 07/2019Hernia removed 3Appendix surgery Hernia surgery Skin cancer surgery No history * Hospitalization/Major Diagno stic Procedure: o bservation overnight once for infection 2013femorol femoral bypass graft, [facility], Dr. Franco 03/2018resection anastomotic rectal cancer recurrence [facility], Dr. Lackey 07/2019No history * Family History: [...] dditional Findings: Tobacco non-user E x-cigarette smoker Lamont baltazar has smoked one pack a day since age 11. He has been to [place] for 25 years. They have one son, 15, who is healthy and in school. 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 He has had no steady job for 20 years due to aches and pains in back and shoulders. He was born in [place]. The patient reported not smoking. He also [...] Objective: * Vitals: H t: 67, Wt: 180, BMI:28.19, BP: 139/80, HR: 87, RR: 16, Temp: 98.1, Oxygen sat %: 97, Wt-k.65. * P ast Orders: Lab:Complete Blood Count Aut o Diff * Collection Date 10/06/2024 07/07/2024 02/27/2024 Collection Time 02:04 PM 03:58 PM 11:05 AM Order Date 10/06/2024 07/07/2024 02/27/2024 White Blood Count 8.7 (Ref Range: 4.8-10.8 X10*3/uL) 10.8 (Ref Range: 4.8-10.8 X10*3/uL) 8.7 (Ref Range: 4.8-10.8 X10*3/uL) Red Blood Count 4.66 (Ref Range: 4.60-5.80 X10*6/uL) 4.91 (Ref Range: 4.60-5.80 X10*6/uL) 4.97 (Ref Range: 4.60-5.80 X10*6/uL) Hemoglobin 13.8 L (Ref Range: 14.0-18.0 g/dl) 14.3 (Ref Range: 14.0-18.0 g/dl) 14.4 (Ref Range: 14.0-18.0 g/dl) Hematocrit 40.7 L (Ref Range: 42.0-52.0 %) 43.2 (Ref Range: 42.0-52.0 %) 43.6 (Ref Range: 42.0-52.0 %) Mean Corpuscular Volume 87.3 (Ref Range: 80.0-98.0 fL) 88.0 (Ref Range: 80.0-98.0 fL) 87.7 (Ref Range: 80.0-98.0 fL) Mean Corpuscular Hemoglobin 29.6 (Ref Range: 27.0-33.0 pg) 29.1 (Ref Range: 27.0-33.0 pg) 29.0 (Ref Range: 27.0-33.0 pg) Mean Corpuscular HGB Conc 33.9 (Ref Range: 31.0-36.0 g/dl) 33.1 (Ref Range: 31.0-36.0 g/dl) 33.0 (Ref Range: 31.0-36.0 g/dl) Red Cell Distribution Width 13.9 (Ref Range: 11.0-16.0 %) 14.0 (Ref Range: 11.0-16.0 %) 14.4 (Ref Range: 11.0-16.0 %) Platelet Count 279 (Ref Range: 160-400 X10*3/uL) 260 (Ref Range: 160-400 X10*3/uL) 271 (Ref Range: 160-400 X10*3/uL) Mean Platelet Volume 9.3 L (Ref Range: 9.4-12.4 fL) 9.5 (Ref Range: 9.4-12.4 fL) 9.8 (Ref Range: 9.4-12.4 fL) Neutrophils Percent Auto 61.7 (Ref Range: 45-73 %) 66.1 (Ref Range: 45-73 %) 68.8 (Ref Range: 45-73 %) Imm Gran Pct Auto 0.3 (Ref Range: 0.0-0.4 %) 0.4 (Ref Range: 0.0-0.4 %) 0.3 (Ref Range: 0.0-0.4 %) Lymphocytes Percent Auto 29.3 (Ref Range: 20-40 %) 25.0 (Ref Range: 20-40 %) 20.8 (Ref Range: 20-40 %) Monocytes Percent Auto 6.7 (Ref Range: 2-11 %) 5.8 (Ref Range: 2-11 %) 7.1 (Ref Range: 2-11 %) Eosinophils Percent Auto 1.4 (Ref Range: 0-4 %) 2.2 (Ref Range: 0-4 %) 2.3 (Ref Range: 0-4 %) Basophils Percent Auto 0.6 (Ref Range: 0-2 %) 0.5 (Ref Range: 0-2 %) 0.7 (Ref Range: 0-2 %) NRBC Pct Auto 0.0 (Ref Range: 0.0-0.2 /100WBC) 0.0 (Ref Range: 0.0-0.2 /100WBC) 0.0 (Ref Range: 0.0-0.2 /100WBC) Neutrophils Absolute Auto 5.4 (Ref Range: 2.0-8.3 x10*3/uL) 7.1 (Ref Range: 2.0-8.3 x10*3/uL) 6.0 (Ref Range: 2.0-8.3 x10*3/uL) Imm Gran Abs Auto 0.03 (Ref Range: 0.00-0.03 X10*3/uL) 0.04 H (Ref Range: 0.00-0.03 X10*3/uL) 0.03 (Ref Range: 0.00-0.03 X10*3/uL) Lymphocytes Absolute Auto 2.6 (Ref Range: 1.2-4.9 X10*3/uL) 2.7 (Ref Range: 1.2-4.9 X10*3/uL) 1.8 (Ref Range: 1.2-4.9 X10*3/uL) Monocytes Absolute Auto 0.6 (Ref Range: 0.1-1.2 X10*3/uL) 0.6 (Ref Range: 0.1-1.2 X10*3/uL) 0.6 (Ref Range: 0.1-1.2 X10*3/uL) Eosinophils Absolute Auto 0.1 (Ref Range: 0.0-0.4 X10*3/uL) 0.2 (Ref Range: 0.0-0.4 X10*3/uL) 0.2 (Ref Range: 0.0-0.4 X10*3/uL) Basophils Absolute Auto 0.1 (Ref Range: 0.0-0.2 X10*3/uL) 0.1 (Ref Range: 0.0-0.2 X10*3/uL) 0.1 (Ref Range: 0.0-0.2 X10*3/uL) NRBC Abs Auto 0.000 (Ref Range: 0.0-0.012 X10*3/uL) 0.000 (Ref Range: 0.0-0.012 X10*3/uL) 0.000 (Ref Range: 0.0-0.012 X10*3/uL) * Lab:Comprehensive Met. Panel * Collection Date 10/06/2024 07/07/2024 02/27/2024 Collection Time 02:04 PM 03:58 PM 11:05 AM Order Date 10/06/2024 07/07/2024 02/27/2024 Sodium 139 (Ref Range: 135-145 mmol/L) 138 (Ref Range: 135-145 mmol/L) 137 (Ref Range: 135-145 mmol/L) Bilirubin Total 0.3 (Ref Range: 0.0-1.0 mg/dL) 0.4 (Ref Range: 0.0-1.0 mg/dL) 0.4 (Ref Range: 0.0-1.0 mg/dL) Aspartate Amino Transferase 23 (Ref Range: 5-37 U/L) 22 (Ref Range: 5-37 U/L) 24 (Ref Range: 5-37 U/L) Alanine Aminotransferase 22 (Ref Range: 0-40 U/L) 22 (Ref Range: 0-40 U/L) 20 (Ref Range: 0-40 U/L) Total Protein 7.5 (Ref Range: 6.5-8.0 g/dL) 7.9 (Ref Range: 6.5-8.0 g/dL) 7.7 (Ref Range: 6.5-8.0 g/dL) Albumin Level 4.5 (Ref Range: 3.5-5.0 g/dL) 4.2 (Ref Range: 3.5-5.0 g/dL) 4.3 (Ref Range: 3.5-5.0 g/dL) Alkaline Phosphatase 124 H (Ref Range: 39-117 U/L) 128 H (Ref Range: 39-117 U/L) 113 (Ref Range: 39-117 U/L) Potassium 4.0 (Ref Range: 3.3-5.1 mmol/L) 3.9 (Ref Range: 3.3-5.1 mmol/L) 4.3 (Ref Range: 3.3-5.1 mmol/L) Chloride 104 (Ref Range: 96-108 mmol/L) 104 (Ref Range: 96-108 mmol/L) 103 (Ref Range: 96-108 mmol/L) Carbon Dioxide 27 (Ref Range: 22-29 mmol/L) 26 (Ref Range: 22-29 mmol/L) 24 (Ref Range: 22-29 mmol/L) Anion Gap 12 (Ref Range: 12-20) 12 (Ref Range: 12-20) 14 (Ref Range: 12-20) Blood Urea Nitrogen 11 (Ref Range: 9-16 mg/dL) 10 (Ref Range: 9-16 mg/dL) 11 (Ref Range: 9-16 mg/dL) Creatinine 0.90 (Ref Range: 0.5-1.4 mg/dL) 0.82 (Ref Range: 0.5-1.4 mg/dL) 0.92 (Ref Range: 0.5-1.4 mg/dL) Estimated Glomerular Filt Rate > 60 > 60 > 60 Glucose Random 95 (Ref Range: 60-115 mg/dL) 118 H (Ref Range: 60-115 mg/dL) 117 H (Ref Range: 60-115 mg/dL) Calcium 9.5 (Ref Range: 8.4-10.2 mg/dL) 9.5 (Ref Range: 8.4-10.2 mg/dL) 9.6 (Ref Range: 8.4-10.2 mg/dL) * Lab:Carcinoembryonic Antigen * Collection Date 10/06/2024 07/07/2024 02/27/2024 Collection Time 02:04 PM 03:58 PM 11:05 AM Order Date 10/06/2024 07/07/2024 02/27/2024 Carcinoembryonic Antigen 153.00 (Ref Range: ng/mL) 114.20 (Ref Range: ng/mL) 76.70 (Ref Range: ng/mL) ???Imaging:XR thoracic spine 3V (Order Date - 08/10/2024) (Performed Date - 08/10/2024) ???Imaging:XR cervical spine 3V (Order Date - 08/10/2024) [...] nodes,spleen normal. SKIN: n o suspicious lesions, anicteric. HEART: n o clicks, gallops, murmurs, or rubs, regular rhythm, S1, S2 normal, no s3, or vascular bruits. LUNGS: c lear to auscultation . BREASTS: no masses palpable bilaterally. ABDOMEN: b owel sounds normal, no ascites, no organomegaly, no mass, overweight, Liver edge palpable. RECTAL EXAM: n ot examined. MUSCULOSKELETAL: e xtremities unremarkable, no clubbing, cyanosis or edema, Range of motion neck and thoracic spine is normal, no pain to percussion of the thoracic spine. PERIPHERAL PULSES: n ormal. NEUROLOGIC: a lert and oriented, cranial nerves [...] type of any neoplastic therapy. 2 . C hronic obstructive pulmonary disease, unspecified - J44.9 ?Notes :He is breathing room air comfortably. He is not smoking. Short of breath with prolonged exertion. 3 . F ormer smoker - Z87.891 N otes :He has stopped smoking within the last month. We have discussed strategies for maintaining abstinence. He has a plan to prevent relapse in times of pain illness or stress. 4 . A nxiety - F41.9 N otes :He was occasionally anxious today with his voice raised. 5 . E dentulous - K00.0 N otes :He says his dentures fit he is able to chew without difficulty. 6 . P eripheral arterial disease - I73.9 N otes :His feet are pink and warm. He has no claudication and is doing quite well. His regimen was not altered. He was encouraged to walk and exercise. 7 . B enign prostatic hyperplasia without lower urinary tract symptoms - N40.0? Notes :He admits to rising from sleep once or twice a night to urinate. We have discussed lifestyle modifications achromatic to reduce nocturia. 8 . P ort-a-cath in place - Z95.828 N otes :His port was flushed daily with 10 cc of saline and 10 cc a 1-100 heparin solution. It functioned well. Plan: * Treatment: * Procedure Codes: 9 4760 MEASURE BLOOD OXYGEN [id number] REFILL/MAINT PUMP/RESVR [id number] SALINE [id number] INJECTION HEPARIN SODIUM 10 UNITS * Preventive Medicine: Counseling: C are goal [...] tobacco use and urged to quit. 0 11/05/2024 COPD Care Plan: P atient Lifestyle Goals R elieve symptoms and improve quality of life, Reduce number of ED and hospitalizations, Be able to be more active with friends and family. T reatment Goals E at a nutritious diet and increase water consumption to 6-8 glasses a day, Eat 4- 5 small meals throughout the day. B arriers n o barriers. S elf-Managment Goals G et an air purifier for the rooms you are in the most, Eat a healthy diet, Exercise at least 3xs per week for at least 30 mins.? * Follow Up: 1 Week,4 Weeks (Reason: OV, OV Port Flush) * Images: * Sign off status: Completed true * Provider: Jewell Gonsalves MD Date: 0 11/05/2024 Generated for Bindu fam/Tesfaye/eTransmitting on: 1 05/28/2024 06:58 PM EST History [...] no ascites, no organomegaly, no mass, overweight, Liver edge palpable NEUROLOGIC: alert and oriented, cranial nerves 2-12 grossly intact, deep tendon reflexes 2+ symmetrical, motor strength normal upper and lower extremities, sensory exam intact SKIN: no suspicious lesion s, anicteric PERIPHERAL PULSES: normal BREASTS: no masses palpable b ilaterally MUSCULOSKELETAL: extremities unremark able, no clubbing, cyanosis or edema, Range of motion neck and thoracic spine is normal, no pain to percussion of the thoracic spine LYMPH NODES: no enlarged lymph no evaristo,spleen normal RECTAL EXAM: not examined PSYCH: alert, oriented, anx ious appearing, mood depressed ORAL CAVITY: normal, unremarkable
--- OUTSIDE RECORDS SUMMARY | 2024-11-12 05:30 | XMS_ITS ---
Author Organization Melvin Gonsalves III, MD Address [address] [place] [address] [address] [place] [address] Care Team Providers Care Leather Flesher Name Role Phone Dr. Melvin Gonsalves III Primary Care Provider [phone] Allergies Allergen (clinical drug ingredient) Drug/Non Drug Allergy documented on EMR Reaction Allergy Type Onset Date Status sulfamethoxazole / trimethoprim Bactrim Unknown Drug Allergy Active REASON FOR VISIT Mechanical chest pain, Stage IV rectal cancer with pulmonary metastases, COPD, Depression, Peripheral arterial disease, Benign prostatic hypertrophy Medications Medication SIG (Take, Route, Frequency, Duration) Notes Start Date End Date Status Tamsulosin HCl 0.4 MG 1 capsule Orally O nce a day Active Ranitidine HCl 150 MG 1 tablet at bedtim e Orally Once a day Active traMADol HCl 50 MG TAKE 1 TABLET BY TWICE DAILY NEEDED FOR PAIN Oral Active Omeprazole 20 MG 1 capsule Orally Onc e a day 04/30/2024 Active Albuterol Sulfate HFA 108 (9 0 Base) MCG/ACT 1 puff as needed Inhalation every 4 hrs 10/22/2023 Active Cyclobenzaprine HCl 10 MG 1 tablet [...] non-user Ex-cigaret te smoker Vital Signs Temperature 98.6 degrees Fahrenheit 11/13/19 25 Blood pressure systolic 143 mm Hg 11/13/19 25 Blood pressure diastolic 84 mm Hg 025 Heart Rate 85 /min 11/12/2024 Height 67 in 11/12/2024 Weight 180 lbs 11/12/2024 BMI 28.19 kg/m2 11/12/2024 Encounters Encounter Location Date Provider Diagnosis Melvin Gonsalves III, MD [address] [place] [address] [place] [address] 11/12/2024 Melvin Gonsalves Rectal cancer C20 ; Chronic obstructive pulmonary disease, unspecified J44.9 ; Anxiety F41.9 ; Former smoker Z87.891 ; Peripheral arterial disease I73.9 ; Right inguinal hernia K40.90 and Essential hypertension I10 Assessments Encounter Date Diagnosis (ICD Code) Assessment Notes Treatment Notes Treatment Clinical Notes 11/12/2024 Rectal cancer (ICD-10 - C20) The 2 pulmonary metastases in the left lung slowly increasing in size. They do not seem to be the cause of the pain which is now improving. He will be observed. I discussed with him the issue of resuming treatment. At this time he does not wish to have any treatment for the malignancy. He says that he was so symptomatic from his previous treatment that a temporary remission would not be worth it. 11/12/2024 Chronic obstructive pulmonary disease, unspecified (ICD-10 - J44.9) He is breathing room air comfortably. He is not smoking. Short of breath with prolonged exertion. 11/12/2024 Anxiety (ICD-10 - F41.9) He was occasionally anxious today with his voice raised. 11/12/2024 Former smoker (ICD-10 - Z87.891) He has stopped smoking within the last month. We have discussed strategies for maintaining abstinence. He has a plan to prevent relapse in times of pain illness or stress. 11/12/2024 Peripheral arterial disease (ICD-10 - I73.9) His feet are pink and warm. He has no claudication and is doing quite well. His regimen was not altered. He was encouraged to walk and exercise. 11/12/2024 Right inguinal hernia (ICD-10 - K40.90) This is a new finding in the last month. He was referred to surgery to discuss what is involved in repairing it. 11/12/2024 Essential hypertension (ICD-10 - I10) His blood pressure is currently acceptable. He is compliant with his medications he was advised to stabilize his weight reduce his sodium intake. Plan Of Treatment Medication Medication Name Sig Start Date Stop Date Notes Tamsulosin HCl 0.4 MG 1 capsule Orally O nce a day Ranitidine HCl 150 MG 1 tablet at bedtim e Orally Once a day traMADol HCl 50 MG TAKE 1 TABLET BY KESHAV TH TWICE DAILY NEEDED FOR PAIN Oral Omeprazole 20 MG 1 capsule Orally Onc e a day 04/30/2024 Albuterol Sulfate HFA 108 (9 0 Base) MCG/ACT 1 puff as needed Inhalation every 4 hrs 10/22/2023 Cyclobenzaprine HCl 10 MG 1 tablet Orall y Three times a day amLODIPine Besylate 5 MG 1 tablet Orally Once a day 2023 Next Appt Details Follow Up: As Scheduled, Delores son: Gavin Goodwin Provider Name:Melvin Gonsalves , 04/01/2025 01:30:00 PM, [address] [place] [address] [address] [place] [address], [phone], Progress Notes * Baljeet HAYNESOB:[birth year] (58 yo M)Acc No.[id number]:11/12/2024 Progress Notes Patient: Gregory HERNÁNDEZ Provider: Jewell Gonsalves MD :1965 A ge:58 Y S ex:Male Date:11/12/2024 Address:[address] [place], [place] [phone] Subjective: * Chief Complaints: * M echanical chest painStage IV rectal cancer with pulmonary metastasesCOPDDepressionPeripheral arterial diseaseBenign prostatic hypertrophy * HPI: C OVID-19 Screening: He returns to review his chest x-ray follow-up on the monitor left chest wall upper abdomen pain he complained about on his last visit. The pain has somewhat improved. The chest x-ray shows large metastases in the base of the left lung but they do not appear to invade the diaphragm of the pleura. There is no pleural effusion. Hiatal hernia is not seen. Examination of the abdomen today was unremarkable. We're going to observe the symptoms and the exam over the next week. He is going to call if any of these symptoms intensified. Questions H ave you had any new onset fever, chills, cough, congestion, sore throat, shortness of breath, muscle aches? N o * ROS: G eneral/Constitutional: pain M echanical left chest wall pain improved. C hills?denies. F atigue a dmits. F ever d enies. E NT: Decreased hearing d enies. R espiratory: Cough n on-productive. C ardiovascular: Chest pain with exertion d enies. D yspnea on exertion?with moderate activity. S hortness of breath w ith exertion. G astrointestinal: Constipation o ccasional. D ecreased appetite d enies. D iarrhea d enies. H eartburn d enies. N ausea d enies. R ectal bleeding d enies. V omiting d enies. H ematology: bruising d enies. p etechiae d enies. S wollen glands n one have been noted. G enitourinary: Frequent urination d enies. M usculoskeletal: Muscle aches d enies. P [...] 2010colonoscopy revealing adenocarcinoma the rectum 2015Exploratory laparotomy [id number] Laparotomy, Lysis of adhesions with ileostomy takedown in conjuction with small bowel resection and primary anastomosis [id number] femoral arterial bypass surgery for peripheral arterial disease [facility] 2018resection of anastamotic recurrence 07/2019Hernia removed ppendix surgery Hernia surgery Skin cancer surgery No history * Hospitalization/Major Diagno stic Procedure: o bservation overnight once for infection 2014femorol femoral bypass graft, [facility], Dr. Franco 03/2018resection anastomotic rectal cancer recurrence [facility], Dr. Lackey 07/2019No history * Family History: [...] and in school. 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 He has had no steady job for 20 years due to aches and pains in back and shoulders. He was born in [place]. The patient reported not smoking. He also [...] H t: 67, Wt: 180, BMI:28.19, BP: 143/84, HR: 85, Temp: 98.6, Wt-k.65. * P ast Orders: Lab:Complete Blood [...] X10*3/uL) 0.000 (Ref Range: 0.0-0.012 X10*3/uL) * Lab:Carcinoembryonic Antigen * Collection Date 10/06/2024 07/07/2024 02/27/2024 Collection Time 02:04 PM 03:58 PM 11:05 AM Order Date 10/06/2024 07/07/2024 02/27/2024 Carcinoembryonic Antigen 153.00 (Ref Range: ng/mL) 114.20 (Ref Range: ng/mL) 76.70 (Ref Range: ng/mL) * Lab:Comprehensive Met. Panel * Collection Date [...] mg/dL) 9.6 (Ref Range: 8.4-10.2 mg/dL) * Examination: G eneral Examination: GENERAL APPEARANCE: p leasant, well nourished, well developed, in no acute distress, calm and relaxed: overweight: man. HEAD: a traumatic, normocephalic. EYES: e [...] normal, no s3, or vascular bruits. LUNGS: R honchi left base,: diminished breath sounds throughout. BREASTS: no masses palpable bilaterally. ABDOMEN: b owel sounds normal, no ascites, no organomegaly, no mass: overweight, Right inguinal hernia. RECTAL EXAM: n ot examined. MUSCULOSKELETAL: e xtremities unremarkable, no clubbing, cyanosis or edema. PERIPHERAL PULSES: n ormal. NEUROLOGIC: a lert and oriented, cranial nerves 2-12 grossly intact, deep tendon reflexes 2+ symmetrical, motor strength normal upper and lower extremities, sensory exam intact. PSYCH: a lert, oriented. Assessment: * Assessment: 1. C hronic obstructive pulmonary disease, unspecified - J44.9 (Primary) N otes :He is breathing room air comfortably. He is not smoking. Short of breath with prolonged exertion. 2 . R ectal cancer - C20 N otes :The 2 pulmonary metastases in the left lung slowly increasing in size. They do not seem to be the cause of the pain which is now improving. He will be observed. I discussed with him the issue of resuming treatment. At this time he does not wish to have any treatment for the malignancy. He says that he was so symptomatic from his previous treatment that a temporary remission would not be worth it. 3 . A nxiety - F41.9 N otes :He was occasionally anxious today with his voice raised. 4 . F ormer smoker - Z87.891 N otes :He has stopped smoking within the last month. We have discussed strategies for maintaining abstinence. He has a plan to prevent relapse in times of pain illness or stress. 5 . P eripheral arterial disease - I73.9 N otes :His feet are pink and warm. He has no claudication and is doing quite well. His regimen was not altered. He was encouraged to walk and exercise. 6 . R ight inguinal hernia - K40.90 N otes :This is a new finding in the last month. He was referred to surgery to discuss what is involved in repairing it. 7 . E ssential hypertension - I10 N otes :His blood pressure is currently acceptable. He is compliant with his medications he was advised to stabilize his weight reduce his sodium intake. Plan: * Treatment: * Procedure Codes: * Preventive Medicine: Counseling: C are goal [...] tobacco use and urged to quit. 0 11/12/2024 COPD Care Plan: P atient Lifestyle Goals R elieve symptoms and improve quality of life, Reduce number of ED and hospitalizations, Be able to be more active with friends and family. T reatment Goals E at a nutritious diet and increase water consumption to 6-8 glasses a day, Exercise to help whole body, including lungs, Eat 4-5 small meals throughout the day. B arriers n o barriers. S elf-Managment Goals E at a healthy diet, Get an air purifier for the rooms you are in the most. * Follow Up: A s Scheduled (Reason: [place]) * Images: * Sign off status: Completed true * Provider: Jewell Gonsalves MD Date: 0 11/12/2024 Generated for Bindu fam/Tesfaye/Vasquezitting on: 05/28/2024 06:58 PM EST History and Physical Notes * HPI (History of Present Illness) Category Sub-Category Detail Notes COVID-19 Screening Questions Have you had any new onset fever, chills, cough, congestion, sore throat, shortness of breath, muscle aches?: No Examination Category Sub-Category Detail Notes General Examination GENERAL APPEARANCE: pleasant , well nourished, well developed, in no acute distress, calm and relaxed: overweight: man HEAD: atraumatic, normocep halic EYES: eomi, perrla, anicte lucio, conjugate EARS: normal NOSE: septum intact NECK/THYROID: no jugular venous di stention, no carotid bruit, thyroid normal HEART: no clicks, gallops, murmurs, or rubs, regular rhythm, S1, S2 normal, no s3, or vascular bruits LUNGS: Rhonchi left base,: diminished breath sounds throughout ABDOMEN: bowel sounds normal, no ascites, no organomegaly, no mass: overweight, Right inguinal hernia NEUROLOGIC: alert and [...]
--- OUTSIDE RECORDS SUMMARY | 2024-12-03 06:00 | XMS_ITS ---
Author Organization Melvin Gonsalves III, MD Address [address] [place] [address] [address] [place] [address] Care Team Providers Care Station Usher Name Role Phone Dr. Melvin Gonsalves III Primary Care Provider [phone] Allergies Allergen (clinical drug ingredient) Drug/Non Drug Allergy documented on EMR Reaction Allergy Type Onset Date Status sulfamethoxazole / trimethoprim Bactrim Unknown Drug Allergy Active REASON FOR VISIT Port Flush, Stage IV carcinoma of the rectum, COPD, Peripheral arterial disease, Benign prostatic hypertrophy, Hypertension Medications Medication SIG (Take, Route, Frequency, Duration) Notes Start Date End Date Status traMADol HCl 50 MG TAKE 1 TABLET [...] needed Inhalation every 4 hrs 10/22/2023 Active Tamsulosin HCl 0.4 MG 1 capsule Orally O nce a day Active amLODIPine Besylate 5 MG TAKE 1 TABLET B Y MOUTH DAILY Active Social History Tobacco Use: Social History Observation Description Date Details (start date - stop date) Former Smoker NA - NA Sex Assigned At : Social History Observation Description Sex Assigned At Male Tobacco Control (Standard) Question Answer Notes Tobacco use: Former smoker How long has it been since you last smoked? 5-10 years Additional Findings: Tobacco non-user Ex-cigaret te smoker Vital Signs Blood pressure systolic 140 mm Hg 12/04/19 25 Blood pressure diastolic 78 mm Hg 025 Heart Rate 87 /min 12/03/2024 Height 67 in 12/03/2024 Weight 181 lbs 12/03/2024 BMI 28.35 kg/m2 12/03/2024 Oximetry 97.9 % 12/03/2024 Encounters Encounter Location Date Provider Diagnosis Melvin Gonsalves III, MD [address] [place] [address] [place] [address] 12/03/2024 Melvin Gonsalves Rectal cancer C20 ; Hypertrophy of prostate without urinary obstruction and other lower urinary tract symptoms (LUTS) N40.0 ; Former smoker Z87.891 ; Chronic obstructive pulmonary disease, unspecified J44.9 ; Other depression F32.89 ; Peripheral arterial disease I73.9 ; Overweight (BMI 25.0-29.9) E66.3 and Port-a-cath in place Z95.828 Assessments Encounter Date Diagnosis (ICD Code) Assessment Notes Treatment Notes Treatment Clinical Notes 12/03/2024 Rectal cancer (ICD-10 - C20) The 2 [...] temporary remission would not be worth it. 12/03/2024 Hypertrophy of prostate without urinary obstruction and other lower urinary tract symptoms (LUTS) (ICD-10 - N40.0) He admits to nocturia once or twice a night depending upon fluid intake. We discussed lifestyle modifications she could make to reduce nocturia. 12/03/2024 Former smoker (ICD-10 - Z87.891) He has stopped smoking within the last month. We have discussed strategies for maintaining abstinence. He has a plan to prevent relapse in times of pain illness or stress. 12/03/2024 Chronic obstructive pulmonary disease, unspecified (ICD-10 - J44.9) He is breathing room air comfortably. He is not smoking. Short of breath with prolonged exertion. 12/03/2024 Other depression (ICD-10 - F32.89) He will continue with his therapist and the current regimen. 12/03/2024 Peripheral arterial disease (ICD-10 - I73.9) His feet are pink and warm. He has no claudication and is doing quite well. His regimen was not altered. He was encouraged to walk and exercise. 12/03/2024 Overweight (BMI 25.0-29.9) (ICD-10 - E66.3) His body mass index is 29. He has gained 3 pounds and is overweight. His appetite is good 12/03/[address]24 Port-a-c[address] in place (ICD-10 - Z95.828) His port was flushed daily with 10 cc of saline and 10 cc a 1-100 heparin solution. It functioned well. Plan Of Treatment Medication Medication Name Sig Start Date Stop Date Notes traMADol HCl 50 MG TAKE 1 TABLET BY KESHAV TH TWICE DAILY NEEDED FOR PAIN Oral Ranitidine HCl 150 MG 1 tablet at bedtim e Orally Once a day Omeprazole 20 MG 1 capsule Orally Onc e a day 04/30/2024 Cyclobenzaprine HCl 10 MG 1 tablet Orall y Three times a day Albuterol Sulfate HFA 108 (9 0 Base) MCG/ACT 1 puff as needed Inhalation every 4 hrs 10/22/2023 Tamsulosin HCl 0.4 MG 1 capsule Orally O nce a day amLODIPine Besylate 5 MG TAKE 1 TABLET B Y MOUTH DAILY Next Appt Details Follow Up: 6 Weeks, Reason: OV Provider Name:Melvin Gonsalves , 04/01/2025 01:30:00 PM, [address] [place] [address] [address] [address], [place], [address], Progress Notes * Reggie HAYNES:[birth year] (58 yo M)Acc No.[id number]:12/03/2024 Patient: [place] Gregory ROBERT Provider: Jewell Gonsalves MD :1965 A ge:58 Y S ex:Male Date:12/03/2024 Address:[address] [place] [address] [place], [id number] Subjective: * Chief Complaints: * P ort FlushStage IV carcinoma of the rectumCOPDPeripheral arterial diseaseBenign prostatic hypertrophyHypertension * HPI: C OVID-19 Screening: Lamont baltazar returns for ongoing medical management and surveillance of his rectal cancer that is metastatic to lung. He is not currently receivinng a neoplastic therapy because he has declined and refused it. He does not wish to enter into palliative care or hospice but he does not wish to be treated with any form of anticancer treatment. He says he is feeling healthy and well. He has occasional chest pain which he rises from his lower chest wall. His port was flushed today with saline and heparin and it functioned well. He is being seen every 4 weeks and well, and as needed as well. No change in his regimen was necessary. He denied pain or dyspnea. Denies bleeding. Questions H ave you had any new onset fever, chills, cough, congestion, sore throat, shortness of breath, muscle aches? N o * ROS: G eneral/Constitutional: pain o nly normal aches and pains. C hills d enies.?Fatigue a dmits. F ever d enies. E NT: Decreased hearing d enies. R espiratory: Cough d enies. C ardiovascular: Chest pain with exertion d enies. D yspnea on exertion?denies. S hortness of breath d enies. G astrointestinal: Constipation o ccasional. D ecreased appetite d enies. D iarrhea t hat is infrequent. H eartburn d enies. N ausea d [...] 2010colonoscopy revealing adenocarcinoma the rectum 2015Exploratory laparotomy [id number] Laparotomy, Lysis of adhesions with ileostomy takedown in conjuction with small bowel resection and primary anastomosis [id number] femoral arterial bypass surgery for peripheral arterial disease [facility] 2017resection of anastamotic recurrence 07/2019Hernia removed 3Appendix surgery Hernia surgery Skin cancer surgery No history * Hospitalization/Major Diagno stic Procedure: o bservation overnight once for infection 2014femorol femoral bypass graft, [facility], Dr. Franco 03/2018resection anastomotic rectal cancer recurrence [facility], Dr. Lackey 07/2019No history * Family [...] and in school. 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 He has had no steady job for 20 years due to aches and pains in back and shoulders. He was born in [place]. The patient reported not smoking. He also [...] puff as needed Inhalation every 4 hrs Cyclobenzaprine HCl 10 MG Tablet 1 tablet Orally Three times a day Omeprazole 20 MG Capsule Delayed Release 1 capsule Orally Once a day amLODIPine Besylate 5 MG Tablet TAKE 1 TABLET BY MOUTH DAILY Medication List reviewed and reconciled with the [...] as needed Inhalation every 4 hrs Taking Cyclobenzaprine HCl 10 MG Tablet 1 tablet Orally Three times a day Taking Omeprazole 20 MG Capsule Delayed Release 1 capsule Orally Once a day Taking amLODIPine Besylate 5 MG Tablet TAKE 1 TABLET BY MOUTH DAILY Medication List reviewed and reconciled with the patient * Allergies: B actrimno[Allergies Verified] Objective: * Vitals: H t: 67, Wt: 181, BMI:28.35, BP: 140/78, HR: 87, Oxygen sat %: 97.9, Wt-k.1. * P ast Orders: I ing:XR chest 2V (Order Date - 11/05/2024) (Performed Date - 11/05/2024) Lab:Complete Blood Count Aut o Diff * [...] s eptum intact. ORAL CAVITY: n ormal, unremarkable, Edentulous. NECK/THYROID: n o jugular venous distention, no carotid bruit, thyroid normal. LYMPH NODES: n o enlarged lymph nodes,spleen normal. SKIN: n o suspicious lesions, anicteric, Port-A-Cath right upper chest wall intact. HEART: n o clicks, gallops, murmurs, or rubs, regular rhythm, S1, S2 normal, no s3, or vascular bruits. LUNGS: c lear to auscultation . BREASTS: no masses palpable bilaterally. ABDOMEN: b owel sounds normal, no ascites, no organomegaly, no mass: overweight: no masses palpable. RECTAL EXAM: n ot examined. MUSCULOSKELETAL: e xtremities unremarkable, no clubbing, cyanosis or edema. PERIPHERAL PULSES: n ormal. NEUROLOGIC: a lert and oriented, cranial nerves 2-12 grossly intact, deep tendon reflexes 2+ symmetrical, motor strength normal upper and lower extremities, sensory exam intact. PSYCH: a lert, oriented: mood depressed: anxious appearing.? Assessment: * Assessment: 1. R ectal cancer - C20 (Primary) N otes :The 2 pulmonary metastases in [...] temporary remission would not be worth it. 2 . H ypertrophy of prostate without urinary obstruction and other lower urinary tract symptoms (LUTS) - N40.0 N otes :He admits to nocturia once or twice a night depending upon fluid intake. We discussed lifestyle modifications she could make to reduce nocturia. 3 . F ormer smoker - Z87.891 N otes :He has stopped smoking within the last month. We have discussed strategies for maintaining abstinence. He has a plan to prevent relapse in times of pain illness or stress. 4 . C hronic obstructive pulmonary disease, unspecified - J44.9 ?Notes :He is breathing room air comfortably. He is not smoking. Short of breath with prolonged exertion. 5 . O ther depression - F32.89 N otes :He will continue with his therapist and the current regimen. 6 . P eripheral arterial disease - I73.9 N otes :His feet are pink and warm. He has no claudication and is doing quite well. His regimen was not altered. He was encouraged to walk and exercise. 7 . O verweight (BMI 25.0-29.9) - E66.3 N otes :His body mass index is 29. He has gained 3 pounds and is overweight. His appetite is good 8 . P ort-a-cath in place - [...] occurred. A good blood return was obtained. The skin over the port was cleaned with Betadine and alcohol. Sterile technique was used. A Daily needle was used to access the port. It was flushed with saline and then with heparin solution. The needle was then withdrawn. No complcations occurred. A good blood return was obtained. * Procedure Codes: 9 4760 MEASURE BLOOD OXYGEN [id number] REFILL/MAINT PUMP/RESVR [id number] INJECTION HEPARIN SODIUM 10 [id number] SALINE SOLUTION * Preventive Medicine: Counseling: C [...] tobacco use and urged to quit. 0 12/10/2024 COPD Care Plan: P atient Lifestyle Goals R elieve symptoms and improve quality of life, Reduce number of ED and hospitalizations, Be able to be more active with friends and family. T reatment Goals E xercise to help whole body, including lungs, Eat a nutritious diet and increase water consumption to 6-8 glasses a day. B arriers n o barriers. S elf-Managment Goals G et an air purifier for the rooms you are in the most, Eat a healthy diet. * Follow Up: 6 Weeks (Reason: OV) * Images: * Sign off status: Completed true * Provider: Jewell Gonsalves MD Date: 0 12/03/2024 Generated for Bindu fam/Tesfaye/Kimberleyransmitting on: 1 05/28/2024 06:57 PM EST History and Physical Notes * [...] normal, no ascites, no organomegaly, no mass: overweight: no masses palpable NEUROLOGIC: alert and oriented, cranial nerves 2-12 grossly intact, deep tendon reflexes 2+ symmetrical, motor strength normal upper and lower extremities, sensory exam intact SKIN: no suspicious lesion s, anicteric, Port-A-Cath right upper chest wall intact PERIPHERAL PULSES: normal BREASTS: no masses palpable b ilaterally MUSCULOSKELETAL: extremities unremark able, no clubbing, cyanosis or edema LYMPH NODES: no enlarged lymph no evaristo,spleen normal RECTAL EXAM: not examined PSYCH: alert, oriented: moo d depressed: anxious appearing ORAL CAVITY: normal, unremarkable , Edentulous
--- OUTSIDE RECORDS SUMMARY | 2025-01-14 06:15 | XMS_ITS ---
Author Organization Melvin Gonsalves III, MD Address [address] [place] [address] [address] [place] [address] Care Team Providers Care Biomedical Instrument Technician Name Role Phone Dr. Melvin Gonsalves III Primary Care Provider Allergies Allergen (clinical drug ingredient) Drug/Non Drug Allergy documented on EMR Reaction Allergy Type Onset Date Status sulfamethoxazole / trimethoprim Bactrim Unknown Drug Allergy Active REASON FOR VISIT Port Flush, advanced rectal cancer, copd, depressioinbph, hypertension Medications Medication SIG (Take, Route, Frequency, Duration) Notes Start Date End Date Status Cyclobenzaprine HCl 10 MG 1 tablet Orall y Three times a day Active Albuterol Sulfate HFA 108 (9 0 Base) MCG/ACT 1 puff as needed Inhalation every 4 hrs As needed Active amLODIPine Besylate 5 MG TAKE 1 TABLET B Y MOUTH DAILY Active Tamsulosin HCl 0.4 MG 1 capsule Orally O nce a day Active Omeprazole 20 MG 1 [...] Additional Findings: Tobacco non-user Ex-cigaret te smoker Problems Problem Type SNOMED Code ICD Code Onset Dates Problem Status W/U Status Risk Notes Problem Arthralgia of the ankle and/or foot (049882148) Right ankle pain (M25.571) Active confirmed He twisted his ankle recently has some right ankle pain. On examiination foot seems to be intact. I offered to order an ankle x-ray but he declined saying he would ask for 1 in the near future if improvement does not occur. Vital Signs Temperature 98.0 degrees Fahrenheit 01/15/20 25 Blood pressure systolic 135 mm Hg 01/15/20 25 Blood pressure diastolic 79 mm Hg 025 Heart Rate 85 /min 01/14/2025 Height 67 in 01/14/2025 Weight 182 lbs 01/14/2025 BMI 28.5 kg/m2 01/14/2025 Encounters Encounter Location Date Provider Diagnosis Melvin Gonsalves III, MD [address] [place] [address] [place] [address] 01/14/2025 Melvin Gonsalves Rectal cancer C20 ; Right ankle pain M25.571 ; Edentulous K00.0 ; Anxiety F41.9 ; Benign prostatic hyperplasia without lower urinary tract symptoms N40.0 and Port-a-cath in place Z95.828 Assessments Encounter Date Diagnosis (ICD Code) Assessment Notes Treatment Notes Treatment Clinical Notes 01/14/2025 Rectal cancer (ICD-10 - C20) He continues to desire no treatment. He also does not wish to be in the hospice program. There was no sign of the disease on the physical examination except for the excision scars in the abdomen. He will be seen at short intervals for follow-up. He denies any significant pain or discomfort at this time. 01/14/2025 Right ankle pain (ICD-10 - M25.571) He twisted his ankle recently has some right ankle pain. On examiination foot seems to be intact. I offered to order an ankle x-ray but he declined saying he would ask for 1 in the near future if improvement does not occur. 01/14/2025 Edentulous (ICD-10 - K00.0) He says his dentures fit he is able to chew without difficulty. 01/14/2025 Anxiety (ICD-10 - F41.9) He was occasionally anxious today with his voice raised. 01/14/2025 Benign prostatic hyperplasia without lower urinary tract symptoms (ICD-10 - N40.0) He admits to rising from sleep once or twice a night to urinate. We have discussed lifestyle modifications achromatic to reduce nocturia. 01/14/2025 Port-a-cath in place (ICD-10 - Z95.828) His port was flushed daily with 10 cc of saline and 10 cc a 1-100 heparin solution. It functioned well. Plan Of Treatment Medication Medication Name Sig Start Date Stop Date Notes Cyclobenzaprine HCl 10 MG 1 tablet Orall y Three times a day Albuterol Sulfate HFA 108 (9 0 Base) MCG/ACT 1 puff as needed Inhalation every 4 hrs amLODIPine Besylate 5 MG TAKE 1 TABLET B Y MOUTH DAILY Tamsulosin HCl 0.4 MG 1 capsule Orally O nce a day Omeprazole 20 MG 1 capsule Orally Onc e a day 04/30/2024 Ranitidine HCl 150 MG 1 tablet at bedtim e Orally Once a day traMADol HCl 50 MG TAKE 1 TABLET BY KESHAV TWICE DAILY NEEDED FOR PAIN Oral Pending Test Test Name Order Date XR ankle RT 2V 01/14/2025 XR foot RT 2V 01/14/2025 Next Appt Details Follow Up: 4 Weeks, Reason: OV, Flush Provider Name:Melvin Gonsalves , 04/01/2025 01:30:00 PM, [address] [place] [address] [address] [address], [place], [address], Progress Notes * Baljeet HAYNESOB:[birth year] (59 yo M)Acc No.[id number]:01/14/2025 Patient: Gregory HERNÁNDEZ Provider: Jewell Gonsalves MD :1965 A ge:59 Y S ex:Male Date:01/14/2025 Address:[address] [place], [place] [address]E, [id number] Subjective: * Chief Complaints: * P ort FlushAdvanced rectal cancerCopdDepressioinbphHypertension * HPI: v : He returns to the office for a scheduled visit to flush his port and for medical management. 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 Once again we discussed the issue of whether or not he wants treatment. At this time as in recent months he desires no treatment. He does not want any antineoplastic therapy at this time. I have discussed with him all of the various oral as well as intravenous chemotherapy treatments as well as seek immunotherapy. He is well aware of the consequences of his decision. His port was flushed today and it functioned very well. He seems medically stable and will be seen every 4 weeks for the above purposes. * ROS: G eneral/Constitutional: pain o nly normal aches and pains. C hills d enies.?Fatigue a dmits. F ever d enies. E NT: Decreased hearing d enies. R espiratory: Cough n on-productive. C ardiovascular: Chest pain with exertion d enies. D yspnea on exertion?with prolonged activity. S hortness of breath w ith [...] enies. S ciatica d enies. W eakness t hat is generalized. S kin: Itching d enies. R jose j d enies. S kin lesion(s)?denies. N eurologic: Difficulty speaking d enies. D izziness d enies.?Headache d enies. L ow back pain d enies. P sychiatric: Depressed mood d enies. * Medical History: * Surgical History: a ppendectomy Knee surgery 2000dental extractions 2010colonoscopy revealing adenocarcinoma the rectum 2015Exploratory laparotomy [id number] Laparotomy, Lysis of adhesions with ileostomy takedown in conjuction with small bowel resection and primary anastomosis [id number] femoral arterial bypass surgery for peripheral arterial disease [facility] 2017resection of anastamotic recurrence 07/2019Hernia removed ppendix surgery Hernia surgery Skin cancer surgery No history * Hospitalization/Major Diagno stic Procedure: o bservation overnight once for infection 2014femorol femoral bypass graft, [facility], Dr. Franco 03/2018resection anastomotic rectal cancer recurrence [facility], Dr. Lackey 07/2019No history * Family History: [...] and in school. 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 He has had no steady job for 20 years due to aches and pains in back and shoulders. He was born in [place]. The patient reported not smoking. He also mentioned drinking six cups of water a day due to dry mouth. * Medications: T akingamLODIPine Besylate 5 MG Tablet TAKE 1 TABLET BY MOUTH DAILY Tamsulosin HCl 0.4 MG Capsule 1 capsule Orally Once a day Ranitidine HCl 150 MG Tablet 1 tablet at bedtime Orally Once a day traMADol HCl 50 MG Tablet TAKE 1 TABLET BY MOUTH TWICE DAILY NEEDED FOR PAIN Oral Cyclobenzaprine HCl 10 MG Tablet 1 tablet Orally Three times a day Omeprazole 20 MG Capsule Delayed Release 1 capsule Orally Once a day Albuterol Sulfate HFA 108 (90 Base) MCG/ACT Aerosol Solution 1 puff as needed Inhalation every 4 hrs As neededMedication List reviewed and reconciled with the patientTaking amLODIPine Besylate 5 MG Tablet TAKE 1 TABLET BY MOUTH DAILY Taking Tamsulosin HCl 0.4 MG Capsule 1 capsule Orally Once a day Taking Ranitidine HCl 150 MG Tablet 1 tablet at bedtime Orally Once a day Taking traMADol HCl 50 MG Tablet TAKE 1 TABLET BY MOUTH TWICE DAILY NEEDED FOR PAIN Oral Taking Cyclobenzaprine HCl 10 MG Tablet 1 tablet Orally Three times a day Taking Omeprazole 20 MG Capsule Delayed Release 1 capsule Orally Once a day Taking Albuterol Sulfate HFA 108 (90 Base) MCG/ACT Aerosol Solution 1 puff as needed Inhalation every 4 hrs As neededMedication List reviewed and reconciled with the patient * Allergies: B actrimno[Allergies Verified] Objective: * Vitals: H t: 67, Wt: 182, BMI:28.5, BP: 135/79, HR: 85, Temp: 98.0, Wt-k.55. * Examination: G eneral Examination: GENERAL APPEARANCE: [...] normal, no s3, or vascular bruits. LUNGS: : diminished breath sounds throughout: rhonchi on the LEFT. BREASTS: no masses palpable bilaterally. ABDOMEN: b owel sounds normal, no ascites, no organomegaly, no mass: overweight. RECTAL EXAM: n ot examined. MUSCULOSKELETAL: e xtremities unremarkable, no clubbing, cyanosis or edema. PERIPHERAL PULSES: n ormal. NEUROLOGIC: a lert and oriented, cranial nerves 2-12 grossly intact, deep tendon reflexes 2+ symmetrical, motor strength normal upper and lower extremities, sensory exam intact. PSYCH: a lert, oriented: anxious appearing. ? Assessment: * Assessment: 1. R ectal cancer - C20 (Primary) N otes :He continues to desire no treatment. He also does not wish to be in the hospice program. There was no sign of the disease on the physical examination except for the excision scars in the abdomen. He will be seen at short intervals for follow-up. He denies any significant pain or discomfort at this time. 2 . R ight ankle pain - M25.571 N otes :He twisted his ankle recently has some right ankle pain. On examiination foot seems to be intact. I offered to order an ankle x-ray but he declined saying he would ask for 1 in the near future if improvement does not occur. 3 . E dentulous - K00.0 N otes :He says his dentures fit he is able to chew without difficulty. 4 . A nxiety - F41.9 N otes :He was occasionally anxious today with his voice raised. 5 . B enign prostatic hyperplasia without lower urinary tract symptoms - N40.0? Notes :He admits to rising from sleep once or twice a night to urinate. We have discussed lifestyle modifications achromatic to reduce nocturia. 6 . P ort-a-cath in place - Z95.828 N otes :His port was flushed daily with 10 cc of saline and 10 cc a 1-100 heparin solution. It functioned well. Plan: * Treatment: 2. R ight ankle pain I maging: XR ankle RT 2V I maging: XR foot RT 2V * Procedures: T he skin over the port was cleaned with Betadine and alcohol. Sterile technique was used. A Daily needle was used to access the port. It was flushed with saline and then with heparin solution. The needle was then withdrawn. No complcations occurred. A good blood return was obtained. * Procedure Codes: 9 6522 REFILL/MAINT PUMP/RESVR [id number] INJECTION HEPARIN SODIUM 10 [id number] SALINE SOLUTION * Preventive Medicine: Counseling: C [...] done: Medical or Other reason not done COPD Care Plan: P atient Lifestyle Goals B e able to be more active with friends and family, Reduce number of ED and hospitalizations, Relieve symptoms and improve quality of life. T reatment Goals E at a nutritious diet and increase water consumption to 6-8 glasses a day. B arriers n o barriers. S elf-Managment Goals E at a healthy diet. * Follow Up: 4 Weeks (Reason: OV, Flush) * Images: * Sign off status: Completed true * Provider: Jewell Gonsalves MD Date: 0 01/14/2025 Generated for Bindu fam/Tesfaye/eTransmitting on: 1 05/28/2024 06:59 PM EST History and Physical Notes * Examination Category [...] normal, no s3, or vascular bruits LUNGS: : diminished breath sounds throughout: rhonchi on the LEFT ABDOMEN: bowel sounds normal, no ascites, no organomegaly, no mass: overweight NEUROLOGIC: alert and oriented, cranial nerves [...] RECTAL EXAM: not examined PSYCH: alert, oriented: anx ious appearing ORAL CAVITY: normal, unremarkable
--- OUTSIDE RECORDS SUMMARY | 2025-02-25 06:00 | XMS_ITS ---
Author Organization Melvin Gonsalves III, MD Address [address] [place] [address] [address] [place] [address] Care Team Providers Care Soldering Inspector Name Role Phone Dr. Melvin Gonsalves III Primary Care Provider [phone] Allergies Allergen (clinical drug ingredient) Drug/Non Drug Allergy documented on EMR Reaction Allergy Type Onset Date Status sulfamethoxazole / trimethoprim Bactrim Unknown Drug Allergy Active REASON FOR VISIT Port Flush, Metastatic rectal cancer, Left shoulder pain, History of depression, Benign prostatic hypertrophy, Peripheral arterial Medications Medication SIG (Take, Route, Frequency, Duration) Notes Start Date End Date Status traMADol HCl 50 MG TAKE 1 TABLET BY TWICE DAILY NEEDED FOR PAIN Oral Active Cyclobenzaprine HCl 10 MG 1 tablet Orall y Three times a day Active Omeprazole 20 MG 1 capsule Orally Onc e a day 04/30/2024 Active amLODIPine Besylate 5 MG TAKE 1 TABLET B Y MOUTH DAILY Active Albuterol Sulfate HFA 108 (9 0 Base) MCG/ACT 1 puff as needed Inhalation every 4 hrs As needed Active Ranitidine HCl 150 MG 1 tablet [...] Problem Status W/U Status Risk Notes Problem [id number] Right shoulder pain (719.41) Active confirmed The pain is improving in physical therapy will continue. Problem [id number] Acute pain of left shoulder (M25.512) Active confirmed There is no pain to range of motion but there is pain to elevation and carrying heavy weight and range of motion of the neck. The discomfort radiates down his arm into his left fourth and fifth fingers imaging was ordered. Vital Signs Temperature 98.1 degrees Fahrenheit 02/26/20 25 Blood pressure systolic 141 mm Hg 02/26/20 25 Blood pressure diastolic 76 mm Hg 025 Heart Rate 91 /min 02/25/2025 Height 67 in 02/25/2025 Weight 183 lbs 02/25/2025 BMI 28.66 kg/m2 02/25/2025 Encounters Encounter Location Date Provider Diagnosis Melvin Gonsalves III, MD [address] [place] [address] [place] [address] 02/25/2025 Melvin Gonsalves Former smoker Z87.89 1 ; Overweight (BMI 25.0-29.9) E66.3 ; Rectal cancer C20 ; Acute pain of left shoulder M25.512 ; Chronic obstructive pulmonary disease, unspecified J44.9 ; Anxiety F41.9 ; Other depression F32.89 ; Peripheral arterial disease I73.9 ; Right inguinal hernia K40.90 ; Benign prostatic hyperplasia without lower urinary tract symptoms N40.0 and Port-a-cath in place Z95.828 Assessments Encounter Date Diagnosis (ICD Code) Assessment Notes Treatment Notes Treatment Clinical Notes 02/25/2025 Former smoker (ICD-10 - Z87.891) He has stopped smoking within the last month. We have discussed strategies for maintaining abstinence. He has a plan to prevent relapse in times of pain illness or stress. 02/25/2025 Overweight (BMI 25.0-29.9) (ICD-10 - E66.3) His body mass index is 29. He has gained 1 pound since his last visit and is overweight. His appetite is good 02/25/2025 Rectal cancer (ICD-10 - C20) He continues to desire no treatment. He also does not wish to be in the hospice program. There was no sign of the disease on the physical examination except for the excision scars in the abdomen. He will be seen at short intervals for follow-up. He denies any significant pain or discomfort at this time. 02/25/2025 Acute pain of left shoulder (ICD-10 - M25.512) There is no pain to range of motion but there is pain to elevation and carrying heavy weight and range of motion of the neck. The discomfort radiates down his arm into his left fourth and fifth fingers imaging was ordered. 02/25/2025 Chronic obstructive pulmonary disease, unspecified (ICD-10 - J44.9) He is breathing room air comfortably. He is not smoking. Short of breath with prolonged exertion. 02/25/2025 Anxiety (ICD-10 - F41.9) He was calm and relaxed today and cooperative. 02/25/2025 Other depression (ICD-10 - F32.89) He will continue with his therapist and the current regimen. 02/25/2025 Peripheral arterial disease (ICD-10 - I73.9) His feet are pink and warm. He has no claudication and is doing quite well. His regimen was not altered. He was encouraged to walk and exercise. 02/25/2025 Right inguinal hernia (ICD-10 - K40.90) This is a new finding in the last month. He was referred to surgery to discuss what is involved in repairing it. 02/25/2025 Benign prostatic hyperplasia without lower urinary tract symptoms (ICD-10 - N40.0) He admits to rising from sleep once or twice a night to urinate. We have discussed lifestyle modifications achromatic to reduce nocturia. 02/25/2025 Port-a-cath in place (ICD-10 - Z95.828) His port was flushed daily with 10 cc of saline and 10 cc a 1-100 heparin solution. It functioned well. Plan Of Treatment Medication Medication Name Sig Start Date Stop Date Notes traMADol HCl 50 MG TAKE 1 TABLET BY TWICE DAILY NEEDED FOR PAIN Oral Cyclobenzaprine HCl 10 MG 1 tablet Orall y Three times a day Omeprazole 20 MG 1 capsule Orally Onc e a day 04/30/2024 amLODIPine Besylate 5 MG TAKE 1 TABLET B Y MOUTH DAILY Albuterol Sulfate HFA 108 (9 0 Base) MCG/ACT 1 puff as needed Inhalation every 4 hrs Ranitidine HCl 150 MG 1 tablet at bedtim e Orally Once a day Tamsulosin HCl 0.4 MG 1 capsule Orally O nce a day Pending Test Test Name Order Date PROFILE, RANDOM (COMPREHENSIVE METABOLIC ) 02/25/2025 CEA 02/25/2025 CBC w DIFF 02/25/2025 XR CHEST 2 VIEW PA & LAT 02/25/2025 XR NECK SOFT TISSUE LATERAL 02/25/2025 Next Appt Details Follow Up: As Scheduled, Delores son: Annual Exam, Port Flush Provider Name:Melvin Baltazar Gonsalves , 04/01/2025 01:30:00 PM, [address] [place] [address], [address], Procedure Notes * Category Sub-Category Detail Notes Chemotherapy Site: portacath Consent: verbal consent was o btained prior to procedure port flush flushed with 10cc of saline and 1:100 heparin solution route IV Progress Notes * Baljeet HAYNESOB:[birth year] (59 yo M)Acc No.[id number]:02/25/2025 Patient: Gregory HERNÁNDEZ Provider: Jewell Gonsalves MD :1965 A ge:59 Y S ex:Male Date:02/25/2025 Address:[address] [place] [id number] Subjective: * Chief Complaints: * P ort FlushMetastatic rectal cancerLeft shoulder painHistory of depressionBenign prostatic hypertrophyPeripheral arterial * HPI: C OVID-19 Screening: Lamont baltazar returns once a month to monitor the progression of his rectal cancer in the quality of his life. His port was flushed today to maintain his operability. It functioned well. He continues to state definitively that he does not want any treatment for his rectal cancer at this time. This includes chemotherapy immunotherapy or radiation therapy. His was present during this interview she acknowledges his decision. He says he is beginning to feel tired and he knows he is sick. He has no difficulty breathing. He denies any pain other than a new ache in the left shoulder. He experiences nocturia once a night. He has had no constipation. When he has to shoulder pain he also has numbness in the left fourth and fifth fingers of his left hand. His muscle strength is intact. His reflexes were intact. Imaging was ordered. Questions H ave you had any new onset fever, chills, cough, congestion, sore throat, shortness of breath, muscle aches? N o * ROS: G eneral/Constitutional: pain L eft shoulder that radiates into the left fourth and fifth fingers. C hills d enies. F atigue a dmits. F ever d enies. E NT: Decreased hearing m ild. R espiratory: Cough d enies. C ardiovascular: [...] d enies. W eakness t hat is mild. S kin: Itching d enies. R jose j d enies. S kin lesion(s)?denies. N eurologic: Difficulty speaking d enies. D izziness d enies.?Headache d enies. L ow back pain d enies. P sychiatric: Depressed mood w hich is moderate. * Medical History: * Surgical History: a ppendectomy Knee surgery 2000dental extractions 2011colonoscopy revealing adenocarcinoma the rectum 2015Exploratory laparotomy [id number] Laparotomy, Lysis of adhesions with ileostomy takedown in conjuction with small bowel resection and primary anastomosis [id number] femoral arterial bypass surgery for peripheral arterial disease [facility] [place] 2018resection of anastamotic recurrence 07/2019Hernia removed ppendix surgery Hernia surgery Skin cancer surgery No history * Hospitalization/Major Diagno stic Procedure: o bservation overnight once for infection 2014femorol femoral bypass graft, [facility] [place], Dr. Franco 03/2018resection anastomotic rectal cancer recurrence [facility], Dr. Lackey 07/2019No history * Family History: [...] since age 11. He has been to [place] for 25 years. They have one son, 15, who is healthy and in school. 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 He has had no steady job for 20 years due to aches and pains in back and shoulders. He was born in [place]. The patient reported not smoking. He also mentioned drinking six cups of water a day due to dry mouth. * Medications: T akingAlbuterol Sulfate HFA 108 (90 Base) MCG/ACT Aerosol Solution 1 puff as needed Inhalation every 4 hrs As neededamLODIPine Besylate 5 MG Tablet TAKE 1 TABLET [...] List reviewed and reconciled with the patientTaking Albuterol Sulfate HFA 108 (90 Base) MCG/ACT Aerosol Solution 1 puff as needed Inhalation every 4 hrs As neededTaking amLODIPine Besylate 5 MG Tablet TAKE 1 [...] H t: 67, Wt: 183, BMI:28.66, BP: 141/76, HR: 91, Temp: 98.1, Wt-k.01. * P ast Orders: I maging:XR foot RT min 3V (Order Date - 01/14/2025) (Performed Date - 01/14/2025) I maging:XR ankle RT min 3V (Order Date - 01/14/2025) (Performed Date - 01/14/2025) * Examination: G eneral Examination: GENERAL APPEARANCE: [...] suspicious lesions, anicteric, Intact Port-A-Cath right upper chest. HEART: n o clicks, gallops, murmurs, or rubs, regular rhythm, S1, S2 normal, no s3, or vascular bruits. LUNGS: c lear to auscultation, Mild pain to compression of left upper chest wall. BREASTS: no masses palpable bilaterally. ABDOMEN: b owel sounds normal, no ascites, no organomegaly, no mass, Nontender. RECTAL EXAM: n ot examined. MUSCULOSKELETAL: e xtremities unremarkable, no clubbing, cyanosis or edema. PERIPHERAL PULSES: n ormal. NEUROLOGIC: a lert and oriented, cranial nerves 2-12 grossly intact, deep tendon reflexes 2+ symmetrical, motor strength normal upper and lower extremities, sensory exam intact. PSYCH: a lert, oriented: anxious appearing: mood depressed.? Assessment: * Assessment: 1. R [...] or discomfort at this time. 2 . F ormer smoker - Z87.891 N otes :He has stopped smoking within the last month. We have discussed strategies for maintaining abstinence. He has a plan to prevent relapse in times of pain illness or stress. 3 . O verweight (BMI 25.0-29.9) - E66.3 N otes :His body mass index is 29. He has gained 1 pound since his last visit and is overweight. His appetite is good 4 . A cute pain of left shoulder - M25.512 N otes :There is no pain to range of motion but there is pain to elevation and carrying heavy weight and range of motion of the neck. The discomfort radiates down his arm into his left fourth and fifth fingers imaging was ordered. 5 . C hronic obstructive pulmonary disease, unspecified - J44.9 ?Notes :He is breathing room air comfortably. He is not smoking. Short of breath with prolonged exertion. 6 . A nxiety - F41.9 N otes :He was calm and relaxed today and cooperative. 7 . O ther depression - F32.89 N otes :He will continue with his therapist and the current regimen. 8 . P eripheral arterial disease - I73.9 N otes :His feet are pink and warm. He has no claudication and is doing quite well. His regimen was not altered. He was encouraged to walk and exercise. 9 . R ight inguinal hernia - K40.90 N otes :This is a new finding in the last month. He was referred to surgery to discuss what is involved in repairing it. 1 0. B enign prostatic hyperplasia without lower urinary tract symptoms - N40.0 N otes :He admits to rising from sleep once or twice a night to urinate. We have discussed lifestyle modifications achromatic to reduce nocturia. 1 1. P ort-a-cath in place - Z95.828 N otes :His port was flushed daily with 10 cc of saline and 10 cc a 1-100 heparin solution. It functioned well. Plan: * Treatment: * Procedures: C hemotherapy: Site: p ortacath. Consent: v erbal consent was obtained prior to procedure.? port flush f lushed with 10cc of saline and 1:100 heparin solution. route I V. * Imaging: * I maging: XR CHEST 2 VIEW PA & LAT I maging: XR NECK SOFT TISSUE LATERAL * Labs: * L ab: PROFILE, RANDOM (COMPREHENSIVE METABOLIC) L ab: CEA L ab: CBC w DIFF * Procedure Codes: 9 6522 REFILL/MAINT PUMP/RESVR [id number] INJECTION HEPARIN SODIUM 10 [id number] SALINE SOLUTION * Preventive Medicine: Counseling: C [...] of tobacco use and urged to quit. 1 04/27/2024 COPD Care Plan: P atient Lifestyle Goals R educe number of ED and hospitalizations, Relieve symptoms and improve quality of life, Be able to be more active with friends and family. T reatment Goals E at a nutritious diet and increase water consumption to 6-8 glasses a day, Exercise to help whole body, including lungs. B arriers n o barriers. S elf-Managment Goals G et an air purifier for the rooms you are in the most, Eat a healthy diet, Exercise at least 3xs per week for at least 30 mins.? * Follow Up: A s Scheduled (Reason: Annual Exam, Port Flush) * Images: * Sign off status: Completed true * Provider: Jewell Gonsalves MD Date: 04/27/2024 Generated for Printi ng/Faxing/eTransmitting on: 05/28/2024 06:59 PM EST History and Physical [...] or vascular bruits LUNGS: clear to auscultatio n, Mild pain to compression of left upper chest wall ABDOMEN: bowel sounds normal, no ascites, no organomegaly, no mass, Nontender NEUROLOGIC: alert and oriented, cranial nerves 2-12 grossly intact, deep tendon reflexes 2+ symmetrical, motor strength normal upper and lower extremities, sensory exam intact SKIN: no suspicious lesion s, anicteric, Intact Port-A-Cath right upper chest PERIPHERAL PULSES: normal BREASTS: no masses palpable b ilaterally MUSCULOSKELETAL: extremities unremark able, no clubbing, cyanosis or edema LYMPH NODES: no enlarged lymph no evaristo,spleen normal RECTAL EXAM: not examined PSYCH: alert, oriented: anx ious appearing: mood depressed ORAL CAVITY: normal, unremarkable
--- OUTSIDE RECORDS SUMMARY | 2025-03-21 05:02 | XMS_ITS ---
Author Organization Melvin Gonsalves III, MD Address [address] [place] [address] [place] [address] Care Team Providers Care Job Putter Up And Ticket Preparer Name Role Phone Dr. Melvin Gonsalves III Primary Care Provider REASON FOR VISIT Rx Request Medications Medication SIG (Take, Route, Frequency, Duration) Notes Start Date End Date Status Cyclobenzaprine HCl 10 MG 1 tablet Orall y Three times a day Active Omeprazole 20 MG 1 capsule Orally Onc e a day 04/30/2024 Active Ranitidine HCl 150 MG 1 tablet at bedtim e Orally Once a day Active Albuterol Sulfate HFA 108 (9 0 Base) MCG/ACT 1 puff as needed Inhalation every 4 hrs As needed Active amLODIPine Besylate 5 MG TAKE 1 TABLET B Y MOUTH DAILY Active Tamsulosin HCl 0.4 MG 1 capsule Orally O nce a day Active Social History Sex Assigned At : Social History Observation Description Sex Assigned At Male Encounters Encounter Location Date Provider Diagnosis Melvin Gonsalves III, MD [address] [place] [address] [place] [address] 03/21/2025 Melvin Gonsalves Plan Of Treatment Next Appt Details Provider Name:Melvin Gonsalves , 04/01/2025 01:30:00 PM, [address] [place] [address] [address], [place], [address], Progress Notes * Baljeet HAYNESOB:[birth year] (59 yo M)Acc No.[id number]:03/21/2025 Patient: Gregory HERNÁNDEZ :1965 A ge:59 Y S ex:Male Address:[address] [place] [address], [address] Subjective: * Chief Complaints: * R x Request * Medical History: * Surgical History: * Hospitalization/Major Diagno stic Procedure: * Medications: T akingAlbuterol Sulfate HFA 108 (90 Base) MCG/ACT Aerosol Solution 1 puff as needed Inhalation every 4 hrs As neededamLODIPine Besylate 5 MG Tablet TAKE 1 TABLET BY MOUTH DAILY Tamsulosin HCl 0.4 MG Capsule 1 capsule Orally Once a day Ranitidine HCl 150 MG Tablet 1 tablet at bedtime Orally Once a day Cyclobenzaprine HCl 10 [...] at bedtime Orally Once a day Taking Cyclobenzaprine HCl 10 MG Tablet 1 tablet Orally Three times a day Taking Omeprazole 20 MG Capsule Delayed Release 1 capsule Orally Once a day DiscontinuedtraMADol HCl 50 MG Tablet TAKE 1 TABLET BY MOUTH TWICE DAILY NEEDED FOR PAIN Oral Discontinued traMADol HCl 50 MG Tablet TAKE 1 TABLET BY MOUTH TWICE DAILY NEEDED FOR PAIN Oral Objective: * Vitals: * Physical Examination: Assessment: Plan: * Treatment: * Procedure Codes: * true * Date: Generated for Bindu fam/Tesfaye/Luanne on: 05/28/2024 06:59 PM EST
--- OUTSIDE RECORDS SUMMARY | 2025-03-21 08:09 | XMS_ITS ---
Author Organization Melvin Gonsalves III, MD Address [address] [place] [address] [place] [address] Care Team Providers Care Overlock Sleeve Setter Name Role Phone Dr. Melvin Gonsalves III Primary Care Provider Medications Medication SIG (Take, Route, Fr equency, Duration) Notes Start Date End Date Status traMADol HCl 100 MG 1 tablet if needed O rally every 8 hrs for 14 days 03/21/2025 05/02/2025 Active Social History Sex Assigned At : Social History Observation Description Sex Assigned At Male Encounters Encounter Location Date Provider Diagnosis Melvin Gonsalves III, MD [address] [place] [address] [place] [address] 03/21/2025 Melvin Gonsalves Plan Of Treatment Medication Medication Name Sig Start Date Stop Date Notes traMADol HCl 100 MG 1 tablet if needed O rally every 8 hrs for 14 days 03/21/2025 05/02/2025 Next Appt Details Provider Name:Melvin Gonsalves , 04/01/2025 01:30:00 PM, [address] [place] [address] [place], [address], Progress Notes * Reggie HAYNES:[birth year] (59 yo M)Acc No.[id number]:03/21/2025 Patient: Gregory HERNÁNDEZ :1965 A ge:59 Y S ex:Male Address:[address] [place] [address], [address] * Refills Start traMADol HCl Tablet, 100 MG, Orally, 42 Tablet, 1 tablet if needed, every 8 hrs, 14 days, Refills=2 * true * Date: Generated for Bindu fam/Tesfaye/eTeransmitting on: 05/28/2024 06:58 PM EST
--- OUTSIDE RECORDS SUMMARY | 2025-03-21 08:44 | XMS_ITS ---
Author Organization Melvin Gonsalves III, MD Address [address] [place] [address] [place] [address] Care Team Providers Care Wood Club Neck Whipper Name Role Phone Dr. Melvin Gonsalves III Primary Care Provider [phone] Medications Medication SIG (Take, Route, Fr equency, Duration) Notes Start Date End Date Status traMADol HCl 50 MG 1 tablet if needed O rally every 8 hrs for 14 days 03/21/2025 05/16/2025 Active Social History Sex Assigned At : Social History Observation Description Sex Assigned At Male Encounters Encounter Location Date Provider Diagnosis Melvin Gonsalves III, MD [address] [place] [address] [place] [address] 03/21/2025 Melvin Gonsalves Plan Of Treatment Medication Medication Name Sig Start Date Stop Date Notes traMADol HCl 50 MG 1 tablet if needed O rally every 8 hrs for 14 days 03/21/2025 05/16/2025 Next Appt Details Provider Name:Melvin Gonsalves , 04/01/2025 01:30:00 PM, [address] [place] [address] [place], [address], Progress Notes * Reggie HAYNES:[birth year] (59 yo M)Acc No.[id number]:03/21/2025 Patient: Gregory HERNÁNDEZ :1965 A ge:59 Y S ex:Male Address:[address] [place] [address], [address] * Refills Start traMADol HCl Tablet, 50 MG, Orally, 42 Tablet, 1 tablet if needed, every 8 hrs, 14 days, Refills=3 * true * Date: Generated for Bindu fam/Tesfaye/Sheasmitting on: 05/28/2024 06:58 PM EST
--- NOTE | 2025-03-27 | ECG_ITS ---
Test Reason : DIZZINESS Blood Pressure : */* mmHG Vent. Rate : 99 BPM Atrial Rate : 99 BPM P-R Int : 126 ms QRS Dur : 98 ms QT Int : 364 ms P-R-T Axes : 68 0 79 degrees QTcB Int : 467 ms Normal sinus rhythm Septal infarct , age undetermined Possible Lateral infarct , age undetermined Abnormal ECG When compared with ECG of 13-Jan-2023 06:25, Premature ventricular complexes are no longer Present Septal infarct is now Present Referred By: Generic ED Physician Electronically Signed By: GARRY HARRELL MD
--- NOTE | ~2025-03-27 | CT_ITS ---
CLINICAL HISTORY: Ca hx; left axillary mass; neck pain CT chest with contrast Comparison: CT/DC/SR - CT CHEST WITH IV CONTRAST - 03/17/24 14:07 EST Findings: Normal heart,size. No significant pericardial effusion. Coronary artery calcifications are present. No thoracic aorta aneurysm. Right-sided chest port in place. There is interval increase in the size of a left lower lobe mass, measuring up to 7.5 x 5.6 cm in maximum axial dimensions. There is also interval enlargement of a 4.6 x 4.1 cm left lower lobe mass. Interval development of multiple bilateral pulmonary nodules, largest at the bilateral lower lobes. Minimal linear subsegmental atelectasis versus scarring present at the mid to lower left lung. No pneumothorax or pleural effusion. Indeterminate subcentimeter low-attenuation structure identified within the spleen on axial image number 65 of series 9. There are lytic changes of the C7 vertebra. Stable, chronic compression deformity involving the T11 vertebral body. There are sclerotic changes at the sternal body with a small amount of increased retrosternal attenuation. Impression: 1. Interval enlargement of left lower lobe masses with interval development of multiple bilateral pulmonary nodules, largest at the bilateral lower lobes, consistent with interval worsening of malignancy/metastatic disease. 2. Lytic changes present at the C7 vertebral body, suggesting sequela of malignancy/metastatic disease. Please see the soft tissue neck CT report for a complete description of the C7 findings. 3. Sclerotic changes present at the sternal body with a small area of increased attenuation in the retrosternal region, which may also be related to malignancy/metastatic disease. This document has been electronically signed by: Logan Tang MD on 03/28/2025 02:45:21
--- NOTE | ~2025-03-27 | CT_ITS ---
CLINICAL HISTORY: Neck Pain; Hx Cancer; ? Bony Mets CT soft tissue neck with contrast Comparison: CT/ME/SR - CT CHEST WITH IV CONTRAST - 03/17/24 14:07 EST Findings: The visualized paranasal sinuses and bilateral mastoid air cells appear clear. The epiglottis is within normal limits for appearance. No prevertebral fluid. The nasopharynx and oropharynx appear patent. Calcifications are present at the bilateral palatine tonsils. Salivary glands are within normal limits. No suspicious thyroid nodules. No focal consolidation or effusion identified within the visualized portions of the bilateral lung apices. Partial visualization of a right-sided chest port. Lytic changes of the C7 vertebra are present with increased paraspinal attenuation present in this region, suggesting the presence of tumor. There are areas of cortical disruption most prominent on the left with probable extension of tumor into the central canal and left transverse foramen at C7. IMPRESSION: 1. Lytic changes present at the C7 vertebral body with increased paraspinal soft tissue attenuation at this site, suggesting the presence of malignancy/metastatic disease. There are areas of cortical disruption at C7, most prominent on the left with probable extension of tumor into the spinal canal and left C7 transverse foramen. There are areas of disruption of the bilateral C7 lamina and left C7 pedicle. There also appears to be some disruption of the posterior C7 vertebral body cortex. This document has been electronically signed by: Logan Tang MD on 03/28/2025 02:35:45
[2025-03-27 18:33] VITALS: BP 180/100; PULSE 112; O2SAT 97
[2025-03-27 18:40] VITALS: BP 169/87; PULSE 105; RESP 18; TEMP 36.6; O2SAT 96; BMI 29.9
--- OUTSIDE RECORDS SUMMARY | 2025-03-27 18:58 | XMS_ITS | Encounter Summary ---
Author Organization [facility] Address [address] [place] [address] Phone Care Team Providers Care Process Design Chemical Engineer Name Role Phone Melvin Gonsalves MD Primary Care Provider [phone] Encounter Details Date Type Department Care Team (Late st Contact Info) Description 05/03/2019 Procedure Pass MRI, [facility] - [address], [address] [place] [address] Social History Tobacco Use Types [...] on filedocumented in this encounter Care Teams Process Design Chemical Engineer Relationship Specialty Start Date End Date Melvin Gonsalves MD [address] [place] [address] [place] [address] PCP - General Medical Oncology 05/03/19 documented as of this encounter Additional Source Comments The information contained in this document represents components of the legal health record. It is not the complete legal health record.[facility]
--- OUTSIDE RECORDS SUMMARY | 2025-03-27 18:58 | XMS_ITS | Clinical Summary ---
Author Organization [facility] it Address [address] [place] [address] Care Team Providers Care Classified Ad Taker Name Role Phone Melvin Gonsalves MD Primary Care Provider [phone] Social History Tobacco Use Types Packs/Day Years [...] Depression Screening 04/21/2024 COVID-19 Vaccine (1 - 2024-2 6 season) 2024 Influenza Vaccine (#1) 2024 RSV [...] age to complete this topic Care Teams Classified Ad Taker Relationship Specialty Start Date End Date Melvin Gonsalves MD PCP - General 01/23/16
--- OUTSIDE RECORDS SUMMARY | 2025-03-27 18:58 | XMS_ITS | Data Portability ---
Author Organization [facility] Pain Managem jose, PAIN OFFICE Address [address] [facility],[address] [address] Care Team Providers Care Mechanical Manager Name Role Phone ERIC ROOT Primary Care Provider Assessment Encounter Date Assessment Date Assessment LastModified by Organization Details LastModified Time 02/24/2015 02/24/2015 Gregory Land is a 49 year old man with [...] Not available 02/24/2015 11:09:58 03/09/2015 03/09/2015 Gregory Land is a 49 year old man with [...] Not available 03/10/2015 10:20:40 03/21/2015 03/21/2015 Gregory Land is a 49 year old man with [...] Not available 03/21/2015 11:43:08 02/20/2017 02/20/2017 Gregory Land is a 51 year old man with [...] Not available 03/10/2017 08:52:02 03/10/2017 03/10/2017 Gregory Land is a 51 year old man with [...] By Organization Details Last Modified Time 02/24/2015 92225 He was advised against bed rest lasting longer than four days and to continue activities as tolerated. Benefits of smoking cessation were discussed with him. [email or web address] Not available 02/24/2015 11:10:15 03/09/2015 57424 He was advised against bed rest lasting longer than four days and to continue activities as tolerated. Benefits of smoking cessation were discussed with him. [email or web address] Not available 03/10/2015 10:18:37 03/21/2015 33131 He was advised against bed rest lasting longer than four days and to continue activities as tolerated. Benefits of smoking cessation were discussed with him. [email or web address] Not available 03/21/2015 11:41:56 02/20/2017 43146 He was advised against bed rest lasting longer than four days and to continue activities as tolerated. Benefits of smoking cessation were discussed with him. tmanikantan Not available 03/10/2017 08:44:51 03/10/2017 [id number] He was advised against bed rest lasting longer than four days and to continue activities as tolerated. Benefits of smoking cessation were discussed with him. [email or web address] Not available 03/10/2017 14:01:44 Reason for Referral None Reported. 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 Procedures Surgical History Date Name Laterality Status Provider Name and Address Organization Details Recorded Time 02/21/20 17 Trigger Point Injections under ultrasound guidance completed Gigi Bagley MD [address] [facility] , [address], [place], [address], [place] [facility] 03/10/2017 08:49:29 03/21/20 15 Trigger Point Injections under ultrasound guidance completed Gigi Bagley MD [address] [facility] , [address], [place], [address], [place] [facility] 03/21/2015 11:44:35 03/09/20 15 Trigger Point Injections under ultrasound guidance completed Gigi Bagley MD [address] [facility] , [address], [place], [address], [place] [facility] 03/10/2015 [...] Name and Address Organization Details Recorded Time 40630 Bactrim medicatio n Not available Not available Not available 02/24/2015 42711 9 RxNorm Cate pugh [place] - [place] [...] Vitals Date Recorded Heart rate Oxygen saturation Systolic And Diastolic Provider Name and Address Organization Details Last Updated DateTime 02/20/2017 71 /min 98 % 124/77 mm[Hg] Cate Janezier [place] - [facility] 02/20/2017 13:15:49 Date Recorded Body weight Oxygen saturation Body height Body mass index (BMI) Heart rate Systolic And Diastolic Provider Name and Address Organization Details Last Updated DateTime 5 50558.5 1816 g 97 % 162.56 cm 28.8 kg/m2 66 /min 152/77 mm[Hg] Cate Cespedeser [place] - [facility] 5 09:51:25 Date Recorded Oxygen saturation Heart rate Systolic And Diastolic Provider Name and Address Organization Details Last Updated DateTime 03/09/2015 98 % 76 /min 138/88 mm[Hg] Cate Janezier NIKI - [facility] 03/09/2015 15:06:35 Date Recorded Heart rate Oxygen saturation Body weight Body mass index (BMI) Body height Systolic And Diastolic Provider Name and Address Organization Details Last Updated DateTime 7 68 /min 98 % 52207.7 8 g 27.5 kg/m2 162.56 cm 151/88 mm[Hg] Cate Krishnamurthy [place] [facility] 7 13:15:39 Date Recorded Oxygen saturation Heart rate Systolic And Diastolic Provider Name and Address Organization Details Last Updated DateTime 03/21/2015 98 % 68 /min 154/89 mm[Hg] Catesruthi Cespedeser [place] [facility] 03/21/2015 10:49:00 Social History Question Answer Notes LastModified by Organizat ion Details LastModified Time Tobacco Smoking Status Former Smoker Quit x 1 year Not Available [employer] 02/04/2020 03:16:12 Education 11 Information no t available 02/24/2015 Live Alone Or With Others? With Others And Son Information not available 02/24/2015 Marital Status Informatio n not available 02/24/2015 What Was The Date Of Your Most Recent Tobacco Screening? 03/10/2017 [id number] Information not available 02/04/2020 How Much Tobacco Do You Smoke? No [id number] Information not available 02/04/2020 How Many Years Have You Smoked Tobacco? 40 [id number] Information not available 02/04/2020 Sex: Unknown Functional Status Question Answer Note LastModified by Organization D etails LastModified Time What is your level of alcohol consumption? None [id number] Information not available 02/04/2020 Are you currently employed? No [id number] Information not available 02/04/2020 Mental Status None recorded. Family History Nothing Reported. Medical History Condition Response Cancer Y Arthritis Y GERD/Reflux Y Past Encounters Encounter ID Performer Location Encounter Start Date Encounter Closed Date Diagnosis/Indication Diagnosis SNOMED-CT Code Diagnosis ICD10 Code Diagnosis IMO Codes Diagnosis Note [id number] Gigi Bagley MD PAIN OFFICE [address] [place] [address] 02/24/2015 09:24:08 02/24/2015 11:10:39 Degeneration of cervical intervertebral disc 00021777 M50.32 Brachial radiculitis 278 78928 M54.12 Muscle pain 63679168 M79 .1 [id number] Gigi Bagley MD PAIN OFFICE [address] [place] [address] 03/09/2015 14:02:26 03/10/2015 10:21:56 Muscle pain 20842233 M79.1 Degenerati on of cervical intervertebral disc 07147049 M50.32 ck Brachial radiculitis 278 23718 M54.12 [id number] Gigi Bagley MD PAIN OFFICE [address] [place] [address] 03/21/2015 10:15:43 03/21/2015 11:45:30 Muscle pain 95974229 M79.1 Degenerati on of cervical intervertebral disc 89915727 M50.32 cka Brachial radiculitis 278 34766 M54.12 [id number] Gigi Bagley MD PAIN OFFICE [address] [place] [address] 02/20/2017 13:03:42 03/10/2017 08:53:14 Muscle pain 02118316 M79.1 Degenerati on of cervical intervertebral disc 76726166 M50.320 Brachial radiculitis 278 34635 M54.12 [id number] Gigi Bagley MD PAIN OFFICE [address] [place] [address] 03/10/2017 13:01:53 03/10/2017 14:15:08 Muscle pain 43022696 M79.1 Degenerati on of cervical intervertebral disc 74224094 M50.321 cka Brachial radiculitis 278 64705 M54.12 Health Concerns Section Related Observation LastModified by Organization Detai ls LastModified Time None Recorded Concern Status LastModified by Organization Details LastModified Time None Recorded Advance Directives Directive None Recorded Payers Insurance Date Sequence Insurance Name Policy Number Policy Starr Covered Member ID Starr Member ID Guarantor Name 02/16/2015 1 [facility] (HMO) Gregory Land [id number] Gregory Land 02/16/2015 1 [facility] - PREFERRED (MEDICARE SUPPLEMENT) Gregory Land [id number] Gregory Land 02/13/2015 1 [facility] (PPO) Gergory Land [id number] Gregory Land 02/16/2015 1 [facility] (O) Gregory Land [id number] Gregory Land 05/19/2017 1 [facility] Gregory Land [id number] Gregory Land 02/13/2015 1 [facility] Gregory Land [id number] Gregory Land 02/16/2015 1 [facility] Gregory Land [id number] Gregory Land Notes Date Note Type Note Provider Name and Address Organization Details Recorded Time 5 text/html Pain Management C-spineReported by PatientHPIFor quality, patient reportsthrobbing,tightne ss,burning,cramping, andtingling(he describes the pain as a sharp stabbing pain in his neck which radiates into his axilla and left upper arm and then the lateral aspect of his elft forearm and left index finger with numbness and tingling.). For severity, patient reportsworseningbut reportscurrent pain level 4/10andworst pain 8/10. For associated symptoms, patient reportsweaknessandnumbne ssbut reportsno bladder compromiseandno bowel compromise. For duration, patient reportsconstant. For onset/timing, patient reportsgradual onsetandchronic. For context, patient reportscannot identify. For alleviating factors, patient reportsnothing helps. For aggravating factors, patient reportsturning to the left. For radiation left, patient reportsc6-7. For work related, patient reportsno. For adl (activities of daily living), patient reportswalking,sweeping, andmopping. For prior imaging, patient reportsmri(mri cervical spine shows multilevel degenerative changes with neural foraminal narrowing , worse at c5-6 level on the left.). For prior emg, patient reportsnone. For previous surgery, patient reportsnone. For previous injections, patient reportsnone. For previous pt, patient reportshelped a little(he had physical therapy. he states initially physical therapy aggravated his pain and now he is able to tolerate pt better . application of heat and ultrasound treatments helped.). 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 For location, (gregory land is a 49 year old right handed man with complaints of neck pain radiating into his left upper extremity. he has long standing neck pain which has become greater over the past 10 years.). Gigi Bagley MD [address] [facility] , [address], [place], [address], [facility] Pain Management 03/01/2015 09:05:01 5 text/html Gregory Land is a 49 year old man with neck pain radiating into left upper back. He is here for a trial of trigger point injection in his left trapezius muscle under ultrasound guidance. Gigi Bagley MD [address] [facility] , [address], [place], [address], [facility] Pain Management 03/13/2015 09:20:16 5 text/html He is here for a follow [...] bowel incontinence. Gigi Bagley MD [address] [facility] , [address] [address], [place], [address], [facility] 03/21/2015 13:14:49 7 text/html He is here for a follow [...] bowel incontinence. Gigi Bagley MD [address] [facility] , [address] [address], [place], [address], [facility] 03/18/2017 08:46:17 7 text/html He is here for a follow [...] colon cancer. Gigi Bagley MD [address] [facility] , [address], [place], [address], [facility] 03/18/2017 11:25:46
--- OUTSIDE RECORDS SUMMARY | 2025-03-27 18:58 | XMS_ITS | Encounter Summary ---
Author Organization [facility] Address [address] [place] [address] Phone Care Team Providers Care Dispute Resolution Analyst Name Role Phone Melvin Gonsalves MD Primary Care Provider [phone]- [phone] Encounter Details Date Type Department Care Team (Late st Contact Info) Description 05/17/2019 Ancillary Orders [facility] [address] [place] [address] System, Provider Not In, [place] [address] Social History Tobacco Use Types Packs/Day Years [...] on filedocumented in this encounter Care Teams Dispute Resolution Analyst Relationship Specialty Start Date End Date Melvin Gonsalves MD [address] [place] [address] [place] [address] PCP - General Medical Oncology 05/03/19 documented as of this encounter Additional Source Comments The information contained in this document represents components of the legal health record. It is not the complete legal health record.[facility]
--- OUTSIDE RECORDS SUMMARY | 2025-03-27 18:58 | XMS_ITS | Encounter Summary ---
Author Organization [facility] Address [address] [place] [address] Phone Care Team Providers Care Material Requirements Worker Name Role Phone Melvin Gonsalves MD Primary Care Provider [phone]- [phone] Reason for Referral * MRI/CAT Scan - Closed Specialty Diagnoses / Procedures Referred By Yesenia seth Referred To Contact Radiology Diagnoses Rectal cancer Procedures MRI Pelvis (GI/) Randolph Murphy MD Phone: tel: fax: Referral ID Status Reason Start Date Expiration Date Visits Re quested Visits Authorized [id number] Closed 05/07/2019 08/05/2019 1 1 Encounter Details Date Type Department Care Team (Late st Contact Info) Description 05/03/2019 Ancillary Orders For Login Purposes Only [address] [facility] [address] [place] [address] Randolph Murphy MD [address] [place] [address] Dr MONTEJO [address] [place] [address] Rectal cancer Social History Tobacco Use Types [...] rectum documented in this encounter Care Teams Material Requirements Worker Relationship Specialty Start Date End Date Melvin Gonsalves MD [address] [place] [address] [place] [address] PCP - General Medical Oncology 05/03/19 documented as of this encounter Additional Source Comments The information contained in this document represents components of the legal health record. It is not the complete legal health record.[facility]
--- OUTSIDE RECORDS SUMMARY | 2025-03-27 18:58 | XMS_ITS | Clinical Summary ---
Author Organization [facility] Address [address] [facility] [address] [place] [address] Phone Care Team Providers Care Auto Design Checker Name Role Phone Melvin Gonsalves MD Primary Care Provider +1- [phone] Allergies No known active allergies Immunizations Immunization [...] this topic Medical Devices Implanted Type Area Donor Support Technician Device Identifier Shelf Expiration Date Model / Serial / Lot Stent-03/18/2018 Implanted: [id number] by Ted Franco MD (Quantity not on file) Stent / / [id number] Description:everflex self ex panding periperal stent.7mm-20mm. MR conditional upto 3T. Insurance [employer] DIRECT CONNECTORC[employer] DIRECT CONNECTORC[employer] DIRECT CONNECTORCARE DIRECT CONNECTORC[employer] DIRECT CONNE[employer] DIRECT [employer] DIRECT CONNECTORCARE DIRECT [facility] CONNECTORCARE DIRECT Care Teams Auto Design Checker Relationship Specialty Start Date End Date Melvin Gonsalves MD [address] [place] [address] [place] [address] PCP - General Medical Oncology 05/03/19 Additional Source Comments The information contained in this document represents components of the legal health record. It is not the complete legal health record.[facility]
--- OUTSIDE RECORDS SUMMARY | 2025-03-27 18:58 | XMS_ITS | Patient Health Record ---
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 Melvin Gonaslves III Primary Care Provider Allergies Allergen (clinical [...] date:08/11/2024 05:11:56 AM Interpretation: Performing Lab: Notes/Report: [facility] [address] [place] [address] XRay Report Signed Patient: Gregory Haynes MR#: [id number] 181 : 1965 Acct:[id number] Age/Sex: 58 / M ADM Date: 08/10/24 Loc: HO.XRAY Attending Dr: Melvin Gonsalves MD Ordering Physician: Melvin Gonsalves MD Date of Service: 08/10/24 Procedure(s): XR thoracic spine 3V Accession Number(s): [id number] cc: Melvin Gonsalves MD EXAMINATION: XR THORACIC [...] 08/10/24 1202 DD/ 1152 TD/TT: 08/10/24 1152 Sap Analyst: [address] [address] XRay Report Signed Patient: Gregory Haynes MR#: [id number] 181 : 1965 Acct:[id number] Age/Sex: 58 / M ADM Date: 08/10/24 Loc: HO.XRAY Attending Dr: Melvin Gonsalves MD Ordering Physician: Melvin Gonsalves MD Date of Service: 08/10/24 Procedure(s): XR thoracic spine 3V Accession Number(s): [id number] cc: eMlvin Gonsalves MD EXAMINATION: XR THORACIC SPINE CLINICAL [...] 08/10/24 1202 DD/ 1152 TD/TT: 08/10/24 1152 Sap Analyst: Complete Blood Count Auto Di ff Reviewed date:07/07/2024 08:43:34 PM Interpretation: Performing Lab:[facility], [address] [place] [phone] Notes/Report: White Blood Count 10.8 4.8-10.8 X10*3/uL [...] 0.0-0.2 /100WBC Neutrophils Absolute Auto 7.1 2.0-8.3 x10*3/u L Imm Gran Abs Auto 0.04 0.00-0.03 X10*3/uL Lymphocytes Absolute Auto 2.7 1.2-4.9 X10*3/u L Monocytes Absolute Auto 0.6 0.1-1.2 X10*3/uL Eosinophils Absolute Auto 0.2 0.0-0.4 X10*3/u L Basophils Absolute Auto 0.1 0.0-0.2 X10*3/uL NRBC Abs Auto 0.000 0.0-0.012 X10*3/uL Comprehensive Met. Panel Reviewed date:07/07/2024 08:43:34 PM Interpretation: Performing Lab:[facility], [address] [place] [phone] Notes/Report: Sodium 138 135-145 mmol/L Potassium 3.9 [...] Antigen Reviewed date:07/07/2024 08:43:34 PM Interpretation: Performing Lab:[facility], [address] [place] [phone] Notes/Report: Carcinoembryonic Antigen 114.20 CEA Reference Range: 93.4% Non-Smokers = 0.0-3.0 ng/mL 95.6% Smokers = 0.0-5.0 ng/mL CEA Methodology: SumoingniMoximed i Chemiluminescent Microparticle Immunoassay (CMIA) CEA testing can have significant value in monitoring of patients with diagnosed malignancies in whom changing concentrations of CEA are observed. Values obtained with different assay methods cannot be used interchangeably. XR cervical spine 3V Reviewed date:08/11/2024 05:11:56 AM Interpretation: Performing Lab: Notes/Report: [address] [address] XRay Report Signed Patient: Gregory Haynes MR#: [id number] 181 : 1965 Acct:[id number] Age/Sex: 58 / M ADM Date: 08/10/24 Loc: SONU Attending Dr: Melvin Gonsalves MD Ordering Physician: Melvin Gonsalves MD Date of Service: 08/10/24 Procedure(s): XR cervical spine 3V Accession Number(s): [id number] cc: Melvin Gonsalves MD EXAMINATION: XR CERVICAL [...] 08/10/24 1206 DD/ 1152 TD/TT: 08/10/24 1152 Sap Analyst: [place] [address] XRay Report Signed Patient: Gregory Haynes MR#: [id number] 181 : 1965 Acct:[id number] Age/Sex: 58 / M ADM Date: 08/10/24 Loc: HO.XRAY Attending Dr: Melvin Gonsalves MD Ordering Physician: Melvin Gonsalves MD Date of Service: 08/10/24 Procedure(s): XR cervical spine 3V Accession Number(s): [id number] cc: Melvin Gonsalves MD EXAMINATION: XR CERVICAL [...] XR/XR cervical spine 3V IMPRESSION: Mild degenerative di sc changes C5-6 and C6-C7 disc heights with mild ventral spondylosis Electronically brian d by: Kwame Agarwal MD 08/10/2024 12:06 PM EDT RP Dictated By: Kwame Agarwal MD Signed By: <Electronically signed by Kwame Agarwal MD in OV> 08/10/24 1206 DD/ 1152 TD/TT: 08/10/24 1152 Sap Analyst: MUNIR Complete Blood Count Auto Di ff Reviewed date:10/20/2024 03:57:28 PM Interpretation: Performing Lab:[facility], [address] [place] [phone] Notes/Report: White Blood Count 8.7 4.8-10.8 X10*3/uL [...] 0.0-0.2 /100WBC Neutrophils Absolute Auto 5.4 2.0-8.3 x10*3/u L Imm Gran Abs Auto 0.03 0.00-0.03 X10*3/uL Lymphocytes Absolute Auto 2.6 1.2-4.9 X10*3/u L Monocytes Absolute Auto 0.6 0.1-1.2 X10*3/uL Eosinophils Absolute Auto 0.1 0.0-0.4 X10*3/u L Basophils Absolute Auto 0.1 0.0-0.2 X10*3/uL NRBC Abs Auto 0.000 0.0-0.012 X10*3/uL Comprehensive Met. Panel Reviewed date:10/20/2024 03:57:28 PM Interpretation: Performing Lab:[facility], [address] [place] [phone] Notes/Report: Sodium 139 135-145 mmol/L Potassium 4.0 [...] Antigen Reviewed date:10/20/2024 03:57:28 PM Interpretation: Performing Lab:[address] [phone] Notes/Report: Carcinoembryonic Antigen 153.00 CEA Reference Range: [...] date:11/12/2024 01:04:19 PM Interpretation: Performing Lab: Notes/Report: [address] [address] XRay Report Signed Patient: Gregory Haynes MR#: [id number] 181 : 1965 Acct:[id number] Age/Sex: 58 / M ADM Date: 11/05/24 Loc: HO.XRAY Attending Dr: Melvin Gonsalves MD Ordering Physician: Melvin Gonsalves MD Date of Service: 11/05/24 Procedure(s): XR chest 2V Accession Number(s): [id number] cc: Melvin Gonsalves MD EXAMINATION: XR CHEST [...] 11/05/24 1226 DD/ 1207 TD/TT: 11/05/24 1210 Sap Analyst: [place] [address] XRay Report Signed Patient: Gregory Haynes MR#: [id number] 181 : 1965 Acct:[id number] Age/Sex: 58 / M ADM Date: 11/05/24 Loc: HO.XRAY Attending Dr: Melvin Gonsalves MD Ordering Physician: Melvin Gonsalves MD Date of Service: 11/05/24 Procedure(s): XR rehan st 2V Accession Number(s): [id number] cc: Melvin Gonsalves MD EXAMINATION: XR CHEST [...] 11/05/24 1226 DD/ 1207 TD/TT: 11/05/24 1210 Sap Analyst: XR ankle RT min 3V Reviewed date:01/31/2025 09:29:17 AM Interpretation: Performing Lab: Notes/Report: [address] [address] XRay Report Signed Patient: Gregory Haynes MR#: [id number] 181 : 1965 Acct:[id number] Age/Sex: 59 / M ADM Date: 01/14/25 Loc: HO.XRAY Attending Dr: Melvin Gonsalves MD Ordering Physician: Melvin Gonsalves MD Date of Service: 01/14/25 Procedure(s): XR ankle RT min 3V Accession Number(s): [id number] cc: Melvin Gonsalves MD Reason for Exam: [...] 01/14/25 1219 DD/ 1209 TD/TT: 01/14/25 1215 Sap Analyst: [address] [address] XRay Report Signed Patient: Gregory Haynes MR#: [id number] 181 : 1965 Acct:[id number] Age/Sex: 59 / M ADM Date: 01/14/25 Loc: HO.XRAY Attending Dr: Melvin Gonsalves MD Ordering Physician: Melvin Gonsalves MD Date of Service: 01/14/25 Procedure(s): XR ank le RT min 3V Accession Number(s): [id number] cc: Melvin Gonsalves MD Reason for Exam: PAIN EXAMINATION: XR ANKLE, right CLINICAL INFORMATION: PAIN COMPARISON: None available. TECHNIQUE: AP, lateral, and mortise views lower extremity joint, ankle. FINDINGS: Ankle mortise is congruent. There is no widening of the syndesmosis. Talar dome is intact. There are no calcane al enthesophyte(s). XR/XR ankle RT min 3V IMPRESSION: Unremarkable ankle x-ray. Electronically brian d by: Parish Chicas MD 01/14/2025 12:19 PM EDT RP Dictated By: Parish Chicas MD Signed By: <Electronically signed by Parish Chicas MD in OV> 01/14/25 1219 DD/ 1209 TD/TT: 01/14/25 1215 Sap Analyst: XR foot RT min 3V Reviewed date:01/31/2025 09:29:17 AM Interpretation: Performing Lab: Notes/Report: [address] [address] XRay Report Signed Patient: Gregory Haynes MR#: [id number] 181 : 1965 Acct:[id number] Age/Sex: 59 / M ADM Date: 01/14/25 Loc: HO.XRAY Attending Dr: Melvin Gonsalves MD Ordering Physician: Melvin Gonsalves MD Date of Service: 01/14/25 Procedure(s): XR foot RT min 3V Accession Number(s): [id number] cc: Melvin Gonsalves MD Reason for Exam: [...] 01/14/25 1221 DD/ 1211 TD/TT: 01/14/25 1215 Sap Analyst: [place] [address] XRay Report Signed Patient: Gregory Haynes MR#: [id number] 181 : 1965 Acct:[id number] Age/Sex: 59 / M ADM Date: 01/14/25 Loc: HO.XRAY Attending Dr: Melvin Gonsalves MD Ordering Physician: Melvin Gonsalves MD Date of Service: 01/14/25 Procedure(s): XR prosper t RT min 3V Accession Number(s): [id number] cc: Melvin Gonsalves MD Reason for Exam: [...] 01/14/25 1221 DD/ 1211 TD/TT: 01/14/25 1215 Sap Analyst: Reason For Referral No Information Medications Medication SIG (Take, Route, Frequency, Duration) Notes Start Date End Date Status traMADol HCl 50 MG 1 tablet if needed Orally every 8 hrs for 14 days 03/21/2025 05/16/2025 Active Cyclobenzaprine HCl 10 MG 1 tablet [...] a day Active Albuterol Sulfate HFA 108 (90 Base) MCG/ACT 1 puff as needed Inhalation every 4 hrs As needed Active Immunizations Vaccine Route Administration Date Status [...] Problem Status W/U Status Risk Notes Problem 21114506 Right shoulder pain (719.41) Active confirmed The pain is improving in physical therapy will continue. Problem 2128653 Former smoker (Z87.891) Active confirmed He has stopped smoking within the last month. We have discussed strategies for maintaining abstinence. He has a plan to prevent relapse in times of pain illness or stress. Problem 226093287 Overweight (BMI 25.0-29.9) (E66.3) Active confirmed His body mass index is 29. He has gained 1 pound since his last visit and is overweight. His appetite is good Problem 28812502 Anxiety (F41.9) Active confirmed He was calm and relaxed today and cooperative. Problem 978966569 Chronic obstructive pulmonary disease, unspecified (J44.9) Active confirmed He is breathing room air comfortably. He is not smoking. Short of breath with prolonged exertion. Problem 62542553 Essential hypertension (I10) Active confirmed His blood pressure is currently acceptable. He is compliant with his medications he was advised to stabilize his weight reduce his sodium intake. Problem 165041556 Edentulous (K00.0) Active confirmed He says his dentures fit he is able to chew without difficulty. Problem 650078223 Peripheral arterial disease (I73.9) Active confirmed His feet are pink and warm. He has no claudication and is doing quite well. His regimen was not altered. He was encouraged to walk and exercise. Problem 412452225 Rectal cancer (C20) Active confirmed He continues to desire no treatment. He also does not wish to be in the hospice program. There was no sign of the disease on the physical examination except for the excision scars in the abdomen. He will be seen at short intervals for follow-up. He denies any significant pain or discomfort at this time. Problem 808446678 Port-a-cath in place (Z95.828) Active confirmed His port was flushed daily with 10 cc of saline and 10 cc a 1-100 heparin solution. It functioned well. Problem 2335879193 Acute pain of left shoulder (M25.512) Active confirmed There is no pain to range of motion but there is pain to elevation and carrying heavy weight and range of motion of the neck. The discomfort radiates down his arm into his left fourth and fifth fingers imaging was ordered. Problem Right inguinal hernia (585532684) Right inguinal hernia (K40.90) Active confirmed This is a new finding in the last month. He was referred to surgery to discuss what is involved in repairing it. Problem Arthralgia of the ankle and/or foot (526809310) Right ankle pain (M25.571) Active confirmed He twisted hi s ankle recently has some right ankle pain. On examiination foot seems to be intact. I offered to order an ankle x-ray but he declined saying he would ask for 1 in the near future if improvement does not occur. Problem Benign prostatic hypertrophy without outflow obstruction (903997699) Benign prostatic hyperplasia without lower urinary tract symptoms (N40.0) Active confirmed He admits to rising from sleep once or twice a night to urinate. We have discussed lifestyle modifications achromatic to reduce nocturia. Problem 55266869 Other depression (F32.89) Active confirmed He will continue with his therapist and the current regimen. Problem 108471291 Basal cell carcinoma (BCC), unspecified site (C44.91) Active confirmed No new cutaneous lesions were noted on today's examination. Vital Signs Heart Rate 91 /min 02/25/2025 Temperature 98.1 degrees Fahrenheit 02/25/2025 Respiratory Rate 16 /min 11/05/2024 Oximetry 97.9 % 12/03/2024 Blood pressure diastolic 76 mm Hg 02/25/2025 Height 67 in 02/25/2025 Blood pressure systolic 141 mm Hg 02/25/2025 Weight 183 lbs 02/25/2025 BMI 28.66 kg/m2 02/25/2025 Encounters Encounter Location Date Provider Diagnosis Melvin Gonsalves III, MD [address] [place] [address] [place] [address] 03/30/2024 Melvin Gonsalves Rectal cancer C20 ; [...] Essential hypertension I10 Melvin Gonsalves III, MD [address] [place] [address] [place] [address] 04/30/2024 Melvin Gonsalves Rectal cancer C20 ; Chronic obstructive pulmonary disease, unspecified J44.9 ; Former smoker Z87.891 ; Hypertrophy of prostate without urinary obstruction and other lower urinary tract symptoms (LUTS) N40.0 ; Other depression F32.89 ; Peripheral arterial disease I73.9 and Tobacco use disorder Z72.0 Melvin Gonsalves III, MD [address] [place] [address] [place] [address] 05/28/2024 Melvin Cintronne Rectal cancer C20 ; Overweight (BMI 25.0-29.9) E66.3 ; Chronic obstructive pulmonary disease, unspecified J44.9 ; Edentulous K00.0 ; Hypertrophy of prostate without urinary obstruction and other lower urinary tract symptoms (LUTS) N40.0 ; Other depression F32.89 ; Former smoker Z87.891 ; Peripheral arterial disease I73.9 and Port-a-cath in place Z95.828 Melvin Gonsalves III, MD [address] [place] [address] [place] [address] 07/09/2024 Melvin Videsrne Rectal cancer C20 ; Edentulous K00.0 ; Chronic obstructive pulmonary disease, unspecified J44.9 ; Hypertrophy of prostate without urinary obstruction and other lower urinary tract symptoms (LUTS) N40.0 ; Anxiety F41.9 ; Peripheral arterial disease I73.9 ; Right inguinal hernia K40.90 ; Other depression F32.89 ; Former smoker Z87.891 and Overweight (BMI 25.0-29.9) E66.3 Melvin Gonsalves III, MD [address] [place] [address] [place] [address] 08/10/2024 Melvin Cintronne Rectal cancer C20 ; Edentulous K00.0 ; Chronic obstructive pulmonary disease, unspecified J44.9 ; Hypertrophy of prostate without urinary obstruction and other lower urinary tract symptoms (LUTS) N40.0 ; Anxiety F41.9 ; Former smoker Z87.891 ; Other depression F32.89 ; Peripheral arterial disease I73.9 ; Right inguinal hernia K40.90 and Overweight (BMI 25.0-29.9) E66.3 Melvin Gonsalves III, MD [address] [place] [address] [place] [address] 08/13/2024 Melvin Videsrne Rectal cancer C20 ; [...] back pain M54.6 Melvin Gonsalves III, MD [address] [place] [address] [place] [address] 09/08/2024 Melvin Gonsalves Rectal cancer C20 ; [...] Essential hypertension I10 Melvin Gonsalves III, MD [address] [place] [address] [place] [address] 10/08/2024 Melvin Major Rectal cancer C20 ; Former smoker Z87.891 ; Chronic obstructive pulmonary disease, unspecified J44.9 ; Edentulous K00.0 ; Anxiety F41.9 ; Right inguinal hernia K40.90 and Port-a-cath in place Z95.828 Melvin Gonsalves III, MD [address] [place] [address] [place] [address] 11/05/2024 Melvin Major Rectal cancer C20 ; Chronic obstructive pulmonary disease, unspecified J44.9 ; Former smoker Z87.891 ; Anxiety F41.9 ; Edentulous K00.0 ; Peripheral arterial disease I73.9 ; Benign prostatic hyperplasia without lower urinary tract symptoms N40.0 and Port-a-cath in place Z95.828 Melvin Gonsalves III, MD [address] [place] [address] [place] [address] 11/12/2024 Melvin Gonsalves Rectal cancer C20 ; Chronic obstructive pulmonary disease, unspecified J44.9 ; Anxiety F41.9 ; Former smoker Z87.891 ; Peripheral arterial disease I73.9 ; Right inguinal hernia K40.90 and Essential hypertension I10 Melvin Gonsalves III, MD [address] [place] [address] [place] [address] 12/03/2024 Melvin Gonsalves Rectal cancer C20 ; Hypertrophy of prostate without urinary obstruction and other lower urinary tract symptoms (LUTS) N40.0 ; Former smoker Z87.891 ; Chronic obstructive pulmonary disease, unspecified J44.9 ; Other depression F32.89 ; Peripheral arterial disease I73.9 ; Overweight (BMI 25.0-29.9) E66.3 and Port-a-cath in place Z95.828 Melvin Gonsalves III, MD [address] [place] [address] [place] [address] 01/14/2025 Melvin Gonsalves Rectal cancer C20 ; Right ankle pain M25.571 ; Edentulous K00.0 ; Anxiety F41.9 ; Benign prostatic hyperplasia without lower urinary tract symptoms N40.0 and Port-a-cath in place Z95.828 Melvin Gonsalves III, MD [address] [place] [address] [place] [address] 02/25/2025 Melvin Gonsalves Former smoker Z87.89 1 [...] in place Z95.828 Melvin Gonsalves III, MD [address] [place] [address] [place] [address] 04/02/2024 Melvin Gonsalves III, MD [address] [place] [address] [place] [address] 04/30/2024 Melvin Gonsalves III, MD [address] [place] [address] [place] [address] 07/22/2024 Melvin Gonsalves III, MD [address] [place] [address] [place] [address] 09/17/2024 Melvin Gonsalves III, MD [address] [place] [address] [place] [address] 03/21/2025 Melvin Gonsalves III, MD [address] [place] [address] [place] [address] 03/21/2025 Melvin Gonsalves III, MD [address] [place] [address] DR JOY [place], [place] [address] 03/21/2025 Melvin Gonsalves Assessments Encounter Date Diagnosis (ICD Code) Assessment Notes Treatment Notes Treatment Clinical Notes 03/30/2024 Encounter for immunization (ICD-10 - Z23) [...] remission would not be worth it. 01/14/2025 Rectal cancer (ICD-10 - C20) He [...] near future if improvement does not occur. 02/25/2025 Former smoker (ICD-10 - Z87.891) He [...] significant pain or discomfort at this time. 03/30/2024 Chronic obstructive pulmonary disease, unspecified (ICD-10 [...] times of pain illness or stress. 01/14/2025 Edentulous (ICD-10 - K00.0) He says his dentures fit he is able to chew without difficulty. 03/30/2024 Former smoker (ICD-10 - Z87.891) He [...] smoking. Short of breath with prolonged exertion. 01/14/2025 Anxiety (ICD-10 - F41.9) He was occasionally anxious today with his voice raised. 02/25/2025 Acute pain of left shoulder (ICD-10 - M25.512) There is no pain to range of motion but there is pain to elevation and carrying heavy weight and range of motion of the neck. The discomfort radiates down his arm into his left fourth and fifth fingers imaging was ordered. 03/30/2024 Hypertrophy of prostate without urinary obstruction [...] with his therapist and the current regimen. 01/14/2025 Benign prostatic hyperplasia without lower urinary tract symptoms (ICD-10 - N40.0) He admits to rising from sleep once or twice a night to urinate. We have discussed lifestyle modifications achromatic to reduce nocturia. 02/25/2025 Chronic obstructive pulmonary disease, unspecified (ICD-10 - J44.9) He is breathing room air comfortably. He is not smoking. Short of breath with prolonged exertion. 03/30/2024 Other depression (ICD-10 - F32.89) He [...] He was encouraged to walk and exercise. 01/14/[address]-a-[address] in place (ICD-10 - Z95.828) His port was flushed daily with 10 cc of saline and 10 cc a 1-100 heparin solution. It functioned well. 02/25/2025 Anxiety (ICD-10 - F41.9) He was calm and relaxed today and cooperative. 03/30/2024 Anxiety (ICD-10 - F41.9) He was [...] is overweight. His appetite is good 02/25/2025 Other depression (ICD-10 - F32.89) He will continue with his therapist and the current regimen. 03/30/2024 Peripheral arterial disease (ICD-10 - I73.9) [...] a 1-100 heparin solution. It functioned well. 02/25/2025 Peripheral arterial disease (ICD-10 - I73.9) His feet are pink and warm. He has no claudication and is doing quite well. His regimen was not altered. He was encouraged to walk and exercise. 03/30/2024 Edentulous (ICD-10 - K00.0) He says [...] is overweight. His appetite is good 02/25/2025 Right inguinal hernia (ICD-10 - K40.90) This is a new finding in the last month. He was referred to surgery to discuss what is involved in repairing it. 03/30/[address]-a-[address] in place (ICD-10 - Z95.828) [...] a 1-100 heparin solution. It functioned well. 02/25/2025 Benign prostatic hyperplasia without lower urinary tract symptoms (ICD-10 - N40.0) He admits to rising from sleep once or twice a night to urinate. We have discussed lifestyle modifications achromatic to reduce nocturia. 03/30/2024 Essential hypertension (ICD-10 - I10) His blood pressure is currently acceptable. He is compliant with his medications he was advised to stabilize his weight reduce his sodium intake. 09/08/2024 Essential hypertension (ICD-10 - I10) His blood pressure is currently acceptable. He is compliant with his medications he was advised to stabilize his weight reduce his sodium intake. 02/25/[address]-a-[address] in place (ICD-10 - Z95.828) His port was flushed daily with 10 cc of saline and 10 cc a 1-100 heparin solution. It functioned well. Plan Of Treatment Pending Test Test Name Order Date URINE DIP STICK 11/21/2021 PROFILE, RANDOM (COMPREHENSIVE METABOLIC ) 02/25/2025 PROFILE, RANDOM (COMPREHENSIVE METABOLIC ) 05/28/2024 PROFILE, RANDOM (COMPREHENSIVE METABOLIC ) 09/08/2024 CEA 09/08/2024 CEA 02/25/2025 CEA 05/28/2024 CBC w DIFF 09/08/2024 CBC w DIFF 02/25/2025 CBC w DIFF 10/26/2019 CT ABD & PELVIS WITH CONTRAST 07/09/2023 CT CHEST WITH CONTRAST 07/09/2023 MRI LUMBAR SPINE NO CONTRAST 09/05/2021 MRI PELVIS NO CONTRAST 09/05/2021 XR CHEST 2 VIEW PA & LAT 11/05/2024 XR CHEST 2 VIEW PA & LAT 02/25/2025 XR NECK SOFT TISSUE LATERAL 02/25/2025 CBC WITH AUTO DIFF 05/28/2024 XR ankle RT 2V 01/14/2025 XR foot RT 2V 01/14/2025 Next Appt Details Provider Name:Melvin Gonsalves , 04/01/2025 01:30:00 PM, [address] [place] [address] DR, [facility] [place], [place], [address], Insurance Providers Payer Name Payer Address Payer Phone Subscriber Number Group Number Insured Name Patient Relationship to Insured Coverage Start Date Coverage End Date [facility] [address] [place] [address] [id number] Gregory Haynes Self - patient is the insured [place] [address] [place], [place] [id number] [phone] [id number] Gregory Haynes Self - patient is the [...] byp ass surgery for peripheral arterial disease [facility] 2017 Exploratory Laparotomy, Lysi s of adhesions with ileostomy takedown in conjuction with small bowel resection and primary anastomosis 2016-07-17 Exploratory laparotomy 2016-04-16 colonoscopy revealing adenocarcinoma the rectum 2015 dental extractions 2010 Knee surgery 1999 appendectomy Hospitalization History Reason Date(Month/Year) No history resection anastomotic rectal cancer recurrence [facility], Dr. Lackey 07/2019 femorol femoral bypass graft, [facility], Dr. Franco 03/2018 observation overnight once for infection 2013
--- OUTSIDE RECORDS SUMMARY | 2025-03-27 18:58 | XMS_ITS ---
Author Organization [facility] Address [address] [place] [address] Care Team Providers Care Clinical Informatics Educator Name Role Phone Melvin Gonsalves Primary Care Provider [phone] Active Problems Problem Noted Date Diagnosed Date [...]
--- OUTSIDE RECORDS SUMMARY | 2025-03-27 18:59 | XMS_ITS | Patient Health Record ---
Author Organization [facility] Address [address] [place] [address] Care Team Providers Care Box Attacher Name Role Phone Melvin Gonsalves MD Primary Care Provider Unavailab Melvin White Unavailable [phone] SHONNA, CRISTINA Unavailable Unavailable Allergies Allergen (clinical drug ingredient) Drug/Non Drug Allergy documented on EMR Reaction Allergy Type Onset Date Status apple allergenic extract apples (uncoded) Unknown Allergy Active sulfamethoxazole / trimethoprim Bactrim Unknown Drug Allergy Active Reason For Referral No Information Medications Medication SIG (Take, Route, Frequency, Duration) Notes Start Date End Date Status Aleve QD 2 pills once a day Active Acid Entry Engineer 10 MG Tablet 1 tablet Orally as needed Active Baby Aspirin 81 mg 1 tablet orally once a day Active Social History Tobacco Use: Social History Observation Description Date Details (start date - stop date) Former Smoker NA - NA Social History Drugs/Alcohol: Social Info Question Answer Notes Alcohol Screen Did you have a drink containing alcohol in the past year? No Points 0 Interpretation Negative Tobacco Use: Social Info Question Answer Notes Tobacco Use/Smoking Patient is a former smoker When did you stop smoking? 2016 How long has it been since you last smoked? 1-5 years Additional Details Category Social Info Options Details Miscellaneous: Marital status: Occupation: unemployed Section Notes: Smoker < 1ppd; no alcohol Smoker < 1ppd; no alcohol Nonsmoker since 2016; no alc ohol Problems Problem Type SNOMED Code ICD Code Onset Dates Problem Status W/U Status Risk Notes Problem Screening for malignant neoplasm of colon (991723114) Encounter for screening for malignant neoplasm of colon (Z12.11) Active confirmed Problem Weight loss (822418007) Weight loss (R63.4) Active confirmed Problem Anorexia (77339596) Anorexia (R63.0) Active confirmed Problem Blood in stool (645517835) Blood in stool (K92.1) Active confirmed Problem Constipation (52107840) Constipation, unspecified constipation type (K59.00) Active confirmed Problem Generalized abdominal pain (564480283) Abdominal pain, generalized (R10.84) Active confirmed Problem History of malignant neoplasm of rectum (809187377) History of rectal cancer (Z85.048) Active confirmed Problem Rectal mass (420376581) Rectal mass (K62.9) Active confirmed Plan Of Treatment Future Test Test Name Order Date COLONOSCOPY 11/07/2015 COLONOSCOPY 06/10/2017 UPPER GI ENDOSCOPY 02/09/2019 COLONOSCOPY 02/09/2019 Insurance Providers Payer Name Payer Address Payer Phone Subscriber Number Group Number Insured Name Patient Relationship to Insured Coverage Start Date Coverage End Date [facility] [address] [place] [address] [id number] ALEXA HAYNES Self - patient is the insured Medical (General) History Medical History History ICD Code Denies [place],DM,CVA,Lung disease,renal dise ase Kidney stone Rectal cancer-surgery, [...]
--- OUTSIDE RECORDS SUMMARY | 2025-03-27 18:59 | XMS_ITS | Clinical Summary ---
Author Organization [facility] Address [address] [place] [address] Care Team Providers Care Pe Teacher Name Role Phone Melvin Gonsalves Primary Care Provider [phone] Allergies Active Allergy Reactions Criticality Noted Date [...] Years Used Date Smoking Tobacco: Former Cigarettes 0 Q uit: 2016 Smokeless Tobacco: Never Alcohol [...] DTaP,Tdap,and Td Vaccines (1 - Tdap) 12/14/1985 RSV Vaccine (60+ years old and patients) (1 - Risk 50-74 years 1-dose series) 12/14/2013 Pneumococcal Vaccine: 50+ Years (2 of 2 - PCV) 04/22/2019 04/22/2018 COVID-19 Vaccine (3 - Pfizer risk series) 10/01/2020 09/03/2020, 08/13/2020 FOBT / Fit Test 10/27/2020 10/28/2019, 07/0 11/2019, 09/08/2019, Additional history exists Alcohol/Substance Use Screening 04/21/2024 Depression Screening and Follow-Up 04/21/2024 [facility] [place] [facility] Annual Screening 04/21/2024 Colon Cancer Screening 10/27/2024 Sigmoidoscopy 10/27/2024 10/28/2019, 07/0 11/2019, 09/08/2019, Additional history exists Influenza Vaccine (#1) 2024 2, 04/22/2018, 01/29/2018, Additional history exists CT Lung Cancer Screening (12 months, previous LungRADS 1 or 2) Discontinued 12/28/2019 Hepatitis B Vaccines Aged Out No long er eligible based on patient's age to complete this topic Procedures * Due to [place] [employer] law, this organization might not be sharing negative HIV tests. Procedure Name Priority Date/Time Associated Diagnosis Comments AMB EXTERNAL CT CHEST, OUTSI DE RESULT Routine 12/28/2019 from Last 3 Months or Most Recently Relevant to Health Maintenance Results * Due to [place] [employer] law, this organization might not be sharing negative HIV tests. * CT Chest, Outside Result (12/28/2019) us Unknown Provider MD PADILLA EXTERNAL RESULT PROCEDUR ES Final Result from Last 3 Months or Most Recently Relevant to Health Maintenance Insurance [facility] [employer] Advance Directives Documents on File Type Date Recorded Patient Hardwood Faller Expl anation Health Care Proxy 07/26/2019 5:35 PM * Full Code (Latest Code Status on File) Date Activated Date Inactivated Comments 07/22/2019 8:25 PM 07/28/2019 2:38 PM Care Teams Pe Teacher Relationship Specialty Start Date End Date Melvin Gonsalves [address] [place] [id number] PCP - General Hematology 05/24/19
[2025-03-27 19:12] VITALS: BP 143/82; PULSE 102; RESP 16; TEMP 36.6; O2SAT 96
--- NOTE | 2025-03-27 19:25 | PC.NURSE ---
Assumed care of pt. PT reports he has 9/10 cervical spine pain described as shooting, radiating to his left shoulder w/ numbness down his left arm to his hand. PT states this pain is chronic from an injury when he was a child and has managed pain with cortisone although has been unable to get cortisone shot. Pain has flared up for the past 3 weeks. PT also has stage 4 CA and noticed a new mass under his L armpit, poss. lymph node. PT also has ostomy in place, VSS.
[2025-03-27 20:49] VITALS: BP 152/87; PULSE 98; RESP 18; TEMP 36.8; O2SAT 97
--- NOTE | 2025-03-27 22:34 | PC.NURSE ---
pt reporting dizziness upon ambulation to the bathroom, labs and ekg ordered at this time
[2025-03-27 22:58] VITALS: BP 170/89; PULSE 100; RESP 20; TEMP 36.4; O2SAT 100
[2025-03-27 22:58] LABS: MANUAL DIFF FLAG NO
[2025-03-27 22:59] LABS: Hematocrit 41.0 % (42.0-52.0); Hemoglobin 14.1 g/dl (14.0-18.0); Imm Gran Abs Auto 0.05 X10*3/uL (0.00-0.03); Imm Gran Pct Auto 0.4 % (0.0-0.4); Lymphocytes Absolute Auto 2.0 X10*3/uL (1.2-4.9); Mean Corpuscular HGB Conc 34.4 g/dl (31.0-36.0); Mean Corpuscular Hemoglobin 29.4 pg (27.0-33.0); Mean Corpuscular Volume 85.6 fL (80.0-98.0); NRBC Abs Auto 0.000 X10*3/uL (0.0-0.012); NRBC Pct Auto 0.0 /100WBC (0.0-0.2); Platelet Count 283 X10*3/uL (160-400); Red Blood Count 4.79 X10*6/uL (4.60-5.80); White Blood Count 12.9 X10*3/uL (4.8-10.8)
--- NOTE | 2025-03-27 23:02 | PC.NURSE ---
PTs port accessed at this time with 20g 3/4, pt tolerated well w/ positive blood return and labs obtained.
[2025-03-27 23:12] LABS: Alanine Aminotransferase 13 U/L (0-40); Albumin Level 4.2 g/dL (3.5-5.0); Alkaline Phosphatase 251 U/L (39-117); Anion Gap 15 (12-20); Aspartate Amino Transferase 42 U/L (5-37); Blood Urea Nitrogen 9 mg/dL (9-16); Calcium 9.2 mg/dL (8.4-10.2); Carbon Dioxide 24 mmol/L (22-29); Chloride 101 mmol/L (96-108); Creatinine Clr Calc Pharmacy 110.4; Estimated Glomerular Filt Rate > 60; Potassium 3.6 mmol/L (3.3-5.1); Sodium 136 mmol/L (135-145); Total Protein 7.4 g/dL (6.5-8.0)
[2025-03-27 23:18] LABS: Troponin-I High Sensitivity 9.4 ng/L (<3.5-35.0)
--- NOTE | 2025-03-27 23:21 | ED.BACK ---
HPI - Back Pain/Injury General Chief Complaint: Back Pain/Injury Stated Complaint: Back pain stage 4 cancer Time Seen by Provider: 03/27/25 23:17 Source: patient Mode of arrival: ambulatory Limitations: no limitations History of Present Illness ED Provider: Jose RICHEY HPI Narrative: Patient is a 59 year old male with a past medical history of rectal cancer presenting today with upper back pain with radiculopathy. Pt states he had an injury when he was a kid and has had back pain since. Describes the pain as shooting pain starting in the back of his neck and travels down his left arm to his fingers, as well as wrapping around the back into the left chest. Usually when the pain flairs, he uses cyclobenzaprine and tramadol and that will resolve the majority of the pain. However, this time the pain will not go away with those medications. Pain improves if he angles his head to the right. Pt denies recent trauma, fevers, chills. Pt states he was treated with chemotherapy, electively stopped over a year ago. He was told the cancer metastasized to his lungs, as well as his lumbar spine, they scrapped off as much as they could . Related Data Home Medications ?Medication ?Instructions ?Recorded ?Confirmed acetaminophen 325 mg capsule 650 mg PO Q6H PRN Pain 01/26/20 07/22/23 (Tylenol) ondansetron HCl 8 mg tablet 8 mg PO Q8H PRN Pain 01/26/20 07/22/23 tamsulosin 0.4 mg capsule 0.4 mg PO BEDTIME 01/26/20 09/10/23 diphenhydramine HCl 25 mg tablet 25 mg PO QID PRN Allergy Symptoms 01/17/21 07/22/23 (Benadryl Allergy) famotidine 20 mg tablet 20 mg PO DAILY 01/17/21 09/10/23 loperamide 2 mg capsule 2 mg PO Q4H PRN Diarrhea 01/17/21 07/22/23 gabapentin 600 mg tablet 600 mg PO TID 09/19/21 09/10/23 Previous Rx's ?Medication ?Instructions ?Recorded lidocaine 4 % topical cream 1 applic topical DAILY PRN Pain 07/31/22 #100 grams levofloxacin 250 mg tablet 250 mg PO DAILY #5 tabs 11/01/22 magnesium oxide 400 mg (241.3 mg 400 mg PO DAILY #30 tabs 04/17/23 magnesium) tablet amlodipine 5 mg tablet 5 mg PO DAILY #30 tabs 11/11/23 diazepam 5 mg tablet (Valium) 5 mg PO BID PRN muscle spasm #28 03/28/25 tabs morphine 15 mg immediate release 15 mg PO BID PRN pain, severe #28 03/28/25 tablet tabs Allergies Allergy/AdvReac Type Severity Reaction Status Date / Time Sulfa (Sulfonamide Allergy Intermediate NAUSEA,WEAK Verified 03/27/25 18:42 Antibiotics) NESS sulfamethoxazole (From Allergy Intermediate NAUSEA,WEAK Verified 03/27/25 18:42 BACTRIM) NESS trimethoprim (From BACTRIM) Allergy Intermediate NAUSEA,WEAK Verified 03/27/25 18:42 NESS Review of Systems Review of Systems: Yes all other systems are reviewed and are negative Constitutional: Constitutional: Denies fever(s), Denies frequent falls and Denies headache(s) ENT: Denies headache(s) and Reports neck pain Gastrointestinal: Gastrointestinal: Reports nausea Musculoskeletal: Musculoskeletal: Reports back pain, Reports limited range of motion, Reports neck pain, Reports numbness, Reports radiating pain into limb (Left arm) and Reports tingling Neurologic: Denies frequent falls, Denies headache(s), Reports numbness and Reports tingling PMFSH Past Medical History Medical History COPD (chronic obstructive pulmonary disease) GERD (gastroesophageal reflux disease) Edentulous Local recurrence of rectal cancer Degenerative joint disease Colostomy in place Neuropathy Spinal stenosis Peripheral vascular disease Kidney stones Surgical History Hx of excision of mass (09/10/23) H/O right inguinal hernia repair (01/13/23) History of esophagogastroduodenoscopy (EGD) H/O colonoscopy Status post femorofemoral bypass surgery (03/30/18) S/P epidural steroid injection H/O knee surgery H/O exploratory laparotomy History of laparoscopic appendectomy Family History Family History Father CAD (coronary artery disease) Social History Social History Household Members: Spouse Housing: Apartment Are you a primary career center director to a significant other at home: No Do you presently have visiting nurse or other home services: No Alcohol intake: never Comment: counts correct Patient Tobacco Use Status: Former Tobacco user Tobacco use type: Cigarette Cigarette Packs Per Day: 2 Substance Use Type: Marijuana Advance Directives Date on File: 01/27/20 service: No Current occupational status: disabled Physical Exam Vital Signs: Vital Signs: Last Vital Signs Temp 97.7 F 03/28/25 04:27 Pulse 100 03/28/25 04:27 Resp 18 03/28/25 04:27 BP 177/93 H 03/28/25 04:27 Pulse Ox 99 03/28/25 04:27 O2 Del Method Room Air 03/28/25 04:27 BMI result Body Mass Index 29.9 CONSTITUTIONAL: The patient appears chronically ill, otherwise non-toxic, well nourished and in no acute distress. Vital signs as documented. HEAD: Atraumatic, normocephalic. EYES: EOMs grossly intact, pupils equal, conjunctiva clear, no exudate. ENT: Nares patent, no discharge. Airway patent, no audible stridor, visible mucosa is pink and moist without noted lesions. NECK: Trachea is midline, no obvious masses or gross abnormalities. There is tenderness to the lower cervical/upper thoracic midline without associated crepitus. CHEST: Symmetric movement, normal appearance. LUNGS: LS present and CTAB, no w/r/r. Non-labored work of breathing. CARDIAC: Regular Rhythm, S1/S2 appreciated, no murmurs, rubs or gallops. ABDOMEN: Abdomen soft and non-tender x4 quadrants, no palpable masses or organomegaly. : Deferred. EXTREMITIES: Normal tone, moves all extremities spontaneously without reported pain. No obvious acute injury or deformity noted. NEURO: Alert and oriented x3, CN II-XII appear grossly intact. Cerebellar Functioning grossly intact. No obvious sensory or motor deficits. Speech clear and appropriate. PSYCH: normal affect, appropriate eye contact, fluid speech, with appropriate response to questioning. No reported suicidality or homicidality. SKIN: Warm, dry, color appropriate, normal turgor. No rashes noted. Back/Spine/Pelvis: Cervical Spine: cervical muscular tenderness, pain with cervical ROM, Cervical spine tenderness, No step off deformity and cervical ROM abnormal (limited extension and lateral flexion) Medications Administered Discontinued Medications Generic Name Dose Route Start Last Admin Trade Name Rizwana PRN Reason Stop Dose Admin Heparin Sodium (Porcine) 100 0 units 03/28/25 04:13 03/28/25 04:22 units/ Sodium Chloride 10 ml IVFLUSH 03/28/25 04:14 100 unit NOW STA Administration Diazepam 10 mg 03/28/25 00:01 03/28/25 00:17 Diazepam 10 Mg/2 Ml Cartridge IVPUSH 03/28/25 00:02 10 mg STAT STA Administration Sodium Chloride 1,000 mls @ 999 mls/hr 03/28/25 00:15 03/28/25 02:00 Ns IV 03/28/25 01:15 Infused .Q1H1M SOY Infusion Iohexol 100 ml 03/28/25 01:17 03/28/25 01:21 Iohexol 350 Mg/Ml 100 Ml Infus..Btl IV 03/28/25 01:18 100 ml ONCE ONE Administration Ketorolac Tromethamine 15 mg 03/28/25 00:01 03/28/25 00:17 Ketorolac Tromethamine 15 Mg/Ml Vial IVPUSH 03/28/25 00:02 15 mg ONCE ONE Administration Morphine Sulfate 4 mg 03/28/25 00:01 03/28/25 00:17 Morphine Sulfate 4 Mg/Ml Cartridge IVPUSH 03/28/25 00:02 4 mg ONCE ONE Administration Protocol Medical Decision Making Medical Decision Making MDM Narrative: Patient is a 59 year old male with a past medical history of rectal cancer presenting today with upper back pain with radiculopathy. Pt states he had an injury when he was a kid and has had back pain since. Describes the pain as shooting pain starting in the back of his neck and travels down his left arm to his fingers, as well as wrapping around the back into the left chest. Usually when the pain flairs, he uses cyclobenzaprine and tramadol and that will resolve the majority of the pain. However, this time the pain will not go away with those medications. Pain improves if he angles his head to the right. Pt denies recent trauma, fevers, chills. Pt states he was treated with chemotherapy, electively stopped over a year ago. He was told the cancer metastasized to his lungs, as well as his lumbar spine, they scrapped off as much as they could . On exam, pt has kyphosis, spinal and bilateral paraspinal tenderness at C5-T1. Labratory revealed mild leukocytosis at 12.9, AST elevated at 42, Alk Phos elevated at 251, UA showed urine protein at 300 and WBC 6-10, negative for blood, nitrates, leukocyte esterase, or bacteria. Troponin was negative and EKG was unremarkable. Due to hx of cancer, previous metastasis, and discontinuation of chemo over the past year, there is significant concern for bony metastasis contributing to symptoms, we will obtain CT imaging. 3:22 AM 03/28/2025 (Ainsley RICHEY): The patient is CT imaging has resulted and unfortunately shows interval enlargement of 2 large left lower lobe masses, as well as irregularity of the sternum concerning for lytic lesion of the sternum. The patient's CT neck unfortunately also confirms concern for metastasis into the cervical spine. There is severe lytic changes present at the C7 vertebral body with increased paraspinal soft tissue attenuation with the areas of cortical disruption at C7 most prominent on the left side with probable extension of tumor into the spinal canal and left C7 transverse foramen. There is also areas of disruption of the bilateral C7 lamina and left C7 pedicle. There is also disruption noted of the posterior C7 vertebral body cortex. These findings were discussed with the patient and his spouse. At this time we will plan to discharge the patient with a 2 week course of narcotic pain management, muscle relaxers, and patient has been instructed to follow up with his oncologist Dr. Enriquez by calling tomorrow for a new appointment. The patient advises he has an appointment with his PCP on Friday and will discuss additional pain management at that time. Patient was able to express his understanding of the severity of his diagnosis, advises he will follow up with Dr. Enriquez however we will likely request referral to a palliative care doctor to align with the his goals of care to treat and manage symptoms rather than focus on curative measures. Patient will be discharged with p.o. morphine and p.o. Valium. Differential Diagnosis Differential Diagnoses: The differential diagnosis associated with the presentation includes Cervical Radiculopathy Thoracic Outlet Syndrome Muscle Strain Lab Data 03/27/25 22:53 03/27/25 22:53 Labs: Lab Results 03/27/25 Range/Units 22:53 WBC 12.9 H (4.8-10.8) X10*3/uL RBC 4.79 (4.60-5.80) X10*6/uL Hgb 14.1 (14.0-18.0) g/dl Hct 41.0 L (42.0-52.0) % MCV 85.6 (80.0-98.0) fL MCH 29.4 (27.0-33.0) pg MCHC 34.4 (31.0-36.0) g/dl RDW 13.3 (11.0-16.0) % Plt Count 283 (160-400) X10*3/uL MPV 9.2 L (9.4-12.4) fL Immature Gran % (Auto) 0.4 (0.0-0.4) % Neut % (Auto) 70.8 (45-73) % Lymph % (Auto) 15.6 L (20-40) % [place] % (Auto) 6.7 (2-11) % Eos % (Auto) 5.8 H (0-4) % Baso % (Auto) 0.7 (0-2) % Lymph # (Auto) 2.0 (1.2-4.9) X10*3/uL [place] # (Auto) 0.9 (0.1-1.2) X10*3/uL Eos # (Auto) 0.8 H (0.0-0.4) X10*3/uL Baso # (Auto) 0.1 (0.0-0.2) X10*3/uL Abs Immat Gran (auto) 0.05 H (0.00-0.03) X10*3/uL Absolute Neuts (auto) 9.1 H (2.0-8.3) x10*3/uL Absolute Nucleated RBC 0.000 (0.0-0.012) X10*3/uL Nucleated RBC % (auto) 0.0 (0.0-0.2) /100WBC Sodium 136 (135-145) mmol/L Potassium 3.6 (3.3-5.1) mmol/L Chloride 101 (96-108) mmol/L Carbon Dioxide 24 (22-29) mmol/L Anion Gap 15 (12-20) BUN 9 (9-16) mg/dL Creatinine 0.69 (0.5-1.4) mg/dL Estim Creat Clear Calc 110.4 Estimated GFR > 60 Random Glucose 113 (60-115) mg/dL Calcium 9.2 (8.4-10.2) mg/dL Total Bilirubin 0.5 (0.0-1.0) mg/dL AST 42 H (5-37) U/L ALT 13 (0-40) U/L Alkaline Phosphatase 251 H (39-117) U/L Troponin I High Sens 9.4 (<3.5-35.0) ng/L Total Protein 7.4 (6.5-8.0) g/dL Albumin 4.2 (3.5-5.0) g/dL Discharge Plan Discharge Clinical Impression: Malignant neoplasm metastatic to cervical vertebral column with unknown primary site, Cancer, metastatic to bone, Cervical radiculopathy at C7 Patient Disposition: Home, Self-Care Instructions: Cervical Radiculopathy (ED), Bone Metastasis (ED), Neck Pain (ED) Additional Instructions: Thank you for choosing [facility]'s Emergency Department for your care today. At this time there is no indication for admission to the hospital or continued ED observation, and it is safe to discharge you home. Unfortunately your CT imaging today shows that your worsening chronic neck pain which is no longer responding to your usual interventions, is being caused by invasion of your cervical spine by your metastatic cancer. The majority of the findings are on the left side of your C7 vertebrae, causing compression of the nerves in that area resulting in pain going into your left arm. It is extremely important that you call your oncologist tomorrow to inform them of these changes in your cancer, and to discuss the appropriateness and effectiveness of curative versus palliative care plans. You may take alternating (staggered) doses of ibuprofen 600mg and Tylenol 1000mg every 4 hours as needed for additional pain. As a part of your care plan, you have been prescribed an opiate based pain medication called morphine. Please take this medication only for severe pain that is not relieved by ibuprofen and/or Tylenol. Opiate based medications have a high risk of unintentional addiction and abuse. Take this medication only as directed and only if absolutely necessary. This medicine can make you drowsy, you are not allowed to drive, operate heavy machinery, or be the sole care provider for children while taking this medication. You have also been prescribed a muscle relaxer called Valium. Please take this medication only for severe pain or spasm that is not relieved by ibuprofen and/or Tylenol. Muscle relaxer medications can carry high risk of unintentional addiction and abuse. Take this medication only as directed and only if absolutely necessary. This medicine can make you drowsy, you are not allowed to drive, operate heavy machinery, or be the sole care provider for children while taking this medication. Please also follow up with your primary care physician at your scheduled appointment on Friday for re-evaluation, additional pain management medications, and continued preventative care. If you do not have a primary care physician, please call the [facility] at [phone] to establish a new primary care physician. While waiting to establish your new primary care physician, you can call our [facility] at [phone] for non-emergency needs. Please return to the emergency department if you develop a severe or sudden change in your symptoms, a fever over 100.4 that does not improve with Tylenol or Ibuprofen, recurrent vomiting, or any other new or worsening symptoms or concerns. Prescriptions: New morphine 15 mg tablet 15 mg PO BID PRN (Reason: pain, severe) Qty: 28 0RF Rx Instructions: Partial Fill upon patient request. diazepam [Valium] 5 mg tablet 5 mg PO BID PRN (Reason: muscle spasm) Qty: 28 0RF No Action ondansetron HCl 8 mg Tablet 8 mg PO Q8H PRN (Reason: Pain) tamsulosin 0.4 mg Capsule 0.4 mg PO BEDTIME acetaminophen [Tylenol] 325 mg Capsule 650 mg PO Q6H PRN (Reason: Pain) loperamide 2 mg Capsule 2 mg PO Q4H PRN (Reason: Diarrhea) famotidine 20 mg Tablet 20 mg PO DAILY diphenhydramine HCl [Benadryl Allergy] 25 mg Tablet 25 mg PO QID PRN (Reason: Allergy Symptoms) gabapentin 600 mg Tablet 600 mg PO TID lidocaine 4 % Cream 1 applic TOPICAL DAILY PRN (Reason: Pain) Qty: 100 2RF levofloxacin 250 mg Tablet 250 mg PO DAILY Qty: 5 0RF magnesium oxide 400 mg (241.3 mg magnesium) Tablet 400 mg PO DAILY Qty: 30 3RF amlodipine 5 mg Tablet 5 mg PO DAILY Qty: 30 3RF Referrals: Suzanna Enriquez MD [Physician, Hematology & Oncology] Clinical Impression: Malignant neoplasm metastatic to cervical vertebral column with unknown primary site; Cancer, metastatic to bone; Cervical radiculopathy at C7 Interventions: ED Discharge Assessment Last Done: 03/28/25 04:27 Discharge Date/Time: 03/28/25 04:27 Print Language: Luxembourgish
[2025-03-28 00:17] VITALS: RESP 16
[2025-03-28] MEDS: diazePAM 10 MG/2 ML CARTRIDGE IVPUSH (00:17)
[2025-03-28] MEDS: iohexoL 350 MG/ML 100 ML INFUS..BTL IV (01:21)
[2025-03-28 02:12] VITALS: BP 147/85; PULSE 90; RESP 15; TEMP 36.6; O2SAT 96
--- NOTE | 2025-03-28 04:25 | PC.NURSE ---
pt port flushed with heparin and deaccessed at this time
[2025-03-28 04:27] VITALS: BP 177/93; PULSE 100; RESP 18; TEMP 36.5; O2SAT 99
== END 2025-03-28 04:27 | disposition home or self-care (01) ==
PROVIDERS: Emergency Provider Emergency Medicine; PCP Internal Medicine Medical Oncology
DX: C20 Malignant neoplasm of rectum (principal); C78.00 Secondary malignant neoplasm of unspecified lung; C79.51 Secondary malignant neoplasm of bone; M54.12 Radiculopathy, cervical region; J44.9 Chronic obstructive pulmonary disease, unspecified; Z79.899 Other long term (current) drug therapy; Z87.442 Personal history of urinary calculi; Z87.891 Personal history of nicotine dependence
CPT/HCPCS: 36415; 70491; 71260; 80053; 84484; 85025; 93005; 96361; 96374; 96375; 99285; J1642; J1885; J2270; J3360; Q9967

== ENCOUNTER → 2025-03-27 23:00 | Outpatient (BNV) | payer OTHER, SELFPAY | PROVIDERS: Emergency Provider Emergency Medicine; PCP Internal Medicine Medical Oncology; Visit Provider Internal Medicine Cardiovascular Disease | DX: R94.31 Abnormal electrocardiogram [ECG] [EKG] (principal); R42 Dizziness and giddiness | CPT/HCPCS: 93010 ==

== ENCOUNTER → 2025-03-28 00:29 | Outpatient (BNV) | payer OTHER, SELFPAY | PROVIDERS: Emergency Provider Emergency Medicine; PCP Internal Medicine Medical Oncology; Visit Provider Radiology Diagnostic Radiology | DX: M54.2 Cervicalgia (principal); R91.8 Other nonspecific abnormal finding of lung field; M89.8X8 Other specified disorders of bone, other site | CPT/HCPCS: 70491; 71260 ==